=== PATIENT | male | born 1950 | race Caucasian/White ===

== ENCOUNTER → 2016-12-24 | Outpatient (CLI) | payer MEDICARE ==
[2016-04-21 12:00] VITALS: BP 132/68
[~2016-12-24] MED LIST: ASPI-630 PO; ATOR20TA PO; BACL10TA PO; BUPR300T4 PO; CALC250T PO; CELE200C PO; DOCU250C54 PO; DOXY100T PO; ERGO500027 PO; GABA-587 PO; HYDR-2758 PO; HYDR-2766 PO; HYDR-963 PO; INSU100C4 SQ; INSU100V8 SQ; LISI30TA4 PO; METH10TA2 PO; METO50TA2 PO; NORT50CA PO; OMEP20TA63 PO; OXYB10TA7 PO; PARO40TA3 PO; PIOG15TA2 PO; SENN-37 PO; TAMS0.4C97 PO; TETR12.5 PO
--- NOTE | 2016-12-24 10:54 | KCIC ---
Complete abdominal ultrasound History:Gallbladder disease. Findings: Aorta: Obscured proximally. Visualized aorta is nonaneurysmal. Inferior vena cava: Patent Pancreas: Poor visualization. Liver: Slightly coarse echogenicity could indicate fatty infiltration. Upper limits normal in size at 18.1 cm longitudinal. Gallbladder: No evidence of cholelithiasis, gallbladder wall thickening or pericholecystic fluid. Bile ducts: Common bile duct measures 7 mm diameter. Right kidney: 13.7 cm longitudinal without hydronephrosis. Left kidney: 11.7 cm longitudinal. Renal cysts identified measuring 3.1 cm diameter. Spleen: Borderline enlarged at 12.9 cm. Impression: 1. No significant gallbladder pathology. Borderline common bile duct dilatation at 7 mm. 2. Left renal cyst. Electronically signed by: Vincent Hernandez MD (12/24/2016 10:51 AM) [facility]
== END | disposition home or self-care (01) ==
LOC: KCIC US 09:31
PROVIDERS: ATTEND Family Medicine
DX: N28.1 Cyst of kidney, acquired (principal)
CPT/HCPCS: 76700

== ENCOUNTER → 2017-04-14 | Outpatient (CLI) | payer MEDICARE ==
[2016-04-21 12:00] VITALS: BP 132/68
[~2017-04-14] MED LIST changes: +FINA5TAB PO; +INSU100I13 SQ
[2017-04-14 14:21] LABS: BASO # 0.1 x10^3/uL (0.0-0.2); BASO % 1 % (0-3); EOS % 2 % (0-3); HEMATOCRIT 51.2 % (39.0-53.0); HEMOGLOBIN 17.2 g/dL (13.0-17.5); LYMPH # 1.8 x10^3/uL (1.0-4.8); LYMPH % 25 % (24-48); MEAN CORPUSCULAR HEMOGLOBIN 31 pg (25-35); MEAN CORPUSCULAR HGB CONC 34 g/dL (31-37); MEAN CORPUSCULAR VOLUME 93 fL (79-100); MONO % 7 % (0-9); NEUT % 66 % (31-73); PLATELET COUNT 161 x10^3/uL (140-400); RED BLOOD COUNT 5.49 x10^6/uL (4.30-5.70); RED CELL DISTRIBUTION WIDTH 13.6 % (11.5-14.5); WHITE BLOOD COUNT 7.4 x10^3/uL (4.0-11.0)
[2017-04-14 14:33] LABS: INR 1.2 (0.8-1.1); PROTHROMBIN TIME PATIENT 14.5 SEC (11.7-14.0)
[2017-04-14 14:48] LABS: ALBUMIN 3.7 g/dL (3.4-5.0); CALCIUM 9.1 mg/dL (8.5-10.1); GFR 74.8; POTASSIUM 4.2 mmol/L (3.5-5.1); TOTAL BILIRUBIN 0.8 mg/dL (0.2-1.0); TOTAL PROTEIN 7.5 g/dL (6.4-8.2)
== END | disposition home or self-care (01) ==
LOC: SURGPAT 13:24
PROVIDERS: ATTEND Neurological Surgery
DX: Z01.818 Encounter for other preprocedural examination (principal); M43.6 Torticollis
CPT/HCPCS: 36415; 80053; 83036; 85025; 85610; 85730; 87641

== ENCOUNTER 2017-04-27 06:48 | Day surgery (SDC) | payer MEDICARE, BC ==
[~2017-04-27] VITALS: Ht 185.4 cm; Wt 118.8 kg
[~2017-04-27 06:48] MED LIST changes: +BACITRACIN 50,000 UNIT in IV NORMAL SALINE 1000ML BAG 1,000 ML IRR ONE; +IV RINGERS,LACTATED 1000ML 1,000 ML IV SCH; +LIDOCAINE 1% PF 2 ML VIAL. ID PRN; -METO50TA2 PO; +METO50TA6 PO; +ONDANSETRON PF 4 MG/2 ML VIAL. IV PRN; +PROCHLORPERAZINE 10 MG/2 ML VIAL. IV PRN; +fentaNYL PF VIAL 100 MCG/2 ML VIAL IV PRN
[2017-04-27] MEDS ORDERED: BACITRACIN TOPICAL OINT 14GM TUBE. TP ONE (06:59)
[2017-04-27] MEDS ORDERED: LIDOCAINE 1%/EPI 1:100,000 20 ML VIAL. ONE (06:59)
[2017-04-27] MEDS ORDERED: ONDANSETRON PF 4 MG/2 ML VIAL. IV PRN (07:00)
[2017-04-27] MEDS ORDERED: LIDOCAINE 1% PF 2 ML VIAL. ID PRN (07:00)
[2017-04-27] MEDS ORDERED: IV RINGERS,LACTATED 1000ML 1,000 ML IV SCH (07:00)
[2017-04-27] MEDS ORDERED: fentaNYL PF VIAL 100 MCG/2 ML VIAL IV PRN ×2 (07:00)
[2017-04-27] MEDS ORDERED: PROCHLORPERAZINE 10 MG/2 ML VIAL. IV PRN (07:00)
[2017-04-27] MEDS ORDERED: ceFAZolin 2GM PREMIX 2 GM/50 ML BAG IV ONE (08:00)
[2017-04-27] MEDS ORDERED: PROPOFOL 20 ML IV ONE (08:21)
[2017-04-27] MEDS ORDERED: fentaNYL PF VIAL 100 MCG/2 ML VIAL ONE (08:21)
[2017-04-27] MEDS ORDERED: LIDOCAINE 2% PF Vial for OR 5 ML VIAL. ONE (08:21)
[2017-04-27] MEDS ORDERED: ONDANSETRON PF 4 MG/2 ML VIAL. ONE (08:42)
[2017-04-27] MEDS ORDERED: DEXAMETHASONE SOD PHOS 20 MG/5 ML VIAL. ONE (08:42)
[2017-04-27] MEDS ORDERED: GLYCOPYRROLATE 1 MG/5 ML VIAL. ONE (08:57)
[2017-04-27] MEDS ORDERED: LIDOCAINE 1%/EPI 1:100,000 20 ML VIAL. INJ ONE (09:10)
[2017-04-27] MEDS ORDERED: PHENYLEPHRINE in 0.9% NACL PF 1 MG/10 ML DISP.SYRIN. IV ONE (09:19)
[2017-04-27] MEDS ORDERED: SEVOFLURANE 61 TO 120 MINUTES. IH ONE (09:49)
--- NOTE | 2017-04-27 10:07 | PDOC ---
BRIEF OPERATIVE NOTE Date: Apr 27, 2017 Pre-Op Diagnosis torticollis with bilateral DBS system with depleted dual channel intermittent pulse generator due to normal usage Post-Op Diagnosis same Procedure Performed removal and replacement of dual channel intermittent pulse generator right chest with impedance check and reprogramming Surgeon Kishan Mail Reader none Anesthesia Type: General Blood Loss 10mL Findings upon completion of replacement and connections of new intermittent pulse generator, impedances were baseline and within normal limits Complications none apparent SHASHI RAZO MD Apr 27, 2017 10:07
--- NOTE | 2017-04-27 10:12 | DISCH ---
DISCHARGE INSTRUCTIONS Condition on Discharge Condition on Discharge: Stable Activity After Discharge Activity Instructions for Disc: Avoid exertion Lifting Instructions after Dis: No pulling or pushing Wound Incision Care Wound/Incision Care: Ice to area for comfort, Other, see below (may remove dressing day 3 after surgery; keep incision clean and dry; do not soak, scrub, or submerge incision) Contacting the after DC Call your doctor for: Concerns you may have Follow-Up Follow up with: Dr. Razo in two weeks [phone] SHASHI RAZO MD Apr 27, 2017 10:12
[2017-04-27] MEDS ORDERED: OXYC-323 PO (10:27)
[2017-04-27] MEDS ORDERED: oxyCODONE/APAP 5/325 1 TAB TABLET PO PRN (10:30)
[2017-04-27 11:02] VITALS: BP 139/81
--- NOTE | 2017-05-02 12:21 | OP ---
DATE OF SURGERY: 04/27/2017 SURGEON: Hang Razo MD. AUTOMATION CONTROL TECHNICIAN: None. PREOPERATIVE DIAGNOSES: Torticollis with presence of a bilateral deep brain stimulation system with a depleted dual-channel deep brain stimulator intermittent pulse generator secondary to normal usage. POSTOPERATIVE DIAGNOSES: Torticollis with presence of a bilateral deep brain stimulation system with a depleted dual-channel deep brain stimulator intermittent pulse generator secondary to normal usage. PROCEDURE: Removal and replacement of dual-channel deep brain stimulation intermittent pulse generator from the right chest. Interrogation of device with impedance check and reprogramming of the new intermittent pulse generator. ANESTHESIA: General. COMPLICATIONS: None intraprocedurally. INDICATIONS FOR THE PROCEDURE: The patient is a 66-year-old male with torticollis who has a bilateral globus pallidus internus deep brain stimulation system with a dual-channel intermittent pulse generator in the right chest who has developed depletion of the intermittent pulse generator secondary to normal usage. He derives significant benefit from this deep brain stimulation system. Please refer to the patient chart for additional detail. DESCRIPTION OF PROCEDURE: After informed consent was obtained, the patient was brought into the operating room. He was placed under general anesthesia. He was placed in the supine position. All pressure points were checked and padded appropriately. Prior to sterile preparation, the old intermittent pulse generator was interrogated with evaluation of baseline impedances and the system was turned off after generalize anesthesia was instituted. Next, the region of the prior right chest incision was prepped and draped in the usual sterile fashion. The previous incision was gently reopened with a 15 blade scalpel. Blunt dissection techniques were utilized to gently dissect the underlying soft tissues to the capsule containing the intermittent pulse generator. Of note, no monopolar electrocautery was utilized according to present guidelines. The prior intermittent pulse generator was dissected free and carefully removed from the right chest capsule. A standard [employer] DBS torque screw charter and tour bus driver was utilized to disconnect the old intermittent pulse generator according to the project buyer specification. The new intermittent pulse generator was brought on the field and this was attached to the dual-channel lead extensions and secured with the standard DBS torque charter and tour bus driver according to the project buyer specification. It was reinserted into the prior capsule in the same orientation as prior and interrogated in sterile fashion. Impedances were checked and noted to be baseline and within normal limits. Once this was complete, the wound was gently irrigated with antibiotic irrigation. The capsule was reapproximated with Vicryl suture in simple interrupted fashion. Subcutaneous tissue was reapproximated with Vicryl suture in interrupted inverted fashion. Skin was reapproximated with 4-0 Vicryl suture in running subcuticular fashion. Mastisol and Steri-Strips were applied, and the wound was dressed with Telfa and Tegaderm. Upon completion of the procedure, interrogation was again performed and the new intermittent pulse generator was reprogrammed to the prior specifications. Again, the impedances were verified to be at baseline and within normal limits. The system was turned on prior to the patient waking up from anesthesia. At the end of procedure, all counts were correct x 2. The patient was extubated in the operating room and taken to recovery in stable condition. There were no intraprocedural complications apparent. HANG RAZO MD DR: LEE/jake JOB#: [id number] / [id number] NATALIE
== END 2017-04-27 11:35 | disposition home or self-care (01) ==
LOC: SURG 06:48
PROVIDERS: ATTEND Neurological Surgery
DX: M43.6 Torticollis (principal); T85.698A Other mechanical complication of other specified internal prosthetic devices, implants and grafts, initial encounter; Y84.9 Medical procedure, unspecified as the cause of abnormal reaction of the patient, or of later complication, without mention of misadventure at the time of the procedure; Y92.89 Other specified places as the place of occurrence of the external cause; E78.00 Pure hypercholesterolemia, unspecified; E66.9 Obesity, unspecified; F41.9 Anxiety disorder, unspecified; F32.9 Major depressive disorder, single episode, unspecified; Z98.41 Cataract extraction status, right eye; Z98.42 Cataract extraction status, left eye; Z98.890 Other specified postprocedural states; Z86.39 Personal history of other endocrine, nutritional and metabolic disease; Z87.39 Personal history of other diseases of the musculoskeletal system and connective tissue; Z86.14 Personal history of Methicillin resistant Staphylococcus aureus infection; Z72.0 Tobacco use
CPT/HCPCS: 61886; 82962; C1767; J0690; J1100; J2370; J2405; J2704; J3010; J3490; J7030; A4461; J2001

== ENCOUNTER 2018-08-12 12:30 | Emergency (ER) | payer MEDICARE, BC ==
[~2018-08-12] VITALS: Ht 175.3 cm; Wt 118.8 kg
[~2018-08-12 12:30] MED LIST changes: -BACITRACIN 50,000 UNIT in IV NORMAL SALINE 1000ML BAG 1,000 ML IRR ONE; -GABA-587 PO; +GABA-689 PO; -HYDR-2758 PO; +HYDR-2761 PO; -HYDR-2766 PO; +HYDR-2769 PO; +HYDR-3135 PO; -HYDR-963 PO; -IV RINGERS,LACTATED 1000ML 1,000 ML IV SCH; -LIDOCAINE 1% PF 2 ML VIAL. ID PRN; -ONDANSETRON PF 4 MG/2 ML VIAL. IV PRN; +OXYC1TAB15 PO; -PIOG15TA2 PO; +PIOG15TA63 PO; -PROCHLORPERAZINE 10 MG/2 ML VIAL. IV PRN; -fentaNYL PF VIAL 100 MCG/2 ML VIAL IV PRN
--- NOTE | 2018-08-12 12:52 | PHYS DOC ---
Past Medical History Past Medical History: Diabetes-Type II, Hypertension, MRSA Additional Past Medical Histor: MRSA, cervical dystonia Past Surgical History: Appendectomy, Knee Replacement, Tonsillectomy, Other Additional Past Surgical Histo: DEEP BRAIN STIMULATOR Alcohol Use: Sober Drug Use: None Adult General Chief Complaint Chief Complaint: MECHANICAL FALL HPI HPI Patient is a 67 year old male who presents with coming from senior living. 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 When he leaned his body fell off bed and he ended up falling on top of head. Patient is on blood thinners. Patient does have a egg-sized bump that is reddened to the frontal region of his scalp. Patient denies LOC, nausea, vomiting, dizziness, visual changes, cervical spine pain, pain anywhere else in his body. Review of Systems Review of Systems Constitutional: Denies fever or chills [] Eyes: Denies change in visual acuity, redness, or eye pain [] HENT: Denies nasal congestion or sore throat [] Respiratory: Denies cough or shortness of breath [] Cardiovascular: No additional information not addressed in HPI [] GI: Denies abdominal pain, nausea, vomiting, bloody stools or diarrhea [] : Denies dysuria or hematuria [] Musculoskeletal: Bump to frontal scalp, Denies back pain or joint pain [] Integument: Denies rash or skin lesions [] Neurologic headache,denies focal weakness or sensory changes [] All other systems were reviewed and found to be within normal limits, except as documented in this note. Allergies Allergies Allergies Coded Allergies Type Severity Reaction Last Updated Verified buprenorphine HCl Allergy Intermediate 04/27/17 Yes naloxone HCl Allergy Intermediate 04/27/17 Yes Physical Exam Physical Exam Constitutional: Well developed, well nourished, no acute distress, non-toxic appearance. [] HENT: Normocephalic, atraumatic, bilateral external ears normal, oropharynx moist, no oral exudates, nose normal. [] Eyes: PERRLA, EOMI, conjunctiva normal, no discharge. [] Neck: Normal range of motion, no tenderness, supple, no stridor. [] Cardiovascular:Heart rate regular rhythm, no murmur [] Lungs & Thorax: Bilateral breath sounds clear to auscultation [] Abdomen: Bowel sounds normal, soft, no tenderness, no masses, no pulsatile masses. [] Skin:Tender Egg sized bump to frontal scalp. Warm, dry, no erythema, no rash. [ ] Back: No tenderness, no CVA tenderness. [] Extremities: No tenderness, no cyanosis, no clubbing, ROM intact, no edema. [] Neurologic: Alert and oriented X 3, normal motor function, normal sensory function, no focal deficits noted. [] Psychologic: Affect normal, judgement normal, mood normal. [] Current Patient Data Vital Signs Vital Signs Date Time Temp Pulse Resp B/P (MAP) Pulse Ox O2 Delivery O2 Flow Rate FiO2 08/12/18 12:30 98.0 58 19 124/68 (86) 96 Room Air 98.0 EKG EKG [] Radiology/Procedures Radiology/Procedures [] Impressions: [facility] [address] [place] [address] IMAGING REPORT Signed PATIENT: MARGARETH HENRY ACCOUNT: [id number] : 1950 LOCATION: ER AGE: 67 SEX: M EXAM STATUS: REG ER ORD. PHYSICIAN: JENNIFER HARRELL APRN REASON: fall, bruise to top of head PROCEDURE: CT HEAD AND CERVICAL SPINE WO CT HEAD AND CERVICAL SPINE WO Indication: head and neck pain after fall Exposure: One or more of the following individualized dose reduction techniques were utilized for this examination: 1. Automated exposure control 2. Adjustment of the mA and/or kV according to patient size 3. Use of iterative reconstruction technique. Technique: Standard imaging without intravenous contrast. CT head Comparison with images from 07/22/2014, the report is not available. There is metal artifact degradation of the brain, similar to Margareth Blair years Dr. Hernadnez what was seen on prior study. There are metallic intracranial devices. No evidence of acute intracranial hemorrhage, mass effect, midline shift or abnormal extra-axial fluid collection. Generalized atrophy. Low-density in the white matter bilaterally, a nonspecific finding, but which is commonly due to chronic small vessel ischemic disease in a patient of this age. Opacity within the right maxillary sinus was also seen previously likely mucous retention cyst or polyp. No evidence of a depressed skull fracture although a point of impact is not known. IMPRESSION: 1. Image degradation due to implanted intracranial devices. 2. Chronic findings appear similar as previous exam. 3. No definite acute intracranial hemorrhage. CT cervical spine No prior study available for comparison. Partially visualized sphenoid sinus demonstrates moderate to severe mucosal thickening on the left. Mild left maxillary sinus mucosal thickening. Small defect at the posterior ring of C1 likely developmental. Cervico-occipital junction appears intact. C1-C2 appears symmetric. No definite acute fracture is identified. Detection could be limited by osteopenia and degenerative changes, however, as well as image degradation of the lower cervical spine due to overlying body tissue. Multilevel degenerative spondylosis with cervical spinal and neural foraminal stenosis. Degenerative changes at the facet joints without gross subluxation. Straightening of the cervical lordosis could be due to pain or muscle spasm. Prevertebral soft tissues demonstrate no significant swelling or hematoma. There is a spiculated mass in the right upper lobe, measures about 11 mm. Concerning for malignant etiology. There is deformity of the left outer clavicle with severe degenerative changes at the partially visualized AC joint. IMPRESSION: 1. Severe degenerative spondylosis. 2. No definite acute fracture. 3. Spiculated mass in the upper lobe of the right lung, measures 11 mm. Concerning for malignant etiology. Consider PET/CT scan for further evaluation, if this is an unknown new finding. 4. Paranasal sinus disease. 5. Severe deformity oral trauma of the outer left clavicle and AC joint. FOR INTERNAL CODING PURPOSES Critical result: Findings discussed with Jennifer Harrell in the emergency room at 08/12/2018 1:53 PM. RESULT CODE: (C) Electronically signed by: Vincent Hernandez MD (08/12/2018 1:55 PM) [facility] DICTATED and SIGNED BY: VINCENT HERNANDEZ MD DATE: 08/12/18 5577 Course & Med Decision Making Course & Med Decision Making Patient is a 67 year old male who presents with coming from senior living. 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 When he leaned his body fell off bed and he ended up falling on top of head. Patient is on blood thinners. Patient does have a egg-sized bump that is reddened to the frontal region of his scalp. Patient denies LOC, nausea, vomiting, dizziness, visual changes, cervical spine pain, pain anywhere else in his body. Alert and oriented. Speaks in full clear sentences. Answers my questions appropriately. Patient has no ocular pain with movement. states he is acting normal for himself. Patient has full range of motion of his neck. Patient has no cervical spine, thoracic spine or lumbar spine pain with palpation. Patient has tenderness to the frontal region of his scalp where the egg-sized bump is located. There is no lacerations or abrasions seen on patient's body else where. Ct head shows 1. Image degradation due to implanted intracranial devices. 2. Chronic findings appear similar as previous exam. 3. No definite acute intracranial hemorrhage. CT cervical spine shows 1. Severe degenerative spondylosis. 2. No definite acute fracture. 3. Spiculated mass in the upper lobe of the right lung, measures 11 mm. Concerning for malignant etiology. Consider PET/CT scan for further evaluation, if this is an unknown new finding. 4. Paranasal sinus disease. 5. Severe deformity oral trauma of the outer left clavicle and AC joint. Patient needs to follow up with primary care provider for further evaluation of lung mass. Patient is discharged home with a scalp contusion and strict instructions to return if patient begin vomiting, becomes altered mental status , visual changes, dizziness or syncope. Dragon Disclaimer Dragon Disclaimer This electronic medical record was generated, in whole or in part, using a voice recognition dictation system. Departure Departure Impression: Primary Impression: Head injury Additional Impression: Scalp contusion Disposition: 01 HOME, SELF-CARE Condition: STABLE Referrals: VINCENT ATKINSON MD (PCP) Patient Instructions: Facial or Scalp Contusion, Head Injury, Adult Additional Instructions: Patient needs to follow up with primary care provider for further evaluation of lung mass. Patient is discharged home with a scalp contusion and strict instructions to return if patient begin vomiting, becomes altered mental status , visual changes, dizziness or syncope. Use tylenol or ice for pain. Problem Qualifiers Primary Impression: Head injury Encounter type: initial encounter Qualified Codes: S09.90XA - Unspecified injury of head, initial encounter Additional Impression: Scalp contusion Encounter type: initial encounter Qualified Codes: S00.03XA - Contusion of scalp, initial encounter JENNIFER HARRELL APRN Aug 12, 2018 12:51
--- NOTE | 2018-08-12 13:58 | RAD ---
CT HEAD AND CERVICAL SPINE WO Indication: head and neck pain after fall Exposure: One or more of the following individualized dose reduction techniques were utilized for this examination: 1. Automated exposure control 2. Adjustment of the mA and/or kV according to patient size 3. Use of iterative reconstruction technique. Technique: Standard imaging without intravenous contrast. CT head Comparison with images from 07/22/2014, the report is not available. There is metal artifact degradation of the brain, similar to Dimitris Blair years Dr. Hernandez what was seen on prior study. There are metallic intracranial devices. No evidence of acute intracranial hemorrhage, mass effect, midline shift or abnormal extra-axial fluid collection. Generalized atrophy. Low-density in the white matter bilaterally, a nonspecific finding, but which is commonly due to chronic small vessel ischemic disease in a patient of this age. Opacity within the right maxillary sinus was also seen previously likely mucous retention cyst or polyp. No evidence of a depressed skull fracture although a point of impact is not known. IMPRESSION: 1. Image degradation due to implanted intracranial devices. 2. Chronic findings appear similar as previous exam. 3. No definite acute intracranial hemorrhage. CT cervical spine No prior study available for comparison. Partially visualized sphenoid sinus demonstrates moderate to severe mucosal thickening on the left. Mild left maxillary sinus mucosal thickening. Small defect at the posterior ring of C1 likely developmental. Cervico-occipital junction appears intact. C1-C2 appears symmetric. No definite acute fracture is identified. Detection could be limited by osteopenia and degenerative changes, however, as well as image degradation of the lower cervical spine due to overlying body tissue. Multilevel degenerative spondylosis with cervical spinal and neural foraminal stenosis. Degenerative changes at the facet joints without gross subluxation. Straightening of the cervical lordosis could be due to pain or muscle spasm. Prevertebral soft tissues demonstrate no significant swelling or hematoma. There is a spiculated mass in the right upper lobe, measures about 11 mm. Concerning for malignant etiology. There is deformity of the left outer clavicle with severe degenerative changes at the partially visualized AC joint. IMPRESSION: 1. Severe degenerative spondylosis. 2. No definite acute fracture. 3. Spiculated mass in the upper lobe of the right lung, measures 11 mm. Concerning for malignant etiology. Consider PET/CT scan for further evaluation, if this is an unknown new finding. 4. Paranasal sinus disease. 5. Severe deformity oral trauma of the outer left clavicle and AC joint. FOR INTERNAL CODING PURPOSES Critical result: Findings discussed with Jennifer Harrell in the emergency room at 08/12/2018 1:53 PM. RESULT CODE: (C) Electronically signed by: Vincent Hernandez MD (08/12/2018 1:55 PM) [facility]
[2018-08-12 15:00] VITALS: BP 131/80
== END 2018-08-12 15:20 | disposition home or self-care (01) ==
LOC: ER 12:30
DX: S00.03XA Contusion of scalp, initial encounter (principal); I10 Essential (primary) hypertension; E11.9 Type 2 diabetes mellitus without complications; Z86.14 Personal history of Methicillin resistant Staphylococcus aureus infection; Z88.8 Allergy status to other drugs, medicaments and biological substances; W06.XXXA Fall from bed, initial encounter; Y93.89 Activity, other specified; Y92.89 Other specified places as the place of occurrence of the external cause; Y99.8 Other external cause status
CPT/HCPCS: 70450; 72125; 99284-25

== ENCOUNTER 2019-01-15 13:49 | Inpatient (IN) | payer MEDICARE, BC, MEDICAID ==
[~2019-01-15] VITALS: Ht 185.4 cm; Wt 110.5 kg
--- NOTE | 2019-01-15 14:07 | PHYS DOC ---
Past Medical History Past Medical History: Depression, Diabetes-Type II, GERD, Heart Disease, Hypertension, MRSA, Stroke Additional Past Medical Histor: MRSA, cervical dystonia, L side defecit following stroke Past Surgical History: Appendectomy, Knee Replacement, Tonsillectomy, Other Additional Past Surgical Histo: DEEP BRAIN STIMULATOR Alcohol Use: Sober Drug Use: None Adult General Chief Complaint Chief Complaint: RAPID HEART RATE HPI HPI Patient is a 68 year old male with a history of hypertension, diabetes, CVA in 2018, CAD presents to ED complaining of chest pain and shortness of breath. [facility] States he had chest pain while he was sitting in his wheelchair. States they called EMS. Patient had a heart rate of 176 thought to be in SVT. at bedside reports that patient had that high of a heart rate for over 1 hour. Patient converted on his own and is currently at 76 bpm. No adenosine was given (drawn up but he converted). Complains of shortness of breath. Patient is currently being treated for pneumonia outpatient with IV Rocephin at the facility. Patient is on day 4 out of 5 on antibiotics. Denies nausea/vomiting, headache, syncope, abdominal pain, diarrhea, blood in stool, fever. Review of Systems Review of Systems Constitutional: Denies fever or chills [] Eyes: Denies change in visual acuity, redness, or eye pain [] HENT: Denies nasal congestion or sore throat [] Respiratory: Complains of shortness of breath and cough.[] Cardiovascular: No additional information not addressed in HPI [] GI: Denies abdominal pain, nausea, vomiting, bloody stools or diarrhea [] : Denies dysuria or hematuria [] Musculoskeletal: Denies back pain or joint pain [] Integument: Denies rash or skin lesions [] Neurologic: Denies headache, focal weakness or sensory changes [] All other systems were reviewed and found to be within normal limits, except as documented in this note. Current Medications Current Medications Current Medications Medications (Trade) Dose Ordered Sig/Zechariah Start Time Stop Time Status Last Admin Dose Admin Acetaminophen (Tylenol) 650 mg PRN Q4HRS PRN 01/15/19 16:15 01/16/19 16:14 Fentanyl Citrate (Fentanyl 2ml Vial) 50 mcg PRN Q1HR PRN 01/15/19 16:15 01/16/19 16:14 Ondansetron HCl (Zofran) 4 mg PRN Q8HRS PRN 01/15/19 16:15 01/16/19 16:14 Piperacillin Sod/ Tazobactam Sod 3.375 gm/Sodium Chloride 50 ml @ 100 mls/hr 1X ONCE 01/15/19 16:00 01/15/19 16:29 DC 01/15/19 16:23 100 MLS/HR Vancomycin HCl (Vanco Per Pharmacy) 1 each 1X STAT 01/15/19 15:55 01/15/19 16:03 DC Vancomycin HCl 2 gm/Sodium Chloride 500 ml @ 250 mls/hr 1X ONCE 01/15/19 16:15 01/15/19 18:14 Allergies Allergies Allergies Coded Allergies Type Severity Reaction Last Updated Verified buprenorphine HCl Allergy Intermediate 04/27/17 Yes naloxone HCl Allergy Intermediate 04/27/17 Yes Physical Exam Physical Exam Constitutional: no acute distress, non-toxic appearance. [] HENT: Normocephalic, atraumatic Eyes: PERRLA, EOMI, conjunctiva normal, no discharge. [] Neck: Normal range of motion, no tenderness, supple, no stridor. [] Cardiovascular:Heart rate regular rhythm, no murmur [] Lungs & Thorax: Bilateral breath sounds clear to auscultation [] Abdomen: Bowel sounds normal, soft, no tenderness, no masses, no pulsatile masses. [] Skin: Warm, dry, no erythema, no rash. [] Back: No tenderness, no CVA tenderness. [] Extremities: No tenderness, no cyanosis, no clubbing, ROM intact, no edema. [] Neurologic: Alert and oriented X 3 per his normal. Right sided hemiparesis at baseline. Psychologic: Affect normal, judgement normal, mood normal. [] Current Patient Data Vital Signs Vital Signs Date Time Temp Pulse Resp B/P (MAP) Pulse Ox O2 Delivery O2 Flow Rate FiO2 01/15/19 13:50 98.4 76 20 120/80 (93) 96 Room Air 98.4 Lab Values Laboratory Tests Test 01/15/19 13:55 White Blood Count 7.4 x10^3/uL (4.0-11.0) Red Blood Count 5.12 x10^6/uL (4.30-5.70) Hemoglobin 15.9 g/dL (13.0-17.5) Hematocrit 46.9 % (39.0-53.0) Mean Corpuscular Volume 92 fL (79-100) Mean Corpuscular Hemoglobin 31 pg (25-35) Mean Corpuscular Hemoglobin Concent 34 g/dL (31-37) Red Cell Distribution Width 14.4 % (11.5-14.5) Platelet Count 231 x10^3/uL (140-400) Neutrophils (%) (Auto) 65 % (31-73) Lymphocytes (%) (Auto) 22 % (24-48) L Monocytes (%) (Auto) 11 % (0-9) H Eosinophils (%) (Auto) 1 % (0-3) Basophils (%) (Auto) 1 % (0-3) Neutrophils # (Auto) 4.8 x10^3/uL (1.8-7.7) Lymphocytes # (Auto) 1.6 x10^3/uL (1.0-4.8) Monocytes # (Auto) 0.9 x10^3/uL (0.0-1.1) Eosinophils # (Auto) 0.1 x10^3/uL (0.0-0.7) Basophils # (Auto) 0.1 x10^3/uL (0.0-0.2) Prothrombin Time 15.8 SEC (11.7-14.0) H Prothrombin Time INR 1.3 (0.8-1.1) H Sodium Level 141 mmol/L (136-145) Potassium Level 4.1 mmol/L (3.5-5.1) Chloride Level 105 mmol/L (98-107) Carbon Dioxide Level 22 mmol/L (21-32) Anion Gap 14 (6-14) Blood Urea Nitrogen 18 mg/dL (8-26) Creatinine 1.3 mg/dL (0.7-1.3) Estimated GFR (Cockcroft-Gault) 54.9 BUN/Creatinine Ratio 14 (6-20) Glucose Level 362 mg/dL (70-99) H Calcium Level 9.1 mg/dL (8.5-10.1) Total Bilirubin 0.4 mg/dL (0.2-1.0) Aspartate Amino Transferase (AST) 10 U/L (15-37) L Alanine Aminotransferase (ALT) 16 U/L (16-63) Alkaline Phosphatase 97 U/L (46-116) Creatine Kinase 47 U/L (39-308) Troponin I Quantitative < 0.017 ng/mL (0.000-0.055) QX-Edk-C-Type Natriuretic Peptide 635 pg/mL (0-124) H Total Protein 7.4 g/dL (6.4-8.2) Albumin 3.2 g/dL (3.4-5.0) L Albumin/Globulin Ratio 0.8 (1.0-1.7) L Thyroid Stimulating Hormone (TSH) 2.871 uIU/mL (0.358-3.74) Laboratory Tests 01/15/19 13:55 Laboratory Tests 01/15/19 13:55 EKG EKG Sinus rhythm at 75 BPM. No STEMI. [] Radiology/Procedures Radiology/Procedures []PROCEDURE: PORTABLE CHEST 1V EXAM: CHEST 1 VIEW History: Chest pain COMPARISON: 04/21/2016 TECHNIQUE: Single portable radiograph of the chest FINDINGS: Low lung volumes and technique accentuates heart size and pulmonary vascularity. Mild cardiomegaly. There is moderate elevation of the right hemidiaphragm with volume loss in the right lung base. Mild bibasilar lung airspace opacities. Stimulator leads project over the right hemithorax. Old left clavicle fracture again identified. IMPRESSION: 1. Moderate elevation of the right hemidiaphragm with volume loss right lung base. PROCEDURE: CT CHEST WO CONTRAST Examination: CT chest without contrast HISTORY: History of pneumonia, cough COMPARISON: None available. TECHNIQUE: Axial CT images of chest were performed without contrast. Coronal and sagittal reformats are performed Exposure: One or more of the following individualized dose reduction techniques were utilized for this examination: 1. Automated exposure control 2. Adjustment of the mA and/or kV according to patient size 3. Use of iterative reconstruction technique FINDINGS: Moderate cardiomegaly. Coronary artery calcifications. The caliber of the aorta grossly appears unremarkable. Moderate elevation of the right hemidiaphragm. Volume loss identified in the right lung base. There is moderate consolidation identified in the right lung base with air bronchograms. There is peripheral pleural calcification identified in the right lung base The visualized noncontrasted liver, spleen, adrenals grossly appears unremarkable. Moderate degenerative changes thoracic spine. Old left clavicle fracture. IMPRESSION: 1. Volume loss identified in the right lung base with moderate consolidation and air bronchograms in the right lower lobe of the lung. Differential includes pneumonia or postobstructive atelectasis. Recommend bronchoscopic evaluation to exclude bronchial pathology/neoplasm. 2. Coronary artery calcifications. Course & Med Decision Making Course & Med Decision Making Pertinent Labs and Imaging studies reviewed. (See chart for details) []Reviewed lab and imaging findings with family at bedside. Patient is on day 4 out of 5 on antibiotics and is still having pneumonia symptoms. Patient's heart rate has maintained around 70-80 beats per minute. No SVT. We'll treat with Zosyn and vancomycin in the ED. O2 saturation is 96% on RA. Patient resting comfortably at bedside. Discussed case with hospitalist, Dr. Rubalcava. Agrees to admission and further management patient. Patient stable for admission. Dragon Disclaimer Dragon Disclaimer This electronic medical record was generated, in whole or in part, using a voice recognition dictation system. Departure Departure Impression: Primary Impression: Pneumonia Additional Impression: Arrhythmia Disposition: 09 ADMITTED INPATIENT Admitting Physician: HIMDain Condition: STABLE Referrals: JAISON COLLINS MD (PCP) Problem Qualifiers NEHAL BUTLER Jan 15, 2019 14:07
[2019-01-15 14:14] LABS: BASO # 0.1 x10^3/uL (0.0-0.2); BASO % 1 % (0-3); EOS # 0.1 x10^3/uL (0.0-0.7); EOS % 1 % (0-3); HEMATOCRIT 46.9 % (39.0-53.0); HEMOGLOBIN 15.9 g/dL (13.0-17.5); LYMPH # 1.6 x10^3/uL (1.0-4.8); LYMPH % 22 % (24-48); MEAN CORPUSCULAR HEMOGLOBIN 31 pg (25-35); MEAN CORPUSCULAR HGB CONC 34 g/dL (31-37); MEAN CORPUSCULAR VOLUME 92 fL (79-100); MONO # 0.9 x10^3/uL (0.0-1.1); MONO % 11 % (0-9); NEUT # 4.8 x10^3/uL (1.8-7.7); NEUT % 65 % (31-73); PLATELET COUNT 231 x10^3/uL (140-400); RED BLOOD COUNT 5.12 x10^6/uL (4.30-5.70); RED CELL DISTRIBUTION WIDTH 14.4 % (11.5-14.5); WHITE BLOOD COUNT 7.4 x10^3/uL (4.0-11.0)
[2019-01-15 14:23] LABS: CALCIUM 9.1 mg/dL (8.5-10.1); CREATININE 1.3 mg/dL (0.7-1.3); GFR 54.9; POTASSIUM 4.1 mmol/L (3.5-5.1)
[2019-01-15 14:25] LABS: PROTHROMBIN TIME PATIENT 15.8 SEC (11.7-14.0)
[2019-01-15 14:29] LABS: ALBUMIN 3.2 g/dL (3.4-5.0); ALBUMIN/GLOBULIN RATIO 0.8 (1.0-1.7); TOTAL BILIRUBIN 0.4 mg/dL (0.2-1.0); TOTAL PROTEIN 7.4 g/dL (6.4-8.2)
--- NOTE | 2019-01-15 14:35 | RAD ---
EXAM: CHEST 1 VIEW History: Chest pain COMPARISON: 04/21/2016 TECHNIQUE: Single portable radiograph of the chest FINDINGS: Low lung volumes and technique accentuates heart size and pulmonary vascularity. Mild cardiomegaly. There is moderate elevation of the right hemidiaphragm with volume loss in the right lung base. Mild bibasilar lung airspace opacities. Stimulator leads project over the right hemithorax. Old left clavicle fracture again identified. IMPRESSION: 1. Moderate elevation of the right hemidiaphragm with volume loss right lung base. Electronically signed by: Chung Fraga MD (01/15/2019 2:32 PM) [id number]
--- NOTE | 2019-01-15 15:21 | RAD ---
Examination: CT chest without contrast HISTORY: History of pneumonia, cough COMPARISON: None available. TECHNIQUE: Axial CT images of chest were performed without contrast. Coronal and sagittal reformats are performed Exposure: One or more of the following individualized dose reduction techniques were utilized for this examination: 1. Automated exposure control 2. Adjustment of the mA and/or kV according to patient size 3. Use of iterative reconstruction technique FINDINGS: Moderate cardiomegaly. Coronary artery calcifications. The caliber of the aorta grossly appears unremarkable. Moderate elevation of the right hemidiaphragm. Volume loss identified in the right lung base. There is moderate consolidation identified in the right lung base with air bronchograms. There is peripheral pleural calcification identified in the right lung base The visualized noncontrasted liver, spleen, adrenals grossly appears unremarkable. Moderate degenerative changes thoracic spine. Old left clavicle fracture. IMPRESSION: 1. Volume loss identified in the right lung base with moderate consolidation and air bronchograms in the right lower lobe of the lung. Differential includes pneumonia or postobstructive atelectasis. Recommend bronchoscopic evaluation to exclude bronchial pathology/neoplasm. 2. Coronary artery calcifications. Electronically signed by: Chung Fraga MD (01/15/2019 3:18 PM) [id number]
--- NOTE | 2019-01-15 15:34 | EKG ---
[facility] [address] [place] [address] Test Date: 2019-01-15 Test Time: 13:55:26 Pat Name: MARGARETH HENRY Department: Room: Gender: M Induction Brazer: : 1950 Requested By: NEHAL BUTLER Order Number: [id number] Reading MD: Sebastian Snider MD Measurements Intervals [place] Rate: 75 P: -22 MO: 150 QRS: -53 QRSD: 130 T: 83 QT: 416 QTc: 467 Interpretive Statements SINUS RHYTHM ABNORMAL LEFT AXIS DEVIATION LEFT ANTERIOR FASCICULAR BLOCK Electronically Signed On 01-24-2019 22:29:01 CDT by Sebastian Snider MD
[2019-01-15] MEDS ORDERED: VANCOMYCIN PER PHARMACY MC STA (15:55)
[2019-01-15] MEDS ORDERED: PIPERACILLIN/TAZOBACTAM 3.375 GM in IV NORMAL SALINE 50ML 50 ML IV ONE (16:00)
[2019-01-15] MEDS ORDERED: fentaNYL PF VIAL 100 MCG/2 ML VIAL IV PRN (16:15)
[2019-01-15] MEDS ORDERED: VANCOMYCIN 2 GM in IV NORMAL SALINE 500ML BAG 500 ML IV ONE (16:15)
[2019-01-15] MEDS ORDERED: ONDANSETRON PF 4 MG/2 ML VIAL. IV PRN (16:15)
[2019-01-15] MEDS ORDERED: ACETAMINOPHEN 325 MG TABLET. PO PRN (16:15)
--- NOTE | 2019-01-15 19:11 | PDOC1 ---
History and Physical Date of Admission Date of Admission DATE: 01/15/19 TIME: 19:06 Source Source: Caregiver, Chart review, Patient History of Present Illness History of Present Illness Mr. Montero, is a 68 year old male that had chest pain and marked weakness today. HR was in 140's , then EMS called, HR was 180, adenosine was to be given, and he converted to sinsu. 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 he started his runny nose last week, then had cough, and diagnosed with pneumonia days later. Patient is on day 4 out of 5 on antibiotics. Past Medical History Cardiovascular: HTN Pulmonary: Pneumonia CENTRAL NERVOUS SYSTEM: CVA Renal/: Chronic renal insuff Family History Family History: No Significant Social History Smoke: No ALCOHOL: none Drugs: None Current Problem List Problem List Problems Medical Problems: (1) Arrhythmia Status: Acute (2) Pneumonia Status: Acute Current Medications Current Medications Current Medications Piperacillin Sod/ Tazobactam Sod 3.375 gm/Sodium Chloride 50 ml @ 100 mls/hr 1X ONCE IV Last administered on 01/15/19at 16:23; Start 01/15/19 at 16:00; Stop 01/15/19 at 16:29; Status DC Vancomycin HCl (Vanco Per Pharmacy) 1 each 1X STAT [facility] ; Start 01/15/19 at 15:55; Stop 01/15/19 at 16:03; Status DC Vancomycin HCl 2 gm/Sodium Chloride 500 ml @ 250 mls/hr 1X ONCE IV Last admin istered on 01/15/19at 18:32; Start 01/15/19 at 16:15; Stop 01/15/19 at 18:14; Status DC Ondansetron HCl (Zofran) 4 mg PRN Q8HRS PRN IV NAUSEA/VOMITING; Start 01/15/19 at 16:15; Stop 01/16/19 at 16:14 Fentanyl Citrate (Fentanyl 2ml Vial) 50 mcg PRN Q1HR PRN IV PAIN; Start 01/15/19 at 16:15; Stop 01/16/19 at 16:14 Acetaminophen (Tylenol) 650 mg PRN Q4HRS PRN PO FEVER; Start 01/15/19 at 16:15; Stop 01/16/19 at 16:14 Active Scripts Active Reported Percocet 5-325 Mg Tablet (Oxycodone/Acetaminophen) 1 Each Tablet 1 Tab PO Q4HRS Proscar (Finasteride) 5 Mg Tablet 5 Mg PO DAILY Lantus Solostar (Insulin Glargine,Hum.rec.anlog) 100 Unit/1 Ml Insuln.pen 25 Unit SQ HS Calcium Citrate 250 Mg Tablet 600 Mg PO DAILY Celebrex (Celecoxib) 200 Mg Capsule 200 Mg PO HS 30 Days Aspirin 81 Mg Tab.chew 81 Mg PO DAILY Prilosec Otc (Omeprazole Magnesium) 20 Mg Tablet.dr 20 Mg PO DAILY Nortriptyline Hcl 50 Mg Capsule 50 Mg PO DAILY Flomax (Tamsulosin Hcl) 0.4 Mg Cap.er.24h 0.4 Mg PO DAILY Bupropion Xl (Bupropion Hcl) 300 Mg Tab.er.24h 300 Mg PO DAILY Xenazine (Tetrabenazine) 12.5 Mg Tablet 12.5 Mg PO TID Novolog (Insulin Aspart) 100 Unit/1 Ml Cartridge 12-26 Unit SQ TIDAC Vitamin D2 (Ergocalciferol (Vitamin D2)) 50,000 Unit Capsule 50,000 Unit PO SKY DAVIS Paroxetine Hcl 40 Mg Tablet 40 Mg PO DAILY Metoprolol Tartrate 50 Mg Tablet 12.5 Mg PO BID Lipitor (Atorvastatin Calcium) 20 Mg Tablet 20 Mg PO DAILY Allergies Allergies: Coded Allergies: buprenorphine HCl (Verified Allergy, Intermediate, 04/27/17) naloxone HCl (Verified Allergy, Intermediate, 04/27/17) ROS General: YES: Chills, Fatigue, Malaise PSYCHOLOGICAL ROS: No: Anxiety, Behavioral Disorder, Concentration difficultie, Decreased libido, Depression, Disorientation, Hallucinations, Hostility, Irritablity, Memory difficulties, Mood Swings, Obsessive thoughts, Physical abuse, Sexual abuse, Sleep disturbances, Suicidal ideation, Other Eyes: No Blurry vision, No Decreased vision, No Double vision, No Dry eyes, No Excessive tearing, No Eye Pain, No Itchy Eyes, No Loss of vision, No Photophobia, No Scotomata, No Uses contacts, No Uses glasses, No Other HEENT: No: Heacaches, Visual Changes, Hearing change, Nasal congestion, Nasal discharge, Oral lesions, Sinus pain, Sore Throat, Epistaxis, Sneezing, Snoring, Tinnitus, Vertigo, Vocal changes, Other Respiratory: YES: Cough, SOB with excertion, Tachypnea; No: Hemoptysis, Orthopnea, Pleuritic Pain, Shortness of breath, Sputum Changes, Stridor, Wheezing, Other Cardiovascular: No Chest Pain, No Palpitations, No Orthopnea, No Paroxysmal Noc. Dyspnea, No Edema, No Lt Headedness, No Other Gastrointestinal: No Nausea, No Vomiting, No Abdominal Pain, No Diarrhea, No Constipation, No Melena, No Hematochezia, No Other Genitourinary: No Dysuria, No Frequency, No Incontinence, No Hematuria, No Retention, No Discharge, No Urgency, No Pain, No Flank Pain, No Other, No , No , No , No , No , No , No Musculoskeletal: No Gait Disturbance, No Joint Pain, No Joint Stiffness, No Joint Swelling, No Muscle Pain, No Muscular Weakness, No Pain In:, No Swelling In:, No Other Neurological: No Behavorial Changes, No Bowel/Bladder ControlChng, No Confusion, No Dizziness, No Gait Disturbance, No Headaches, No Impaired Coord/balance, No Memory Loss, No Numbness/Tingling, No Seizures, No Speech Problems, No Tremors, No Visual Changes, No Weakness, No Other Skin: No Dry Skin, No Eczema, No Hair Changes, No Lumps, No Mole Changes, No Mottling, No Nail Changes, No Pruritus, No Rash, No Skin Lesion Changes, No Other, No Acne Physical Exam General: Alert, Cooperative, No acute distress, Other (can answer 1-2 words usually) HEENT: Atraumatic, PERRLA, Mucous membr. moist/pink Lungs: Clear to auscultation, Normal air movement Heart: no murmurs Abdomen: Normal bowel sounds, Soft (obese) Extremities: No cyanosis, Other (left weakness) Skin: No rashes, No breakdown, No significant lesion, Other Neuro: Other (brisk left reflexes, no ankle clonus) Psych/Mental Status: Mental status NL, Other (positive affect, ) Vitals Vitals Vital Signs Date Time Temp Pulse Resp B/P (MAP) Pulse Ox O2 Delivery O2 Flow Rate FiO2 01/15/19 15:23 68 18 107/73 (84) 95 Room Air 01/15/19 13:50 98.4 98.4 Labs Labs Laboratory Tests Test 01/15/19 13:55 White Blood Count 7.4 x10^3/uL (4.0-11.0) Red Blood Count 5.12 x10^6/uL (4.30-5.70) Hemoglobin 15.9 g/dL (13.0-17.5) Hematocrit 46.9 % (39.0-53.0) Mean Corpuscular Volume 92 fL (79-100) Mean Corpuscular Hemoglobin 31 pg (25-35) Mean Corpuscular Hemoglobin Concent 34 g/dL (31-37) Red Cell Distribution Width 14.4 % (11.5-14.5) Platelet Count 231 x10^3/uL (140-400) Neutrophils (%) (Auto) 65 % (31-73) Lymphocytes (%) (Auto) 22 % (24-48) Monocytes (%) (Auto) 11 % (0-9) Eosinophils (%) (Auto) 1 % (0-3) Basophils (%) (Auto) 1 % (0-3) Neutrophils # (Auto) 4.8 x10^3/uL (1.8-7.7) Lymphocytes # (Auto) 1.6 x10^3/uL (1.0-4.8) Monocytes # (Auto) 0.9 x10^3/uL (0.0-1.1) Eosinophils # (Auto) 0.1 x10^3/uL (0.0-0.7) Basophils # (Auto) 0.1 x10^3/uL (0.0-0.2) Prothrombin Time 15.8 SEC (11.7-14.0) Prothromb Time International Ratio 1.3 (0.8-1.1) Sodium Level 141 mmol/L (136-145) Potassium Level 4.1 mmol/L (3.5-5.1) Chloride Level 105 mmol/L (98-107) Carbon Dioxide Level 22 mmol/L (21-32) Anion Gap 14 (6-14) Blood Urea Nitrogen 18 mg/dL (8-26) Creatinine 1.3 mg/dL (0.7-1.3) Estimated GFR (Cockcroft-Gault) 54.9 BUN/Creatinine Ratio 14 (6-20) Glucose Level 362 mg/dL (70-99) Calcium Level 9.1 mg/dL (8.5-10.1) Total Bilirubin 0.4 mg/dL (0.2-1.0) Aspartate Amino Transf (AST/SGOT) 10 U/L (15-37) Alanine Aminotransferase (ALT/SGPT) 16 U/L (16-63) Alkaline Phosphatase 97 U/L (46-116) Creatine Kinase 47 U/L (39-308) Troponin I Quantitative < 0.017 ng/mL (0.000-0.055) XX-Lko-O-Type Natriuretic Peptide 635 pg/mL (0-124) Total Protein 7.4 g/dL (6.4-8.2) Albumin 3.2 g/dL (3.4-5.0) Albumin/Globulin Ratio 0.8 (1.0-1.7) Thyroid Stimulating Hormone (TSH) 2.871 uIU/mL (0.358-3.74) Laboratory Tests Test 01/15/19 13:55 White Blood Count 7.4 x10^3/uL (4.0-11.0) Red Blood Count 5.12 x10^6/uL (4.30-5.70) Hemoglobin 15.9 g/dL (13.0-17.5) Hematocrit 46.9 % (39.0-53.0) Mean Corpuscular Volume 92 fL (79-100) Mean Corpuscular Hemoglobin 31 pg (25-35) Mean Corpuscular Hemoglobin Concent 34 g/dL (31-37) Red Cell Distribution Width 14.4 % (11.5-14.5) Platelet Count 231 x10^3/uL (140-400) Neutrophils (%) (Auto) 65 % (31-73) Lymphocytes (%) (Auto) 22 % (24-48) Monocytes (%) (Auto) 11 % (0-9) Eosinophils (%) (Auto) 1 % (0-3) Basophils (%) (Auto) 1 % (0-3) Neutrophils # (Auto) 4.8 x10^3/uL (1.8-7.7) Lymphocytes # (Auto) 1.6 x10^3/uL (1.0-4.8) Monocytes # (Auto) 0.9 x10^3/uL (0.0-1.1) Eosinophils # (Auto) 0.1 x10^3/uL (0.0-0.7) Basophils # (Auto) 0.1 x10^3/uL (0.0-0.2) Prothrombin Time 15.8 SEC (11.7-14.0) Prothromb Time International Ratio 1.3 (0.8-1.1) Sodium Level 141 mmol/L (136-145) Potassium Level 4.1 mmol/L (3.5-5.1) Chloride Level 105 mmol/L (98-107) Carbon Dioxide Level 22 mmol/L (21-32) Anion Gap 14 (6-14) Blood Urea Nitrogen 18 mg/dL (8-26) Creatinine 1.3 mg/dL (0.7-1.3) Estimated GFR (Cockcroft-Gault) 54.9 BUN/Creatinine Ratio 14 (6-20) Glucose Level 362 mg/dL (70-99) Calcium Level 9.1 mg/dL (8.5-10.1) Total Bilirubin 0.4 mg/dL (0.2-1.0) Aspartate Amino Transf (AST/SGOT) 10 U/L (15-37) Alanine Aminotransferase (ALT/SGPT) 16 U/L (16-63) Alkaline Phosphatase 97 U/L (46-116) Creatine Kinase 47 U/L (39-308) Troponin I Quantitative < 0.017 ng/mL (0.000-0.055) QC-Vsx-A-Type Natriuretic Peptide 635 pg/mL (0-124) Total Protein 7.4 g/dL (6.4-8.2) Albumin 3.2 g/dL (3.4-5.0) Albumin/Globulin Ratio 0.8 (1.0-1.7) Thyroid Stimulating Hormone (TSH) 2.871 uIU/mL (0.358-3.74) VTE Prophylaxis Ordered VTE Prophylaxis Devices: Yes VTE Pharmacological Prophylaxi: No Assessment/Plan Assessment/Plan SIRS tachycardia, SVT recent pneumonia, will broaden coverage swallow eval, aspiration risk s/p CVA, left hemiplegia obese, BMI 35 FULL Code, reviewed with patient and ELIJAH SALEH MD Jan 15, 2019 19:11
[2019-01-15 22:54] VITALS: BP 136/78
[2019-01-16 03:54] VITALS: BP 157/82
[2019-01-16 07:30] VITALS: BP 133/71
[2019-01-16 08:15] LABS: BASO # 0.1 x10^3/uL (0.0-0.2); BASO % 1 % (0-3); EOS # 0.1 x10^3/uL (0.0-0.7); EOS % 2 % (0-3); HEMATOCRIT 43.4 % (39.0-53.0); HEMOGLOBIN 14.6 g/dL (13.0-17.5); LYMPH # 1.5 x10^3/uL (1.0-4.8); LYMPH % 23 % (24-48); MEAN CORPUSCULAR HEMOGLOBIN 31 pg (25-35); MEAN CORPUSCULAR HGB CONC 34 g/dL (31-37); MEAN CORPUSCULAR VOLUME 91 fL (79-100); MONO # 0.6 x10^3/uL (0.0-1.1); MONO % 10 % (0-9); NEUT % 64 % (31-73); PLATELET COUNT 191 x10^3/uL (140-400); RED BLOOD COUNT 4.76 x10^6/uL (4.30-5.70); RED CELL DISTRIBUTION WIDTH 14.1 % (11.5-14.5); WHITE BLOOD COUNT 6.3 x10^3/uL (4.0-11.0)
[2019-01-16 08:36] LABS: ALBUMIN 2.9 g/dL (3.4-5.0); ALBUMIN/GLOBULIN RATIO 0.8 (1.0-1.7); CALCIUM 8.7 mg/dL (8.5-10.1); CREATININE 0.8 mg/dL (0.7-1.3); GFR 96.1; POTASSIUM 3.6 mmol/L (3.5-5.1); TOTAL BILIRUBIN 0.5 mg/dL (0.2-1.0); TOTAL PROTEIN 6.6 g/dL (6.4-8.2)
--- NOTE | 2019-01-16 09:37 | PDOC ---
PROGRESS NOTES History of Present Illness History of Present Illness VTE Prophylaxis Ordered VTE Prophylaxis Devices: Yes VTE Pharmacological Prophylaxi: No Assessment/Plan Assessment/Plan SIRS tachycardia, SVT recent pneumonia, will broaden coverage moderate consolidation and air bronchograms in the right lower lobe of the lung. Differential includes pneumonia or postobstructive atelectasis. Recommend bronchoscopic evaluation to exclude bronchial pathology/neoplasm. Coronary artery calcifications. swallow eval, aspiration risk s/p CVA, left hemiplegia obese, BMI 35 FULL Code, reviewed with patient and pulm consult ID CONSULT IV ZOSYN, VANC ST DVT PROPHYLAXIS GI PROPHYLAXIS 38 min pt exam, chart review, > 50% of time spent with exam, chart review, pt care coordination Vitals Vitals Vital Signs Date Time Temp Pulse Resp B/P (MAP) Pulse Ox O2 Delivery O2 Flow Rate FiO2 01/16/19 07:30 97.8 63 20 133/71 (91) 95 Room Air 97.8 Physical Exam General: Alert, Cooperative, No acute distress, Other (can answer 1-2 words us ually) Heart: Regular rate Lungs: Clear, Crackles Abdomen: Normal bowel sounds, Soft (obese) Extremities: No cyanosis, Other (left weakness) Skin: No rashes, No breakdown, No significant lesion, Other Labs LABS COMPARISON: None available. TECHNIQUE: Axial CT images of chest were performed without contrast. Coronal and sagittal reformats are performed Exposure: One or more of the following individualized dose reduction techniques were utilized for this examination: 1. Automated exposure control 2. Adjustment of the mA and/or kV according to patient size 3. Use of iterative reconstruction technique FINDINGS: Moderate cardiomegaly. Coronary artery calcifications. The caliber of the aorta grossly appears unremarkable. Moderate elevation of the right hemidiaphragm. Volume loss identified in the right lung base. There is moderate consolidation identified in the right lung base with air bronchograms. There is peripheral pleural calcification identified in the right lung base The visualized noncontrasted liver, spleen, adrenals grossly appears unremarkable. Moderate degenerative changes thoracic spine. Old left clavicle fracture. IMPRESSION: 1. Volume loss identified in the right lung base with moderate consolidation and air bronchograms in the right lower lobe of the lung. Differential includes pneumonia or postobstructive atelectasis. Recommend bronchoscopic evaluation to exclude bronchial pathology/neoplasm. 2. Coronary artery calcifications. Electronically signed by: Chung Fraga MD (01/15/2019 3:18 PM) [facility] DICTATED and SIGNED BY: CHUNG FRAGA MD DATE: 01/15/19 1518 Laboratory Tests Test 01/15/19 13:55 01/15/19 22:10 01/16/19 06:40 01/16/19 07:49 White Blood Count 7.4 x10^3/uL (4.0-11.0) 6.3 x10^3/uL (4.0-11.0) Red Blood Count 5.12 x10^6/uL (4.30-5.70) 4.76 x10^6/uL (4.30-5.70) Hemoglobin 15.9 g/dL (13.0-17.5) 14.6 g/dL (13.0-17.5) Hematocrit 46.9 % (39.0-53.0) 43.4 % (39.0-53.0) Mean Corpuscular Volume 92 fL (79-100) 91 fL (79-100) Mean Corpuscular Hemoglobin 31 pg (25-35) 31 pg (25-35) Mean Corpuscular Hemoglobin Concent 34 g/dL (31-37) 34 g/dL (31-37) Red Cell Distribution Width 14.4 % (11.5-14.5) 14.1 % (11.5-14.5) Platelet Count 231 x10^3/uL (140-400) 191 x10^3/uL (140-400) Neutrophils (%) (Auto) 65 % (31-73) 64 % (31-73) Lymphocytes (%) (Auto) 22 % (24-48) 23 % (24-48) Monocytes (%) (Auto) 11 % (0-9) 10 % (0-9) Eosinophils (%) (Auto) 1 % (0-3) 2 % (0-3) Basophils (%) (Auto) 1 % (0-3) 1 % (0-3) Neutrophils # (Auto) 4.8 x10^3/uL (1.8-7.7) 4.0 x10^3/uL (1.8-7.7) Lymphocytes # (Auto) 1.6 x10^3/uL (1.0-4.8) 1.5 x10^3/uL (1.0-4.8) Monocytes # (Auto) 0.9 x10^3/uL (0.0-1.1) 0.6 x10^3/uL (0.0-1.1) Eosinophils # (Auto) 0.1 x10^3/uL (0.0-0.7) 0.1 x10^3/uL (0.0-0.7) Basophils # (Auto) 0.1 x10^3/uL (0.0-0.2) 0.1 x10^3/uL (0.0-0.2) Prothrombin Time 15.8 SEC (11.7-14.0) Prothromb Time International Ratio 1.3 (0.8-1.1) Sodium Level 141 mmol/L (136-145) 143 mmol/L (136-145) Potassium Level 4.1 mmol/L (3.5-5.1) 3.6 mmol/L (3.5-5.1) Chloride Level 105 mmol/L (98-107) 107 mmol/L (98-107) Carbon Dioxide Level 22 mmol/L (21-32) 26 mmol/L (21-32) Anion Gap 14 (6-14) 10 (6-14) Blood Urea Nitrogen 18 mg/dL (8-26) 19 mg/dL (8-26) Creatinine 1.3 mg/dL (0.7-1.3) 0.8 mg/dL (0.7-1.3) Estimated GFR (Cockcroft-Gault) 54.9 96.1 BUN/Creatinine Ratio 14 (6-20) 24 (6-20) Glucose Level 362 mg/dL (70-99) 228 mg/dL (70-99) Calcium Level 9.1 mg/dL (8.5-10.1) 8.7 mg/dL (8.5-10.1) Total Bilirubin 0.4 mg/dL (0.2-1.0) 0.5 mg/dL (0.2-1.0) Aspartate Amino Transf (AST/SGOT) 10 U/L (15-37) 9 U/L (15-37) Alanine Aminotransferase (ALT/SGPT) 16 U/L (16-63) 13 U/L (16-63) Alkaline Phosphatase 97 U/L (46-116) 81 U/L (46-116) Creatine Kinase 47 U/L (39-308) Troponin I Quantitative < 0.017 ng/mL (0.000-0.055) < 0.017 ng/mL (0.000-0.055) OL-Ajc-S-Type Natriuretic Peptide 635 pg/mL (0-124) Total Protein 7.4 g/dL (6.4-8.2) 6.6 g/dL (6.4-8.2) Albumin 3.2 g/dL (3.4-5.0) 2.9 g/dL (3.4-5.0) Albumin/Globulin Ratio 0.8 (1.0-1.7) 0.8 (1.0-1.7) Thyroid Stimulating Hormone (TSH) 2.871 uIU/mL (0.358-3.74) Glucose (Fingerstick) 213 mg/dL (70-99) Assessment and Plan Assessmemt and Plan Problems Medical Problems: (1) Arrhythmia Status: Acute (2) Pneumonia Status: Acute Comment Review of Relevant I have reviewed the following items ricardo (where applicable) has been applied. Labs Laboratory Tests Test 01/15/19 13:55 01/15/19 22:10 01/16/19 06:40 01/16/19 07:49 White Blood Count 7.4 x10^3/uL (4.0-11.0) 6.3 x10^3/uL (4.0-11.0) Red Blood Count 5.12 x10^6/uL (4.30-5.70) 4.76 x10^6/uL (4.30-5.70) Hemoglobin 15.9 g/dL (13.0-17.5) 14.6 g/dL (13.0-17.5) Hematocrit 46.9 % (39.0-53.0) 43.4 % (39.0-53.0) Mean Corpuscular Volume 92 fL (79-100) 91 fL (79-100) Mean Corpuscular Hemoglobin 31 pg (25-35) 31 pg (25-35) Mean Corpuscular Hemoglobin Concent 34 g/dL (31-37) 34 g/dL (31-37) Red Cell Distribution Width 14.4 % (11.5-14.5) 14.1 % (11.5-14.5) Platelet Count 231 x10^3/uL (140-400) 191 x10^3/uL (140-400) Neutrophils (%) (Auto) 65 % (31-73) 64 % (31-73) Lymphocytes (%) (Auto) 22 % (24-48) 23 % (24-48) Monocytes (%) (Auto) 11 % (0-9) 10 % (0-9) Eosinophils (%) (Auto) 1 % (0-3) 2 % (0-3) Basophils (%) (Auto) 1 % (0-3) 1 % (0-3) Neutrophils # (Auto) 4.8 x10^3/uL (1.8-7.7) 4.0 x10^3/uL (1.8-7.7) Lymphocytes # (Auto) 1.6 x10^3/uL (1.0-4.8) 1.5 x10^3/uL (1.0-4.8) Monocytes # (Auto) 0.9 x10^3/uL (0.0-1.1) 0.6 x10^3/uL (0.0-1.1) Eosinophils # (Auto) 0.1 x10^3/uL (0.0-0.7) 0.1 x10^3/uL (0.0-0.7) Basophils # (Auto) 0.1 x10^3/uL (0.0-0.2) 0.1 x10^3/uL (0.0-0.2) Prothrombin Time 15.8 SEC (11.7-14.0) Prothromb Time International Ratio 1.3 (0.8-1.1) Sodium Level 141 mmol/L (136-145) 143 mmol/L (136-145) Potassium Level 4.1 mmol/L (3.5-5.1) 3.6 mmol/L (3.5-5.1) Chloride Level 105 mmol/L (98-107) 107 mmol/L (98-107) Carbon Dioxide Level 22 mmol/L (21-32) 26 mmol/L (21-32) Anion Gap 14 (6-14) 10 (6-14) Blood Urea Nitrogen 18 mg/dL (8-26) 19 mg/dL (8-26) Creatinine 1.3 mg/dL (0.7-1.3) 0.8 mg/dL (0.7-1.3) Estimated GFR (Cockcroft-Gault) 54.9 96.1 BUN/Creatinine Ratio 14 (6-20) 24 (6-20) Glucose Level 362 mg/dL (70-99) 228 mg/dL (70-99) Calcium Level 9.1 mg/dL (8.5-10.1) 8.7 mg/dL (8.5-10.1) Total Bilirubin 0.4 mg/dL (0.2-1.0) 0.5 mg/dL (0.2-1.0) Aspartate Amino Transf (AST/SGOT) 10 U/L (15-37) 9 U/L (15-37) Alanine Aminotransferase (ALT/SGPT) 16 U/L (16-63) 13 U/L (16-63) Alkaline Phosphatase 97 U/L (46-116) 81 U/L (46-116) Creatine Kinase 47 U/L (39-308) Troponin I Quantitative < 0.017 ng/mL (0.000-0.055) < 0.017 ng/mL (0.000-0.055) EA-Qdj-X-Type Natriuretic Peptide 635 pg/mL (0-124) Total Protein 7.4 g/dL (6.4-8.2) 6.6 g/dL (6.4-8.2) Albumin 3.2 g/dL (3.4-5.0) 2.9 g/dL (3.4-5.0) Albumin/Globulin Ratio 0.8 (1.0-1.7) 0.8 (1.0-1.7) Thyroid Stimulating Hormone (TSH) 2.871 uIU/mL (0.358-3.74) Glucose (Fingerstick) 213 mg/dL (70-99) Laboratory Tests Test 01/15/19 13:55 01/15/19 22:10 01/16/19 06:40 01/16/19 07:49 White Blood Count 7.4 x10^3/uL (4.0-11.0) 6.3 x10^3/uL (4.0-11.0) Red Blood Count 5.12 x10^6/uL (4.30-5.70) 4.76 x10^6/uL (4.30-5.70) Hemoglobin 15.9 g/dL (13.0-17.5) 14.6 g/dL (13.0-17.5) Hematocrit 46.9 % (39.0-53.0) 43.4 % (39.0-53.0) Mean Corpuscular Volume 92 fL (79-100) 91 fL (79-100) Mean Corpuscular Hemoglobin 31 pg (25-35) 31 pg (25-35) Mean Corpuscular Hemoglobin Concent 34 g/dL (31-37) 34 g/dL (31-37) Red Cell Distribution Width 14.4 % (11.5-14.5) 14.1 % (11.5-14.5) Platelet Count 231 x10^3/uL (140-400) 191 x10^3/uL (140-400) Neutrophils (%) (Auto) 65 % (31-73) 64 % (31-73) Lymphocytes (%) (Auto) 22 % (24-48) 23 % (24-48) Monocytes (%) (Auto) 11 % (0-9) 10 % (0-9) Eosinophils (%) (Auto) 1 % (0-3) 2 % (0-3) Basophils (%) (Auto) 1 % (0-3) 1 % (0-3) Neutrophils # (Auto) 4.8 x10^3/uL (1.8-7.7) 4.0 x10^3/uL (1.8-7.7) Lymphocytes # (Auto) 1.6 x10^3/uL (1.0-4.8) 1.5 x10^3/uL (1.0-4.8) Monocytes # (Auto) 0.9 x10^3/uL (0.0-1.1) 0.6 x10^3/uL (0.0-1.1) Eosinophils # (Auto) 0.1 x10^3/uL (0.0-0.7) 0.1 x10^3/uL (0.0-0.7) Basophils # (Auto) 0.1 x10^3/uL (0.0-0.2) 0.1 x10^3/uL (0.0-0.2) Prothrombin Time 15.8 SEC (11.7-14.0) Prothromb Time International Ratio 1.3 (0.8-1.1) Sodium Level 141 mmol/L (136-145) 143 mmol/L (136-145) Potassium Level 4.1 mmol/L (3.5-5.1) 3.6 mmol/L (3.5-5.1) Chloride Level 105 mmol/L (98-107) 107 mmol/L (98-107) Carbon Dioxide Level 22 mmol/L (21-32) 26 mmol/L (21-32) Anion Gap 14 (6-14) 10 (6-14) Blood Urea Nitrogen 18 mg/dL (8-26) 19 mg/dL (8-26) Creatinine 1.3 mg/dL (0.7-1.3) 0.8 mg/dL (0.7-1.3) Estimated GFR (Cockcroft-Gault) 54.9 96.1 BUN/Creatinine Ratio 14 (6-20) 24 (6-20) Glucose Level 362 mg/dL (70-99) 228 mg/dL (70-99) Calcium Level 9.1 mg/dL (8.5-10.1) 8.7 mg/dL (8.5-10.1) Total Bilirubin 0.4 mg/dL (0.2-1.0) 0.5 mg/dL (0.2-1.0) Aspartate Amino Transf (AST/SGOT) 10 U/L (15-37) 9 U/L (15-37) Alanine Aminotransferase (ALT/SGPT) 16 U/L (16-63) 13 U/L (16-63) Alkaline Phosphatase 97 U/L (46-116) 81 U/L (46-116) Creatine Kinase 47 U/L (39-308) Troponin I Quantitative < 0.017 ng/mL (0.000-0.055) < 0.017 ng/mL (0.000-0.055) MH-Yot-H-Type Natriuretic Peptide 635 pg/mL (0-124) Total Protein 7.4 g/dL (6.4-8.2) 6.6 g/dL (6.4-8.2) Albumin 3.2 g/dL (3.4-5.0) 2.9 g/dL (3.4-5.0) Albumin/Globulin Ratio 0.8 (1.0-1.7) 0.8 (1.0-1.7) Thyroid Stimulating Hormone (TSH) 2.871 uIU/mL (0.358-3.74) Glucose (Fingerstick) 213 mg/dL (70-99) Medications Current Medications Piperacillin Sod/ Tazobactam Sod 3.375 gm/Sodium Chloride 50 ml @ 100 mls/hr 1X ONCE IV Last administered on 01/15/19at 16:23; Start 01/15/19 at 16:00; Stop 01/15/19 at 16:29; Status DC Vancomycin HCl (Vanco Per Pharmacy) 1 each 1X STAT [facility] ; Start 01/15/19 at 15:55; Stop 01/15/19 at 16:03; Status DC Vancomycin HCl 2 gm/Sodium Chloride 500 ml @ 250 mls/hr 1X ONCE IV Last administered on 01/15/19at 18:32; Start 01/15/19 at 16:15; Stop 01/15/19 at 18:14; Status DC Ondansetron HCl (Zofran) 4 mg PRN Q8HRS PRN IV NAUSEA/VOMITING; Start 01/15/19 at 16:15; Stop 01/16/19 at 16:14 Fentanyl Citrate (Fentanyl 2ml Vial) 50 mcg PRN Q1HR PRN IV PAIN; Start 01/15/19 at 16:15; Stop 01/16/19 at 16:14 Acetaminophen (Tylenol) 650 mg PRN Q4HRS PRN PO FEVER; Start 01/15/19 at 16:15; Stop 01/16/19 at 16:14 Active Scripts Active Reported Percocet 5-325 Mg Tablet (Oxycodone/Acetaminophen) 1 Each Tablet 1 Tab PO Q4HRS Proscar (Finasteride) 5 Mg Tablet 5 Mg PO DAILY Lantus Solostar (Insulin Glargine,Hum.rec.anlog) 100 Unit/1 Ml Insuln.pen 25 Unit SQ HS Calcium Citrate 250 Mg Tablet 600 Mg PO DAILY Celebrex (Celecoxib) 200 Mg Capsule 200 Mg PO HS 30 Days Aspirin 81 Mg Tab.chew 81 Mg PO DAILY Prilosec Otc (Omeprazole Magnesium) 20 Mg Tablet.dr 20 Mg PO DAILY Nortriptyline Hcl 50 Mg Capsule 50 Mg PO DAILY Flomax (Tamsulosin Hcl) 0.4 Mg Cap.er.24h 0.4 Mg PO DAILY Bupropion Xl (Bupropion Hcl) 300 Mg Tab.er.24h 300 Mg PO DAILY Xenazine (Tetrabenazine) 12.5 Mg Tablet 12.5 Mg PO TID Novolog (Insulin Aspart) 100 Unit/1 Ml Cartridge 12-26 Unit SQ TIDAC Vitamin D2 (Ergocalciferol (Vitamin D2)) 50,000 Unit Capsule 50,000 Unit PO WEEKLY Paroxetine Hcl 40 Mg Tablet 40 Mg PO DAILY Metoprolol Tartrate 50 Mg Tablet 12.5 Mg PO BID Lipitor (Atorvastatin Calcium) 20 Mg Tablet 20 Mg PO DAILY Vitals/I & O Vital Sign - Last 24 Hours 01/15/19 01/15/19 01/15/19 01/15/19 13:50 14:23 14:53 15:23 Temp 98.4 98.4 Pulse 76 72 70 68 Resp 20 18 18 18 B/P (MAP) 120/80 (93) 111/73 (86) 115/68 (84) 107/73 (84) Pulse Ox 96 95 95 95 O2 Delivery Room Air Room Air Room Air Room Air 01/15/19 01/15/19 01/15/19 01/15/19 16:23 17:23 18:23 20:20 Pulse 71 76 76 Resp 18 18 18 B/P (MAP) 133/76 (95) 139/80 (99) 135/82 (99) Pulse Ox 94 95 95 O2 Delivery Room Air Room Air Room Air Room Air 01/15/19 01/16/19 01/16/19 22:54 03:54 07:30 Temp 98.4 97.9 97.8 98.4 97.9 97.8 Pulse 66 59 63 Resp 16 16 20 B/P (MAP) 136/78 (97) 157/82 (107) 133/71 (91) Pulse Ox 94 95 95 O2 Delivery Room Air Room Air Room Air Intake and Output 01/15/19 01/15/19 01/16/19 14:59 22:59 06:59 Intake Total 50 ml Balance 50 ml BRYON TEJEDA MD Jan 16, 2019 09:37
[2019-01-16 11:00] VITALS: BP 127/79
[2019-01-16] MEDS: TETRABENAZINE 12.5 MG PO SCH ×2 (14:00→21:00)
[2019-01-16] MEDS: PANTOPRAZOLE 40 MG TABLET.DR. PO SCH (14:34)
[2019-01-16] MEDS: ERGOCALCIFEROL (VITAMIN D2) 50,000 UNIT CAPSULE. PO SCH (14:34)
[2019-01-16] MEDS: ASPIRIN CHEWABLE 81 MG TABLET. PO SCH (14:34)
[2019-01-16] MEDS: FINASTERIDE 5 MG TABLET. PO SCH (14:34)
[2019-01-16] MEDS: buPROPion XL 150 MG TAB.ER.24H. PO SCH (14:34)
[2019-01-16] MEDS: CALCIUM CARBONATE 500 MG TABLET PO SCH (14:34)
[2019-01-16] MEDS: TAMSULOSIN 0.4 MG CAP.ER.24H. PO SCH (14:34)
[2019-01-16] MEDS: METOPROLOL TART IMMED RELEASE 50 MG TABLET. PO SCH ×2 (14:36→21:00)
[2019-01-16] MEDS: PIPERACILLIN/TAZOBACTAM 3.375 GM in IV NORMAL SALINE 50ML 50 ML IV SCH ×2 (14:38→21:11)
[2019-01-16 15:40] VITALS: BP 154/97
--- NOTE | 2019-01-16 16:10 | NUR ---
SW following pt for dc planning. Chart reviewed and discussed with RN. SW confirmed pt is LTC resident at [facility], , fax: [phone]. Will continue to follow.
--- NOTE | 2019-01-16 16:11 | NUR ---
Pharmacy Vancomycin Dosing Note S:Consulted to monitor and dose vancomycin started 01/15/19. O:MARGARETH HENRY is a 68 year old M with Pneumonia. Height: 6 feet, 1 inches Weight: 104.5 kg [place] Body Weight: 79.90 Adjusted Body Weight: 89.54 Dosing Weight: Actual Other Antibiotics: ZOSYN LABS: Last BUN: 19 Last Creatinine: 0.8 Creatinine Clearance: 89 mL/min Last WBC: 6.3 Last Procalcitonin: Tmax (past 24 hours): 99 Microbiology: - Last dose given 01/15/19 at 1800 Vancomycin Dosing: Loading Dose: 2000 mg x1 Dosing Weight: Actual Target Trough: 15-20 A: Based on: weight and renal function P: 1. Begin Vancomycin 1500 mg IV q12h 2. Follow up Trough level on 01/18/19 at 0430 3. Pharmacy will continue to monitor, follow and adjust therapy as needed. Rianna Ponce RPH, 01/16/19 2417
[2019-01-16] MEDS: VANCOMYCIN 1.5 GM in IV NORMAL SALINE 500ML BAG 500 ML IV SCH (18:09)
[2019-01-16 19:58] VITALS: BP 151/78
[2019-01-16] MEDS: ATORVASTATIN CALCIUM 20 MG TABLET PO SCH (21:11)
[2019-01-16] MEDS: CELECOXIB 100 MG CAPSULE. PO SCH (21:15)
[2019-01-16] MEDS: NORTRIPTYLINE 25 MG CAPSULE PO SCH (21:15)
[2019-01-16 23:40] VITALS: BP 139/67
[2019-01-17] MEDS: PIPERACILLIN/TAZOBACTAM 3.375 GM in IV NORMAL SALINE 50ML 50 ML IV SCH ×4 (00:16→20:08)
[2019-01-17 03:55] VITALS: BP 128/66
[2019-01-17] MEDS: VANCOMYCIN 1.5 GM in IV NORMAL SALINE 500ML BAG 500 ML IV SCH ×2 (06:20→17:38)
[2019-01-17 07:00] VITALS: BP 134/73
[2019-01-17 09:21] LABS: CREATININE 0.8 mg/dL (0.7-1.3); GFR 96.1
--- NOTE | 2019-01-17 09:48 | PDOC ---
PROGRESS NOTES History of Present Illness History of Present Illness VTE Prophylaxis Ordered VTE Prophylaxis Devices: Yes VTE Pharmacological Prophylaxi: No Assessment/Plan Assessment/Plan SIRS tachycardia, SVT recent pneumonia, will broaden coverage moderate consolidation and air bronchograms in the right lower lobe of the lung. Differential includes pneumonia or postobstructive atelectasis. Recommend bronchoscopic evaluation to exclude bronchial pathology/neoplasm. Coronary artery calcifications. swallow eval, aspiration risk s/p CVA, left hemiplegia vanc and zosyn swallow eval long-term prognosis poor obese, BMI 35 FULL Code, reviewed with patient and pulm consult ID CONSULT IV ZOSYN, VANC ST DVT PROPHYLAXIS GI PROPHYLAXIS 37 min pt exam, chart review, > 50% of time spent with exam, chart review, pt care coordination Vitals Vitals Vital Signs Date Time Temp Pulse Resp B/P (MAP) Pulse Ox O2 Delivery O2 Flow Rate FiO2 01/17/19 07:00 97.5 55 20 134/73 (93) 92 Room Air 97.5 Physical Exam General: Alert, Cooperative, No acute distress, Other (can answer 1-2 words usually) Heart: Regular rate Lungs: Clear, Crackles Abdomen: Normal bowel sounds, Soft (obese), No tenderness Extremities: No cyanosis, Other (left weakness) Skin: No rashes, No breakdown, No significant lesion, Other Labs LABS Examination: CT chest without contrast HISTORY: History of pneumonia, cough COMPARISON: None available. TECHNIQUE: Axial CT images of chest were performed without contrast. Coronal and sagittal reformats are performed Exposure: One or more of the following individualized dose reduction techniques were utilized for this examination: 1. Automated exposure control 2. Adjustment of the mA and/or kV according to patient size 3. Use of iterative reconstruction technique FINDINGS: Moderate cardiomegaly. Coronary artery calcifications. The caliber of the aorta grossly appears unremarkable. Moderate elevation of the right hemidiaphragm. Volume loss identified in the right lung base. There is moderate consolidation identified in the right lung base with air bronchograms. There is peripheral pleural calcification identified in the right lung base The visualized noncontrasted liver, spleen, adrenals grossly appears unremarkable. Moderate degenerative changes thoracic spine. Old left clavicle fracture. IMPRESSION: 1. Volume loss identified in the right lung base with moderate consolidation and air bronchograms in the right lower lobe of the lung. Differential includes pneumonia or postobstructive atelectasis. Recommend bronchoscopic evaluation to exclude bronchial pathology/neoplasm. 2. Coronary artery calcifications. Electronically signed by: Chung Fraga MD (01/15/2019 3:18 PM) [id number] DICTATED and SIGNED BY: CHUNG FRAGA MD DATE: 01/15/19 1518 REASON: cough, pneumonia PROCEDURE: CT CHEST WO CONTRAST Examination: CT chest without contrast HISTORY: History of pneumonia, cough COMPARISON: None available. TECHNIQUE: Axial CT images of chest were performed without contrast. Coronal and sagittal reformats are performed Exposure: One or more of the following individualized dose reduction techniques were utilized for this examination: 1. Automated exposure control 2. Adjustment of the mA and/or kV according to patient size 3. Use of iterative reconstruction technique FINDINGS: Moderate cardiomegaly. Coronary artery calcifications. The caliber of the aorta grossly appears unremarkable. Moderate elevation of the right hemidiaphragm. Volume loss identified in the right lung base. There is moderate consolidation identified in the right lung base with air bronchograms. There is peripheral pleural calcification identified in the right lung base The visualized noncontrasted liver, spleen, adrenals grossly appears unremarkable. Moderate degenerative changes thoracic spine. Old left clavicle fracture. IMPRESSION: 1. Volume loss identified in the right lung base with moderate consolidation and air bronchograms in the right lower lobe of the lung. Differential includes pneumonia or postobstructive atelectasis. Recommend bronchoscopic evaluation to exclude bronchial pathology/neoplasm. 2. Coronary artery calcifications. Electronically signed by: Chung Fraga MD (01/15/2019 3:18 PM) [id number] Laboratory Tests Test 01/16/19 12:08 01/16/19 16:46 01/16/19 21:02 01/17/19 08:13 Glucose (Fingerstick) 254 mg/dL (70-99) 184 mg/dL (70-99) 166 mg/dL (70-99) 176 mg/dL (70-99) Test 01/17/19 08:15 Creatinine 0.8 mg/dL (0.7-1.3) Estimated GFR (Cockcroft-Gault) 96.1 Assessment and Plan Assessmemt and Plan Problems Medical Problems: (1) Arrhythmia Status: Acute (2) Pneumonia Status: Acute Comment Review of Relevant I have reviewed the following items ricardo (where applicable) has been applied. Labs Laboratory Tests Test 01/15/19 13:55 01/15/19 22:10 01/16/19 01:25 01/16/19 06:40 White Blood Count 7.4 x10^3/uL (4.0-11.0) 6.3 x10^3/uL (4.0-11.0) Red Blood Count 5.12 x10^6/uL (4.30-5.70) 4.76 x10^6/uL (4.30-5.70) Hemoglobin 15.9 g/dL (13.0-17.5) 14.6 g/dL (13.0-17.5) Hematocrit 46.9 % (39.0-53.0) 43.4 % (39.0-53.0) Mean Corpuscular Volume 92 fL (79-100) 91 fL (79-100) Mean Corpuscular Hemoglobin 31 pg (25-35) 31 pg (25-35) Mean Corpuscular Hemoglobin Concent 34 g/dL (31-37) 34 g/dL (31-37) Red Cell Distribution Width 14.4 % (11.5-14.5) 14.1 % (11.5-14.5) Platelet Count 231 x10^3/uL (140-400) 191 x10^3/uL (140-400) Neutrophils (%) (Auto) 65 % (31-73) 64 % (31-73) Lymphocytes (%) (Auto) 22 % (24-48) 23 % (24-48) Monocytes (%) (Auto) 11 % (0-9) 10 % (0-9) Eosinophils (%) (Auto) 1 % (0-3) 2 % (0-3) Basophils (%) (Auto) 1 % (0-3) 1 % (0-3) Neutrophils # (Auto) 4.8 x10^3/uL (1.8-7.7) 4.0 x10^3/uL (1.8-7.7) Lymphocytes # (Auto) 1.6 x10^3/uL (1.0-4.8) 1.5 x10^3/uL (1.0-4.8) Monocytes # (Auto) 0.9 x10^3/uL (0.0-1.1) 0.6 x10^3/uL (0.0-1.1) Eosinophils # (Auto) 0.1 x10^3/uL (0.0-0.7) 0.1 x10^3/uL (0.0-0.7) Basophils # (Auto) 0.1 x10^3/uL (0.0-0.2) 0.1 x10^3/uL (0.0-0.2) Prothrombin Time 15.8 SEC (11.7-14.0) Prothromb Time International Ratio 1.3 (0.8-1.1) Sodium Level 141 mmol/L (136-145) 143 mmol/L (136-145) Potassium Level 4.1 mmol/L (3.5-5.1) 3.6 mmol/L (3.5-5.1) Chloride Level 105 mmol/L (98-107) 107 mmol/L (98-107) Carbon Dioxide Level 22 mmol/L (21-32) 26 mmol/L (21-32) Anion Gap 14 (6-14) 10 (6-14) Blood Urea Nitrogen 18 mg/dL (8-26) 19 mg/dL (8-26) Creatinine 1.3 mg/dL (0.7-1.3) 0.8 mg/dL (0.7-1.3) Estimated GFR (Cockcroft-Gault) 54.9 96.1 BUN/Creatinine Ratio 14 (6-20) 24 (6-20) Glucose Level 362 mg/dL (70-99) 228 mg/dL (70-99) Calcium Level 9.1 mg/dL (8.5-10.1) 8.7 mg/dL (8.5-10.1) Total Bilirubin 0.4 mg/dL (0.2-1.0) 0.5 mg/dL (0.2-1.0) Aspartate Amino Transf (AST/SGOT) 10 U/L (15-37) 9 U/L (15-37) Alanine Aminotransferase (ALT/SGPT) 16 U/L (16-63) 13 U/L (16-63) Alkaline Phosphatase 97 U/L (46-116) 81 U/L (46-116) Creatine Kinase 47 U/L (39-308) Troponin I Quantitative < 0.017 ng/mL (0.000-0.055) < 0.017 ng/mL (0.000-0.055) IH-Wuv-S-Type Natriuretic Peptide 635 pg/mL (0-124) Total Protein 7.4 g/dL (6.4-8.2) 6.6 g/dL (6.4-8.2) Albumin 3.2 g/dL (3.4-5.0) 2.9 g/dL (3.4-5.0) Albumin/Globulin Ratio 0.8 (1.0-1.7) 0.8 (1.0-1.7) Thyroid Stimulating Hormone (TSH) 2.871 uIU/mL (0.358-3.74) Nasal Screen MRSA (PCR) Negative (Negative) Test 01/16/19 07:49 01/16/19 12:08 01/16/19 16:46 01/16/19 21:02 Glucose (Fingerstick) 213 mg/dL (70-99) 254 mg/dL (70-99) 184 mg/dL (70-99) 166 mg/dL (70-99) Test 01/17/19 08:13 01/17/19 08:15 Glucose (Fingerstick) 176 mg/dL (70-99) Creatinine 0.8 mg/dL (0.7-1.3) Estimated GFR (Cockcroft-Gault) 96.1 Laboratory Tests Test 01/16/19 12:08 01/16/19 16:46 01/16/19 21:02 01/17/19 08:13 Glucose (Fingerstick) 254 mg/dL (70-99) 184 mg/dL (70-99) 166 mg/dL (70-99) 176 mg/dL (70-99) Test 01/17/19 08:15 Creatinine 0.8 mg/dL (0.7-1.3) Estimated GFR (Cockcroft-Gault) 96.1 Medications Current Medications Piperacillin Sod/ Tazobactam Sod 3.375 gm/Sodium Chloride 50 ml @ 100 mls/hr 1X ONCE IV Last administered on 01/15/19at 16:23; Start 01/15/19 at 16:00; Stop 01/15/19 at 16:29; Status DC Vancomycin HCl (Vanco Per Pharmacy) 1 each 1X STAT MC Last administered on 01/16/19at 16:11; Start 01/15/19 at 15:55; Stop 01/15/19 at 16:03; Status DC Vancomycin HCl 2 gm/Sodium Chloride 500 ml @ 250 mls/hr 1X ONCE IV Last administered on 01/15/19at 18:32; Start 01/15/19 at 16:15; Stop 01/15/19 at 18:14; Status DC Ondansetron HCl (Zofran) 4 mg PRN Q8HRS PRN IV NAUSEA/VOMITING; Start 01/15/19 at 16:15; Stop 01/16/19 at 16:14; Status DC Fentanyl Citrate (Fentanyl 2ml Vial) 50 mcg PRN Q1HR PRN IV PAIN; Start 01/15/19 at 16:15; Stop 01/16/19 at 16:14; Status DC Acetaminophen (Tylenol) 650 mg PRN Q4HRS PRN PO FEVER; Start 01/15/19 at 16:15; Stop 01/16/19 at 16:14; Status DC Piperacillin Sod/ Tazobactam Sod 3.375 gm/Sodium Chloride 50 ml @ 100 mls/hr Q6HRS IV Last administered on 01/17/19at 05:36; Start 01/16/19 at 14:00 Aspirin (Children'S Aspirin) 81 mg DAILY PO Last administered on 01/16/19at 14:38; Start 01/16/19 at 14:00 Atorvastatin Calcium (Lipitor) 20 mg QHS PO Last administered on 01/16/19at 21:16; Start 01/16/19 at 21:00 Ergocalciferol (Vitamin D2) 50,000 unit WEEKLY PO Last administered on 9at 14:38; Start 01/16/19 at 14:00 Finasteride (Proscar) 5 mg DAILY PO Last administered on 01/16/19at 14:38; Start 01/16/19 at 14:00 Metoprolol Tartrate (Lopressor) 12.5 mg BID PO Last administered on 01/16/19at 14:38; Start 01/16/19 at 14:00 Oxycodone/ Acetaminophen (Percocet 5/325) 1 tab PRN Q4HRS PRN PO PAIN; Start 01/16/19 at 13:49 Tamsulosin HCl (Flomax) 0.4 mg DAILY PO Last administered on 01/16/19at 14:38; Start 01/16/19 at 14:00 Bupropion HCl (Wellbutrin Xl) 300 mg DAILY PO Last administered on 01/16/19at 14:38; Start 01/16/19 at 14:00 Calcium Carbonate/ Glycine (Oscal) 500 mg DAILY PO Last administered on 01/16/19at 14:38; Start 01/16/19 at 14:00 Celecoxib (CeleBREX) 200 mg QHS PO Last administered on 01/16/19 21:16; Start 01/16/19 at 21:00 Nortriptyline HCl (Pamelor) 50 mg QHS PO Last administered on 01/16/19 21:16; Start 01/16/19 at 21:00 Pantoprazole Sodium (Protonix) 40 mg DAILYAC PO Last administered on 01/16/19 14:38; Start 01/16/19 at 14:00 Non-Formulary Medication (Tetrabenazine (Xenazine)) 12.5 mg TID PO ; Start 01/16/19 at 14:00; Status UNV Vancomycin HCl (Vanco Per Pharmacy) 1 each PRN DAILY PRN MC SEE COMMENTS; Start 01/16/19 at 13:45 Vancomycin HCl 1.5 gm/Sodium Chloride 500 ml @ 250 mls/hr Q12H IV Last administered on 01/17/19at 06:20; Start 01/16/19 at 17:00 Vancomycin HCl (Vancomycin Trough Level) 1 each 1X ONCE MC ; Start 01/18/19 at 04:30; Stop 01/18/19 at 04:31 Active Scripts Active Reported Percocet 5-325 Mg Tablet (Oxycodone/Acetaminophen) 1 Each Tablet 1 Tab PO Q4HRS Proscar (Finasteride) 5 Mg Tablet 5 Mg PO DAILY Lantus Solostar (Insulin Glargine,Hum.rec.anlog) 100 Unit/1 Ml Insuln.pen 25 Unit SQ HS Calcium Citrate 250 Mg Tablet 600 Mg PO DAILY Celebrex (Celecoxib) 200 Mg Capsule 200 Mg PO HS 30 Days Aspirin 81 Mg Tab.chew 81 Mg PO DAILY Prilosec Otc (Omeprazole Magnesium) 20 Mg Tablet.dr 20 Mg PO DAILY Nortriptyline Hcl 50 Mg Capsule 50 Mg PO DAILY Flomax (Tamsulosin Hcl) 0.4 Mg Cap.er.24h 0.4 Mg PO DAILY Bupropion Xl (Bupropion Hcl) 300 Mg Tab.er.24h 300 Mg PO DAILY Xenazine (Tetrabenazine) 12.5 Mg Tablet 12.5 Mg PO TID Novolog (Insulin Aspart) 100 Unit/1 Ml Cartridge 12-26 Unit SQ TIDAC Vitamin D2 (Ergocalciferol (Vitamin D2)) 50,000 Unit Capsule 50,000 Unit PO WEEKLY Paroxetine Hcl 40 Mg Tablet 40 Mg PO DAILY Metoprolol Tartrate 50 Mg Tablet 12.5 Mg PO BID Lipitor (Atorvastatin Calcium) 20 Mg Tablet 20 Mg PO DAILY Vitals/I & O Vital Sign - Last 24 Hours 01/16/19 01/16/19 01/16/19 01/16/19 11:00 14:38 15:40 19:58 Temp 99.0 97.5 97.6 99.0 97.5 97.6 Pulse 71 71 72 55 Resp 20 18 16 B/P (MAP) 127/79 (95) 127/79 154/97 (116) 151/78 (102) Pulse Ox 96 96 95 O2 Delivery Room Air Room Air Room Air 01/16/19 01/16/19 01/16/19 01/17/19 20:00 23:33 23:40 03:55 Temp 98.0 98.0 Pulse 55 55 54 Resp 16 20 B/P (MAP) 151/78 139/67 (91) 128/66 (86) Pulse Ox 95 95 O2 Delivery Room Air Room Air Room Air 01/17/19 07:00 Temp 97.5 97.5 Pulse 55 Resp 20 B/P (MAP) 134/73 (93) Pulse Ox 92 O2 Delivery Room Air Intake and Output 01/16/19 01/16/19 01/17/19 14:59 22:59 06:59 Intake Total 100 ml 50 ml 100 ml Balance 100 ml 50 ml 100 ml BRYON TEJEDA MD Jan 17, 2019 09:48
[2019-01-17] MEDS: CALCIUM CARBONATE 500 MG TABLET PO SCH (10:58)
[2019-01-17] MEDS: TAMSULOSIN 0.4 MG CAP.ER.24H. PO SCH (10:58)
[2019-01-17] MEDS: ASPIRIN CHEWABLE 81 MG TABLET. PO SCH (10:59)
[2019-01-17] MEDS: METOPROLOL TART IMMED RELEASE 50 MG TABLET. PO SCH ×2 (10:59→20:13)
[2019-01-17] MEDS: buPROPion XL 150 MG TAB.ER.24H. PO SCH (11:00)
[2019-01-17] MEDS: PANTOPRAZOLE 40 MG TABLET.DR. PO SCH (11:00)
[2019-01-17] MEDS: FINASTERIDE 5 MG TABLET. PO SCH (11:01)
--- NOTE | 2019-01-17 11:28 | PDOC ---
Infectious Disease Note Vital Sign Vital Signs Vital Signs Date Time Temp Pulse Resp B/P (MAP) Pulse Ox O2 Delivery O2 Flow Rate FiO2 01/17/19 11:01 55 134/73 01/17/19 07:00 97.5 20 92 Room Air 97.5 Labs Lab Laboratory Tests Test 01/16/19 12:08 01/16/19 16:46 01/16/19 21:02 01/17/19 08:13 Glucose (Fingerstick) 254 mg/dL (70-99) 184 mg/dL (70-99) 166 mg/dL (70-99) 176 mg/dL (70-99) Test 01/17/19 08:15 Creatinine 0.8 mg/dL (0.7-1.3) Estimated GFR (Cockcroft-Gault) 96.1 Procalcitonin < 0.10 ng/mL (0.00-0.10) Objective Assessment Pneumonia, likely aspiration CVA HTN Dysphagia Plan Plan of Care vanc and zosyn swallow eval d/w superintendent terminal prognosis poor IVELISSE FERREIRA MD Jan 17, 2019 11:28
[2019-01-17 11:30] VITALS: BP 141/73
[2019-01-17 15:00] VITALS: BP 140/71
[2019-01-17] MEDS: VANCOMYCIN PER PHARMACY MC PRN (16:57)
--- NOTE | 2019-01-17 17:46 | PDOC ---
PULMONARY PROGRESS NOTES Vitals Vital Signs Date Time Temp Pulse Resp B/P (MAP) Pulse Ox O2 Delivery O2 Flow Rate FiO2 01/17/19 15:00 98.1 53 20 140/71 (94) 96 Room Air 98.1 Lungs: Clear, Crackles Labs Laboratory Tests Test 01/15/19 22:10 01/16/19 01:25 01/16/19 06:40 01/16/19 07:49 Troponin I Quantitative < 0.017 ng/mL (0.000-0.055) Nasal Screen MRSA (PCR) Negative (Negative) White Blood Count 6.3 x10^3/uL (4.0-11.0) Red Blood Count 4.76 x10^6/uL (4.30-5.70) Hemoglobin 14.6 g/dL (13.0-17.5) Hematocrit 43.4 % (39.0-53.0) Mean Corpuscular Volume 91 fL (79-100) Mean Corpuscular Hemoglobin 31 pg (25-35) Mean Corpuscular Hemoglobin Concent 34 g/dL (31-37) Red Cell Distribution Width 14.1 % (11.5-14.5) Platelet Count 191 x10^3/uL (140-400) Neutrophils (%) (Auto) 64 % (31-73) Lymphocytes (%) (Auto) 23 % (24-48) Monocytes (%) (Auto) 10 % (0-9) Eosinophils (%) (Auto) 2 % (0-3) Basophils (%) (Auto) 1 % (0-3) Neutrophils # (Auto) 4.0 x10^3/uL (1.8-7.7) Lymphocytes # (Auto) 1.5 x10^3/uL (1.0-4.8) Monocytes # (Auto) 0.6 x10^3/uL (0.0-1.1) Eosinophils # (Auto) 0.1 x10^3/uL (0.0-0.7) Basophils # (Auto) 0.1 x10^3/uL (0.0-0.2) Sodium Level 143 mmol/L (136-145) Potassium Level 3.6 mmol/L (3.5-5.1) Chloride Level 107 mmol/L (98-107) Carbon Dioxide Level 26 mmol/L (21-32) Anion Gap 10 (6-14) Blood Urea Nitrogen 19 mg/dL (8-26) Creatinine 0.8 mg/dL (0.7-1.3) Estimated GFR (Cockcroft-Gault) 96.1 BUN/Creatinine Ratio 24 (6-20) Glucose Level 228 mg/dL (70-99) Calcium Level 8.7 mg/dL (8.5-10.1) Total Bilirubin 0.5 mg/dL (0.2-1.0) Aspartate Amino Transf (AST/SGOT) 9 U/L (15-37) Alanine Aminotransferase (ALT/SGPT) 13 U/L (16-63) Alkaline Phosphatase 81 U/L (46-116) Total Protein 6.6 g/dL (6.4-8.2) Albumin 2.9 g/dL (3.4-5.0) Albumin/Globulin Ratio 0.8 (1.0-1.7) Glucose (Fingerstick) 213 mg/dL (70-99) Test 01/16/19 12:08 01/16/19 16:46 01/16/19 21:02 01/17/19 08:13 Glucose (Fingerstick) 254 mg/dL (70-99) 184 mg/dL (70-99) 166 mg/dL (70-99) 176 mg/dL (70-99) Test 01/17/19 08:15 01/17/19 11:54 01/17/19 17:12 Creatinine 0.8 mg/dL (0.7-1.3) Estimated GFR (Cockcroft-Gault) 96.1 Procalcitonin < 0.10 ng/mL (0.00-0.10) Glucose (Fingerstick) 206 mg/dL (70-99) 153 mg/dL (70-99) Laboratory Tests Test 01/16/19 21:02 01/17/19 08:13 01/17/19 08:15 01/17/19 11:54 Glucose (Fingerstick) 166 mg/dL (70-99) 176 mg/dL (70-99) 206 mg/dL (70-99) Creatinine 0.8 mg/dL (0.7-1.3) Estimated GFR (Cockcroft-Gault) 96.1 Procalcitonin < 0.10 ng/mL (0.00-0.10) Test 01/17/19 17:12 Glucose (Fingerstick) 153 mg/dL (70-99) Medications Active Scripts Medications Dose Route/Sig Max Daily Dose Days Date Category Percocet 5-325 Mg Tablet (Oxycodone/Acetaminophen) 1 Each Tablet 1 Tab PO Q4HRS 04/27/17 Reported Proscar (Finasteride) 5 Mg Tablet 5 Mg PO DAILY 04/14/17 Reported Lantus Solostar (Insulin Glargine,Hum.rec.anlog) 100 Unit/1 Ml Insuln.pen 25 Unit SQ HS 04/14/17 Reported Calcium Citrate 250 Mg Tablet 600 Mg PO DAILY 03/03/16 Reported Celebrex (Celecoxib) 200 Mg Capsule 200 Mg PO HS 30 03/03/16 Reported Aspirin 81 Mg Tab.chew 81 Mg PO DAILY 07/17/14 Reported Prilosec Otc (Omeprazole Magnesium) 20 Mg Tablet.dr 20 Mg PO DAILY 07/17/14 Reported Nortriptyline Hcl 50 Mg Capsule 50 Mg PO DAILY 07/17/14 Reported Flomax (Tamsulosin Hcl) 0.4 Mg Cap.er.24h 0.4 Mg PO DAILY 07/17/14 Reported Bupropion Xl (Bupropion Hcl) 300 Mg Tab.er.24h 300 Mg PO DAILY 07/17/14 Reported Xenazine (Tetrabenazine) 12.5 Mg Tablet 12.5 Mg PO TID 07/17/14 Reported Novolog (Insulin Aspart) 100 Unit/1 Ml Cartridge 12-26 Unit SQ TIDAC 08/29/13 Reported Vitamin D2 (Ergocalciferol (Vitamin D2)) 50,000 Unit Capsule 50,000 Unit PO WEEKLY 08/29/13 Reported Paroxetine Hcl 40 Mg Tablet 40 Mg PO DAILY 08/29/13 Reported Metoprolol Tartrate 50 Mg Tablet 12.5 Mg PO BID 08/29/13 Reported Lipitor (Atorvastatin Calcium) 20 Mg Tablet 20 Mg PO DAILY 08/29/13 Reported Impression . FULL NOTE DICTATED AGREE WITH CURRENT RX WILL FOLLOW FOR ASPIRATION JOEY OMALLEY MD Jan 17, 2019 17:46
[2019-01-17 19:57] VITALS: BP 137/73
[2019-01-17] MEDS: LACTOBACILLUS RHAMNOSUS GG 1 CAPSULE. PO SCH (20:12)
[2019-01-17] MEDS: CELECOXIB 100 MG CAPSULE. PO SCH (20:12)
[2019-01-17] MEDS: ATORVASTATIN CALCIUM 20 MG TABLET PO SCH (20:13)
[2019-01-17] MEDS: NORTRIPTYLINE 25 MG CAPSULE PO SCH (20:13)
[2019-01-17 23:06] VITALS: BP 136/66
--- NOTE | 2019-01-18 00:29 | CONS ---
DATE OF CONSULTATION: 01/17/2019 REQUESTING PHYSICIAN: Dr. Delacruz. REASON FOR CONSULTATION: Pneumonia. HISTORY OF PRESENT ILLNESS: This is a 68-year-old gentleman with history of stroke in the past. The patient is a custodial resident now. The patient did have dysphagia and he was recommended to have special diet, which he just did not like it and started losing weight. Hence, he decided that he is not going to stick to the diet and just been eating regular. The patient was brought in because of tachycardia and shortness of breath. The patient was found to be in SVT. The patient also was found to have pneumonia with suspected aspiration pneumonia. The patient has been started on vancomycin and Zosyn. The patient does nod and speak very little, most of the communication done by the who is at the bedside. No nausea, vomiting, diarrhea noted. There was no fever noted here. PAST MEDICAL HISTORY: Positive for left-sided severe stroke last March and before then in September, he had a right-sided stroke. The patient is now total care, diabetes, hypertension, coronary artery disease, history of MRSA, and cervical dystonia. PAST SURGICAL HISTORY: Has had appendicectomy, knee replacement, and deep brain stimulator. SOCIAL HISTORY: Negative for smoking, alcohol, or illicit drug use. The patient is a custodial resident with total care. ALLERGIES: No known antibiotic allergies. CURRENT MEDICATIONS: Reviewed. REVIEW OF SYSTEMS: As per HPI, all other systems reviewed through the patient's and the nurse. PHYSICAL EXAMINATION: GENERAL: Awake gentleman, who nods and mumbles few words, not in any distress. VITAL SIGNS: Stable, afebrile. HEENT: Both pupils are round and reacting. No conjunctival lesion, no lesion in the mouth. NECK: Supple. No JVP. No lymphadenopathy. LUNGS: Clear. HEART: S1 and S2 regular. ABDOMEN: Benign. EXTREMITIES: No edema or cyanosis. SKIN: Unremarkable. NEUROLOGIC: Alert. He is able to hear and understand what is going on, but he has difficulty with communication. He has complete paralysis of the left side and significant weakness on the right side. LABORATORY DATA: MRSA screen is negative. White count is normal. BUN and creatinine is normal. IMAGING STUDIES: Chest x-ray and chest CT done, which showed volume loss on the right lung base with moderate consolidation and air bronchogram. IMPRESSION: 1. Pneumonia. 2. Most likely aspiration, although at some point may have to rule out obstruction. At least on the CT, there is no mass.. 3. Diabetes. 4. Hypertension. 5. Cerebrovascular accident. RECOMMENDATIONS: Continue vancomycin and Zosyn for the time being, supportive care, and we will ask Pulmonary to decide on the need for bronchoscopy. Discussion with done. Thank you very much, Dr. Delacruz, for giving me the opportunity to participate in this patient's care. IVELISSE FERREIRA MD DR: CARYN/jake JOB#: [id number] / [id number] NATALIE
[2019-01-18] MEDS: PIPERACILLIN/TAZOBACTAM 3.375 GM in IV NORMAL SALINE 50ML 50 ML IV SCH ×4 (01:37→21:42)
--- NOTE | 2019-01-18 03:04 | CONS ---
DATE OF CONSULTATION: 01/17/2019 ATTENDING PHYSICIAN: Maribell Rubalcava MD REASON FOR CONSULTATION: The patient was seen in pulmonary consultation at the request of Dr. Rubalcava for abnormal CT chest revealing volume loss on the right. HISTORY OF PRESENT ILLNESS: The patient is a 68-year-old with a prior history of CVA, resides at [facility]. He does not walk. He does have a prior history of dysphagia and supposed to be on a dysphagia diet, but apparently he signed a waiver. He presented because of shortness of air, chest pain and weakness. He was also found to have elevated heart rate. Part of his workup included a chest x-ray, which was abnormal. Subsequently, CT chest was reviewed. There is volume loss in the right lung base with moderate consolidation and air bronchograms of the right lower lobe. The patient has never smoked. There is no history of COPD or asthma. PAST MEDICAL HISTORY: Hypertension, previous pneumonia, CVA, chronic renal insufficiency. PAST SURGICAL HISTORY: No recent major surgeries. ALLERGIES: NALOXONE AND BUPRENORPHINE. CURRENT MEDICATION: List was reviewed. REVIEW OF SYSTEMS: Unobtainable secondary to the patient's condition, otherwise as stated in the history of present illness. SOCIAL HISTORY: He has never smoked. He resides at [facility]. PHYSICAL EXAMINATION: VITAL SIGNS: Stable. O2 saturation was greater than 92%, currently on room air. HEENT: Eyes, the sclerae were nonicteric. NECK: Jugular venous distention could not be assessed secondary to body habitus. CHEST: Full expansion. LUNGS: Diminished breath sounds on the right. No wheezes. CARDIOVASCULAR: Regular rate and rhythm with S1, S2, no S3. ABDOMEN: Soft, nontender. EXTREMITIES: Some edema. NEUROLOGIC: The patient was awake, left-sided hemiparesis. IMPRESSION: 1. Abnormal CT chest revealing volume loss and air bronchograms, left lower lobe. 2. Aspiration pneumonia. 3. Cerebrovascular accident. 4. Hypertension. 5. Dysphagia. PLAN: 1. Recommend to continue vancomycin and Zosyn. 2. Follow up with Speech. 3. DVT and GI prophylaxis. 4. Bronchodilators. 5. Repeat CT chest in 2 months. I do appreciate the privilege in sharing in the patient's care. JOEY CREWS MD DR: GERTRUDE/jake JOB#: [id number] / [id number]
[2019-01-18 03:48] VITALS: BP 134/72
[2019-01-18 04:47] LABS: BASO % 1 % (0-3); EOS # 0.2 x10^3/uL (0.0-0.7); EOS % 3 % (0-3); HEMATOCRIT 39.3 % (39.0-53.0); HEMOGLOBIN 13.4 g/dL (13.0-17.5); LYMPH # 1.8 x10^3/uL (1.0-4.8); LYMPH % 30 % (24-48); MEAN CORPUSCULAR HEMOGLOBIN 31 pg (25-35); MEAN CORPUSCULAR HGB CONC 34 g/dL (31-37); MEAN CORPUSCULAR VOLUME 91 fL (79-100); MONO # 0.5 x10^3/uL (0.0-1.1); MONO % 8 % (0-9); NEUT # 3.5 x10^3/uL (1.8-7.7); NEUT % 58 % (31-73); PLATELET COUNT 178 x10^3/uL (140-400); RED BLOOD COUNT 4.32 x10^6/uL (4.30-5.70)
[2019-01-18 05:20] LABS: ALBUMIN 2.7 g/dL (3.4-5.0); ALBUMIN/GLOBULIN RATIO 0.8 (1.0-1.7); ALK PHOS 72 U/L (46-116); ALT (SGPT) 13 U/L (16-63); ANION GAP 9 (6-14); AST (SGOT) 9 U/L (15-37); BLOOD UREA NITROGEN 15 mg/dL (8-26); BUN/CREATININE RATIO 19 (6-20); CALCIUM 8.4 mg/dL (8.5-10.1); CARBON DIOXIDE 26 mmol/L (21-32); CHLORIDE 108 mmol/L (98-107); CREATININE 0.8 mg/dL (0.7-1.3); GFR 96.1; GLUCOSE 157 mg/dL (70-99); POTASSIUM 3.6 mmol/L (3.5-5.1); SODIUM 143 mmol/L (136-145); TOTAL BILIRUBIN 0.7 mg/dL (0.2-1.0); TOTAL PROTEIN 6.1 g/dL (6.4-8.2); VANC TR 14.4 mcg/mL (10.0-20.0)
[2019-01-18] MEDS: VANCOMYCIN 1.5 GM in IV NORMAL SALINE 500ML BAG 500 ML IV SCH ×2 (05:45→17:00)
[2019-01-18] MEDS: VANCOMYCIN PER PHARMACY MC PRN ×2 (06:26→15:25)
--- NOTE | 2019-01-18 06:27 | NUR ---
Pharmacy Vancomycin Dosing Note S:Consulted to monitor and dose vancomycin started 01/15/19. O:MARGARETH HENRY is a 68 year old M with Pneumonia . Height: 6 feet, 1 inches Weight: 110.880360 kg [place] Body Weight: 79.90 Adjusted Body Weight: 89.54 Dosing Weight: Actual Other Antibiotics: ZOSYN 3.375G IV Q6HRS LABS: Last BUN: 19 Last Creatinine: 0.8 Creatinine Clearance: 92 mL/min Last WBC: 6.3 Last Procalcitonin: - Tmax (past 24 hours): 99 Microbiology: - I/O: 250/5 voids Drug Levels: Last Trough level: 14.4 on 01/18/19 at 0430 Last dose given 01/16/19 at 0620 Vancomycin Dosing: Loading Dose: 2000 mg x1 Dosing Weight: Actual Target Trough: 15-20 A: Based on: TROUGH P: 1. Continue Vancomycin 1500 mg IV q12h 2. Follow up Trough level IF NEEDED 3. Pharmacy will continue to monitor, follow and adjust therapy as needed. ZHANG CLAIRE RPH, 01/18/[id number] Signed: 01/18/19 at 626 by ZHANG CLAIRE RPH PHA
[2019-01-18 07:00] VITALS: BP 132/69
[2019-01-18 07:14] LABS: BILIRUBIN,URINE NEGATIVE (NEG); CLARITY,URINE CLEAR; COLOR,URINE YELLOW; NITRITE,URINE NEGATIVE (NEG); PROTEIN,URINE NEGATIVE (NEG-TRACE); UROBILINOGEN,URINE 0.2 mg/dL (0.2 mg/dL)
[2019-01-18 07:25] LABS: SQUAMOUS EPITHELIAL CELL,UR OCC /LPF
[2019-01-18 07:26] LABS: BACTERIA,URINE FEW /HPF (0-FEW); RBC,URINE 0 /HPF (0-2); WBC,URINE >40 /HPF (0-4); YEAST,URINE PRESENT /HPF
--- NOTE | 2019-01-18 11:01 | PDOC ---
Infectious Disease Note Subjective Subjective pt does not want cough, and cont to eat and aspirate, also does not want PEG feeding and NPO ROS ROS no n/v/d/ Vital Sign Vital Signs Vital Signs Date Time Temp Pulse Resp B/P (MAP) Pulse Ox O2 Delivery O2 Flow Rate FiO2 01/18/19 07:00 98.1 44 15 132/69 (90) 97 Room Air 98.1 Physical Exam PHYSICAL EXAM GENERAL: Awake gentleman, who nods and mumbles few words, not in any distress. VITAL SIGNS: Stable, afebrile. HEENT: Both pupils are round and reacting. No conjunctival lesion, no lesion in the mouth. NECK: Supple. No JVP. No lymphadenopathy. LUNGS: Clear. HEART: S1 and S2 regular. ABDOMEN: Benign. EXTREMITIES: No edema or cyanosis. SKIN: Unremarkable. NEUROLOGIC: Alert. He is able to hear and understand what is going on, but he has difficulty with communication. He has complete paralysis of the left side and significant weakness on the right side. Labs Lab Laboratory Tests Test 01/17/19 11:54 01/17/19 17:12 01/17/19 20:50 01/18/19 04:25 Glucose (Fingerstick) 206 mg/dL (70-99) 153 mg/dL (70-99) 221 mg/dL (70-99) White Blood Count 6.0 x10^3/uL (4.0-11.0) Red Blood Count 4.32 x10^6/uL (4.30-5.70) Hemoglobin 13.4 g/dL (13.0-17.5) Hematocrit 39.3 % (39.0-53.0) Mean Corpuscular Volume 91 fL (79-100) Mean Corpuscular Hemoglobin 31 pg (25-35) Mean Corpuscular Hemoglobin Concent 34 g/dL (31-37) Red Cell Distribution Width 14.0 % (11.5-14.5) Platelet Count 178 x10^3/uL (140-400) Neutrophils (%) (Auto) 58 % (31-73) Lymphocytes (%) (Auto) 30 % (24-48) Monocytes (%) (Auto) 8 % (0-9) Eosinophils (%) (Auto) 3 % (0-3) Basophils (%) (Auto) 1 % (0-3) Neutrophils # (Auto) 3.5 x10^3/uL (1.8-7.7) Lymphocytes # (Auto) 1.8 x10^3/uL (1.0-4.8) Monocytes # (Auto) 0.5 x10^3/uL (0.0-1.1) Eosinophils # (Auto) 0.2 x10^3/uL (0.0-0.7) Basophils # (Auto) 0.0 x10^3/uL (0.0-0.2) Sodium Level 143 mmol/L (136-145) Potassium Level 3.6 mmol/L (3.5-5.1) Chloride Level 108 mmol/L (98-107) Carbon Dioxide Level 26 mmol/L (21-32) Anion Gap 9 (6-14) Blood Urea Nitrogen 15 mg/dL (8-26) Creatinine 0.8 mg/dL (0.7-1.3) Estimated GFR (Cockcroft-Gault) 96.1 BUN/Creatinine Ratio 19 (6-20) Glucose Level 157 mg/dL (70-99) Calcium Level 8.4 mg/dL (8.5-10.1) Total Bilirubin 0.7 mg/dL (0.2-1.0) Aspartate Amino Transf (AST/SGOT) 9 U/L (15-37) Alanine Aminotransferase (ALT/SGPT) 13 U/L (16-63) Alkaline Phosphatase 72 U/L (46-116) Total Protein 6.1 g/dL (6.4-8.2) Albumin 2.7 g/dL (3.4-5.0) Albumin/Globulin Ratio 0.8 (1.0-1.7) Vancomycin Level Trough 14.4 mcg/mL (10.0-20.0) Vancomycin Last Dose Date 01/17/19 Vancomycin Last Dose Time 1700 Test 01/18/19 06:30 01/18/19 08:05 Urine Collection Type Unknown Urine Color Yellow Urine Clarity Clear Urine pH 6.0 Urine Specific [place] 1.025 Urine Protein Negative mg/dL (NEG-TRACE) Urine Glucose (UA) 100 mg/dL (NEG) Urine Ketones (Stick) Negative mg/dL (NEG) Urine Blood Negative (NEG) Urine Nitrite Negative (NEG) Urine Bilirubin Negative (NEG) Urine Urobilinogen Dipstick 0.2 mg/dL (0.2 mg/dL) Urine Leukocyte Esterase Moderate (NEG) Urine RBC 0 /HPF (0-2) Urine WBC >40 /HPF (0-4) Urine Squamous Epithelial Cells Occ /LPF Urine Bacteria Few /HPF (0-FEW) Urine Yeast Present /HPF Glucose (Fingerstick) 139 mg/dL (70-99) Objective Assessment Pneumonia, likely aspiration CVA HTN Dysphagia Plan Plan of Care vanc and zosyn swallow eval d/w [facility] prognosis poor d/w pt and in detail, he is going to think about it need palliative care d/w Dr Lucía FERREIRA,IVELISSE Copeland MD Jan 18, 2019 11:01
[2019-01-18] MEDS: LACTOBACILLUS RHAMNOSUS GG 1 CAPSULE. PO SCH ×2 (11:14→21:00)
[2019-01-18] MEDS: PANTOPRAZOLE 40 MG TABLET.DR. PO SCH (11:14)
[2019-01-18] MEDS: TAMSULOSIN 0.4 MG CAP.ER.24H. PO SCH (11:14)
[2019-01-18] MEDS: buPROPion XL 150 MG TAB.ER.24H. PO SCH (11:14)
[2019-01-18] MEDS: FINASTERIDE 5 MG TABLET. PO SCH (11:14)
[2019-01-18] MEDS: ASPIRIN CHEWABLE 81 MG TABLET. PO SCH (11:14)
[2019-01-18] MEDS: METOPROLOL TART IMMED RELEASE 50 MG TABLET. PO SCH ×2 (11:15→21:00)
[2019-01-18] MEDS: CALCIUM CARBONATE 500 MG TABLET PO SCH (11:16)
--- NOTE | 2019-01-18 11:26 | PDOC ---
PULMONARY PROGRESS NOTES Subjective PT WITH NO INCREASE SANJIV STATES HE WANTS PEG Vitals Vital Signs Date Time Temp Pulse Resp B/P (MAP) Pulse Ox O2 Delivery O2 Flow Rate FiO2 01/18/19 11:17 44 132/69 01/18/19 07:00 98.1 15 97 Room Air 98.1 ROS: No Nausea, No Chest Pain, No Abdominal Pain, No Increase Cough General: Alert Lungs: Clear, Crackles Cardiovascular: S1, S2 Abdomen: Soft Neuro Exam: Alert Skin: Warm Labs Laboratory Tests Test 01/16/19 12:08 01/16/19 16:46 01/16/19 21:02 01/17/19 08:13 Glucose (Fingerstick) 254 mg/dL (70-99) 184 mg/dL (70-99) 166 mg/dL (70-99) 176 mg/dL (70-99) Test 01/17/19 08:15 01/17/19 11:54 01/17/19 17:12 01/17/19 20:50 Creatinine 0.8 mg/dL (0.7-1.3) Estimated GFR (Cockcroft-Gault) 96.1 Procalcitonin < 0.10 ng/mL (0.00-0.10) Glucose (Fingerstick) 206 mg/dL (70-99) 153 mg/dL (70-99) 221 mg/dL (70-99) Test 01/18/19 04:25 01/18/19 06:30 01/18/19 08:05 White Blood Count 6.0 x10^3/uL (4.0-11.0) Red Blood Count 4.32 x10^6/uL (4.30-5.70) Hemoglobin 13.4 g/dL (13.0-17.5) Hematocrit 39.3 % (39.0-53.0) Mean Corpuscular Volume 91 fL (79-100) Mean Corpuscular Hemoglobin 31 pg (25-35) Mean Corpuscular Hemoglobin Concent 34 g/dL (31-37) Red Cell Distribution Width 14.0 % (11.5-14.5) Platelet Count 178 x10^3/uL (140-400) Neutrophils (%) (Auto) 58 % (31-73) Lymphocytes (%) (Auto) 30 % (24-48) Monocytes (%) (Auto) 8 % (0-9) Eosinophils (%) (Auto) 3 % (0-3) Basophils (%) (Auto) 1 % (0-3) Neutrophils # (Auto) 3.5 x10^3/uL (1.8-7.7) Lymphocytes # (Auto) 1.8 x10^3/uL (1.0-4.8) Monocytes # (Auto) 0.5 x10^3/uL (0.0-1.1) Eosinophils # (Auto) 0.2 x10^3/uL (0.0-0.7) Basophils # (Auto) 0.0 x10^3/uL (0.0-0.2) Sodium Level 143 mmol/L (136-145) Potassium Level 3.6 mmol/L (3.5-5.1) Chloride Level 108 mmol/L (98-107) Carbon Dioxide Level 26 mmol/L (21-32) Anion Gap 9 (6-14) Blood Urea Nitrogen 15 mg/dL (8-26) Creatinine 0.8 mg/dL (0.7-1.3) Estimated GFR (Cockcroft-Gault) 96.1 BUN/Creatinine Ratio 19 (6-20) Glucose Level 157 mg/dL (70-99) Calcium Level 8.4 mg/dL (8.5-10.1) Total Bilirubin 0.7 mg/dL (0.2-1.0) Aspartate Amino Transf (AST/SGOT) 9 U/L (15-37) Alanine Aminotransferase (ALT/SGPT) 13 U/L (16-63) Alkaline Phosphatase 72 U/L (46-116) Total Protein 6.1 g/dL (6.4-8.2) Albumin 2.7 g/dL (3.4-5.0) Albumin/Globulin Ratio 0.8 (1.0-1.7) Vancomycin Level Trough 14.4 mcg/mL (10.0-20.0) Vancomycin Last Dose Date 01/17/19 Vancomycin Last Dose Time 1700 Urine Collection Type Unknown Urine Color Yellow Urine Clarity Clear Urine pH 6.0 Urine Specific [place] 1.025 Urine Protein Negative mg/dL (NEG-TRACE) Urine Glucose (UA) 100 mg/dL (NEG) Urine Ketones (Stick) Negative mg/dL (NEG) Urine Blood Negative (NEG) Urine Nitrite Negative (NEG) Urine Bilirubin Negative (NEG) Urine Urobilinogen Dipstick 0.2 mg/dL (0.2 mg/dL) Urine Leukocyte Esterase Moderate (NEG) Urine RBC 0 /HPF (0-2) Urine WBC >40 /HPF (0-4) Urine Squamous Epithelial Cells Occ /LPF Urine Bacteria Few /HPF (0-FEW) Urine Yeast Present /HPF Glucose (Fingerstick) 139 mg/dL (70-99) Laboratory Tests Test 01/17/19 11:54 01/17/19 17:12 01/17/19 20:50 01/18/19 04:25 Glucose (Fingerstick) 206 mg/dL (70-99) 153 mg/dL (70-99) 221 mg/dL (70-99) White Blood Count 6.0 x10^3/uL (4.0-11.0) Red Blood Count 4.32 x10^6/uL (4.30-5.70) Hemoglobin 13.4 g/dL (13.0-17.5) Hematocrit 39.3 % (39.0-53.0) Mean Corpuscular Volume 91 fL (79-100) Mean Corpuscular Hemoglobin 31 pg (25-35) Mean Corpuscular Hemoglobin Concent 34 g/dL (31-37) Red Cell Distribution Width 14.0 % (11.5-14.5) Platelet Count 178 x10^3/uL (140-400) Neutrophils (%) (Auto) 58 % (31-73) Lymphocytes (%) (Auto) 30 % (24-48) Monocytes (%) (Auto) 8 % (0-9) Eosinophils (%) (Auto) 3 % (0-3) Basophils (%) (Auto) 1 % (0-3) Neutrophils # (Auto) 3.5 x10^3/uL (1.8-7.7) Lymphocytes # (Auto) 1.8 x10^3/uL (1.0-4.8) Monocytes # (Auto) 0.5 x10^3/uL (0.0-1.1) Eosinophils # (Auto) 0.2 x10^3/uL (0.0-0.7) Basophils # (Auto) 0.0 x10^3/uL (0.0-0.2) Sodium Level 143 mmol/L (136-145) Potassium Level 3.6 mmol/L (3.5-5.1) Chloride Level 108 mmol/L (98-107) Carbon Dioxide Level 26 mmol/L (21-32) Anion Gap 9 (6-14) Blood Urea Nitrogen 15 mg/dL (8-26) Creatinine 0.8 mg/dL (0.7-1.3) Estimated GFR (Cockcroft-Gault) 96.1 BUN/Creatinine Ratio 19 (6-20) Glucose Level 157 mg/dL (70-99) Calcium Level 8.4 mg/dL (8.5-10.1) Total Bilirubin 0.7 mg/dL (0.2-1.0) Aspartate Amino Transf (AST/SGOT) 9 U/L (15-37) Alanine Aminotransferase (ALT/SGPT) 13 U/L (16-63) Alkaline Phosphatase 72 U/L (46-116) Total Protein 6.1 g/dL (6.4-8.2) Albumin 2.7 g/dL (3.4-5.0) Albumin/Globulin Ratio 0.8 (1.0-1.7) Vancomycin Level Trough 14.4 mcg/mL (10.0-20.0) Vancomycin Last Dose Date 01/17/19 Vancomycin Last Dose Time 1700 Test 01/18/19 06:30 01/18/19 08:05 Urine Collection Type Unknown Urine Color Yellow Urine Clarity Clear Urine pH 6.0 Urine Specific [place] 1.025 Urine Protein Negative mg/dL (NEG-TRACE) Urine Glucose (UA) 100 mg/dL (NEG) Urine Ketones (Stick) Negative mg/dL (NEG) Urine Blood Negative (NEG) Urine Nitrite Negative (NEG) Urine Bilirubin Negative (NEG) Urine Urobilinogen Dipstick 0.2 mg/dL (0.2 mg/dL) Urine Leukocyte Esterase Moderate (NEG) Urine RBC 0 /HPF (0-2) Urine WBC >40 /HPF (0-4) Urine Squamous Epithelial Cells Occ /LPF Urine Bacteria Few /HPF (0-FEW) Urine Yeast Present /HPF Glucose (Fingerstick) 139 mg/dL (70-99) Medications Active Scripts Medications Dose Route/Sig Max Daily Dose Days Date Category Percocet 5-325 Mg Tablet (Oxycodone/Acetaminophen) 1 Each Tablet 1 Tab PO Q4HRS 04/27/17 Reported Proscar (Finasteride) 5 Mg Tablet 5 Mg PO DAILY 04/14/17 Reported Lantus Solostar (Insulin Glargine,Hum.rec.anlog) 100 Unit/1 Ml Insuln.pen 25 Unit SQ HS 04/14/17 Reported Calcium Citrate 250 Mg Tablet 600 Mg PO DAILY 03/03/16 Reported Celebrex (Celecoxib) 200 Mg Capsule 200 Mg PO HS 30 03/03/16 Reported Aspirin 81 Mg Tab.chew 81 Mg PO DAILY 07/17/14 Reported Prilosec Otc (Omeprazole Magnesium) 20 Mg Tablet.dr 20 Mg PO DAILY 07/17/14 Reported Nortriptyline Hcl 50 Mg Capsule 50 Mg PO DAILY 07/17/14 Reported Flomax (Tamsulosin Hcl) 0.4 Mg Cap.er.24h 0.4 Mg PO DAILY 07/17/14 Reported Bupropion Xl (Bupropion Hcl) 300 Mg Tab.er.24h 300 Mg PO DAILY 07/17/14 Reported Xenazine (Tetrabenazine) 12.5 Mg Tablet 12.5 Mg PO TID 07/17/14 Reported Novolog (Insulin Aspart) 100 Unit/1 Ml Cartridge 12-26 Unit SQ TIDAC 08/29/13 Reported Vitamin D2 (Ergocalciferol (Vitamin D2)) 50,000 Unit Capsule 50,000 Unit PO WEEKLY 08/29/13 Reported Paroxetine Hcl 40 Mg Tablet 40 Mg PO DAILY 08/29/13 Reported Metoprolol Tartrate 50 Mg Tablet 12.5 Mg PO BID 08/29/13 Reported Lipitor (Atorvastatin Calcium) 20 Mg Tablet 20 Mg PO DAILY 08/29/13 Reported Impression . IMPRESSION: 1. Abnormal CT chest revealing volume loss and air bronchograms, left lower lobe. 2. Aspiration pneumonia. 3. Cerebrovascular accident. 4. Hypertension. 5. Dysphagia. Plan . WILL CONSULT GI FOR PEG CONTINUE ANTIBX DVT AND GI PROPH REPEAT CT IN 2 MONTHS JOEY CREWS MD Jan 18, 2019 11:26
[2019-01-18 11:34] VITALS: BP 145/74
--- NOTE | 2019-01-18 12:31 | PDOC ---
[employer] PROGRESS NOTE Chief Complaint Chief Complaint HTN Pneumonia CVA Chronic renal insufficiency Arrhythmia Stroke History of Present Illness History of Present Illness 01/18/19 Pt seen/examined at bedside DW and RN Pt has dense L hemiparesis and [facility] Dr. Amor because patient does not want feeding tube, but continues to aspirate Vitals/I&O Vitals/I&O: Vital Signs Date Time Temp Pulse Resp B/P (MAP) Pulse Ox O2 Delivery O2 Flow Rate FiO2 01/18/19 11:34 98.5 58 16 145/74 (97) 95 Room Air 98.5 I & O 01/17/19 01/17/19 01/18/19 15:00 23:00 07:00 Intake Total 100 ml 5300 ml 50 ml Balance 100 ml 5300 ml 50 ml Physical Exam General: Alert, Cooperative, No acute distress, Other (can answer 1-2 words usually) Heart: Regular rate, Normal S1, Normal S2 Lungs: Clear, Crackles Abdomen: Normal bowel sounds, Soft (obese), No tenderness Extremities: No cyanosis, Other (left hemiparesis) Skin: No rashes, No breakdown, No significant lesion, Other Labs Labs: Laboratory Tests Test 01/17/19 17:12 01/17/19 20:50 01/18/19 04:25 01/18/19 06:30 Glucose (Fingerstick) 153 mg/dL (70-99) 221 mg/dL (70-99) White Blood Count 6.0 x10^3/uL (4.0-11.0) Red Blood Count 4.32 x10^6/uL (4.30-5.70) Hemoglobin 13.4 g/dL (13.0-17.5) Hematocrit 39.3 % (39.0-53.0) Mean Corpuscular Volume 91 fL (79-100) Mean Corpuscular Hemoglobin 31 pg (25-35) Mean Corpuscular Hemoglobin Concent 34 g/dL (31-37) Red Cell Distribution Width 14.0 % (11.5-14.5) Platelet Count 178 x10^3/uL (140-400) Neutrophils (%) (Auto) 58 % (31-73) Lymphocytes (%) (Auto) 30 % (24-48) Monocytes (%) (Auto) 8 % (0-9) Eosinophils (%) (Auto) 3 % (0-3) Basophils (%) (Auto) 1 % (0-3) Neutrophils # (Auto) 3.5 x10^3/uL (1.8-7.7) Lymphocytes # (Auto) 1.8 x10^3/uL (1.0-4.8) Monocytes # (Auto) 0.5 x10^3/uL (0.0-1.1) Eosinophils # (Auto) 0.2 x10^3/uL (0.0-0.7) Basophils # (Auto) 0.0 x10^3/uL (0.0-0.2) Sodium Level 143 mmol/L (136-145) Potassium Level 3.6 mmol/L (3.5-5.1) Chloride Level 108 mmol/L (98-107) Carbon Dioxide Level 26 mmol/L (21-32) Anion Gap 9 (6-14) Blood Urea Nitrogen 15 mg/dL (8-26) Creatinine 0.8 mg/dL (0.7-1.3) Estimated GFR (Cockcroft-Gault) 96.1 BUN/Creatinine Ratio 19 (6-20) Glucose Level 157 mg/dL (70-99) Calcium Level 8.4 mg/dL (8.5-10.1) Total Bilirubin 0.7 mg/dL (0.2-1.0) Aspartate Amino Transf (AST/SGOT) 9 U/L (15-37) Alanine Aminotransferase (ALT/SGPT) 13 U/L (16-63) Alkaline Phosphatase 72 U/L (46-116) Total Protein 6.1 g/dL (6.4-8.2) Albumin 2.7 g/dL (3.4-5.0) Albumin/Globulin Ratio 0.8 (1.0-1.7) Vancomycin Level Trough 14.4 mcg/mL (10.0-20.0) Vancomycin Last Dose Date 01/17/19 Vancomycin Last Dose Time 1700 Urine Collection Type Unknown Urine Color Yellow Urine Clarity Clear Urine pH 6.0 Urine Specific [place] 1.025 Urine Protein Negative mg/dL (NEG-TRACE) Urine Glucose (UA) 100 mg/dL (NEG) Urine Ketones (Stick) Negative mg/dL (NEG) Urine Blood Negative (NEG) Urine Nitrite Negative (NEG) Urine Bilirubin Negative (NEG) Urine Urobilinogen Dipstick 0.2 mg/dL (0.2 mg/dL) Urine Leukocyte Esterase Moderate (NEG) Urine RBC 0 /HPF (0-2) Urine WBC >40 /HPF (0-4) Urine Squamous Epithelial Cells Occ /LPF Urine Bacteria Few /HPF (0-FEW) Urine Yeast Present /HPF Test 01/18/19 08:05 01/18/19 12:07 Glucose (Fingerstick) 139 mg/dL (70-99) 153 mg/dL (70-99) Review of Systems Review of Systems: CO cough No confusion Assessment and Plan Assessmemt and Plan Problems Medical Problems: (1) Arrhythmia Status: Acute (2) Pneumonia Status: Acute Assessment HTN Pneumonia CVA Chronic renal insufficiency Arrhythmia Stroke Plan Home meds DVT prophylaxis Full code Consult palliative care Await decision on feeding tube Possible D/C tomorrow to [facility] Comment Review of Relevant I have reviewed the following items ricardo (where applicable) has been applied. Medications: Current Medications Medications (Trade) Dose Ordered Sig/Zechariah Route PRN Reason Start Time Stop Time Status Last Admin Dose Admin Vancomycin HCl (Vancomycin Trough Level) 1 each 1X ONCE 01/18/19 04:30 01/18/19 04:31 DC 01/18/19 05:35 Lactobacillus Rhamnosus (Culturelle) 1 cap BID PO 01/17/19 21:00 01/18/19 11:17 IAN PEREZ III DO Jan 18, 2019 12:31
--- NOTE | 2019-01-18 13:40 | NUR ---
SW following pt. Faxed updates to [facility].
[2019-01-18 15:00] VITALS: BP 140/66
--- NOTE | 2019-01-18 15:57 | PDOC2 ---
GI CONSULT Reason For Consult: Possible PEG HPI: HPI: 68 y/o male w/ h/o stroke and dysphagia and silent aspiration - previously some type of dysphagia diet recommended ( Naomi says pureed) which he chose not to follow for long. She reports he has done okay w/ regular diet for months. Now admitted w/ possible aspiration pneumonia and abnormal swallow evaluation. As recently as this morning did not desire a PEG, but then his left and while she was gone he spoke with someone and now would like to consider. She has concerns that he might think a feeding tube would "get rid of the pneumonia" because he has really been bothered with coughing - says "he's sick of being sick." Palliative care has been asked to see. If decision re: PEG isn't made soon, Naomi wonders how he will be fed - sys discharge tomorrow was discussed. Per nurse, had some applesauce this morning w/ pills and then was made NPO. Denies reflux/heartburn, n/v, abd pain, diarrhea, hematochezia, melena, or weight loss. H/o constipation - Naomi thinks on stool softeners at [place]. Might have had an EGD years ago and has also had a colonoscopy w/ polyps. Normal GB, possible fatty liver, and borderline dilated CBD (7mm) on US in 2017. No pancreas or PUD history. Med list include Celebrex and ASA. PMH: PMH: CVA, HTN, HLD, DM, peripheral neuropathy, torticollis, constipation, depression/anxiety, MRSA right knee surgery, appendectomy, tonsillectomy, right foot skin graft, deep brain stimulator placement/replacement (currently not functioning), carpal tunnel release, right shoulder surgery, left femur ORIF FH: Family History: No pertinent hx Social History: Smoke: No ALCOHOL: none Drugs: None ROS: GEN: Denies fevers, chills, sweats HEENT: Denies blurred vision, sore throat CV: Denies chest pain RESP: +cough GI: Per HPI : Denies hematuria, dysuria ENDO: Denies weight changes NEURO: Denies confusion, dizziness MSK: +left-sided paralysis SKIN: Denies jaundice, pruritus Vitals: Vitals: Vital Signs Date Time Temp Pulse Resp B/P (MAP) Pulse Ox O2 Delivery O2 Flow Rate FiO2 8/15/19 11:34 98.5 58 16 145/74 (97) 95 Room Air 98.5 Labs: Labs: Laboratory Tests Test 01/17/19 17:12 01/17/19 20:50 01/18/19 04:25 01/18/19 06:30 Glucose (Fingerstick) 153 mg/dL (70-99) 221 mg/dL (70-99) White Blood Count 6.0 x10^3/uL (4.0-11.0) Red Blood Count 4.32 x10^6/uL (4.30-5.70) Hemoglobin 13.4 g/dL (13.0-17.5) Hematocrit 39.3 % (39.0-53.0) Mean Corpuscular Volume 91 fL (79-100) Mean Corpuscular Hemoglobin 31 pg (25-35) Mean Corpuscular Hemoglobin Concent 34 g/dL (31-37) Red Cell Distribution Width 14.0 % (11.5-14.5) Platelet Count 178 x10^3/uL (140-400) Neutrophils (%) (Auto) 58 % (31-73) Lymphocytes (%) (Auto) 30 % (24-48) Monocytes (%) (Auto) 8 % (0-9) Eosinophils (%) (Auto) 3 % (0-3) Basophils (%) (Auto) 1 % (0-3) Neutrophils # (Auto) 3.5 x10^3/uL (1.8-7.7) Lymphocytes # (Auto) 1.8 x10^3/uL (1.0-4.8) Monocytes # (Auto) 0.5 x10^3/uL (0.0-1.1) Eosinophils # (Auto) 0.2 x10^3/uL (0.0-0.7) Basophils # (Auto) 0.0 x10^3/uL (0.0-0.2) Sodium Level 143 mmol/L (136-145) Potassium Level 3.6 mmol/L (3.5-5.1) Chloride Level 108 mmol/L (98-107) Carbon Dioxide Level 26 mmol/L (21-32) Anion Gap 9 (6-14) Blood Urea Nitrogen 15 mg/dL (8-26) Creatinine 0.8 mg/dL (0.7-1.3) Estimated GFR (Cockcroft-Gault) 96.1 BUN/Creatinine Ratio 19 (6-20) Glucose Level 157 mg/dL (70-99) Calcium Level 8.4 mg/dL (8.5-10.1) Total Bilirubin 0.7 mg/dL (0.2-1.0) Aspartate Amino Transf (AST/SGOT) 9 U/L (15-37) Alanine Aminotransferase (ALT/SGPT) 13 U/L (16-63) Alkaline Phosphatase 72 U/L (46-116) Total Protein 6.1 g/dL (6.4-8.2) Albumin 2.7 g/dL (3.4-5.0) Albumin/Globulin Ratio 0.8 (1.0-1.7) Vancomycin Level Trough 14.4 mcg/mL (10.0-20.0) Vancomycin Last Dose Date 01/17/19 Vancomycin Last Dose Time 1700 Urine Collection Type Unknown Urine Color Yellow Urine Clarity Clear Urine pH 6.0 Urine Specific [place] 1.025 Urine Protein Negative mg/dL (NEG-TRACE) Urine Glucose (UA) 100 mg/dL (NEG) Urine Ketones (Stick) Negative mg/dL (NEG) Urine Blood Negative (NEG) Urine Nitrite Negative (NEG) Urine Bilirubin Negative (NEG) Urine Urobilinogen Dipstick 0.2 mg/dL (0.2 mg/dL) Urine Leukocyte Esterase Moderate (NEG) Urine RBC 0 /HPF (0-2) Urine WBC >40 /HPF (0-4) Urine Squamous Epithelial Cells Occ /LPF Urine Bacteria Few /HPF (0-FEW) Urine Yeast Present /HPF Test 01/18/19 08:05 01/18/19 12:07 Glucose (Fingerstick) 139 mg/dL (70-99) 153 mg/dL (70-99) Allergies: Coded Allergies: buprenorphine HCl (Verified Allergy, Intermediate, 04/27/17) naloxone HCl (Verified Allergy, Intermediate, 04/27/17) Medications: Current Medications Medications (Trade) Dose Ordered Sig/Zechariah Route PRN Reason Start Time Stop Time Status Last Admin Dose Admin Vancomycin HCl (Vancomycin Trough Level) 1 each 1X ONCE MC 01/18/19 04:30 01/18/19 04:31 DC 01/18/19 05:35 Lactobacillus Rhamnosus (Culturelle) 1 cap BID PO 01/17/19 21:00 01/18/19 11:17 Imaging: Imaging: CXR 01/15 IMPRESSION: 1. Moderate elevation of the right hemidiaphragm with volume loss right lung base. Chest CT IMPRESSION: 1. Volume loss identified in the right lung base with moderate consolidation and air bronchograms in the right lower lobe of the lung. Differential includes pneumonia or postobstructive atelectasis. Recommend bronchoscopic evaluation to exclude bronchial pathology/neoplasm. 2. Coronary artery calcifications. 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 High risk for aspiration w/ all PO and on own secretions. Pt has hx of dysphagia r/t multiple CVAs. At [place], pt made decision to continue PO intake of regular diet w/ nectar thick liquids, but reports she normally gave him some liquids that were not thickened or not thickened to the proper consistency. Spouse also reports recent videoswallow that indicated silent aspiration and need for NPO, but decision was made to continue NPO while at [place]. See full BSE report for additional details. Impressions: Severe dysphagia w/ high risk for aspiration w/ all PO. Delayed swallow, impaired hyolaryngeal excursion, and decreased airway protection are primary contributors to dysphagia and c/w CVA deficits. Recommendations: NPO w/ long-term alternative nutrition intake. If non-oral nutrition/hydration is not c/w pt/fmly goals of care, liberalize diet AFTER D/C from [facility]. Consider palliative care consult to clarify goals of care. PE: GEN: NAD HEENT: Atraumatic, PERRL LUNGS: occasional cough, clear anteriorly on room air HEART: RRR ABD: NABS, S/ND/NT EXTREMITY: left pedal edema SKIN: points out that left great toe has some erythema w/ some warmth NEURO/PSYCH: left-sided paralysis, awake and alert, does not verbalize A/P: A/P: Pneumonia H/o CVA and dysphagia CRC screen - had a colonoscopy at some point H/o constipation H/o torticollis w/ deep brain stimulator placement NSAID use -- Explained PEG procedure and possible risks - discussed how this could decrease risk of aspiration but not eliminate entirely. Has a dysphagia diet ordered - d/w nurse - she says verbal order was given for NPO. Dr. Jaimes to see later. NASIR MONTGOMERY Jan 18, 2019 15:56
[2019-01-18 19:54] VITALS: BP 161/85
[2019-01-18] MEDS: NORTRIPTYLINE 25 MG CAPSULE PO SCH (21:00)
[2019-01-18] MEDS: ATORVASTATIN CALCIUM 20 MG TABLET PO SCH (21:00)
[2019-01-18] MEDS: CELECOXIB 100 MG CAPSULE. PO SCH (21:00)
[2019-01-18 23:52] VITALS: BP 147/84
[2019-01-19] VITALS (13 sets, daily range): BP systolic 98–175; BP diastolic 60–101
[2019-01-19] MEDS: PIPERACILLIN/TAZOBACTAM 3.375 GM in IV NORMAL SALINE 50ML 50 ML IV SCH ×4 (01:24→18:43)
[2019-01-19 04:48] LABS: BASO # 0.1 x10^3/uL (0.0-0.2); BASO % 1 % (0-3); EOS # 0.2 x10^3/uL (0.0-0.7); EOS % 3 % (0-3); HEMATOCRIT 40.8 % (39.0-53.0); HEMOGLOBIN 13.8 g/dL (13.0-17.5); LYMPH # 1.7 x10^3/uL (1.0-4.8); LYMPH % 28 % (24-48); MEAN CORPUSCULAR HEMOGLOBIN 31 pg (25-35); MEAN CORPUSCULAR HGB CONC 34 g/dL (31-37); MEAN CORPUSCULAR VOLUME 91 fL (79-100); MONO # 0.5 x10^3/uL (0.0-1.1); MONO % 9 % (0-9); NEUT # 3.5 x10^3/uL (1.8-7.7); NEUT % 59 % (31-73); PLATELET COUNT 182 x10^3/uL (140-400); RED BLOOD COUNT 4.49 x10^6/uL (4.30-5.70); RED CELL DISTRIBUTION WIDTH 13.9 % (11.5-14.5); WHITE BLOOD COUNT 5.9 x10^3/uL (4.0-11.0)
[2019-01-19 05:02] LABS: CALCIUM 8.5 mg/dL (8.5-10.1); CREATININE 0.9 mg/dL (0.7-1.3); GFR 83.9; POTASSIUM 3.2 mmol/L (3.5-5.1)
[2019-01-19] MEDS: VANCOMYCIN 1.5 GM in IV NORMAL SALINE 500ML BAG 500 ML IV SCH (05:25)
[2019-01-19] MEDS: PANTOPRAZOLE 40 MG TABLET.DR. PO SCH (07:30)
[2019-01-19] MEDS: FINASTERIDE 5 MG TABLET. PO SCH (08:29)
[2019-01-19] MEDS: METOPROLOL TART IMMED RELEASE 50 MG TABLET. PO SCH ×2 (08:29→21:00)
[2019-01-19] MEDS: ASPIRIN CHEWABLE 81 MG TABLET. PO SCH (08:29)
[2019-01-19] MEDS: LACTOBACILLUS RHAMNOSUS GG 1 CAPSULE. PO SCH ×2 (08:29→21:00)
[2019-01-19] MEDS: buPROPion XL 150 MG TAB.ER.24H. PO SCH (08:29)
[2019-01-19] MEDS: CALCIUM CARBONATE 500 MG TABLET PO SCH (08:29)
[2019-01-19] MEDS: TAMSULOSIN 0.4 MG CAP.ER.24H. PO SCH (08:29)
--- NOTE | 2019-01-19 08:56 | PDOC ---
PULMONARY PROGRESS NOTES Subjective PT WITH NO INCREASE SANJIV STATES HE WANTS PEG Vitals Vital Signs Date Time Temp Pulse Resp B/P (MAP) Pulse Ox O2 Delivery O2 Flow Rate FiO2 01/19/19 07:00 98.4 56 18 163/80 (107) 95 Room Air 98.4 ROS: No Nausea, No Chest Pain, No Abdominal Pain, No Increase Cough General: Alert Lungs: Clear, Crackles Cardiovascular: S1, S2 Abdomen: Soft Neuro Exam: Alert Skin: Warm Labs Laboratory Tests Test 01/17/19 11:54 01/17/19 17:12 01/17/19 20:50 01/18/19 04:25 Glucose (Fingerstick) 206 mg/dL (70-99) 153 mg/dL (70-99) 221 mg/dL (70-99) White Blood Count 6.0 x10^3/uL (4.0-11.0) Red Blood Count 4.32 x10^6/uL (4.30-5.70) Hemoglobin 13.4 g/dL (13.0-17.5) Hematocrit 39.3 % (39.0-53.0) Mean Corpuscular Volume 91 fL (79-100) Mean Corpuscular Hemoglobin 31 pg (25-35) Mean Corpuscular Hemoglobin Concent 34 g/dL (31-37) Red Cell Distribution Width 14.0 % (11.5-14.5) Platelet Count 178 x10^3/uL (140-400) Neutrophils (%) (Auto) 58 % (31-73) Lymphocytes (%) (Auto) 30 % (24-48) Monocytes (%) (Auto) 8 % (0-9) Eosinophils (%) (Auto) 3 % (0-3) Basophils (%) (Auto) 1 % (0-3) Neutrophils # (Auto) 3.5 x10^3/uL (1.8-7.7) Lymphocytes # (Auto) 1.8 x10^3/uL (1.0-4.8) Monocytes # (Auto) 0.5 x10^3/uL (0.0-1.1) Eosinophils # (Auto) 0.2 x10^3/uL (0.0-0.7) Basophils # (Auto) 0.0 x10^3/uL (0.0-0.2) Sodium Level 143 mmol/L (136-145) Potassium Level 3.6 mmol/L (3.5-5.1) Chloride Level 108 mmol/L (98-107) Carbon Dioxide Level 26 mmol/L (21-32) Anion Gap 9 (6-14) Blood Urea Nitrogen 15 mg/dL (8-26) Creatinine 0.8 mg/dL (0.7-1.3) Estimated GFR (Cockcroft-Gault) 96.1 BUN/Creatinine Ratio 19 (6-20) Glucose Level 157 mg/dL (70-99) Calcium Level 8.4 mg/dL (8.5-10.1) Total Bilirubin 0.7 mg/dL (0.2-1.0) Aspartate Amino Transf (AST/SGOT) 9 U/L (15-37) Alanine Aminotransferase (ALT/SGPT) 13 U/L (16-63) Alkaline Phosphatase 72 U/L (46-116) Total Protein 6.1 g/dL (6.4-8.2) Albumin 2.7 g/dL (3.4-5.0) Albumin/Globulin Ratio 0.8 (1.0-1.7) Vancomycin Level Trough 14.4 mcg/mL (10.0-20.0) Vancomycin Last Dose Date 01/17/19 Vancomycin Last Dose Time 1700 Test 01/18/19 06:30 01/18/19 08:05 01/18/19 12:07 01/18/19 17:41 Urine Collection Type Unknown Urine Color Yellow Urine Clarity Clear Urine pH 6.0 Urine Specific Imogene 1.025 Urine Protein Negative mg/dL (NEG-TRACE) Urine Glucose (UA) 100 mg/dL (NEG) Urine Ketones (Stick) Negative mg/dL (NEG) Urine Blood Negative (NEG) Urine Nitrite Negative (NEG) Urine Bilirubin Negative (NEG) Urine Urobilinogen Dipstick 0.2 mg/dL (0.2 mg/dL) Urine Leukocyte Esterase Moderate (NEG) Urine RBC 0 /HPF (0-2) Urine WBC >40 /HPF (0-4) Urine Squamous Epithelial Cells Occ /LPF Urine Bacteria Few /HPF (0-FEW) Urine Yeast Present /HPF Glucose (Fingerstick) 139 mg/dL (70-99) 153 mg/dL (70-99) 111 mg/dL (70-99) Test 01/18/19 20:20 01/19/19 04:05 01/19/19 08:24 Glucose (Fingerstick) 84 mg/dL (70-99) 94 mg/dL (70-99) White Blood Count 5.9 x10^3/uL (4.0-11.0) Red Blood Count 4.49 x10^6/uL (4.30-5.70) Hemoglobin 13.8 g/dL (13.0-17.5) Hematocrit 40.8 % (39.0-53.0) Mean Corpuscular Volume 91 fL (79-100) Mean Corpuscular Hemoglobin 31 pg (25-35) Mean Corpuscular Hemoglobin Concent 34 g/dL (31-37) Red Cell Distribution Width 13.9 % (11.5-14.5) Platelet Count 182 x10^3/uL (140-400) Neutrophils (%) (Auto) 59 % (31-73) Lymphocytes (%) (Auto) 28 % (24-48) Monocytes (%) (Auto) 9 % (0-9) Eosinophils (%) (Auto) 3 % (0-3) Basophils (%) (Auto) 1 % (0-3) Neutrophils # (Auto) 3.5 x10^3/uL (1.8-7.7) Lymphocytes # (Auto) 1.7 x10^3/uL (1.0-4.8) Monocytes # (Auto) 0.5 x10^3/uL (0.0-1.1) Eosinophils # (Auto) 0.2 x10^3/uL (0.0-0.7) Basophils # (Auto) 0.1 x10^3/uL (0.0-0.2) Sodium Level 144 mmol/L (136-145) Potassium Level 3.2 mmol/L (3.5-5.1) Chloride Level 108 mmol/L (98-107) Carbon Dioxide Level 26 mmol/L (21-32) Anion Gap 10 (6-14) Blood Urea Nitrogen 10 mg/dL (8-26) Creatinine 0.9 mg/dL (0.7-1.3) Estimated GFR (Cockcroft-Gault) 83.9 Glucose Level 92 mg/dL (70-99) Calcium Level 8.5 mg/dL (8.5-10.1) Laboratory Tests Test 01/18/19 12:07 01/18/19 17:41 01/18/19 20:20 01/19/19 04:05 Glucose (Fingerstick) 153 mg/dL (70-99) 111 mg/dL (70-99) 84 mg/dL (70-99) White Blood Count 5.9 x10^3/uL (4.0-11.0) Red Blood Count 4.49 x10^6/uL (4.30-5.70) Hemoglobin 13.8 g/dL (13.0-17.5) Hematocrit 40.8 % (39.0-53.0) Mean Corpuscular Volume 91 fL (79-100) Mean Corpuscular Hemoglobin 31 pg (25-35) Mean Corpuscular Hemoglobin Concent 34 g/dL (31-37) Red Cell Distribution Width 13.9 % (11.5-14.5) Platelet Count 182 x10^3/uL (140-400) Neutrophils (%) (Auto) 59 % (31-73) Lymphocytes (%) (Auto) 28 % (24-48) Monocytes (%) (Auto) 9 % (0-9) Eosinophils (%) (Auto) 3 % (0-3) Basophils (%) (Auto) 1 % (0-3) Neutrophils # (Auto) 3.5 x10^3/uL (1.8-7.7) Lymphocytes # (Auto) 1.7 x10^3/uL (1.0-4.8) Monocytes # (Auto) 0.5 x10^3/uL (0.0-1.1) Eosinophils # (Auto) 0.2 x10^3/uL (0.0-0.7) Basophils # (Auto) 0.1 x10^3/uL (0.0-0.2) Sodium Level 144 mmol/L (136-145) Potassium Level 3.2 mmol/L (3.5-5.1) Chloride Level 108 mmol/L (98-107) Carbon Dioxide Level 26 mmol/L (21-32) Anion Gap 10 (6-14) Blood Urea Nitrogen 10 mg/dL (8-26) Creatinine 0.9 mg/dL (0.7-1.3) Estimated GFR (Cockcroft-Gault) 83.9 Glucose Level 92 mg/dL (70-99) Calcium Level 8.5 mg/dL (8.5-10.1) Test 01/19/19 08:24 Glucose (Fingerstick) 94 mg/dL (70-99) Medications Active Scripts Medications Dose Route/Sig Max Daily Dose Days Date Category Percocet 5-325 Mg Tablet (Oxycodone/Acetaminophen) 1 Each Tablet 1 Tab PO Q4HRS 04/27/17 Reported Proscar (Finasteride) 5 Mg Tablet 5 Mg PO DAILY 04/14/17 Reported Lantus Solostar (Insulin Glargine,Hum.rec.anlog) 100 Unit/1 Ml Insuln.pen 25 Unit SQ HS 04/14/17 Reported Calcium Citrate 250 Mg Tablet 600 Mg PO DAILY 03/03/16 Reported Celebrex (Celecoxib) 200 Mg Capsule 200 Mg PO HS 30 03/03/16 Reported Aspirin 81 Mg Tab.chew 81 Mg PO DAILY 07/17/14 Reported Prilosec Otc (Omeprazole Magnesium) 20 Mg Tablet.dr 20 Mg PO DAILY 07/17/14 Reported Nortriptyline Hcl 50 Mg Capsule 50 Mg PO DAILY 07/17/14 Reported Flomax (Tamsulosin Hcl) 0.4 Mg Cap.er.24h 0.4 Mg PO DAILY 07/17/14 Reported Bupropion Xl (Bupropion Hcl) 300 Mg Tab.er.24h 300 Mg PO DAILY 07/17/14 Reported Xenazine (Tetrabenazine) 12.5 Mg Tablet 12.5 Mg PO TID 07/17/14 Reported Novolog (Insulin Aspart) 100 Unit/1 Ml Cartridge 12-26 Unit SQ TIDAC 08/29/13 Reported Vitamin D2 (Ergocalciferol (Vitamin D2)) 50,000 Unit Capsule 50,000 Unit PO WEEKLY 08/29/13 Reported Paroxetine Hcl 40 Mg Tablet 40 Mg PO DAILY 08/29/13 Reported Metoprolol Tartrate 50 Mg Tablet 12.5 Mg PO BID 08/29/13 Reported Lipitor (Atorvastatin Calcium) 20 Mg Tablet 20 Mg PO DAILY 08/29/13 Reported Impression . IMPRESSION: 1. Abnormal CT chest revealing volume loss and air bronchograms, left lower lobe. 2. Aspiration pneumonia. 3. Cerebrovascular accident. 4. Hypertension. 5. Dysphagia. Plan . RESP STATUS IMPROVING WILL CONSULT GI FOR PEG CONTINUE ANTIBX DVT AND GI PROPH REPEAT CT IN 2 MONTHS JOEY CREWS MD Jan 19, 2019 08:56
--- NOTE | 2019-01-19 12:48 | PDOC ---
[employer] PROGRESS NOTE Chief Complaint Chief Complaint HTN Pneumonia CVA Chronic renal insufficiency Arrhythmia Stroke History of Present Illness History of Present Illness 01/19/19 Pt seen/examined at bedside DW and RN extensively Pt has dense L hemiparesis and [facility] Pt states he does want a feeding tube at this time 01/18/19 Pt seen/examined at bedside DW and RN Pt has dense L hemiparesis and [facility] DW Dr. Amor because patient does not want feeding tube, but continues to aspirate Vitals/I&O Vitals/I&O: Vital Signs Date Time Temp Pulse Resp B/P (MAP) Pulse Ox O2 Delivery O2 Flow Rate FiO2 01/19/19 11:32 98.2 59 20 162/90 (114) 94 Room Air 98.2 I & O 01/18/19 01/18/19 01/19/19 14:59 22:59 06:59 Intake Total 0 ml 0 ml 0 ml Balance 0 ml 0 ml 0 ml Physical Exam General: Alert, Cooperative, No acute distress, Other (can answer 1-2 words usually) Heart: Regular rate, Normal S1, Normal S2 Lungs: Clear, Crackles Abdomen: Normal bowel sounds, Soft (obese), No tenderness Extremities: No cyanosis, Other (left hemiparesis) Skin: No rashes, No breakdown, No significant lesion, Other Labs Labs: Laboratory Tests Test 01/18/19 17:41 01/18/19 20:20 01/19/19 04:05 01/19/19 08:24 Glucose (Fingerstick) 111 mg/dL (70-99) 84 mg/dL (70-99) 94 mg/dL (70-99) White Blood Count 5.9 x10^3/uL (4.0-11.0) Red Blood Count 4.49 x10^6/uL (4.30-5.70) Hemoglobin 13.8 g/dL (13.0-17.5) Hematocrit 40.8 % (39.0-53.0) Mean Corpuscular Volume 91 fL (79-100) Mean Corpuscular Hemoglobin 31 pg (25-35) Mean Corpuscular Hemoglobin Concent 34 g/dL (31-37) Red Cell Distribution Width 13.9 % (11.5-14.5) Platelet Count 182 x10^3/uL (140-400) Neutrophils (%) (Auto) 59 % (31-73) Lymphocytes (%) (Auto) 28 % (24-48) Monocytes (%) (Auto) 9 % (0-9) Eosinophils (%) (Auto) 3 % (0-3) Basophils (%) (Auto) 1 % (0-3) Neutrophils # (Auto) 3.5 x10^3/uL (1.8-7.7) Lymphocytes # (Auto) 1.7 x10^3/uL (1.0-4.8) Monocytes # (Auto) 0.5 x10^3/uL (0.0-1.1) Eosinophils # (Auto) 0.2 x10^3/uL (0.0-0.7) Basophils # (Auto) 0.1 x10^3/uL (0.0-0.2) Sodium Level 144 mmol/L (136-145) Potassium Level 3.2 mmol/L (3.5-5.1) Chloride Level 108 mmol/L (98-107) Carbon Dioxide Level 26 mmol/L (21-32) Anion Gap 10 (6-14) Blood Urea Nitrogen 10 mg/dL (8-26) Creatinine 0.9 mg/dL (0.7-1.3) Estimated GFR (Cockcroft-Gault) 83.9 Glucose Level 92 mg/dL (70-99) Calcium Level 8.5 mg/dL (8.5-10.1) Test 01/19/19 11:51 Glucose (Fingerstick) 92 mg/dL (70-99) Review of Systems Review of Systems: CO eye watering No CO pain No confusion Assessment and Plan Assessmemt and Plan Problems Medical Problems: (1) Arrhythmia Status: Acute (2) Pneumonia Status: Acute Assessment HTN Pneumonia CVA Chronic renal insufficiency Arrhythmia Stroke Plan Consult GI for feeding tube Home meds DVT prophylaxis PT/OT Full code Comment Review of Relevant I have reviewed the following items ricardo (where applicable) has been applied. IAN PEREZ III DO Jan 19, 2019 12:48
--- NOTE | 2019-01-19 13:22 | PDOC ---
Infectious Disease Note Subjective Subjective pt is feeling ok, wants to go for PEG says LAUREL BARRAGAN no n/v/d/sob/fever Vital Sign Vital Signs Vital Signs Date Time Temp Pulse Resp B/P (MAP) Pulse Ox O2 Delivery O2 Flow Rate FiO2 01/19/19 11:32 98.2 59 20 162/90 (114) 94 Room Air 98.2 Physical Exam PHYSICAL EXAM GENERAL: Awake gentleman, who nods and mumbles few words, not in any distress. VITAL SIGNS: Stable, afebrile. HEENT: Both pupils are round and reacting. No conjunctival lesion, no lesion in the mouth. NECK: Supple. No JVP. No lymphadenopathy. LUNGS: Clear. HEART: S1 and S2 regular. ABDOMEN: Benign. EXTREMITIES: No edema or cyanosis. SKIN: Unremarkable. NEUROLOGIC: Alert. He is able to hear and understand what is going on, but he has difficulty with communication. He has complete paralysis of the left side and significant weakness on the right side. Labs Lab Laboratory Tests Test 01/18/19 17:41 01/18/19 20:20 01/19/19 04:05 01/19/19 08:24 Glucose (Fingerstick) 111 mg/dL (70-99) 84 mg/dL (70-99) 94 mg/dL (70-99) White Blood Count 5.9 x10^3/uL (4.0-11.0) Red Blood Count 4.49 x10^6/uL (4.30-5.70) Hemoglobin 13.8 g/dL (13.0-17.5) Hematocrit 40.8 % (39.0-53.0) Mean Corpuscular Volume 91 fL (79-100) Mean Corpuscular Hemoglobin 31 pg (25-35) Mean Corpuscular Hemoglobin Concent 34 g/dL (31-37) Red Cell Distribution Width 13.9 % (11.5-14.5) Platelet Count 182 x10^3/uL (140-400) Neutrophils (%) (Auto) 59 % (31-73) Lymphocytes (%) (Auto) 28 % (24-48) Monocytes (%) (Auto) 9 % (0-9) Eosinophils (%) (Auto) 3 % (0-3) Basophils (%) (Auto) 1 % (0-3) Neutrophils # (Auto) 3.5 x10^3/uL (1.8-7.7) Lymphocytes # (Auto) 1.7 x10^3/uL (1.0-4.8) Monocytes # (Auto) 0.5 x10^3/uL (0.0-1.1) Eosinophils # (Auto) 0.2 x10^3/uL (0.0-0.7) Basophils # (Auto) 0.1 x10^3/uL (0.0-0.2) Sodium Level 144 mmol/L (136-145) Potassium Level 3.2 mmol/L (3.5-5.1) Chloride Level 108 mmol/L (98-107) Carbon Dioxide Level 26 mmol/L (21-32) Anion Gap 10 (6-14) Blood Urea Nitrogen 10 mg/dL (8-26) Creatinine 0.9 mg/dL (0.7-1.3) Estimated GFR (Cockcroft-Gault) 83.9 Glucose Level 92 mg/dL (70-99) Calcium Level 8.5 mg/dL (8.5-10.1) Test 01/19/19 11:51 Glucose (Fingerstick) 92 mg/dL (70-99) Objective Assessment Pneumonia, aspiration CVA HTN Dysphagia Plan Plan of Care cont zosyn d/c vanc PEG planned d/w prison prognosis poor IVELISSE FERREIRA MD Jan 19, 2019 13:22
--- NOTE | 2019-01-19 13:26 | PDOC ---
Subjective: Subjective: Says he wants a feeding tube - nurse says he also reported this to hospitalist earlier. Objective: Vital Signs: Vital Signs Date Time Temp Pulse Resp B/P (MAP) Pulse Ox O2 Delivery O2 Flow Rate FiO2 01/19/19 11:32 98.2 59 20 162/90 (114) 94 Room Air 98.2 Labs: Laboratory Tests Test 01/18/19 17:41 01/18/19 20:20 01/19/19 04:05 01/19/19 08:24 Glucose (Fingerstick) 111 mg/dL 84 mg/dL 94 mg/dL White Blood Count 5.9 x10^3/uL Red Blood Count 4.49 x10^6/uL Hemoglobin 13.8 g/dL Hematocrit 40.8 % Mean Corpuscular Volume 91 fL Mean Corpuscular Hemoglobin 31 pg Mean Corpuscular Hemoglobin Concent 34 g/dL Red Cell Distribution Width 13.9 % Platelet Count 182 x10^3/uL Neutrophils (%) (Auto) 59 % Lymphocytes (%) (Auto) 28 % Monocytes (%) (Auto) 9 % Eosinophils (%) (Auto) 3 % Basophils (%) (Auto) 1 % Neutrophils # (Auto) 3.5 x10^3/uL Lymphocytes # (Auto) 1.7 x10^3/uL Monocytes # (Auto) 0.5 x10^3/uL Eosinophils # (Auto) 0.2 x10^3/uL Basophils # (Auto) 0.1 x10^3/uL Sodium Level 144 mmol/L Potassium Level 3.2 mmol/L Chloride Level 108 mmol/L Carbon Dioxide Level 26 mmol/L Anion Gap 10 Blood Urea Nitrogen 10 mg/dL Creatinine 0.9 mg/dL Estimated GFR (Cockcroft-Gault) 83.9 Glucose Level 92 mg/dL Calcium Level 8.5 mg/dL Test 01/19/19 11:51 Glucose (Fingerstick) 92 mg/dL PE: GEN: NAD LUNGS: clear anteriorly HEART: RRR ABD: S/ND/NT NEURO/PSYCH: A & O �3 A/P: Aspiration pneumonia H/o CVA, torticollis, and dysphagia HTN - not getting regular meds because NPO, defer to primary -- Says he would like to proceed w/ PEG placement. ?Tuesday - will confirm w/ Dr. Jaimes. NASIR MONTGOMERY Jan 19, 2019 13:26
[2019-01-19] MEDS ORDERED: ADENOSINE 6 MG/2 ML VIAL. IV ONE ×6 (19:15→22:15)
--- NOTE | 2019-01-19 20:00 | NUR ---
Pt with decreased blood pressure. Unable to obtain a great waveform on the 02 sat probe. Son (Huey) called and discussed POC. Spoke with all sons of patient and verified that they wanted patient to be a DNR and to be kept comfortable. Dr. Martinez called with order for levophed and DNR status.
--- NOTE | 2019-01-19 20:01 | NUR ---
Please disregard previous note, charted under wrong patient
[2019-01-19] MEDS ORDERED: POTASSIUM ACETATE IV ONE (20:45)
[2019-01-19] MEDS ORDERED: DEXTROSE 5% IV ONE (20:45)
[2019-01-19] MEDS: NORTRIPTYLINE 25 MG CAPSULE PO SCH (21:00)
[2019-01-19] MEDS: CELECOXIB 100 MG CAPSULE. PO SCH (21:00)
[2019-01-19] MEDS ORDERED: POTASSIUM CL 20MEQ IN D5W 1,000 ML IV ONE (21:00)
[2019-01-19] MEDS: ATORVASTATIN CALCIUM 20 MG TABLET PO SCH (21:00)
[2019-01-19] MEDS: POTASSIUM CHLORIDE 10MEQ 100 ML IV SCH ×3 (21:01→23:10)
--- NOTE | 2019-01-19 21:30 | NUR ---
Rapid Response Note Rapid response called by patient's RN for SVT rate 170's. RN stated patient had transferred from 6S for SVT to 2S earlier in the day for SVT. RN said Dr Kaye had been called and ordered Adenosine 6MG IVP, which did convert patient to SR. Per RN, patient would only stay in SR for brief periods of time and would return to SVT 160 to 170's requiring additional doses of Adenosine. RN reports receiving orders to give Cardizem bolus and start Cardizem gtt but patient BP to low. Just prior to this RN's arrival, Dr Kaye ordered patient to be transferred to ICU. Upon arrival, patient tele SR with BBB, rate 80's, within three minutes patient back in SVT, rate 173-178bpm. Patient alert/oriented x4, denies chest pain, dizziness/lightheadedness, or shortness of breath; patient stated he is unable to feel any change when his HR increases. Lung sounds anteriorly clear to auscultation, oxygen saturation 99% on 2L/NC, Heart tones S1S2, RRR, +2 radial and +1pedal pulses bilat. An additional dose of Adenosine 6MG IVP given without and break or slowing of SVT. After discussion and explanation to patient, scot was transferred to ICU room 108 at 2130 via special bed, O2 2L/NC, and monitored via Life [facility]. Addendum: 01/20/19 at 0351 by KIMBERLY SLATER RN Amended: Links added.
--- NOTE | 2019-01-19 22:00 | NUR ---
Nursing note: Pt transferrred to room 108 from 2s. Pt in SVT on arrival, rate in 170s. 6mg Adenosine given, pt converted to SR. About 30 minutes later patient went back into SVT (180s), this time with a wider QRS. 12mg Adenosine given. Pt converted to SR. Dr. Miller called, currently replacing Potassium, will give fluids and start Cardizem.
[2019-01-19] MEDS: dilTIAZem INJ 125 MG in IV DEXTROSE 5% 100ML 100 ML IV PRN (22:44)
[2019-01-19] MEDS: IV NORMAL SALINE 1000ML BAG 1,000 ML IV SCH (22:45)
[2019-01-19] MEDS ORDERED: MAGNESIUM SULFATE 1GM 100 ML IV ONE (23:30)
[2019-01-20] VITALS (31 sets, daily range): BP systolic 81–179; BP diastolic 51–108
[2019-01-20] MEDS: POTASSIUM CHLORIDE 10MEQ 100 ML IV SCH (00:08)
[2019-01-20] MEDS: PIPERACILLIN/TAZOBACTAM 3.375 GM in IV NORMAL SALINE 50ML 50 ML IV SCH ×5 (00:09→23:59)
--- NOTE | 2019-01-20 06:50 | PDOC ---
PULMONARY PROGRESS NOTES Subjective transferred to icu, svt, s/p multiple doses of adenosine, now on cardizem gtt, on , no sob, has cough, no pain, peg on tuesday Vitals Vital Signs Date Time Temp Pulse Resp B/P (MAP) Pulse Ox O2 Delivery O2 Flow Rate FiO2 01/20/19 06:00 56 18 113/61 (78) 97 Nasal Cannula 2.0 01/20/19 04:00 98.1 98.1 Comments ros as mentioned as above other sys otherwise neg ROS: No Nausea, No Chest Pain, No Abdominal Pain General: Alert HEENT: Other (nc at perrl nose throat clear neck no lad no thyromegaly) Lungs: Clear, Crackles Cardiovascular: S1, S2 Abdomen: Soft, Non-tender, Other (no mass) Neuro Exam: Alert Extremities: No Edema Skin: Warm Labs Laboratory Tests Test 01/18/19 08:05 01/18/19 12:07 01/18/19 17:41 01/18/19 20:20 Glucose (Fingerstick) 139 mg/dL (70-99) 153 mg/dL (70-99) 111 mg/dL (70-99) 84 mg/dL (70-99) Test 01/19/19 04:05 01/19/19 08:24 01/19/19 11:51 01/19/19 17:45 White Blood Count 5.9 x10^3/uL (4.0-11.0) Red Blood Count 4.49 x10^6/uL (4.30-5.70) Hemoglobin 13.8 g/dL (13.0-17.5) Hematocrit 40.8 % (39.0-53.0) Mean Corpuscular Volume 91 fL (79-100) Mean Corpuscular Hemoglobin 31 pg (25-35) Mean Corpuscular Hemoglobin Concent 34 g/dL (31-37) Red Cell Distribution Width 13.9 % (11.5-14.5) Platelet Count 182 x10^3/uL (140-400) Neutrophils (%) (Auto) 59 % (31-73) Lymphocytes (%) (Auto) 28 % (24-48) Monocytes (%) (Auto) 9 % (0-9) Eosinophils (%) (Auto) 3 % (0-3) Basophils (%) (Auto) 1 % (0-3) Neutrophils # (Auto) 3.5 x10^3/uL (1.8-7.7) Lymphocytes # (Auto) 1.7 x10^3/uL (1.0-4.8) Monocytes # (Auto) 0.5 x10^3/uL (0.0-1.1) Eosinophils # (Auto) 0.2 x10^3/uL (0.0-0.7) Basophils # (Auto) 0.1 x10^3/uL (0.0-0.2) Sodium Level 144 mmol/L (136-145) Potassium Level 3.2 mmol/L (3.5-5.1) Chloride Level 108 mmol/L (98-107) Carbon Dioxide Level 26 mmol/L (21-32) Anion Gap 10 (6-14) Blood Urea Nitrogen 10 mg/dL (8-26) Creatinine 0.9 mg/dL (0.7-1.3) Estimated GFR (Cockcroft-Gault) 83.9 Glucose Level 92 mg/dL (70-99) Calcium Level 8.5 mg/dL (8.5-10.1) Glucose (Fingerstick) 94 mg/dL (70-99) 92 mg/dL (70-99) 73 mg/dL (70-99) Test 01/19/19 21:48 01/19/19 22:00 01/19/19 22:10 Glucose (Fingerstick) 72 mg/dL (70-99) Troponin I Quantitative < 0.017 ng/mL (0.000-0.055) Magnesium Level 1.8 mg/dL (1.8-2.4) Laboratory Tests Test 01/19/19 08:24 01/19/19 11:51 01/19/19 17:45 01/19/19 21:48 Glucose (Fingerstick) 94 mg/dL (70-99) 92 mg/dL (70-99) 73 mg/dL (70-99) 72 mg/dL (70-99) Test 01/19/19 22:00 01/19/19 22:10 Troponin I Quantitative < 0.017 ng/mL (0.000-0.055) Magnesium Level 1.8 mg/dL (1.8-2.4) Medications Active Scripts Medications Dose Route/Sig Max Daily Dose Days Date Category Percocet 5-325 Mg Tablet (Oxycodone/Acetaminophen) 1 Each Tablet 1 Tab PO Q4HRS 04/27/17 Reported Proscar (Finasteride) 5 Mg Tablet 5 Mg PO DAILY 04/14/17 Reported Lantus Solostar (Insulin Glargine,Hum.rec.anlog) 100 Unit/1 Ml Insuln.pen 25 Unit SQ HS 04/14/17 Reported Calcium Citrate 250 Mg Tablet 600 Mg PO DAILY 03/03/16 Reported Celebrex (Celecoxib) 200 Mg Capsule 200 Mg PO HS 30 03/03/16 Reported Aspirin 81 Mg Tab.chew 81 Mg PO DAILY 07/17/14 Reported Prilosec Otc (Omeprazole Magnesium) 20 Mg Tablet.dr 20 Mg PO DAILY 07/17/14 Reported Nortriptyline Hcl 50 Mg Capsule 50 Mg PO DAILY 07/17/14 Reported Flomax (Tamsulosin Hcl) 0.4 Mg Cap.er.24h 0.4 Mg PO DAILY 07/17/14 Reported Bupropion Xl (Bupropion Hcl) 300 Mg Tab.er.24h 300 Mg PO DAILY 07/17/14 Reported Xenazine (Tetrabenazine) 12.5 Mg Tablet 12.5 Mg PO TID 07/17/14 Reported Novolog (Insulin Aspart) 100 Unit/1 Ml Cartridge 12-26 Unit SQ TIDAC 08/29/13 Reported Vitamin D2 (Ergocalciferol (Vitamin D2)) 50,000 Unit Capsule 50,000 Unit PO WEEKLY 08/29/13 Reported Paroxetine Hcl 40 Mg Tablet 40 Mg PO DAILY 08/29/13 Reported Metoprolol Tartrate 50 Mg Tablet 12.5 Mg PO BID 08/29/13 Reported Lipitor (Atorvastatin Calcium) 20 Mg Tablet 20 Mg PO DAILY 08/29/[address] reviewed 1. Volume loss identified in the right lung base with moderate consolidation and air bronchograms in the right lower lobe of the lung. Differential includes pneumonia or postobstructive atelectasis. Recommend bronchoscopic evaluation to exclude bronchial pathology/neoplasm. 2. Coronary artery calcifications. Impression . IMPRESSION: 1. Abnormal CT chest revealing volume loss and air bronchograms, left lower lobe. 2. Aspiration pneumonia. 3. Cerebrovascular accident. 4. Hypertension. 5. Dysphagia. 6. s/p svt 7. hypo k Plan . 02 titration, cardizem per cardiology, NSR now elevate hob npo replace k cxr today CONSULTED GI FOR PEG CONTINUE ANTIBX DVT AND GI PROPH REPEAT CT IN 2 MONTHS discussed w rn, pt ROSINA ANGEL MD Jan 20, 2019 06:50
[2019-01-20] MEDS: PANTOPRAZOLE IV PUSH 40 MG VIAL. IVP SCH (07:46)
--- NOTE | 2019-01-20 08:12 | PDOC ---
Infectious Disease Note Subjective Subjective Feeling ok No fevers Satting 98% on 2L O2 Denies congestion/SOA/pain/upset stomach ROS ROS per HPI Vital Sign Vital Signs Vital Signs Date Time Temp Pulse Resp B/P (MAP) Pulse Ox O2 Delivery O2 Flow Rate FiO2 01/20/19 08:00 58 22 115/57 (76) 99 Nasal Cannula 2.0 01/20/19 07:45 97.6 97.6 Physical Exam PHYSICAL EXAM GENERAL: Propped up in bed, awake, NAD HEENT: LENY, Oral cavity clear NECK: Supple. LUNGS: Clear. HEART: S1 and S2 regular. ABDOMEN: Soft and nontender EXTREMITIES: Trace edema. No cyanosis SKIN: Warm to touch. NEUROLOGIC: Alert, responds to few questions Left-sided paralysis and weakness on the right side. PIV Labs Lab Laboratory Tests Test 01/19/19 08:24 01/19/19 11:51 01/19/19 17:45 01/19/19 21:48 Glucose (Fingerstick) 94 mg/dL (70-99) 92 mg/dL (70-99) 73 mg/dL (70-99) 72 mg/dL (70-99) Test 01/19/19 22:00 01/19/19 22:10 Troponin I Quantitative < 0.017 ng/mL (0.000-0.055) Magnesium Level 1.8 mg/dL (1.8-2.4) Objective Assessment Pneumonia, aspiration CVA HTN Dysphagia SVT Plan Plan of Care Zosyn PEG planned roasterman prognosis poor Attending Co-Sign The patient was seen and interviewed as well as examined at the bedside. The chart was reviewed. The case was discussed. Agree with the plan of care. KATHERINE MCCLURE APRN Jan 20, 2019 08:12 IVELISSE FERREIRA MD Jan 20, 2019 11:10
[2019-01-20] MEDS: METOPROLOL TART IMMED RELEASE 50 MG TABLET. PO SCH ×2 (09:00→20:30)
[2019-01-20] MEDS: CALCIUM CARBONATE 500 MG TABLET PO SCH (09:00)
[2019-01-20] MEDS: buPROPion XL 150 MG TAB.ER.24H. PO SCH (09:00)
[2019-01-20] MEDS: LACTOBACILLUS RHAMNOSUS GG 1 CAPSULE. PO SCH ×2 (09:00→20:47)
[2019-01-20] MEDS: FINASTERIDE 5 MG TABLET. PO SCH (09:00)
[2019-01-20] MEDS: ASPIRIN CHEWABLE 81 MG TABLET. PO SCH (09:00)
[2019-01-20] MEDS: TAMSULOSIN 0.4 MG CAP.ER.24H. PO SCH (09:00)
[2019-01-20 09:11] LABS: BASO # 0.1 x10^3/uL (0.0-0.2); BASO % 1 % (0-3); EOS # 0.2 x10^3/uL (0.0-0.7); EOS % 2 % (0-3); HEMATOCRIT 42.6 % (39.0-53.0); HEMOGLOBIN 14.3 g/dL (13.0-17.5); LYMPH # 1.3 x10^3/uL (1.0-4.8); LYMPH % 20 % (24-48); MEAN CORPUSCULAR HEMOGLOBIN 31 pg (25-35); MEAN CORPUSCULAR HGB CONC 34 g/dL (31-37); MEAN CORPUSCULAR VOLUME 91 fL (79-100); MONO # 0.5 x10^3/uL (0.0-1.1); MONO % 8 % (0-9); NEUT # 4.7 x10^3/uL (1.8-7.7); NEUT % 70 % (31-73); PLATELET COUNT 191 x10^3/uL (140-400); RED BLOOD COUNT 4.68 x10^6/uL (4.30-5.70); RED CELL DISTRIBUTION WIDTH 13.9 % (11.5-14.5); WHITE BLOOD COUNT 6.8 x10^3/uL (4.0-11.0)
[2019-01-20] MEDS ORDERED: ONDANSETRON PF 4 MG/2 ML VIAL. IV PRN (09:15)
[2019-01-20 09:31] LABS: CALCIUM 8.6 mg/dL (8.5-10.1); CREATININE 0.9 mg/dL (0.7-1.3); GFR 83.9; POTASSIUM 3.6 mmol/L (3.5-5.1)
--- NOTE | 2019-01-20 10:56 | PDOC ---
PROGRESS NOTES Chief Complaint Chief Complaint Asp PNA, dysphagia hx CVA - PEG tuesday HTN, controlled SVT - new (01/19) Chronic renal insufficiency History of Present Illness History of Present Illness Admitted to 6th floor for asp pneumonia, lives in [facility] - hx CVA, left residual was planned for pEG tuesday Then I got a call : went to svt, 170s, asymptomatic yesterday on 6th- s.p vagal and adenosine no resolve hence now icu cardizem gtt with cards on board dw pt today, [facility] for tFs over the weekend - willing to try IVF only as nutrition currently running PLAn: [facility] for TFs over weekend PEg TUESDAY hasbeen NPO CARdizem gtt for SVT issues - new Keep icu Vitals Vitals Vital Signs Date Time Temp Pulse Resp B/P (MAP) Pulse Ox O2 Delivery O2 Flow Rate FiO2 01/20/19 10:30 57 20 135/79 (97) 99 Nasal Cannula 2.0 01/20/19 07:45 97.6 97.6 Physical Exam Physical Exam GENERAL: Propped up in bed, awake, NAD HEENT: LENY, Oral cavity clear NECK: Supple. LUNGS: Clear. HEART: S1 and S2 regular. ABDOMEN: Soft and nontender EXTREMITIES: Trace edema. No cyanosis SKIN: Warm to touch. NEUROLOGIC: Alert, responds to few questions Left-sided paralysis and weakness on the right side. PIV General: Alert, Cooperative, No acute distress, Other (can answer 1-2 words usually) Heart: Regular rate, Normal S1, Normal S2 Lungs: Clear, Crackles Abdomen: Normal bowel sounds, Soft (obese), No tenderness Extremities: No cyanosis, Other (left hemiparesis) Skin: No rashes, No breakdown, No significant lesion, Other Labs LABS Laboratory Tests Test 01/19/19 11:51 01/19/19 17:45 01/19/19 21:48 01/19/19 22:00 Glucose (Fingerstick) 92 mg/dL (70-99) 73 mg/dL (70-99) 72 mg/dL (70-99) Troponin I Quantitative < 0.017 ng/mL (0.000-0.055) Test 01/19/19 22:10 01/20/19 08:45 Magnesium Level 1.8 mg/dL (1.8-2.4) 1.8 mg/dL (1.8-2.4) White Blood Count 6.8 x10^3/uL (4.0-11.0) Red Blood Count 4.68 x10^6/uL (4.30-5.70) Hemoglobin 14.3 g/dL (13.0-17.5) Hematocrit 42.6 % (39.0-53.0) Mean Corpuscular Volume 91 fL (79-100) Mean Corpuscular Hemoglobin 31 pg (25-35) Mean Corpuscular Hemoglobin Concent 34 g/dL (31-37) Red Cell Distribution Width 13.9 % (11.5-14.5) Platelet Count 191 x10^3/uL (140-400) Neutrophils (%) (Auto) 70 % (31-73) Lymphocytes (%) (Auto) 20 % (24-48) Monocytes (%) (Auto) 8 % (0-9) Eosinophils (%) (Auto) 2 % (0-3) Basophils (%) (Auto) 1 % (0-3) Neutrophils # (Auto) 4.7 x10^3/uL (1.8-7.7) Lymphocytes # (Auto) 1.3 x10^3/uL (1.0-4.8) Monocytes # (Auto) 0.5 x10^3/uL (0.0-1.1) Eosinophils # (Auto) 0.2 x10^3/uL (0.0-0.7) Basophils # (Auto) 0.1 x10^3/uL (0.0-0.2) Sodium Level 145 mmol/L (136-145) Potassium Level 3.6 mmol/L (3.5-5.1) Chloride Level 109 mmol/L (98-107) Carbon Dioxide Level 23 mmol/L (21-32) Anion Gap 13 (6-14) Blood Urea Nitrogen 11 mg/dL (8-26) Creatinine 0.9 mg/dL (0.7-1.3) Estimated GFR (Cockcroft-Gault) 83.9 Glucose Level 108 mg/dL (70-99) Calcium Level 8.6 mg/dL (8.5-10.1) Review of Systems Review of Systems no cp, no soa, no fever, no palpitations, no abd pain, no n/v/d Assessment and Plan Assessmemt and Plan Problems Medical Problems: (1) Arrhythmia Status: Acute (2) Pneumonia Status: Acute Comment Review of Relevant I have reviewed the following items ricardo (where applicable) has been applied. Labs Laboratory Tests Test 01/18/19 12:07 01/18/19 17:41 01/18/19 20:20 01/19/19 04:05 Glucose (Fingerstick) 153 mg/dL (70-99) 111 mg/dL (70-99) 84 mg/dL (70-99) White Blood Count 5.9 x10^3/uL (4.0-11.0) Red Blood Count 4.49 x10^6/uL (4.30-5.70) Hemoglobin 13.8 g/dL (13.0-17.5) Hematocrit 40.8 % (39.0-53.0) Mean Corpuscular Volume 91 fL (79-100) Mean Corpuscular Hemoglobin 31 pg (25-35) Mean Corpuscular Hemoglobin Concent 34 g/dL (31-37) Red Cell Distribution Width 13.9 % (11.5-14.5) Platelet Count 182 x10^3/uL (140-400) Neutrophils (%) (Auto) 59 % (31-73) Lymphocytes (%) (Auto) 28 % (24-48) Monocytes (%) (Auto) 9 % (0-9) Eosinophils (%) (Auto) 3 % (0-3) Basophils (%) (Auto) 1 % (0-3) Neutrophils # (Auto) 3.5 x10^3/uL (1.8-7.7) Lymphocytes # (Auto) 1.7 x10^3/uL (1.0-4.8) Monocytes # (Auto) 0.5 x10^3/uL (0.0-1.1) Eosinophils # (Auto) 0.2 x10^3/uL (0.0-0.7) Basophils # (Auto) 0.1 x10^3/uL (0.0-0.2) Sodium Level 144 mmol/L (136-145) Potassium Level 3.2 mmol/L (3.5-5.1) Chloride Level 108 mmol/L (98-107) Carbon Dioxide Level 26 mmol/L (21-32) Anion Gap 10 (6-14) Blood Urea Nitrogen 10 mg/dL (8-26) Creatinine 0.9 mg/dL (0.7-1.3) Estimated GFR (Cockcroft-Gault) 83.9 Glucose Level 92 mg/dL (70-99) Calcium Level 8.5 mg/dL (8.5-10.1) Test 01/19/19 08:24 01/19/19 11:51 01/19/19 17:45 01/19/19 21:48 Glucose (Fingerstick) 94 mg/dL (70-99) 92 mg/dL (70-99) 73 mg/dL (70-99) 72 mg/dL (70-99) Test 01/19/19 22:00 01/19/19 22:10 01/20/19 08:45 Troponin I Quantitative < 0.017 ng/mL (0.000-0.055) Magnesium Level 1.8 mg/dL (1.8-2.4) 1.8 mg/dL (1.8-2.4) White Blood Count 6.8 x10^3/uL (4.0-11.0) Red Blood Count 4.68 x10^6/uL (4.30-5.70) Hemoglobin 14.3 g/dL (13.0-17.5) Hematocrit 42.6 % (39.0-53.0) Mean Corpuscular Volume 91 fL (79-100) Mean Corpuscular Hemoglobin 31 pg (25-35) Mean Corpuscular Hemoglobin Concent 34 g/dL (31-37) Red Cell Distribution Width 13.9 % (11.5-14.5) Platelet Count 191 x10^3/uL (140-400) Neutrophils (%) (Auto) 70 % (31-73) Lymphocytes (%) (Auto) 20 % (24-48) Monocytes (%) (Auto) 8 % (0-9) Eosinophils (%) (Auto) 2 % (0-3) Basophils (%) (Auto) 1 % (0-3) Neutrophils # (Auto) 4.7 x10^3/uL (1.8-7.7) Lymphocytes # (Auto) 1.3 x10^3/uL (1.0-4.8) Monocytes # (Auto) 0.5 x10^3/uL (0.0-1.1) Eosinophils # (Auto) 0.2 x10^3/uL (0.0-0.7) Basophils # (Auto) 0.1 x10^3/uL (0.0-0.2) Sodium Level 145 mmol/L (136-145) Potassium Level 3.6 mmol/L (3.5-5.1) Chloride Level 109 mmol/L (98-107) Carbon Dioxide Level 23 mmol/L (21-32) Anion Gap 13 (6-14) Blood Urea Nitrogen 11 mg/dL (8-26) Creatinine 0.9 mg/dL (0.7-1.3) Estimated GFR (Cockcroft-Gault) 83.9 Glucose Level 108 mg/dL (70-99) Calcium Level 8.6 mg/dL (8.5-10.1) Laboratory Tests Test 01/19/19 11:51 01/19/19 17:45 01/19/19 21:48 01/19/19 22:00 Glucose (Fingerstick) 92 mg/dL (70-99) 73 mg/dL (70-99) 72 mg/dL (70-99) Troponin I Quantitative < 0.017 ng/mL (0.000-0.055) Test 01/19/19 22:10 01/20/19 08:45 Magnesium Level 1.8 mg/dL (1.8-2.4) 1.8 mg/dL (1.8-2.4) White Blood Count 6.8 x10^3/uL (4.0-11.0) Red Blood Count 4.68 x10^6/uL (4.30-5.70) Hemoglobin 14.3 g/dL (13.0-17.5) Hematocrit 42.6 % (39.0-53.0) Mean Corpuscular Volume 91 fL (79-100) Mean Corpuscular Hemoglobin 31 pg (25-35) Mean Corpuscular Hemoglobin Concent 34 g/dL (31-37) Red Cell Distribution Width 13.9 % (11.5-14.5) Platelet Count 191 x10^3/uL (140-400) Neutrophils (%) (Auto) 70 % (31-73) Lymphocytes (%) (Auto) 20 % (24-48) Monocytes (%) (Auto) 8 % (0-9) Eosinophils (%) (Auto) 2 % (0-3) Basophils (%) (Auto) 1 % (0-3) Neutrophils # (Auto) 4.7 x10^3/uL (1.8-7.7) Lymphocytes # (Auto) 1.3 x10^3/uL (1.0-4.8) Monocytes # (Auto) 0.5 x10^3/uL (0.0-1.1) Eosinophils # (Auto) 0.2 x10^3/uL (0.0-0.7) Basophils # (Auto) 0.1 x10^3/uL (0.0-0.2) Sodium Level 145 mmol/L (136-145) Potassium Level 3.6 mmol/L (3.5-5.1) Chloride Level 109 mmol/L (98-107) Carbon Dioxide Level 23 mmol/L (21-32) Anion Gap 13 (6-14) Blood Urea Nitrogen 11 mg/dL (8-26) Creatinine 0.9 mg/dL (0.7-1.3) Estimated GFR (Cockcroft-Gault) 83.9 Glucose Level 108 mg/dL (70-99) Calcium Level 8.6 mg/dL (8.5-10.1) Microbiology 01/18/19 Urine Culture - Final, Complete 01/18/19 Urine Culture Result 1 (SOFIA) - Final, Complete Medications Current Medications Piperacillin Sod/ Tazobactam Sod 3.375 gm/Sodium Chloride 50 ml @ 100 mls/hr 1X ONCE IV Last administered on 01/15/19at 16:23; Start 01/15/19 at 16:00; Stop 01/15/19 at 16:29; Status DC Vancomycin HCl (Vanco Per Pharmacy) 1 each 1X STAT MC Last administered on 01/16/19at 16:11; Start 01/15/19 at 15:55; Stop 01/15/19 at 16:03; Status DC Vancomycin HCl 2 gm/Sodium Chloride 500 ml @ 250 mls/hr 1X ONCE IV Last administered on 01/15/19at 18:32; Start 01/15/19 at 16:15; Stop 01/15/19 at 18:14; Status DC Ondansetron HCl (Zofran) 4 mg PRN Q8HRS PRN IV NAUSEA/VOMITING; Start 01/15/19 at 16:15; Stop 01/16/19 at 16:14; Status DC Fentanyl Citrate (Fentanyl 2ml Vial) 50 mcg PRN Q1HR PRN IV PAIN; Start 01/15/19 at 16:15; Stop 01/16/19 at 16:14; Status DC Acetaminophen (Tylenol) 650 mg PRN Q4HRS PRN PO FEVER; Start 01/15/19 at 16:15; Stop 01/16/19 at 16:14; Status DC Piperacillin Sod/ Tazobactam Sod 3.375 gm/Sodium Chloride 50 ml @ 100 mls/hr Q6HRS IV Last administered on 01/20/19 06:16; Start 01/16/19 at 14:00 Aspirin (Children'S Aspirin) 81 mg DAILY PO Last administered on 01/18/19at 11:17; Start 01/16/19 at 14:00 Atorvastatin Calcium (Lipitor) 20 mg QHS PO Last administered on 01/16/19at 21:16; Start 01/16/19 at 21:00 Ergocalciferol (Vitamin D2) 50,000 unit WEEKLY PO Last administered on 01/16/19at 14:38; Start 01/16/19 at 14:00 Finasteride (Proscar) 5 mg DAILY PO Last administered on 01/18/19 11:17; Start 01/16/19 at 14:00 Metoprolol Tartrate (Lopressor) 12.5 mg BID PO Last administered on 01/18/19at 11:17; Start 01/16/19 at 14:00 Oxycodone/ Acetaminophen (Percocet 5/325) 1 tab PRN Q4HRS PRN PO PAIN; Start 01/16/19 at 13:49 Tamsulosin HCl (Flomax) 0.4 mg DAILY PO Last administered on 01/18/19 11:17; Start 01/16/19 at 14:00 Bupropion HCl (Wellbutrin Xl) 300 mg DAILY PO Last administered on 01/18/19 11:17; Start 01/16/19 at 14:00 Calcium Carbonate/ Glycine (Oscal) 500 mg DAILY PO Last administered on 01/18/19at 11:17; Start 01/16/19 at 14:00 Celecoxib (CeleBREX) 200 mg QHS PO Last administered on 01/16/19 21:16; Start 01/16/19 at 21:00; Stop 01/20/19 at 09:12; Status DC Nortriptyline HCl (Pamelor) 50 mg QHS PO Last administered on 01/16/19at 21:16; Start 01/16/19 at 21:00 Pantoprazole Sodium (Protonix) 40 mg DAILYAC PO Last administered on 01/18/19 11:17; Start 01/16/19 at 14:00; Stop 01/19/19 at 13:29; Status DC Non-Formulary Medication (Tetrabenazine (Xenazine)) 12.5 mg TID PO ; Start 01/16 at 14:00; Stop 01/17/19 at 11:05; Status DC Vancomycin HCl (Vanco Per Pharmacy) 1 each PRN DAILY PRN MC SEE COMMENTS Last administered on 01/18/19at 15:25; Start 01/16/19 at 13:45; Stop 01/19/19 at 13:23; Status DC Vancomycin HCl 1.5 gm/Sodium Chloride 500 ml @ 250 mls/hr Q12H IV Last administered on 01/19/19 05:25; Start 01/16/19 at 17:00; Stop 01/19/19 at 13:23; Status DC Vancomycin HCl (Vancomycin Trough Level) 1 each 1X ONCE MC Last administered on 01/18/19at 05:35; Start 01/18/19 at 04:30; Stop 01/18/19 at 04:31; Status DC Non-Formulary Medication (Tetrabenazine (Xenazine)) 25 mg BID PO Last administered on 01/18/19at 11:17; Start 01/17/19 at 11:30 Lactobacillus Rhamnosus (Culturelle) 1 cap BID PO Last administered on 01/18/19 11:17; Start 01/17/19 at 21:00 Pantoprazole Sodium (PROTONIX VIAL for IV PUSH) 40 mg DAILYAC IVP Last administered on 01/20/19at 07:50; Start 01/20/19 at 07:30 Ondansetron HCl (Zofran) 4 mg PRN Q6HRS PRN IV NAUSEA/VOMITING; Start 01/22/19 at 07:00; Stop 01/22/19 at 20:00 Fentanyl Citrate (Fentanyl 2ml Vial) 25 mcg PRN Q5MIN PRN IV MILD PAIN 1-3; Start 01/22/19 at 07:00; Stop 01/22/19 at 20:00 Fentanyl Citrate (Fentanyl 2ml Vial) 50 mcg PRN Q5MIN PRN IV MODERATE TO SEVERE PAIN; Start 01/22/19 at 07:00; Stop 01/22/19 at 20:00 Ringer's Solution 1,000 ml @ 30 mls/hr Q24H IV ; Start 01/22/19 at 07:00; Stop 01/22/19 at 18:59 Lidocaine HCl (Xylocaine-Mpf 1% 2ml Vial) 2 ml PRN 1X PRN ID PRIOR TO IV START; Start 01/22/19 at 07:00; Stop 01/22/19 at 20:00 Prochlorperazine Edisylate (Compazine) 5 mg PACU PRN PRN IV NAUSEA, MRX1; Start 01/22/19 at 07:00; Stop 01/22/19 at 20:00 Adenosine (Adenocard) 6 mg 1X ONCE IV Last administered on 01/19/19at 19:28; Start 01/19/19 at 19:15; Stop 01/19/19 at 19:16; Status DC Adenosine (Adenocard) 6 mg 1X ONCE IV Last administered on 01/19/19at 20:11; Start 01/19/19 at 20:15; Stop 01/19/19 at 20:16; Status DC Adenosine (Adenocard) 6 mg 1X ONCE IV Last administered on 01/19/19at 20:36; Start 01/19/19 at 20:45; Stop 01/19/19 at 20:46; Status DC Potassium Chloride/Water 100 ml @ 100 mls/hr Q1H IV Last administered on 01/20/19at 00:09; Start 01/19/19 at 21:00; Stop 01/20/19 at 00:59; Status DC Potassium Acetate 20 meq/Dextrose 110 ml @ 55 mls/hr 1X ONCE IV ; Start 01/19/19 at 20:45; Stop 01/19/19 at 20:52; Status DC Diltiazem HCl 125 mg/Dextrose 125 ml @ 0 mls/hr CONT PRN IV SEE I/O RECORD Last administered on 01/19/19at 22:44; Start 01/19/19 at 20:45 Potassium Chloride/Dextrose 1,000 ml @ 55 mls/hr [id number] ONCE IV ; Start 01/19/19 at 21:00; Stop 01/19/19 at 20:55; Status DC Adenosine (Adenocard) 6 mg 1X ONCE IV Last administered on 01/19/19at 21:25; Start 01/19/19 at 21:30; Stop 01/19/19 at 21:31; Status DC Adenosine (Adenocard) 6 mg 1X ONCE IV Last administered on 01/19/19at 21:57; Start 01/19/19 at 22:15; Stop 01/19/19 at 22:16; Status DC Sodium Chloride 1,000 ml @ 75 mls/hr [id number] IV Last administered on 01/19/19at 22:45; Start 01/19/19 at 23:00 Magnesium Sulfate/ Dextrose 100 ml @ 100 mls/hr 1X ONCE IV Last administered on 01/20/19at 00:09; Start 01/19/19 at 23:30; Stop 01/20/19 at 00:29; Status DC Adenosine (Adenocard) 12 mg 1X ONCE IV Last administered on 01/20/19at 02:53; Start 01/19/19 at 22:15; Stop 01/20/19 at 02:52; Status DC Ondansetron HCl (Zofran) 4 mg PRN Q6HRS PRN IV NAUSEA/VOMITING; Start 01/20/19 at 09:15 Active Scripts Active Reported Percocet 5-325 Mg Tablet (Oxycodone/Acetaminophen) 1 Each Tablet 1 Tab PO Q4HRS Proscar (Finasteride) 5 Mg Tablet 5 Mg PO DAILY Lantus Solostar (Insulin Glargine,Hum.rec.anlog) 100 Unit/1 Ml Insuln.pen 25 Unit SQ HS Calcium Citrate 250 Mg Tablet 600 Mg PO DAILY Celebrex (Celecoxib) 200 Mg Capsule 200 Mg PO HS 30 Days Aspirin 81 Mg Tab.chew 81 Mg PO DAILY Prilosec Otc (Omeprazole Magnesium) 20 Mg Tablet.dr 20 Mg PO DAILY Nortriptyline Hcl 50 Mg Capsule 50 Mg PO DAILY Flomax (Tamsulosin Hcl) 0.4 Mg Cap.er.24h 0.4 Mg PO DAILY Bupropion Xl (Bupropion Hcl) 300 Mg Tab.er.24h 300 Mg PO DAILY Xenazine (Tetrabenazine) 12.5 Mg Tablet 12.5 Mg PO TID Novolog (Insulin Aspart) 100 Unit/1 Ml Cartridge 12-26 Unit SQ TIDAC Vitamin D2 (Ergocalciferol (Vitamin D2)) 50,000 Unit Capsule 50,000 Unit PO WEEKLY Paroxetine Hcl 40 Mg Tablet 40 Mg PO DAILY Metoprolol Tartrate 50 Mg Tablet 12.5 Mg PO BID Lipitor (Atorvastatin Calcium) 20 Mg Tablet 20 Mg PO DAILY Vitals/I & O Vital Sign - Last 24 Hours 01/19/19 01/19/19 01/19/19 01/19/19 11:32 15:16 19:00 19:38 Temp 98.2 98.4 98.1 98.2 98.4 98.1 Pulse 59 57 78 Resp 20 18 18 B/P (MAP) 162/90 (114) 144/62 (89) 140/92 (108) Pulse Ox 94 94 92 O2 Delivery Room Air Room Air Room Air Room Air 01/19/19 01/19/19 01/19/19 01/19/19 21:10 21:13 21:17 21:25 Pulse 86 173 176 174 Resp 18 18 B/P (MAP) 122/78 (93) 175/101 (125) 112/66 (81) 107/69 (82) Pulse Ox 99 99 99 O2 Delivery Nasal Cannula Nasal Cannula Nasal Cannula Nasal Cannula O2 Flow Rate 2.0 2.0 2.0 2.0 01/19/19 01/19/19 01/19/19 01/19/19 21:32 21:45 22:00 22:30 Pulse 177 176 86 86 Resp 18 18 18 B/P (MAP) 107/69 98/64 (75) 112/86 (95) 121/76 (91) Pulse Ox 99 99 99 O2 Delivery Nasal Cannula Nasal Cannula Nasal Cannula O2 Flow Rate 2.0 2.0 2.0 01/19/19 01/20/19 01/20/19 01/20/19 23:00 00:00 00:01 02:00 Temp 98.3 98.3 Pulse 86 86 64 Resp 18 18 14 B/P (MAP) 124/76 (92) 98/71 (80) 113/69 (84) Pulse Ox 100 98 96 O2 Delivery Nasal Cannula Nasal Cannula Nasal Cannula Nasal Cannula O2 Flow Rate 2.0 2.0 2.0 2.0 01/20/19 01/20/19 01/20/19 01/20/19 03:00 04:00 04:03 05:00 Temp 98.1 98.1 Pulse 64 60 60 Resp 14 15 14 B/P (MAP) 112/68 (83) 114/66 (82) 132/76 (94) Pulse Ox 96 98 96 O2 Delivery Nasal Cannula Nasal Cannula Nasal Cannula Nasal Cannula O2 Flow Rate 2.0 2.0 2.0 2.0 01/20/19 01/20/19 01/20/19 01/20/19 06:00 07:00 07:15 07:30 Pulse 56 54 52 53 Resp 18 18 18 20 B/P (MAP) 113/61 (78) 81/58 (66) 117/51 (73) 106/55 (72) Pulse Ox 97 97 97 98 O2 Delivery Nasal Cannula Nasal Cannula Nasal Cannula Nasal Cannula O2 Flow Rate 2.0 2.0 2.0 2.0 01/20/19 01/20/19 01/20/19 01/20/19 07:45 08:00 08:03 08:15 Temp 97.6 97.6 Pulse 52 58 51 Resp 16 22 20 B/P (MAP) 104/59 (74) 115/57 (76) 111/59 (76) Pulse Ox 98 99 97 O2 Delivery Nasal Cannula Nasal Cannula Nasal Cannula Nasal Cannula O2 Flow Rate 2.0 2.0 2.0 2.0 01/20/19 01/20/19 01/20/19 01/20/19 08:45 09:00 09:45 10:00 Pulse 52 55 58 55 Resp 17 18 22 16 B/P (MAP) 120/58 (78) 114/65 (81) 129/73 (91) 123/85 (98) Pulse Ox 99 97 99 99 O2 Delivery Nasal Cannula Nasal Cannula Nasal Cannula Nasal Cannula O2 Flow Rate 2.0 2.0 2.0 2.0 01/20/19 10:30 Pulse 57 Resp 20 B/P (MAP) 135/79 (97) Pulse Ox 99 O2 Delivery Nasal Cannula O2 Flow Rate 2.0 Intake and Output 01/19/19 01/19/19 01/20/19 15:00 23:00 07:00 Intake Total 677.7 ml Balance 677.7 ml ALISSON VELÁZQUEZ MD Jan 20, 2019 10:55
[2019-01-20] MEDS: dilTIAZem INJ 125 MG in IV DEXTROSE 5% 100ML 100 ML IV PRN (11:52)
--- NOTE | 2019-01-20 12:08 | PDOC2 ---
CONSULT Date of Consult Date of Consult DATE: 01/20/19 TIME: 12:01 Reason for Consult Reason for Consult: PSVT Referring Physician Referring Physician: Dr. Castrejon Identification/Chief Complaint Chief Complaint SOB Source Source: Chart review, Patient History of Present Illness Reason for Visit: The patient is a 68 year old male originally admitted for pneumonia who has been followed by ID and pulmonary. He has a history of a CVA and apparently of PSVT. The patient deveolped multiple episodes of PSVT last evening treated with IV adenosine. His K level was 3.2. He was treated with K replacement, IV cardizem and IV fluids. He has remained in sinus for the past 8 hours. Past Medical History Cardiovascular: HTN, Other (PSVT) Pulmonary: Pneumonia CENTRAL NERVOUS SYSTEM: CVA Renal/: Chronic renal insuff Endocrine: Diabetes Past Surgical History Past Surgical History: Appendectomy, Total knee replacement Family History Family History: No Significant Social History No ALCOHOL: none Drugs: None Current Problem List Problem List Problems Medical Problems: (1) Arrhythmia Status: Acute (2) Pneumonia Status: Acute Current Medications Current Medications Current Medications Piperacillin Sod/ Tazobactam Sod 3.375 gm/Sodium Chloride 50 ml @ 100 mls/hr 1X ONCE IV Last administered on 01/15/19at 16:23; Start 01/15/19 at 16:00; Stop 01/15/19 at 16:29; Status DC Vancomycin HCl (Vanco Per Pharmacy) 1 each 1X STAT MC Last administered on 01/16/19at 16:11; Start 01/15/19 at 15:55; Stop 01/15/19 at 16:03; Status DC Vancomycin HCl 2 gm/Sodium Chloride 500 ml @ 250 mls/hr 1X ONCE IV Last administered on 01/15/19at 18:32; Start 01/15/19 at 16:15; Stop 01/15/19 at 18:14; Status DC Ondansetron HCl (Zofran) 4 mg PRN Q8HRS PRN IV NAUSEA/VOMITING; Start 01/15/19 at 16:15; Stop 01/16/19 at 16:14; Status DC Fentanyl Citrate (Fentanyl 2ml Vial) 50 mcg PRN Q1HR PRN IV PAIN; Start 01/15/19 at 16:15; Stop 01/16/19 at 16:14; Status DC Acetaminophen (Tylenol) 650 mg PRN Q4HRS PRN PO FEVER; Start 01/15/19 at 16:15; Stop 01/16/19 at 16:14; Status DC Piperacillin Sod/ Tazobactam Sod 3.375 gm/Sodium Chloride 50 ml @ 100 mls/hr Q6HRS IV Last administered on 01/20/19 06:16; Start 01/16/19 at 14:00 Aspirin (Children'S Aspirin) 81 mg DAILY PO Last administered on 01/18/19 11:17; Start 01/16/19 at 14:00 Atorvastatin Calcium (Lipitor) 20 mg QHS PO Last administered on 01/16/19 21:16; Start 01/16/19 at 21:00 Ergocalciferol (Vitamin D2) 50,000 unit WEEKLY PO Last administered on 01/16/19 14:38; Start 01/16/19 at 14:00 Finasteride (Proscar) 5 mg DAILY PO Last administered on 01/18/19 11:17; Start 01/16/19 at 14:00 Metoprolol Tartrate (Lopressor) 12.5 mg BID PO Last administered on 01/18/19 11:17; Start 01/16/19 at 14:00 Oxycodone/ Acetaminophen (Percocet 5/325) 1 tab PRN Q4HRS PRN PO PAIN; Start 01/16/19 at 13:49 Tamsulosin HCl (Flomax) 0.4 mg DAILY PO Last administered on 01/18/19 11:17; Start 01/16/19 at 14:00 Bupropion HCl (Wellbutrin Xl) 300 mg DAILY PO Last administered on 01/18/19 11:17; Start 01/16/19 at 14:00 Calcium Carbonate/ Glycine (Oscal) 500 mg DAILY PO Last administered on 01/18/19 11:17; Start 01/16/19 at 14:00 Celecoxib (CeleBREX) 200 mg QHS PO Last administered on 01/16/19 21:16; Start 01/16/19 at 21:00; Stop 01/20/19 at 09:12; Status DC Nortriptyline HCl (Pamelor) 50 mg QHS PO Last administered on 01/16/19 21:16; Start 01/16/19 at 21:00 Pantoprazole Sodium (Protonix) 40 mg DAILYAC PO Last administered on 01/18/19 11:17; Start 01/16/19 at 14:00; Stop 01/19/19 at 13:29; Status DC Non-Formulary Medication (Tetrabenazine (Xenazine)) 12.5 mg TID PO ; Start 01/16/19 at 14:00; Stop 01/17/19 at 11:05; Status DC Vancomycin HCl (Vanco Per Pharmacy) 1 each PRN DAILY PRN MC SEE COMMENTS Last administered on 01/18/19at 15:25; Start 01/16/19 at 13:45; Stop 01/19/19 at 13:23; Status DC Vancomycin HCl 1.5 gm/Sodium Chloride 500 ml @ 250 mls/hr Q12H IV Last adminis tered on 01/19/19at 05:25; Start 01/16/19 at 17:00; Stop 01/19/19 at 13:23; Status DC Vancomycin HCl (Vancomycin Trough Level) 1 each 1X ONCE MC Last administered on 01/18/19at 05:35; Start 01/18/19 at 04:30; Stop 01/18/19 at 04:31; Status DC Non-Formulary Medication (Tetrabenazine (Xenazine)) 25 mg BID PO Last administered on 01/18/19 11:17; Start 01/17/19 at 11:30 Lactobacillus Rhamnosus (Culturelle) 1 cap BID PO Last administered on 01/18/19 11:17; Start 01/17/19 at 21:00 Pantoprazole Sodium (PROTONIX VIAL for IV PUSH) 40 mg DAILYAC IVP Last administered on 01/20/19at 07:50; Start 01/20/19 at 07:30 Ondansetron HCl (Zofran) 4 mg PRN Q6HRS PRN IV NAUSEA/VOMITING; Start 01/22/19 at 07:00; Stop 01/22/19 at 20:00 Fentanyl Citrate (Fentanyl 2ml Vial) 25 mcg PRN Q5MIN PRN IV MILD PAIN 1-3; Start 01/22/19 at 07:00; Stop 01/22/19 at 20:00 Fentanyl Citrate (Fentanyl 2ml Vial) 50 mcg PRN Q5MIN PRN IV MODERATE TO SEVERE PAIN; Start 01/22/19 at 07:00; Stop 01/22/19 at 20:00 Ringer's Solution 1,000 ml @ 30 mls/hr Q24H IV ; Start 01/22/19 at 07:00; Stop 01/22/19 at 18:59 Lidocaine HCl (Xylocaine-Mpf 1% 2ml Vial) 2 ml PRN 1X PRN ID PRIOR TO IV START; Start 01/22/19 at 07:00; Stop 01/22/19 at 20:00 Prochlorperazine Edisylate (Compazine) 5 mg PACU PRN PRN IV NAUSEA, MRX1; Start 01/22/19 at 07:00; Stop 01/22/19 at 20:00 Adenosine (Adenocard) 6 mg 1X ONCE IV Last administered on 01/19/19at 19:28; Start 01/19/19 at 19:15; Stop 01/19/19 at 19:16; Status DC Adenosine (Adenocard) 6 mg 1X ONCE IV Last administered on 01/19/19at 20:11; Start 01/19/19 at 20:15; Stop 01/19/19 at 20:16; Status DC Adenosine (Adenocard) 6 mg 1X ONCE IV Last administered on 01/19/19at 20:36; Start 01/19/19 at 20:45; Stop 01/19/19 at 20:46; Status DC Potassium Chloride/Water 100 ml @ 100 mls/hr Q1H IV Last administered on 01/20/19at 00:09; Start 01/19/19 at 21:00; Stop 01/20/19 at 00:59; Status DC Potassium Acetate 20 meq/Dextrose 110 ml @ 55 mls/hr 1X ONCE IV ; Start 01/19/19 at 20:45; Stop 01/19/19 at 20:52; Status DC Diltiazem HCl 125 mg/Dextrose 125 ml @ 0 mls/hr CONT PRN IV SEE I/O RECORD Last administered on 01/20/19at 11:52; Start 01/19/19 at 20:45 Potassium Chloride/Dextrose 1,000 ml @ 55 mls/hr [id number] ONCE IV ; Start 01/19/19 at 21:00; Stop 01/19/19 at 20:55; Status DC Adenosine (Adenocard) 6 mg 1X ONCE IV Last administered on 01/19/19at 21:25; Start 01/19/19 at 21:30; Stop 01/19/19 at 21:31; Status DC Adenosine (Adenocard) 6 mg 1X ONCE IV Last administered on 01/19/19at 21:57; Start 01/19/19 at 22:15; Stop 01/19/19 at 22:16; Status DC Sodium Chloride 1,000 ml @ 75 mls/hr [id number] IV Last administered on 01/19/19at 22:45; Start 01/19/19 at 23:00 Magnesium Sulfate/ Dextrose 100 ml @ 100 mls/hr 1X ONCE IV Last administered on 01/20/19at 00:09; Start 01/19/19 at 23:30; Stop 01/20/19 at 00:29; Status DC Adenosine (Adenocard) 12 mg 1X ONCE IV Last administered on 01/20/19at 02:53; Start 01/19/19 at 22:15; Stop 01/20/19 at 02:52; Status DC Ondansetron HCl (Zofran) 4 mg PRN Q6HRS PRN IV NAUSEA/VOMITING; Start 01/20/19 at 09:15 Active Scripts Active Reported Percocet 5-325 Mg Tablet (Oxycodone/Acetaminophen) 1 Each Tablet 1 Tab PO Q4HRS Proscar (Finasteride) 5 Mg Tablet 5 Mg PO DAILY Lantus Solostar (Insulin Glargine,Hum.rec.anlog) 100 Unit/1 Ml Insuln.pen 25 Unit SQ HS Calcium Citrate 250 Mg Tablet 600 Mg PO DAILY Celebrex (Celecoxib) 200 Mg Capsule 200 Mg PO HS 30 Days Aspirin 81 Mg Tab.chew 81 Mg PO DAILY Prilosec Otc (Omeprazole Magnesium) 20 Mg Tablet.dr 20 Mg PO DAILY Nortriptyline Hcl 50 Mg Capsule 50 Mg PO DAILY Flomax (Tamsulosin Hcl) 0.4 Mg Cap.er.24h 0.4 Mg PO DAILY Bupropion Xl (Bupropion Hcl) 300 Mg Tab.er.24h 300 Mg PO DAILY Xenazine (Tetrabenazine) 12.5 Mg Tablet 12.5 Mg PO TID Novolog (Insulin Aspart) 100 Unit/1 Ml Cartridge 12-26 Unit SQ TIDAC Vitamin D2 (Ergocalciferol (Vitamin D2)) 50,000 Unit Capsule 50,000 Unit PO WEEKLY Paroxetine Hcl 40 Mg Tablet 40 Mg PO DAILY Metoprolol Tartrate 50 Mg Tablet 12.5 Mg PO BID Lipitor (Atorvastatin Calcium) 20 Mg Tablet 20 Mg PO DAILY Allergies Allergies: Coded Allergies: buprenorphine HCl (Verified Allergy, Intermediate, 04/27/17) naloxone HCl (Verified Allergy, Intermediate, 04/27/17) ROS General: YES: Fatigue Respiratory: YES: Shortness of breath Physical Exam General: mild distress Lungs: Other (DEcreased breath sounds.) Heart: Regular rate Vitals VITALS Vital Signs Date Time Temp Pulse Resp B/P (MAP) Pulse Ox O2 Delivery O2 Flow Rate FiO2 01/20/19 11:17 97.6 57 17 176/76 (109) 97 Room Air 97.6 01/20/19 10:45 2.0 Labs Labs Laboratory Tests Test 01/18/19 12:07 01/18/19 17:41 01/18/19 20:20 01/19/19 04:05 Glucose (Fingerstick) 153 mg/dL (70-99) 111 mg/dL (70-99) 84 mg/dL (70-99) White Blood Count 5.9 x10^3/uL (4.0-11.0) Red Blood Count 4.49 x10^6/uL (4.30-5.70) Hemoglobin 13.8 g/dL (13.0-17.5) Hematocrit 40.8 % (39.0-53.0) Mean Corpuscular Volume 91 fL (79-100) Mean Corpuscular Hemoglobin 31 pg (25-35) Mean Corpuscular Hemoglobin Concent 34 g/dL (31-37) Red Cell Distribution Width 13.9 % (11.5-14.5) Platelet Count 182 x10^3/uL (140-400) Neutrophils (%) (Auto) 59 % (31-73) Lymphocytes (%) (Auto) 28 % (24-48) Monocytes (%) (Auto) 9 % (0-9) Eosinophils (%) (Auto) 3 % (0-3) Basophils (%) (Auto) 1 % (0-3) Neutrophils # (Auto) 3.5 x10^3/uL (1.8-7.7) Lymphocytes # (Auto) 1.7 x10^3/uL (1.0-4.8) Monocytes # (Auto) 0.5 x10^3/uL (0.0-1.1) Eosinophils # (Auto) 0.2 x10^3/uL (0.0-0.7) Basophils # (Auto) 0.1 x10^3/uL (0.0-0.2) Sodium Level 144 mmol/L (136-145) Potassium Level 3.2 mmol/L (3.5-5.1) Chloride Level 108 mmol/L (98-107) Carbon Dioxide Level 26 mmol/L (21-32) Anion Gap 10 (6-14) Blood Urea Nitrogen 10 mg/dL (8-26) Creatinine 0.9 mg/dL (0.7-1.3) Estimated GFR (Cockcroft-Gault) 83.9 Glucose Level 92 mg/dL (70-99) Calcium Level 8.5 mg/dL (8.5-10.1) Test 01/19/19 08:24 01/19/19 11:51 01/19/19 17:45 01/19/19 21:48 Glucose (Fingerstick) 94 mg/dL (70-99) 92 mg/dL (70-99) 73 mg/dL (70-99) 72 mg/dL (70-99) Test 01/19/19 22:00 01/19/19 22:10 01/20/19 08:45 Troponin I Quantitative < 0.017 ng/mL (0.000-0.055) Magnesium Level 1.8 mg/dL (1.8-2.4) 1.8 mg/dL (1.8-2.4) White Blood Count 6.8 x10^3/uL (4.0-11.0) Red Blood Count 4.68 x10^6/uL (4.30-5.70) Hemoglobin 14.3 g/dL (13.0-17.5) Hematocrit 42.6 % (39.0-53.0) Mean Corpuscular Volume 91 fL (79-100) Mean Corpuscular Hemoglobin 31 pg (25-35) Mean Corpuscular Hemoglobin Concent 34 g/dL (31-37) Red Cell Distribution Width 13.9 % (11.5-14.5) Platelet Count 191 x10^3/uL (140-400) Neutrophils (%) (Auto) 70 % (31-73) Lymphocytes (%) (Auto) 20 % (24-48) Monocytes (%) (Auto) 8 % (0-9) Eosinophils (%) (Auto) 2 % (0-3) Basophils (%) (Auto) 1 % (0-3) Neutrophils # (Auto) 4.7 x10^3/uL (1.8-7.7) Lymphocytes # (Auto) 1.3 x10^3/uL (1.0-4.8) Monocytes # (Auto) 0.5 x10^3/uL (0.0-1.1) Eosinophils # (Auto) 0.2 x10^3/uL (0.0-0.7) Basophils # (Auto) 0.1 x10^3/uL (0.0-0.2) Sodium Level 145 mmol/L (136-145) Potassium Level 3.6 mmol/L (3.5-5.1) Chloride Level 109 mmol/L (98-107) Carbon Dioxide Level 23 mmol/L (21-32) Anion Gap 13 (6-14) Blood Urea Nitrogen 11 mg/dL (8-26) Creatinine 0.9 mg/dL (0.7-1.3) Estimated GFR (Cockcroft-Gault) 83.9 Glucose Level 108 mg/dL (70-99) Calcium Level 8.6 mg/dL (8.5-10.1) Laboratory Tests Test 01/19/19 17:45 01/19/19 21:48 01/19/19 22:00 01/19/19 22:10 Glucose (Fingerstick) 73 mg/dL (70-99) 72 mg/dL (70-99) Troponin I Quantitative < 0.017 ng/mL (0.000-0.055) Magnesium Level 1.8 mg/dL (1.8-2.4) Test 01/20/19 08:45 White Blood Count 6.8 x10^3/uL (4.0-11.0) Red Blood Count 4.68 x10^6/uL (4.30-5.70) Hemoglobin 14.3 g/dL (13.0-17.5) Hematocrit 42.6 % (39.0-53.0) Mean Corpuscular Volume 91 fL (79-100) Mean Corpuscular Hemoglobin 31 pg (25-35) Mean Corpuscular Hemoglobin Concent 34 g/dL (31-37) Red Cell Distribution Width 13.9 % (11.5-14.5) Platelet Count 191 x10^3/uL (140-400) Neutrophils (%) (Auto) 70 % (31-73) Lymphocytes (%) (Auto) 20 % (24-48) Monocytes (%) (Auto) 8 % (0-9) Eosinophils (%) (Auto) 2 % (0-3) Basophils (%) (Auto) 1 % (0-3) Neutrophils # (Auto) 4.7 x10^3/uL (1.8-7.7) Lymphocytes # (Auto) 1.3 x10^3/uL (1.0-4.8) Monocytes # (Auto) 0.5 x10^3/uL (0.0-1.1) Eosinophils # (Auto) 0.2 x10^3/uL (0.0-0.7) Basophils # (Auto) 0.1 x10^3/uL (0.0-0.2) Sodium Level 145 mmol/L (136-145) Potassium Level 3.6 mmol/L (3.5-5.1) Chloride Level 109 mmol/L (98-107) Carbon Dioxide Level 23 mmol/L (21-32) Anion Gap 13 (6-14) Blood Urea Nitrogen 11 mg/dL (8-26) Creatinine 0.9 mg/dL (0.7-1.3) Estimated GFR (Cockcroft-Gault) 83.9 Glucose Level 108 mg/dL (70-99) Calcium Level 8.6 mg/dL (8.5-10.1) Magnesium Level 1.8 mg/dL (1.8-2.4) Assessment/Plan Assessment/Plan 1. PSVT Controlled with IV cardizem. Will continue IV treatment today and plan to change to po tomorrow. Monitoring lab. Check ECHO for LV function and chamber sizes. 2. Pneumonia. Pulmonary is following. ID is following. 3. Hypokalemia. Replaced and will monitor. Thank you for allowing us to participate in the care of your patient. JEAN-PAUL HOLDEN MD Jan 20, 2019 12:08
--- NOTE | 2019-01-20 13:13 | RAD ---
EXAM: AP View of the chest DATE: 01/20/2019 10:44 AM INDICATION: Cough COMPARISON: 01/15/2019 FINDINGS/ IMPRESSION: Dobbhoff tube tip projects over the body of the stomach. Cardiomediastinal silhouette is stable. Elevation of the right hemidiaphragm. Patchy opacities right lung base likely atelectasis. Trace right pleural effusion. No left pleural effusion. No Pneumothorax. EXAM: Supine AP view of the abdomen DATE: 01/20/2019 10:44 AM INDICATION: Abdominal pain, Dobbhoff tube placement COMPARISON: 01/15/2019, 04/21/2016 FINDINGS: Dobbhoff tube tip projects over the body the stomach. Scattered surgical clips project over the abdomen. No abnormal small or large bowel dilatation. Moderate colonic stool content. No abnormal soft tissue mass effect. No suspicious calcifications are seen. Evaluation for free intraperitoneal gas is limited on this supine exam. IMPRESSION: 1. No evidence for bowel obstruction. 2. Electronically signed by: Mauri Arthur MD (01/20/2019 1:10 PM) [facility]
[2019-01-20] MEDS: IV NORMAL SALINE 1000ML BAG 1,000 ML IV SCH (14:21)
[2019-01-20] MEDS: NORTRIPTYLINE 25 MG CAPSULE PO SCH (20:33)
[2019-01-20] MEDS: ATORVASTATIN CALCIUM 20 MG TABLET PO SCH (20:47)
[2019-01-21] VITALS (20 sets, daily range): BP systolic 127–197; BP diastolic 65–90
[2019-01-21] MEDS: IV NORMAL SALINE 1000ML BAG 1,000 ML IV SCH
[2019-01-21 04:16] LABS: BASO # 0.1 x10^3/uL (0.0-0.2); BASO % 1 % (0-3); EOS # 0.2 x10^3/uL (0.0-0.7); EOS % 3 % (0-3); HEMATOCRIT 40.5 % (39.0-53.0); HEMOGLOBIN 13.8 g/dL (13.0-17.5); LYMPH # 1.7 x10^3/uL (1.0-4.8); LYMPH % 23 % (24-48); MEAN CORPUSCULAR HEMOGLOBIN 31 pg (25-35); MEAN CORPUSCULAR HGB CONC 34 g/dL (31-37); MEAN CORPUSCULAR VOLUME 92 fL (79-100); MONO # 0.5 x10^3/uL (0.0-1.1); MONO % 7 % (0-9); NEUT # 4.8 x10^3/uL (1.8-7.7); NEUT % 66 % (31-73); PLATELET COUNT 197 x10^3/uL (140-400); RED BLOOD COUNT 4.42 x10^6/uL (4.30-5.70); RED CELL DISTRIBUTION WIDTH 13.9 % (11.5-14.5); WHITE BLOOD COUNT 7.3 x10^3/uL (4.0-11.0)
[2019-01-21] MEDS: PIPERACILLIN/TAZOBACTAM 3.375 GM in IV NORMAL SALINE 50ML 50 ML IV SCH ×4 (04:44→23:56)
[2019-01-21 04:49] LABS: CALCIUM 8.3 mg/dL (8.5-10.1); CREATININE 0.8 mg/dL (0.7-1.3); GFR 96.1; POTASSIUM 3.3 mmol/L (3.5-5.1)
[2019-01-21] MEDS: PANTOPRAZOLE IV PUSH 40 MG VIAL. IVP SCH ×2 (06:23→10:20)
--- NOTE | 2019-01-21 06:32 | PDOC ---
PULMONARY PROGRESS NOTES Subjective on cardizem gtt, no sob, has cough, Dobbhoff appears too far out, peg on tuesday Vitals Vital Signs Date Time Temp Pulse Resp B/P (MAP) Pulse Ox O2 Delivery O2 Flow Rate FiO2 01/21/19 05:29 58 166/73 (104) 96 Room Air 01/21/19 05:20 98.0 14 98.0 01/20/19 10:45 2.0 Comments ros as mentioned as above other sys otherwise neg ROS: No Nausea, No Chest Pain, No Abdominal Pain General: Alert HEENT: Other (nc at perrl nose throat clear neck no lad no thyromegaly) Lungs: Clear, Crackles Cardiovascular: S1, S2 Abdomen: Soft, Non-tender, Other (no mass) Neuro Exam: Alert Extremities: No Edema Skin: Warm Labs Laboratory Tests Test 01/19/19 08:24 01/19/19 11:51 01/19/19 17:45 01/19/19 21:48 Glucose (Fingerstick) 94 mg/dL (70-99) 92 mg/dL (70-99) 73 mg/dL (70-99) 72 mg/dL (70-99) Test 01/19/19 22:00 01/19/19 22:10 01/20/19 08:45 01/20/19 12:43 Troponin I Quantitative < 0.017 ng/mL (0.000-0.055) Magnesium Level 1.8 mg/dL (1.8-2.4) 1.8 mg/dL (1.8-2.4) White Blood Count 6.8 x10^3/uL (4.0-11.0) Red Blood Count 4.68 x10^6/uL (4.30-5.70) Hemoglobin 14.3 g/dL (13.0-17.5) Hematocrit 42.6 % (39.0-53.0) Mean Corpuscular Volume 91 fL (79-100) Mean Corpuscular Hemoglobin 31 pg (25-35) Mean Corpuscular Hemoglobin Concent 34 g/dL (31-37) Red Cell Distribution Width 13.9 % (11.5-14.5) Platelet Count 191 x10^3/uL (140-400) Neutrophils (%) (Auto) 70 % (31-73) Lymphocytes (%) (Auto) 20 % (24-48) Monocytes (%) (Auto) 8 % (0-9) Eosinophils (%) (Auto) 2 % (0-3) Basophils (%) (Auto) 1 % (0-3) Neutrophils # (Auto) 4.7 x10^3/uL (1.8-7.7) Lymphocytes # (Auto) 1.3 x10^3/uL (1.0-4.8) Monocytes # (Auto) 0.5 x10^3/uL (0.0-1.1) Eosinophils # (Auto) 0.2 x10^3/uL (0.0-0.7) Basophils # (Auto) 0.1 x10^3/uL (0.0-0.2) Sodium Level 145 mmol/L (136-145) Potassium Level 3.6 mmol/L (3.5-5.1) Chloride Level 109 mmol/L (98-107) Carbon Dioxide Level 23 mmol/L (21-32) Anion Gap 13 (6-14) Blood Urea Nitrogen 11 mg/dL (8-26) Creatinine 0.9 mg/dL (0.7-1.3) Estimated GFR (Cockcroft-Gault) 83.9 Glucose Level 108 mg/dL (70-99) Calcium Level 8.6 mg/dL (8.5-10.1) Glucose (Fingerstick) 98 mg/dL (70-99) Test 01/20/19 18:07 01/21/19 04:00 Glucose (Fingerstick) 80 mg/dL (70-99) White Blood Count 7.3 x10^3/uL (4.0-11.0) Red Blood Count 4.42 x10^6/uL (4.30-5.70) Hemoglobin 13.8 g/dL (13.0-17.5) Hematocrit 40.5 % (39.0-53.0) Mean Corpuscular Volume 92 fL (79-100) Mean Corpuscular Hemoglobin 31 pg (25-35) Mean Corpuscular Hemoglobin Concent 34 g/dL (31-37) Red Cell Distribution Width 13.9 % (11.5-14.5) Platelet Count 197 x10^3/uL (140-400) Neutrophils (%) (Auto) 66 % (31-73) Lymphocytes (%) (Auto) 23 % (24-48) Monocytes (%) (Auto) 7 % (0-9) Eosinophils (%) (Auto) 3 % (0-3) Basophils (%) (Auto) 1 % (0-3) Neutrophils # (Auto) 4.8 x10^3/uL (1.8-7.7) Lymphocytes # (Auto) 1.7 x10^3/uL (1.0-4.8) Monocytes # (Auto) 0.5 x10^3/uL (0.0-1.1) Eosinophils # (Auto) 0.2 x10^3/uL (0.0-0.7) Basophils # (Auto) 0.1 x10^3/uL (0.0-0.2) Sodium Level 144 mmol/L (136-145) Potassium Level 3.3 mmol/L (3.5-5.1) Chloride Level 109 mmol/L (98-107) Carbon Dioxide Level 20 mmol/L (21-32) Anion Gap 15 (6-14) Blood Urea Nitrogen 10 mg/dL (8-26) Creatinine 0.8 mg/dL (0.7-1.3) Estimated GFR (Cockcroft-Gault) 96.1 Glucose Level 108 mg/dL (70-99) Calcium Level 8.3 mg/dL (8.5-10.1) Laboratory Tests Test 01/20/19 08:45 01/20/19 12:43 01/20/19 18:07 01/21/19 04:00 White Blood Count 6.8 x10^3/uL (4.0-11.0) 7.3 x10^3/uL (4.0-11.0) Red Blood Count 4.68 x10^6/uL (4.30-5.70) 4.42 x10^6/uL (4.30-5.70) Hemoglobin 14.3 g/dL (13.0-17.5) 13.8 g/dL (13.0-17.5) Hematocrit 42.6 % (39.0-53.0) 40.5 % (39.0-53.0) Mean Corpuscular Volume 91 fL (79-100) 92 fL (79-100) Mean Corpuscular Hemoglobin 31 pg (25-35) 31 pg (25-35) Mean Corpuscular Hemoglobin Concent 34 g/dL (31-37) 34 g/dL (31-37) Red Cell Distribution Width 13.9 % (11.5-14.5) 13.9 % (11.5-14.5) Platelet Count 191 x10^3/uL (140-400) 197 x10^3/uL (140-400) Neutrophils (%) (Auto) 70 % (31-73) 66 % (31-73) Lymphocytes (%) (Auto) 20 % (24-48) 23 % (24-48) Monocytes (%) (Auto) 8 % (0-9) 7 % (0-9) Eosinophils (%) (Auto) 2 % (0-3) 3 % (0-3) Basophils (%) (Auto) 1 % (0-3) 1 % (0-3) Neutrophils # (Auto) 4.7 x10^3/uL (1.8-7.7) 4.8 x10^3/uL (1.8-7.7) Lymphocytes # (Auto) 1.3 x10^3/uL (1.0-4.8) 1.7 x10^3/uL (1.0-4.8) Monocytes # (Auto) 0.5 x10^3/uL (0.0-1.1) 0.5 x10^3/uL (0.0-1.1) Eosinophils # (Auto) 0.2 x10^3/uL (0.0-0.7) 0.2 x10^3/uL (0.0-0.7) Basophils # (Auto) 0.1 x10^3/uL (0.0-0.2) 0.1 x10^3/uL (0.0-0.2) Sodium Level 145 mmol/L (136-145) 144 mmol/L (136-145) Potassium Level 3.6 mmol/L (3.5-5.1) 3.3 mmol/L (3.5-5.1) Chloride Level 109 mmol/L (98-107) 109 mmol/L (98-107) Carbon Dioxide Level 23 mmol/L (21-32) 20 mmol/L (21-32) Anion Gap 13 (6-14) 15 (6-14) Blood Urea Nitrogen 11 mg/dL (8-26) 10 mg/dL (8-26) Creatinine 0.9 mg/dL (0.7-1.3) 0.8 mg/dL (0.7-1.3) Estimated GFR (Cockcroft-Gault) 83.9 96.1 Glucose Level 108 mg/dL (70-99) 108 mg/dL (70-99) Calcium Level 8.6 mg/dL (8.5-10.1) 8.3 mg/dL (8.5-10.1) Magnesium Level 1.8 mg/dL (1.8-2.4) Glucose (Fingerstick) 98 mg/dL (70-99) 80 mg/dL (70-99) Medications Active Scripts Medications Dose Route/Sig Max Daily Dose Days Date Category Percocet 5-325 Mg Tablet (Oxycodone/Acetaminophen) 1 Each Tablet 1 Tab PO Q4HRS 04/27/17 Reported Proscar (Finasteride) 5 Mg Tablet 5 Mg PO DAILY 04/14/17 Reported Lantus Solostar (Insulin Glargine,Hum.rec.anlog) 100 Unit/1 Ml Insuln.pen 25 Unit SQ HS 04/14/17 Reported Calcium Citrate 250 Mg Tablet 600 Mg PO DAILY 03/03/16 Reported Celebrex (Celecoxib) 200 Mg Capsule 200 Mg PO HS 30 03/03/16 Reported Aspirin 81 Mg Tab.chew 81 Mg PO DAILY 07/17/14 Reported Prilosec Otc (Omeprazole Magnesium) 20 Mg Tablet.dr 20 Mg PO DAILY 07/17/14 Reported Nortriptyline Hcl 50 Mg Capsule 50 Mg PO DAILY 07/17/14 Reported Flomax (Tamsulosin Hcl) 0.4 Mg Cap.er.24h 0.4 Mg PO DAILY 07/17/14 Reported Bupropion Xl (Bupropion Hcl) 300 Mg Tab.er.24h 300 Mg PO DAILY 07/17/14 Reported Xenazine (Tetrabenazine) 12.5 Mg Tablet 12.5 Mg PO TID 07/17/14 Reported Novolog (Insulin Aspart) 100 Unit/1 Ml Cartridge 12-26 Unit SQ TIDAC 08/29/13 Reported Vitamin D2 (Ergocalciferol (Vitamin D2)) 50,000 Unit Capsule 50,000 Unit PO WEEKLY 08/29/13 Reported Paroxetine Hcl 40 Mg Tablet 40 Mg PO DAILY 08/29/13 Reported Metoprolol Tartrate 50 Mg Tablet 12.5 Mg PO BID 08/29/13 Reported Lipitor (Atorvastatin Calcium) 20 Mg Tablet 20 Mg PO DAILY 08/29/13 Reported Comments cxr reviewed r elevated HD, atelectasis ct reviewed 1. Volume loss identified in the right lung base with moderate consolidation and air bronchograms in the right lower lobe of the lung. Differential includes pneumonia or postobstructive atelectasis. Recommend bronchoscopic evaluation to exclude bronchial pathology/neoplasm. 2. Coronary artery calcifications. Impression . IMPRESSION: 1. Abnormal CT chest revealing volume loss and air bronchograms, left lower lobe. 2. Aspiration pneumonia. 3. Cerebrovascular accident. 4. Hypertension. 5. Dysphagia. 6. s/p svt 7. hypo k Plan . 02 titration, remove Dobbhoff replace another one, confirm the position cardizem per cardiology, NSR now elevate hob npo replace k cxr reviewed PEG on tuesday CONTINUE ANTIBX DVT AND GI PROPH REPEAT CT IN 2 MONTHS discussed w rn, pt ROSINA ANGEL MD Jan 21, 2019 06:32
--- NOTE | 2019-01-21 07:07 | NUR ---
A new dobhoff nasogastric tube was placed by Milan GARCIA, at 0630, after finding the old tubing was pulled out of place. A STAT KUB was ordered to assess/verify placement. Pt tolerated well. Waiting on KUB report before continuing feeding. Report was given to nurse Jacob Terrell
--- NOTE | 2019-01-21 07:23 | RAD ---
KUB History: Dobbhoff placement Comparison: January 20, 2019 Findings: AP portable supine upright view centered upon the inferior chest and superior abdomen is submitted. There is a weighted enteric catheter with the tip in the region of body of stomach more centrally. There is again suspected right pleural effusion. Impression: 1. Tip of enteric catheter is in the region of body of the stomach more centrally in the superior abdomen. Electronically signed by: Jamie Duran MD (01/21/2019 7:21 AM) [facility]
--- NOTE | 2019-01-21 08:43 | PDOC ---
Infectious Disease Note Subjective Subjective Watching '[employer]' on TV Feeling alright, no complaints No fevers Off O2 Denies cough/SOA/pain/N/V/D ROS ROS per HPI Vital Sign Vital Signs Vital Signs Date Time Temp Pulse Resp B/P (MAP) Pulse Ox O2 Delivery O2 Flow Rate FiO2 01/21/19 07:15 97.5 65 174/84 (114) 96 Room Air 97.5 01/21/19 05:20 14 01/20/19 10:45 2.0 Physical Exam PHYSICAL EXAM GENERAL: Propped up in bed, alert, NAD HEENT: LENY, Oral cavity clear. [place] NECK: Supple. LUNGS: Clear. (right-sided chest implantable stimulator) HEART: S1 and S2 regular. ABDOMEN: Soft and nontender : No Bruno EXTREMITIES: Trace edema. No cyanosis SKIN: Warm to touch. NEUROLOGIC: Alert, responds to few questions Left-sided paralysis and weakness on the right side. PIV Labs Lab Laboratory Tests Test 01/20/19 08:45 01/20/19 12:43 01/20/19 18:07 01/21/19 04:00 White Blood Count 6.8 x10^3/uL (4.0-11.0) 7.3 x10^3/uL (4.0-11.0) Red Blood Count 4.68 x10^6/uL (4.30-5.70) 4.42 x10^6/uL (4.30-5.70) Hemoglobin 14.3 g/dL (13.0-17.5) 13.8 g/dL (13.0-17.5) Hematocrit 42.6 % (39.0-53.0) 40.5 % (39.0-53.0) Mean Corpuscular Volume 91 fL (79-100) 92 fL (79-100) Mean Corpuscular Hemoglobin 31 pg (25-35) 31 pg (25-35) Mean Corpuscular Hemoglobin Concent 34 g/dL (31-37) 34 g/dL (31-37) Red Cell Distribution Width 13.9 % (11.5-14.5) 13.9 % (11.5-14.5) Platelet Count 191 x10^3/uL (140-400) 197 x10^3/uL (140-400) Neutrophils (%) (Auto) 70 % (31-73) 66 % (31-73) Lymphocytes (%) (Auto) 20 % (24-48) 23 % (24-48) Monocytes (%) (Auto) 8 % (0-9) 7 % (0-9) Eosinophils (%) (Auto) 2 % (0-3) 3 % (0-3) Basophils (%) (Auto) 1 % (0-3) 1 % (0-3) Neutrophils # (Auto) 4.7 x10^3/uL (1.8-7.7) 4.8 x10^3/uL (1.8-7.7) Lymphocytes # (Auto) 1.3 x10^3/uL (1.0-4.8) 1.7 x10^3/uL (1.0-4.8) Monocytes # (Auto) 0.5 x10^3/uL (0.0-1.1) 0.5 x10^3/uL (0.0-1.1) Eosinophils # (Auto) 0.2 x10^3/uL (0.0-0.7) 0.2 x10^3/uL (0.0-0.7) Basophils # (Auto) 0.1 x10^3/uL (0.0-0.2) 0.1 x10^3/uL (0.0-0.2) Sodium Level 145 mmol/L (136-145) 144 mmol/L (136-145) Potassium Level 3.6 mmol/L (3.5-5.1) 3.3 mmol/L (3.5-5.1) Chloride Level 109 mmol/L (98-107) 109 mmol/L (98-107) Carbon Dioxide Level 23 mmol/L (21-32) 20 mmol/L (21-32) Anion Gap 13 (6-14) 15 (6-14) Blood Urea Nitrogen 11 mg/dL (8-26) 10 mg/dL (8-26) Creatinine 0.9 mg/dL (0.7-1.3) 0.8 mg/dL (0.7-1.3) Estimated GFR (Cockcroft-Gault) 83.9 96.1 Glucose Level 108 mg/dL (70-99) 108 mg/dL (70-99) Calcium Level 8.6 mg/dL (8.5-10.1) 8.3 mg/dL (8.5-10.1) Magnesium Level 1.8 mg/dL (1.8-2.4) Glucose (Fingerstick) 98 mg/dL (70-99) 80 mg/dL (70-99) Micro 01/18/19 URINE CULTURE RES 1 Final Yeast isolated. Objective Assessment Pneumonia, aspiration CVA HTN Dysphagia SVT Yeast in urine, 01/18. 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 The chart was reviewed. The case was discussed. Agree with the plan of care. KATHERINE MCCLURE APRN Jan 21, 2019 08:43 IVELISSE FERREIRA MD Jan 21, 2019 10:45
[2019-01-21] MEDS: NITROGLYCERIN OINT 1 GM PACKET. TP SCH ×3 (10:21→21:12)
--- NOTE | 2019-01-21 10:59 | PDOC ---
PROGRESS NOTES Chief Complaint Chief Complaint Asp PNA, dysphagia hx CVA - PEG tuesday HTN, controlled SVT - new (01/19) Chronic renal insufficiency History of Present Illness History of Present Illness Admitted to 6th floor for asp pneumonia, lives in [facility] - hx CVA, left residual HE is left sided hemiplegia and dysphagia from stroke Mar 2018 BUt went to SVT at 6th floor so now ICU S.p adenosine, vagal and cardizem gtt with cards on Rate controlled now, no sxs at bedside We inserted huma tuesday for nutrition, and tF running, tolerating it PLAn: October dc current IVF Cont huma Colace solution - he is constipated today PEG tuesday HCR on dc d w ENDOSCOPY TECH Vitals Vitals Vital Signs Date Time Temp Pulse Resp B/P (MAP) Pulse Ox O2 Delivery O2 Flow Rate FiO2 01/21/19 10:23 60 171/78 01/21/19 10:00 97.5 97 Room Air 97.5 01/21/19 05:20 14 01/20/19 10:45 2.0 Physical Exam Physical Exam GENERAL: Propped up in bed, alert, NAD HEENT: LENY, Oral cavity clear. [place]hoff NECK: Supple. LUNGS: Clear. (right-sided chest implantable stimulator) HEART: S1 and S2 regular. ABDOMEN: Soft and nontender : No Bruno EXTREMITIES: Trace edema. No cyanosis SKIN: Warm to touch. NEUROLOGIC: Alert, responds to few questions Left-sided paralysis and weakness on the right side. PIV General: mild distress Heart: Regular rate Lungs: Clear, Crackles Abdomen: Normal bowel sounds, Soft (obese), No tenderness Extremities: No cyanosis, Other (left hemiparesis) Skin: No rashes, No breakdown, No significant lesion, Other Labs LABS Laboratory Tests Test 01/20/19 12:43 01/20/19 18:07 01/21/19 04:00 Glucose (Fingerstick) 98 mg/dL (70-99) 80 mg/dL (70-99) White Blood Count 7.3 x10^3/uL (4.0-11.0) Red Blood Count 4.42 x10^6/uL (4.30-5.70) Hemoglobin 13.8 g/dL (13.0-17.5) Hematocrit 40.5 % (39.0-53.0) Mean Corpuscular Volume 92 fL (79-100) Mean Corpuscular Hemoglobin 31 pg (25-35) Mean Corpuscular Hemoglobin Concent 34 g/dL (31-37) Red Cell Distribution Width 13.9 % (11.5-14.5) Platelet Count 197 x10^3/uL (140-400) Neutrophils (%) (Auto) 66 % (31-73) Lymphocytes (%) (Auto) 23 % (24-48) Monocytes (%) (Auto) 7 % (0-9) Eosinophils (%) (Auto) 3 % (0-3) Basophils (%) (Auto) 1 % (0-3) Neutrophils # (Auto) 4.8 x10^3/uL (1.8-7.7) Lymphocytes # (Auto) 1.7 x10^3/uL (1.0-4.8) Monocytes # (Auto) 0.5 x10^3/uL (0.0-1.1) Eosinophils # (Auto) 0.2 x10^3/uL (0.0-0.7) Basophils # (Auto) 0.1 x10^3/uL (0.0-0.2) Sodium Level 144 mmol/L (136-145) Potassium Level 3.3 mmol/L (3.5-5.1) Chloride Level 109 mmol/L (98-107) Carbon Dioxide Level 20 mmol/L (21-32) Anion Gap 15 (6-14) Blood Urea Nitrogen 10 mg/dL (8-26) Creatinine 0.8 mg/dL (0.7-1.3) Estimated GFR (Cockcroft-Gault) 96.1 Glucose Level 108 mg/dL (70-99) Calcium Level 8.3 mg/dL (8.5-10.1) Review of Systems Review of Systems no soa, no cp, no fever, no depression, no abd pain Assessment and Plan Assessmemt and Plan Problems Medical Problems: (1) Arrhythmia Status: Acute (2) Pneumonia Status: Acute Comment Review of Relevant I have reviewed the following items ricardo (where applicable) has been applied. Labs Laboratory Tests Test 01/19/19 11:51 01/19/19 17:45 01/19/19 21:48 01/19/19 22:00 Glucose (Fingerstick) 92 mg/dL (70-99) 73 mg/dL (70-99) 72 mg/dL (70-99) Troponin I Quantitative < 0.017 ng/mL (0.000-0.055) Test 01/19/19 22:10 01/20/19 08:45 01/20/19 12:43 01/20/19 18:07 Magnesium Level 1.8 mg/dL (1.8-2.4) 1.8 mg/dL (1.8-2.4) White Blood Count 6.8 x10^3/uL (4.0-11.0) Red Blood Count 4.68 x10^6/uL (4.30-5.70) Hemoglobin 14.3 g/dL (13.0-17.5) Hematocrit 42.6 % (39.0-53.0) Mean Corpuscular Volume 91 fL (79-100) Mean Corpuscular Hemoglobin 31 pg (25-35) Mean Corpuscular Hemoglobin Concent 34 g/dL (31-37) Red Cell Distribution Width 13.9 % (11.5-14.5) Platelet Count 191 x10^3/uL (140-400) Neutrophils (%) (Auto) 70 % (31-73) Lymphocytes (%) (Auto) 20 % (24-48) Monocytes (%) (Auto) 8 % (0-9) Eosinophils (%) (Auto) 2 % (0-3) Basophils (%) (Auto) 1 % (0-3) Neutrophils # (Auto) 4.7 x10^3/uL (1.8-7.7) Lymphocytes # (Auto) 1.3 x10^3/uL (1.0-4.8) Monocytes # (Auto) 0.5 x10^3/uL (0.0-1.1) Eosinophils # (Auto) 0.2 x10^3/uL (0.0-0.7) Basophils # (Auto) 0.1 x10^3/uL (0.0-0.2) Sodium Level 145 mmol/L (136-145) Potassium Level 3.6 mmol/L (3.5-5.1) Chloride Level 109 mmol/L (98-107) Carbon Dioxide Level 23 mmol/L (21-32) Anion Gap 13 (6-14) Blood Urea Nitrogen 11 mg/dL (8-26) Creatinine 0.9 mg/dL (0.7-1.3) Estimated GFR (Cockcroft-Gault) 83.9 Glucose Level 108 mg/dL (70-99) Calcium Level 8.6 mg/dL (8.5-10.1) Glucose (Fingerstick) 98 mg/dL (70-99) 80 mg/dL (70-99) Test 01/21/19 04:00 White Blood Count 7.3 x10^3/uL (4.0-11.0) Red Blood Count 4.42 x10^6/uL (4.30-5.70) Hemoglobin 13.8 g/dL (13.0-17.5) Hematocrit 40.5 % (39.0-53.0) Mean Corpuscular Volume 92 fL (79-100) Mean Corpuscular Hemoglobin 31 pg (25-35) Mean Corpuscular Hemoglobin Concent 34 g/dL (31-37) Red Cell Distribution Width 13.9 % (11.5-14.5) Platelet Count 197 x10^3/uL (140-400) Neutrophils (%) (Auto) 66 % (31-73) Lymphocytes (%) (Auto) 23 % (24-48) Monocytes (%) (Auto) 7 % (0-9) Eosinophils (%) (Auto) 3 % (0-3) Basophils (%) (Auto) 1 % (0-3) Neutrophils # (Auto) 4.8 x10^3/uL (1.8-7.7) Lymphocytes # (Auto) 1.7 x10^3/uL (1.0-4.8) Monocytes # (Auto) 0.5 x10^3/uL (0.0-1.1) Eosinophils # (Auto) 0.2 x10^3/uL (0.0-0.7) Basophils # (Auto) 0.1 x10^3/uL (0.0-0.2) Sodium Level 144 mmol/L (136-145) Potassium Level 3.3 mmol/L (3.5-5.1) Chloride Level 109 mmol/L (98-107) Carbon Dioxide Level 20 mmol/L (21-32) Anion Gap 15 (6-14) Blood Urea Nitrogen 10 mg/dL (8-26) Creatinine 0.8 mg/dL (0.7-1.3) Estimated GFR (Cockcroft-Gault) 96.1 Glucose Level 108 mg/dL (70-99) Calcium Level 8.3 mg/dL (8.5-10.1) Laboratory Tests Test 01/20/19 12:43 01/20/19 18:07 01/21/19 04:00 Glucose (Fingerstick) 98 mg/dL (70-99) 80 mg/dL (70-99) White Blood Count 7.3 x10^3/uL (4.0-11.0) Red Blood Count 4.42 x10^6/uL (4.30-5.70) Hemoglobin 13.8 g/dL (13.0-17.5) Hematocrit 40.5 % (39.0-53.0) Mean Corpuscular Volume 92 fL (79-100) Mean Corpuscular Hemoglobin 31 pg (25-35) Mean Corpuscular Hemoglobin Concent 34 g/dL (31-37) Red Cell Distribution Width 13.9 % (11.5-14.5) Platelet Count 197 x10^3/uL (140-400) Neutrophils (%) (Auto) 66 % (31-73) Lymphocytes (%) (Auto) 23 % (24-48) Monocytes (%) (Auto) 7 % (0-9) Eosinophils (%) (Auto) 3 % (0-3) Basophils (%) (Auto) 1 % (0-3) Neutrophils # (Auto) 4.8 x10^3/uL (1.8-7.7) Lymphocytes # (Auto) 1.7 x10^3/uL (1.0-4.8) Monocytes # (Auto) 0.5 x10^3/uL (0.0-1.1) Eosinophils # (Auto) 0.2 x10^3/uL (0.0-0.7) Basophils # (Auto) 0.1 x10^3/uL (0.0-0.2) Sodium Level 144 mmol/L (136-145) Potassium Level 3.3 mmol/L (3.5-5.1) Chloride Level 109 mmol/L (98-107) Carbon Dioxide Level 20 mmol/L (21-32) Anion Gap 15 (6-14) Blood Urea Nitrogen 10 mg/dL (8-26) Creatinine 0.8 mg/dL (0.7-1.3) Estimated GFR (Cockcroft-Gault) 96.1 Glucose Level 108 mg/dL (70-99) Calcium Level 8.3 mg/dL (8.5-10.1) Microbiology 01/18/19 Urine Culture - Final, Complete 01/18/19 Urine Culture Result 1 (SOFIA) - Final, Complete Medications Current Medications Piperacillin Sod/ Tazobactam Sod 3.375 gm/Sodium Chloride 50 ml @ 100 mls/hr 1X ONCE IV Last administered on 01/15/19at 16:23; Start 01/15/19 at 16:00; Stop 01/15/19 at 16:29; Status DC Vancomycin HCl (Vanco Per Pharmacy) 1 each 1X STAT MC Last administered on 01/16/19at 16:11; Start 01/15/19 at 15:55; Stop 01/15/19 at 16:03; Status DC Vancomycin HCl 2 gm/Sodium Chloride 500 ml @ 250 mls/hr 1X ONCE IV Last ad ministered on 01/15/19at 18:32; Start 01/15/19 at 16:15; Stop 01/15/19 at 18:14; Status DC Ondansetron HCl (Zofran) 4 mg PRN Q8HRS PRN IV NAUSEA/VOMITING; Start 01/15/19 at 16:15; Stop 01/16/19 at 16:14; Status DC Fentanyl Citrate (Fentanyl 2ml Vial) 50 mcg PRN Q1HR PRN IV PAIN; Start 01/15/19 at 16:15; Stop 01/16/19 at 16:14; Status DC Acetaminophen (Tylenol) 650 mg PRN Q4HRS PRN PO FEVER; Start 01/15/19 at 16:15; Stop 01/16/19 at 16:14; Status DC Piperacillin Sod/ Tazobactam Sod 3.375 gm/Sodium Chloride 50 ml @ 100 mls/hr Q6HRS IV Last administered on 01/21/19at 04:44; Start 01/16/19 at 14:00 Aspirin (Children'S Aspirin) 81 mg DAILY PO Last administered on 01/18/19at 11:17; Start 01/16/19 at 14:00 Atorvastatin Calcium (Lipitor) 20 mg QHS PO Last administered on 01/20/19at 20:48; Start 01/16/19 at 21:00 Ergocalciferol (Vitamin D2) 50,000 unit WEEKLY PO Last administered on 14:38; Start 01/16/19 at 14:00 Finasteride (Proscar) 5 mg DAILY PO Last administered on 01/18/19 11:17; Start 01/16/19 at 14:00 Metoprolol Tartrate (Lopressor) 12.5 mg BID PO Last administered on 01/18/19 11:17; Start 01/16/19 at 14:00 Oxycodone/ Acetaminophen (Percocet 5/325) 1 tab PRN Q4HRS PRN PO PAIN; Start 01/16/19 at 13:49 Tamsulosin HCl (Flomax) 0.4 mg DAILY PO Last administered on 01/18/19 11:17; Start 01/16/19 at 14:00 Bupropion HCl (Wellbutrin Xl) 300 mg DAILY PO Last administered on 01/18/19 11:17; Start 01/16/19 at 14:00 Calcium Carbonate/ Glycine (Oscal) 500 mg DAILY PO Last administered on 01/18/19 11:17; Start 01/16/19 at 14:00 Celecoxib (CeleBREX) 200 mg QHS PO Last administered on 01/16/19 21:16; Start 01/16/19 at 21:00; Stop 01/20/19 at 09:12; Status DC Nortriptyline HCl (Pamelor) 50 mg QHS PO Last administered on 01/16/19 21:16; Start 01/16/19 at 21:00 Pantoprazole Sodium (Protonix) 40 mg DAILYAC PO Last administered on 01/18/19 11:17; Start 01/16/19 at 14:00; Stop 01/19/19 at 13:29; Status DC Non-Formulary Medication (Tetrabenazine (Xenazine)) 12.5 mg TID PO ; Start 01/16/19 at 14:00; Stop 01/17/19 at 11:05; Status DC Vancomycin HCl (Vanco Per Pharmacy) 1 each PRN DAILY PRN MC SEE COMMENTS Last administered on 01/18/19 15:25; Start 01/16/19 at 13:45; Stop 01/19/19 at 13:23; Status DC Vancomycin HCl 1.5 gm/Sodium Chloride 500 ml @ 250 mls/hr Q12H IV Last administered on 01/19/19at 05:25; Start 01/16/19 at 17:00; Stop 01/19/19 at 13:23; Status DC Vancomycin HCl (Vancomycin Trough Level) 1 each 1X ONCE MC Last administered on 01/18/19at 05:35; Start 01/18/19 at 04:30; Stop 01/18/19 at 04:31; Status DC Non-Formulary Medication (Tetrabenazine (Xenazine)) 25 mg BID PO Last administered on 01/18/19at 11:17; Start 01/17/19 at 11:30 Lactobacillus Rhamnosus (Culturelle) 1 cap BID PO Last administered on 01/20/19at 20:48; Start 01/17/19 at 21:00 Pantoprazole Sodium (PROTONIX VIAL for IV PUSH) 40 mg DAILYAC IVP Last administered on 01/21/19at 10:23; Start 01/20/19 at 07:30 Ondansetron HCl (Zofran) 4 mg PRN Q6HRS PRN IV NAUSEA/VOMITING; Start 01/22/19 at 07:00; Stop 01/22/19 at 20:00 Fentanyl Citrate (Fentanyl 2ml Vial) 25 mcg PRN Q5MIN PRN IV MILD PAIN 1-3; Start 01/22/19 at 07:00; Stop 01/22/19 at 20:00 Fentanyl Citrate (Fentanyl 2ml Vial) 50 mcg PRN Q5MIN PRN IV MODERATE TO SEVERE PAIN; Start 01/22/19 at 07:00; Stop 01/22/19 at 20:00 Ringer's Solution 1,000 ml @ 30 mls/hr Q24H IV ; Start 01/22/19 at 07:00; Stop 01/22/19 at 18:59 Lidocaine HCl (Xylocaine-Mpf 1% 2ml Vial) 2 ml PRN 1X PRN ID PRIOR TO IV START; Start 01/22/19 at 07:00; Stop 01/22/19 at 20:00 Prochlorperazine Edisylate (Compazine) 5 mg PACU PRN PRN IV NAUSEA, MRX1; Start 01/22/19 at 07:00; Stop 01/22/19 at 20:00 Adenosine (Adenocard) 6 mg 1X ONCE IV Last administered on 01/19/19at 19:28; Start 01/19/19 at 19:15; Stop 01/19/19 at 19:16; Status DC Adenosine (Adenocard) 6 mg 1X ONCE IV Last administered on 01/19/19at 20:11; Start 01/19/19 at 20:15; Stop 01/19/19 at 20:16; Status DC Adenosine (Adenocard) 6 mg 1X ONCE IV Last administered on 01/19/19at 20:36; Start 01/19/19 at 20:45; Stop 01/19/19 at 20:46; Status DC Potassium Chloride/Water 100 ml @ 100 mls/hr Q1H IV Last administered on 01/20/19at 00:09; Start 01/19/19 at 21:00; Stop 01/20/19 at 00:59; Status DC Potassium Acetate 20 meq/Dextrose 110 ml @ 55 mls/hr 1X ONCE IV ; Start 01/19/19 at 20:45; Stop 01/19/19 at 20:52; Status DC Diltiazem HCl 125 mg/Dextrose 125 ml @ 0 mls/hr CONT PRN IV SEE I/O RECORD Last administered on 01/20/19at 11:52; Start 01/19/19 at 20:45 Potassium Chloride/Dextrose 1,000 ml @ 55 mls/hr [id number] ONCE IV ; Start 01/19/19 at 21:00; Stop 01/19/19 at 20:55; Status DC Adenosine (Adenocard) 6 mg 1X ONCE IV Last administered on 01/19/19at 21:25; Start 01/19/19 at 21:30; Stop 01/19/19 at 21:31; Status DC Adenosine (Adenocard) 6 mg 1X ONCE IV Last administered on 01/19/19at 21:57; Start 01/19/19 at 22:15; Stop 01/19/19 at 22:16; Status DC Sodium Chloride 1,000 ml @ 75 mls/hr [id number] IV Last administered on 01/21/19at 00:00; Start 01/19/19 at 23:00 Magnesium Sulfate/ Dextrose 100 ml @ 100 mls/hr 1X ONCE IV Last administered on 01/20/19at 00:09; Start 01/19/19 at 23:30; Stop 01/20/19 at 00:29; Status DC Adenosine (Adenocard) 12 mg 1X ONCE IV Last administered on 01/20/19at 02:53; Start 01/19/19 at 22:15; Stop 01/20/19 at 02:52; Status DC Ondansetron HCl (Zofran) 4 mg PRN Q6HRS PRN IV NAUSEA/VOMITING; Start 01/20/19 at 09:15 Nitroglycerin (Nitro-Bid Oint) 1 inch Q6H TP Last administered on 01/21/19at 10:23; Start 01/21/19 at 10:00 Active Scripts Active Reported Percocet 5-325 Mg Tablet (Oxycodone/Acetaminophen) 1 Each Tablet 1 Tab PO Q4HRS Proscar (Finasteride) 5 Mg Tablet 5 Mg PO DAILY Lantus Solostar (Insulin Glargine,Hum.rec.anlog) 100 Unit/1 Ml Insuln.pen 25 Unit SQ HS Calcium Citrate 250 Mg Tablet 600 Mg PO DAILY Celebrex (Celecoxib) 200 Mg Capsule 200 Mg PO HS 30 Days Aspirin 81 Mg Tab.chew 81 Mg PO DAILY Prilosec Otc (Omeprazole Magnesium) 20 Mg Tablet.dr 20 Mg PO DAILY Nortriptyline Hcl 50 Mg Capsule 50 Mg PO DAILY Flomax (Tamsulosin Hcl) 0.4 Mg Cap.er.24h 0.4 Mg PO DAILY Bupropion Xl (Bupropion Hcl) 300 Mg Tab.er.24h 300 Mg PO DAILY Xenazine (Tetrabenazine) 12.5 Mg Tablet 12.5 Mg PO TID Novolog (Insulin Aspart) 100 Unit/1 Ml Cartridge 12-26 Unit SQ TIDAC Vitamin D2 (Ergocalciferol (Vitamin D2)) 50,000 Unit Capsule 50,000 Unit PO WEEKLY Paroxetine Hcl 40 Mg Tablet 40 Mg PO DAILY Metoprolol Tartrate 50 Mg Tablet 12.5 Mg PO BID Lipitor (Atorvastatin Calcium) 20 Mg Tablet 20 Mg PO DAILY Vitals/I & O Vital Sign - Last 24 Hours 01/20/19 01/20/19 01/20/19 01/20/19 11:17 12:20 12:30 13:00 Temp 97.6 97.6 Pulse 57 64 58 Resp 17 25 20 B/P (MAP) 176/76 (109) 139/63 (88) 128/71 (90) Pulse Ox 97 97 96 O2 Delivery Room Air Room Air Room Air Room Air 01/20/19 01/20/19 01/20/19 01/20/19 14:00 15:30 16:00 16:20 Temp 97.4 97.4 Pulse 60 66 61 Resp 18 18 18 B/P (MAP) 135/71 (92) 125/66 (85) 120/71 (87) Pulse Ox 96 97 100 O2 Delivery Room Air Room Air Room Air Room Air 01/20/19 01/20/19 01/20/19 01/20/19 17:00 18:00 19:00 20:00 Temp 97.4 97.6 97.4 97.6 Pulse 71 68 60 62 Resp 16 18 14 14 B/P (MAP) 144/76 (98) 131/79 (96) 121/65 (83) 145/67 (93) Pulse Ox 96 96 96 97 O2 Delivery Room Air Room Air Room Air Room Air 01/20/19 01/20/19 01/20/19 01/20/19 20:00 20:31 21:00 22:00 Temp 97.6 97.6 97.6 97.6 Pulse 60 60 60 Resp 14 14 B/P (MAP) 145/67 150/70 (96) 156/83 (107) Pulse Ox 97 96 O2 Delivery Room Air Room Air Room Air 01/20/19 01/21/19 01/21/19 01/21/19 23:00 00:26 01:21 02:00 Temp 97.6 97.6 97.6 97.6 97.6 97.6 97.6 97.6 Pulse 60 59 61 59 Resp 14 B/P (MAP) 179/108 (131) 140/75 (96) 152/66 (94) 160/65 (96) Pulse Ox 96 96 96 96 O2 Delivery Room Air Room Air Room Air Room Air 01/21/19 01/21/19 01/21/19 01/21/19 03:00 04:03 04:19 05:20 Temp 98.0 98.0 98.0 98.0 98.0 98.0 Pulse 58 58 58 Resp 14 14 B/P (MAP) 160/72 (101) 157/68 (97) 182/76 (111) Pulse Ox 96 96 96 O2 Delivery Room Air Room Air Room Air Room Air 01/21/19 01/21/19 01/21/19 01/21/19 05:29 07:15 08:00 08:00 Temp 97.5 97.6 97.5 97.6 Pulse 58 65 65 B/P (MAP) 166/73 (104) 174/84 (114) 171/78 (109) Pulse Ox 96 96 96 O2 Delivery Room Air Room Air Room Air Room Air 01/21/19 01/21/19 01/21/19 09:00 10:00 10:23 Temp 97.5 97.5 97.5 97.5 Pulse 65 65 60 B/P (MAP) 190/84 (119) 171/78 (109) 171/78 Pulse Ox 96 97 O2 Delivery Room Air Room Air Intake and Output 01/20/19 01/20/19 01/21/19 14:59 22:59 06:59 Intake Total 0 ml 114 ml Balance 0 ml 114 ml ALISSON VELÁZQUEZ MD Jan 21, 2019 10:59
[2019-01-21] MEDS ORDERED: DOCUSATE 100 MG/10 ML SOLUTION. PO ONE (11:00)
--- NOTE | 2019-01-21 11:10 | RAD ---
AP portable abdomen 01/21/2019. Reason for exam: Tube placement. Comparison is made with a study done earlier in the day. A feeding tube is again seen. Its tip is probably in the antrum of the stomach, likely slightly more distal than on the previous exam. The gas pattern shows no obstruction. IMPRESSION: Feeding tube tip near distal stomach. Electronically signed by: Kaiden Thao Jr., MD (01/21/2019 11:07 AM) [facility]
[2019-01-21] MEDS ORDERED: POTASSIUM CHLORIDE 20 MEQ TABLET.ER. PO ONE (11:15)
[2019-01-21] MEDS: MAGNESIUM HYDROXIDE 2,400 MG/30 ML ORAL.SUSP. PO PRN (11:22)
[2019-01-21] MEDS: FINASTERIDE 5 MG TABLET. PO SCH (11:22)
[2019-01-21] MEDS: buPROPion XL 150 MG TAB.ER.24H. PO SCH (11:23)
[2019-01-21] MEDS: LACTOBACILLUS RHAMNOSUS GG 1 CAPSULE. PO SCH ×2 (11:23→21:11)
[2019-01-21] MEDS: TAMSULOSIN 0.4 MG CAP.ER.24H. PO SCH (11:23)
[2019-01-21] MEDS: CALCIUM CARBONATE 500 MG TABLET PO SCH (11:24)
[2019-01-21] MEDS: METOPROLOL TART IMMED RELEASE 50 MG TABLET. PO SCH ×2 (11:24→21:11)
[2019-01-21] MEDS: ASPIRIN CHEWABLE 81 MG TABLET. PO SCH (11:24)
--- NOTE | 2019-01-21 12:25 | CARD ---
MR#: [id number] Date of Study: 01/21/2019 Ordering Physician: JEAN-PAUL ALEJANDRA, Referring Physician: JEAN-PAUL ALEJANDRA, Tech: Zamzam Cruz STACEY APPROVED REPORT EXAM: Two-dimensional and M-mode echocardiogram with Doppler and color Doppler. Other Information Quality : Good INDICATION PSVT 2D DIMENSIONS RVDd3.7 (2.9-3.5cm)Left Atrium(2D)4.9 (1.6-4.0cm) IVSd1.3 (0.7-1.1cm)Aortic Root(2D)4.3 (2.0-3.7cm) LVDd5.7 (3.9-5.9cm)LVOT Diameter2.3 (1.8-2.4cm) PWd1.3 (0.7-1.1cm)LVDs3.5 (2.5-4.0cm) FS (%) 38.4 %SV110.6 ml LVEF(%)60.0 (>50%) Aortic Valve AoV Peak Saran.131.6cm/sAoV VTI26.1cm AO Peak GR.6.9mmHgLVOT VTI 20.59cm AO Mean GR.4mmHgAVA (VTI)3.30cm2 AI P 1/2 [id number] Mitral Valve MV E Fymnppkp80.5cm/sMV DECEL [id number] MV A Wrowiahh99.8cm/sE/A Ratio0.5 TDI Lateral E' P. V3.93cm/sMedial E' P. V3.28cm/s E/Lateral E'11.8E/Medial E'14.2 Pulmonary Vein S1 Dnnthzgz21.5cm/sS2 Qxjwpzbr63.98cm/s D2 Rilznyri57.0cm/s LEFT VENTRICLE The left ventricle is normal size. There is mild concentric left ventricular hypertrophy. The left ve ntricular systolic function is normal and the ejection fraction is within normal range. The Ejection Fraction is 55-60%. There is normal LV segmental wall motion. Transmitral Doppler flow pattern is Gra de I-abnormal relaxation pattern. RIGHT VENTRICLE The right ventricle is normal size. The right ventricular systolic function is normal. ATRIA The left atrium is mildly dilated. The right atrium size is normal. The interatrial septum is intact with no evidence for an atrial septal defect or patent foramen ovale as noted on 2-D or Doppler imagi ng. AORTIC VALVE The aortic valve is calcified but opens well. Doppler and Color Flow revealed trace to mild aortic re gurgitation. There is no significant aortic valvular stenosis. MITRAL VALVE The mitral valve is calcified but opens well. There is no evidence of mitral valve prolapse. There is no mitral valve stenosis. Doppler and Color-flow revealed trace mitral regurgitation. TRICUSPID VALVE The tricuspid valve is normal in structure and function. Doppler and Color Flow revealed no tricuspid valve regurgitation noted. There is no tricuspid valve stenosis. PULMONIC VALVE The pulmonic valve is not well visualized. Doppler and Color Flow revealed no pulmonic valvular regur gitation. There is no pulmonic valvular stenosis. GREAT VESSELS The aortic root is normal in size. The ascending aorta is moderately dilated at 4.0 cm. The IVC was n ot visualized. PERICARDIAL EFFUSION There is no evidence of significant pericardial effusion. Critical Notification Critical Value: No <Conclusion> The left ventricle is normal size. The left ventricular systolic function is normal and the ejection fraction is within normal range. The Ejection Fraction is 55-60%. There is mild concentric left ventricular hypertrophy. There is no significant aortic valvular stenosis. Doppler and Color Flow revealed trace to mild aortic regurgitation. Doppler and Color-flow revealed trace mitral regurgitation. Doppler and Color Flow revealed no tricuspid valve regurgitation noted. The ascending aorta is moderately dilated at 4.0 cm. Signed by : Jean-Paul Alejandra MD Electronically Approved : 01/21/2019 12:25:17
--- NOTE | 2019-01-21 12:33 | PDOC ---
PROGRESS NOTES Subjective Subjective Patient seen and examined Objective Objective Vital Signs Date Time Temp Pulse Resp B/P (MAP) Pulse Ox O2 Delivery O2 Flow Rate FiO2 01/21/19 11:25 60 171/78 01/21/19 10:00 97.5 97 Room Air 97.5 01/21/19 05:20 14 01/20/19 10:45 2.0 Intake and Output 01/21/19 07:00 Intake Total 114 ml Balance 114 ml Intake Oral 0 ml Tube Feeding 94 ml Blood Product IV Normal Saline Flush 20 ml # Voids 6 Physical Exam Abdomen: Normal bowel sounds Heart: Regular rate General: No acute distress Lungs: Other (Mildly decreased breath sounds) Assessment Assessment Problems Medical Problems: (1) Arrhythmia Status: Acute (2) Pneumonia Status: Acute 1. PSVT Controlled with IV cardizem. Will continue IV treatment until stable method to give non IV cardizem. PEG tomorrow. ECHO pending. 2. Pneumonia. Pulmonary is following. ID is following. 3. Hypokalemia. Replaced and monitor. Comment Review of Relevant I have reviewed the following items ricardo (where applicable) has been applied. Labs Laboratory Tests Test 01/19/19 17:45 01/19/19 21:48 01/19/19 22:00 01/19/19 22:10 Glucose (Fingerstick) 73 mg/dL (70-99) 72 mg/dL (70-99) Troponin I Quantitative < 0.017 ng/mL (0.000-0.055) Magnesium Level 1.8 mg/dL (1.8-2.4) Test 01/20/19 08:45 01/20/19 12:43 01/20/19 18:07 01/21/19 04:00 White Blood Count 6.8 x10^3/uL (4.0-11.0) 7.3 x10^3/uL (4.0-11.0) Red Blood Count 4.68 x10^6/uL (4.30-5.70) 4.42 x10^6/uL (4.30-5.70) Hemoglobin 14.3 g/dL (13.0-17.5) 13.8 g/dL (13.0-17.5) Hematocrit 42.6 % (39.0-53.0) 40.5 % (39.0-53.0) Mean Corpuscular Volume 91 fL (79-100) 92 fL (79-100) Mean Corpuscular Hemoglobin 31 pg (25-35) 31 pg (25-35) Mean Corpuscular Hemoglobin Concent 34 g/dL (31-37) 34 g/dL (31-37) Red Cell Distribution Width 13.9 % (11.5-14.5) 13.9 % (11.5-14.5) Platelet Count 191 x10^3/uL (140-400) 197 x10^3/uL (140-400) Neutrophils (%) (Auto) 70 % (31-73) 66 % (31-73) Lymphocytes (%) (Auto) 20 % (24-48) 23 % (24-48) Monocytes (%) (Auto) 8 % (0-9) 7 % (0-9) Eosinophils (%) (Auto) 2 % (0-3) 3 % (0-3) Basophils (%) (Auto) 1 % (0-3) 1 % (0-3) Neutrophils # (Auto) 4.7 x10^3/uL (1.8-7.7) 4.8 x10^3/uL (1.8-7.7) Lymphocytes # (Auto) 1.3 x10^3/uL (1.0-4.8) 1.7 x10^3/uL (1.0-4.8) Monocytes # (Auto) 0.5 x10^3/uL (0.0-1.1) 0.5 x10^3/uL (0.0-1.1) Eosinophils # (Auto) 0.2 x10^3/uL (0.0-0.7) 0.2 x10^3/uL (0.0-0.7) Basophils # (Auto) 0.1 x10^3/uL (0.0-0.2) 0.1 x10^3/uL (0.0-0.2) Sodium Level 145 mmol/L (136-145) 144 mmol/L (136-145) Potassium Level 3.6 mmol/L (3.5-5.1) 3.3 mmol/L (3.5-5.1) Chloride Level 109 mmol/L (98-107) 109 mmol/L (98-107) Carbon Dioxide Level 23 mmol/L (21-32) 20 mmol/L (21-32) Anion Gap 13 (6-14) 15 (6-14) Blood Urea Nitrogen 11 mg/dL (8-26) 10 mg/dL (8-26) Creatinine 0.9 mg/dL (0.7-1.3) 0.8 mg/dL (0.7-1.3) Estimated GFR (Cockcroft-Gault) 83.9 96.1 Glucose Level 108 mg/dL (70-99) 108 mg/dL (70-99) Calcium Level 8.6 mg/dL (8.5-10.1) 8.3 mg/dL (8.5-10.1) Magnesium Level 1.8 mg/dL (1.8-2.4) Glucose (Fingerstick) 98 mg/dL (70-99) 80 mg/dL (70-99) Laboratory Tests Test 01/20/19 12:43 01/20/19 18:07 01/21/19 04:00 Glucose (Fingerstick) 98 mg/dL (70-99) 80 mg/dL (70-99) White Blood Count 7.3 x10^3/uL (4.0-11.0) Red Blood Count 4.42 x10^6/uL (4.30-5.70) Hemoglobin 13.8 g/dL (13.0-17.5) Hematocrit 40.5 % (39.0-53.0) Mean Corpuscular Volume 92 fL (79-100) Mean Corpuscular Hemoglobin 31 pg (25-35) Mean Corpuscular Hemoglobin Concent 34 g/dL (31-37) Red Cell Distribution Width 13.9 % (11.5-14.5) Platelet Count 197 x10^3/uL (140-400) Neutrophils (%) (Auto) 66 % (31-73) Lymphocytes (%) (Auto) 23 % (24-48) Monocytes (%) (Auto) 7 % (0-9) Eosinophils (%) (Auto) 3 % (0-3) Basophils (%) (Auto) 1 % (0-3) Neutrophils # (Auto) 4.8 x10^3/uL (1.8-7.7) Lymphocytes # (Auto) 1.7 x10^3/uL (1.0-4.8) Monocytes # (Auto) 0.5 x10^3/uL (0.0-1.1) Eosinophils # (Auto) 0.2 x10^3/uL (0.0-0.7) Basophils # (Auto) 0.1 x10^3/uL (0.0-0.2) Sodium Level 144 mmol/L (136-145) Potassium Level 3.3 mmol/L (3.5-5.1) Chloride Level 109 mmol/L (98-107) Carbon Dioxide Level 20 mmol/L (21-32) Anion Gap 15 (6-14) Blood Urea Nitrogen 10 mg/dL (8-26) Creatinine 0.8 mg/dL (0.7-1.3) Estimated GFR (Cockcroft-Gault) 96.1 Glucose Level 108 mg/dL (70-99) Calcium Level 8.3 mg/dL (8.5-10.1) Microbiology 01/18/19 Urine Culture - Final, Complete 01/18/19 Urine Culture Result 1 (SOFIA) - Final, Complete Medications Current Medications Piperacillin Sod/ Tazobactam Sod 3.375 gm/Sodium Chloride 50 ml @ 100 mls/hr 1X ONCE IV Last administered on 01/15/19at 16:23; Start 01/15/19 at 16:00; Stop 01/15/19 at 16:29; Status DC Vancomycin HCl (Vanco Per Pharmacy) 1 each 1X STAT MC Last administered on 01/16/19at 16:11; Start 01/15/19 at 15:55; Stop 01/15/19 at 16:03; Status DC Vancomycin HCl 2 gm/Sodium Chloride 500 ml @ 250 mls/hr 1X ONCE IV Last administered on 01/15/19at 18:32; Start 01/15/19 at 16:15; Stop 01/15/19 at 18:14; Status DC Ondansetron HCl (Zofran) 4 mg PRN Q8HRS PRN IV NAUSEA/VOMITING; Start 01/15/19 at 16:15; Stop 01/16/19 at 16:14; Status DC Fentanyl Citrate (Fentanyl 2ml Vial) 50 mcg PRN Q1HR PRN IV PAIN; Start 01/15/19 at 16:15; Stop 01/16/19 at 16:14; Status DC Acetaminophen (Tylenol) 650 mg PRN Q4HRS PRN PO FEVER; Start 01/15/19 at 16:15; Stop 01/16/19 at 16:14; Status DC Piperacillin Sod/ Tazobactam Sod 3.375 gm/Sodium Chloride 50 ml @ 100 mls/hr Q6HRS IV Last administered on 01/21/19 04:44; Start 01/16/19 at 14:00 Aspirin (Children'S Aspirin) 81 mg DAILY PO Last administered on 01/21/19 11:25; Start 01/16/19 at 14:00 Atorvastatin Calcium (Lipitor) 20 mg QHS PO Last administered on 01/20/19 20:48; Start 01/16/19 at 21:00 Ergocalciferol (Vitamin D2) 50,000 unit WEEKLY PO Last administered on 01/16/19 at 14:38; Start 01/16/19 at 14:00 Finasteride (Proscar) 5 mg DAILY PO Last administered on 01/21/19 11:25; Start 01/16/19 at 14:00 Metoprolol Tartrate (Lopressor) 12.5 mg BID PO Last administered on 01/21/19 11:25; Start 01/16/19 at 14:00 Oxycodone/ Acetaminophen (Percocet 5/325) 1 tab PRN Q4HRS PRN PO PAIN; Start 01/16/19 at 13:49 Tamsulosin HCl (Flomax) 0.4 mg DAILY PO Last administered on 01/21/19 11:25; Start 01/16/19 at 14:00 Bupropion HCl (Wellbutrin Xl) 300 mg DAILY PO Last administered on 01/21/19 11:25; Start 01/16/19 at 14:00 Calcium Carbonate/ Glycine (Oscal) 500 mg DAILY PO Last administered on 01/21/19 11:25; Start 01/16/19 at 14:00 Celecoxib (CeleBREX) 200 mg QHS PO Last administered on 01/16/19 21:16; Start 01/16/19 at 21:00; Stop 01/20/19 at 09:12; Status DC Nortriptyline HCl (Pamelor) 50 mg QHS PO Last administered on 01/16/19 21:16; Start 01/16/19 at 21:00 Pantoprazole Sodium (Protonix) 40 mg DAILYAC PO Last administered on 01/18/19 11:17; Start 01/16/19 at 14:00; Stop 01/19/19 at 13:29; Status DC Non-Formulary Medication (Tetrabenazine (Xenazine)) 12.5 mg TID PO ; Start 01/16/19 at 14:00; Stop 01/17/19 at 11:05; Status DC Vancomycin HCl (Vanco Per Pharmacy) 1 each PRN DAILY PRN MC SEE COMMENTS Last administered on 01/18/19 15:25; Start 01/16/19 at 13:45; Stop 01/19/19 at 13:23; Status DC Vancomycin HCl 1.5 gm/Sodium Chloride 500 ml @ 250 mls/hr Q12H IV Last administered on 01/19/19 05:25; Start 01/16/19 at 17:00; Stop 01/19/19 at 13:23; Status DC Vancomycin HCl (Vancomycin Trough Level) 1 each 1X ONCE MC Last administered on 01/18/19at 05:35; Start 01/18/19 at 04:30; Stop 01/18/19 at 04:31; Status DC Non-Formulary Medication (Tetrabenazine (Xenazine)) 25 mg BID PO Last administered on 01/21/19 11:25; Start 01/17/19 at 11:30 Lactobacillus Rhamnosus (Culturelle) 1 cap BID PO Last administered on 01/21/19 11:25; Start 01/17/19 at 21:00 Pantoprazole Sodium (PROTONIX VIAL for IV PUSH) 40 mg DAILYAC IVP Last administered on 01/21/19at 10:23; Start 01/20/19 at 07:30 Ondansetron HCl (Zofran) 4 mg PRN Q6HRS PRN IV NAUSEA/VOMITING; Start 01/22/19 at 07:00; Stop 01/22/19 at 20:00 Fentanyl Citrate (Fentanyl 2ml Vial) 25 mcg PRN Q5MIN PRN IV MILD PAIN 1-3; Start 01/22/19 at 07:00; Stop 01/22/19 at 20:00 Fentanyl Citrate (Fentanyl 2ml Vial) 50 mcg PRN Q5MIN PRN IV MODERATE TO SEVERE PAIN; Start 01/22/19 at 07:00; Stop 01/22/19 at 20:00 Ringer's Solution 1,000 ml @ 30 mls/hr Q24H IV ; Start 01/22/19 at 07:00; Stop 01/22/19 at 18:59 Lidocaine HCl (Xylocaine-Mpf 1% 2ml Vial) 2 ml PRN 1X PRN ID PRIOR TO IV START; Start 01/22/19 at 07:00; Stop 01/22/19 at 20:00 Prochlorperazine Edisylate (Compazine) 5 mg PACU PRN PRN IV NAUSEA, MRX1; Start 01/22/19 at 07:00; Stop 01/22/19 at 20:00 Adenosine (Adenocard) 6 mg 1X ONCE IV Last administered on 01/19/19at 19:28; Start 01/19/19 at 19:15; Stop 01/19/19 at 19:16; Status DC Adenosine (Adenocard) 6 mg 1X ONCE IV Last administered on 01/19/19at 20:11; Start 01/19/19 at 20:15; Stop 01/19/19 at 20:16; Status DC Adenosine (Adenocard) 6 mg 1X ONCE IV Last administered on 01/19/19at 20:36; Start 01/19/19 at 20:45; Stop 01/19/19 at 20:46; Status DC Potassium Chloride/Water 100 ml @ 100 mls/hr Q1H IV Last administered on 01/20/19at 00:09; Start 01/19/19 at 21:00; Stop 01/20/19 at 00:59; Status DC Potassium Acetate 20 meq/Dextrose 110 ml @ 55 mls/hr 1X ONCE IV ; Start 01/19/19 at 20:45; Stop 01/19/19 at 20:52; Status DC Diltiazem HCl 125 mg/Dextrose 125 ml @ 0 mls/hr CONT PRN IV SEE I/O RECORD Last administered on 01/20/19at 11:52; Start 01/19/19 at 20:45; Stop 01/21/19 at 11:01; Status DC Potassium Chloride/Dextrose 1,000 ml @ 55 mls/hr [id number] ONCE IV ; Start 01/19/19 at 21:00; Stop 01/19/19 at 20:55; Status DC Adenosine (Adenocard) 6 mg 1X ONCE IV Last administered on 01/19/19at 21:25; Start 01/19/19 at 21:30; Stop 01/19/19 at 21:31; Status DC Adenosine (Adenocard) 6 mg 1X ONCE IV Last administered on 01/19/19at 21:57; Start 01/19/19 at 22:15; Stop 01/19/19 at 22:16; Status DC Sodium Chloride 1,000 ml @ 75 mls/hr [id number] IV Last administered on 01/21/19at 00:00; Start 01/19/19 at 23:00; Stop 01/21/19 at 11:01; Status DC Magnesium Sulfate/ Dextrose 100 ml @ 100 mls/hr 1X ONCE IV Last administered on 01/20/19at 00:09; Start 01/19/19 at 23:30; Stop 01/20/19 at 00:29; Status DC Adenosine (Adenocard) 12 mg 1X ONCE IV Last administered on 01/20/19at 02:53; Start 01/19/19 at 22:15; Stop 01/20/19 at 02:52; Status DC Ondansetron HCl (Zofran) 4 mg PRN Q6HRS PRN IV NAUSEA/VOMITING; Start 01/20/19 at 09:15 Nitroglycerin (Nitro-Bid Oint) 1 inch Q6H TP Last administered on 01/21/19at 10:23; Start 01/21/19 at 10:00 Docusate Sodium (Colace Solution) 100 mg 1X ONCE PO Last administered on 01/21/19at 11:26; Start 01/21/19 at 11:00; Stop 01/21/19 at 11:01; Status DC Docusate Sodium (Colace Solution) 100 mg PRN DAILY PRN PO CONSTIPATION; Start 01/21/19 at 11:00 Polyethylene Glycol (miraLAX PACKET) 17 gm PRN DAILY PRN PO CONSTIPATION 1ST CHOICE; Start 01/21/19 at 11:00 Magnesium Hydroxide (Milk Of Magnesia) 2,400 mg PRN DAILY PRN PO CONSTIPATION Last administered on 01/21/19at 11:25; Start 01/21/19 at 11:00 Potassium Chloride (Klor-Con) 40 meq 1X ONCE PO Last administered on 01/21/19at 11:25; Start 01/21/19 at 11:15; Stop 01/21/19 at 11:16; Status DC Active Scripts Active Reported Percocet 5-325 Mg Tablet (Oxycodone/Acetaminophen) 1 Each Tablet 1 Tab PO Q4HRS Proscar (Finasteride) 5 Mg Tablet 5 Mg PO DAILY Lantus Solostar (Insulin Glargine,Hum.rec.anlog) 100 Unit/1 Ml Insuln.pen 25 Unit SQ HS Calcium Citrate 250 Mg Tablet 600 Mg PO DAILY Celebrex (Celecoxib) 200 Mg Capsule 200 Mg PO HS 30 Days Aspirin 81 Mg Tab.chew 81 Mg PO DAILY Prilosec Otc (Omeprazole Magnesium) 20 Mg Tablet.dr 20 Mg PO DAILY Nortriptyline Hcl 50 Mg Capsule 50 Mg PO DAILY Flomax (Tamsulosin Hcl) 0.4 Mg Cap.er.24h 0.4 Mg PO DAILY Bupropion Xl (Bupropion Hcl) 300 Mg Tab.er.24h 300 Mg PO DAILY Xenazine (Tetrabenazine) 12.5 Mg Tablet 12.5 Mg PO TID Novolog (Insulin Aspart) 100 Unit/1 Ml Cartridge 12-26 Unit SQ TIDAC Vitamin D2 (Ergocalciferol (Vitamin D2)) 50,000 Unit Capsule 50,000 Unit PO WEEKLY Paroxetine Hcl 40 Mg Tablet 40 Mg PO DAILY Metoprolol Tartrate 50 Mg Tablet 12.5 Mg PO BID Lipitor (Atorvastatin Calcium) 20 Mg Tablet 20 Mg PO DAILY Vitals/I & O Vital Sign - Last 24 Hours 01/20/19 01/20/19 01/20/19 01/20/19 12:30 13:00 14:00 15:30 Temp 97.4 97.4 Pulse 64 58 60 66 Resp 25 20 18 18 B/P (MAP) 139/63 (88) 128/71 (90) 135/71 (92) 125/66 (85) Pulse Ox 97 96 96 97 O2 Delivery Room Air Room Air Room Air Room Air 01/20/19 01/20/19 01/20/19 01/20/19 16:00 16:20 17:00 18:00 Pulse 61 71 68 Resp 18 16 18 B/P (MAP) 120/71 (87) 144/76 (98) 131/79 (96) Pulse Ox 100 96 96 O2 Delivery Room Air Room Air Room Air Room Air 01/20/19 01/20/19 01/20/19 01/20/19 19:00 20:00 20:00 20:31 Temp 97.4 97.6 97.4 97.6 Pulse 60 62 60 Resp 14 14 B/P (MAP) 121/65 (83) 145/67 (93) 145/67 Pulse Ox 96 97 O2 Delivery Room Air Room Air Room Air 01/20/19 01/20/19 01/20/19 01/21/19 21:00 22:00 23:00 00:26 Temp 97.6 97.6 97.6 97.6 97.6 97.6 97.6 97.6 Pulse 60 60 60 59 Resp 14 14 B/P (MAP) 150/70 (96) 156/83 (107) 179/108 (131) 140/75 (96) Pulse Ox 97 96 96 96 O2 Delivery Room Air Room Air Room Air Room Air 01/21/19 01/21/19 01/21/19 01/21/19 01:21 02:00 03:00 04:03 Temp 97.6 97.6 98.0 98.0 97.6 97.6 98.0 98.0 Pulse 61 59 58 58 Resp 14 14 B/P (MAP) 152/66 (94) 160/65 (96) 160/72 (101) 157/68 (97) Pulse Ox 96 96 96 96 O2 Delivery Room Air Room Air Room Air Room Air 01/21/19 01/21/19 01/21/19 01/21/19 04:19 05:20 05:29 07:15 Temp 98.0 97.5 98.0 97.5 Pulse 58 58 65 Resp 14 B/P (MAP) 182/76 (111) 166/73 (104) 174/84 (114) Pulse Ox 96 96 96 O2 Delivery Room Air Room Air Room Air Room Air 01/21/19 01/21/19 01/21/19 01/21/19 08:00 08:00 09:00 10:00 Temp 97.6 97.5 97.5 97.6 97.5 97.5 Pulse 65 65 65 B/P (MAP) 171/78 (109) 190/84 (119) 171/78 (109) Pulse Ox 96 96 97 O2 Delivery Room Air Room Air Room Air Room Air 01/21/19 01/21/19 10:23 11:25 Pulse 60 60 B/P (MAP) 171/78 171/78 Intake and Output 01/20/19 01/20/19 01/21/19 15:00 23:00 07:00 Intake Total 0 ml 114 ml Balance 0 ml 114 ml JEAN-PAUL HOLDEN MD Jan 21, 2019 12:33
[2019-01-21] MEDS: dilTIAZem HCL 30 MG TABLET PO SCH ×2 (18:09→21:11)
[2019-01-21] MEDS: ATORVASTATIN CALCIUM 20 MG TABLET PO SCH (21:11)
[2019-01-21] MEDS: NORTRIPTYLINE 25 MG CAPSULE PO SCH (21:11)
[2019-01-21] MEDS: POLYETHYLENE GLYCOL 3350 17 GM PACKET. PO PRN (23:56)
[2019-01-21] MEDS: DOCUSATE 100 MG/10 ML SOLUTION. PO PRN (23:56)
[2019-01-22] VITALS (13 sets, daily range): BP systolic 120–169; BP diastolic 67–97
[2019-01-22] MEDS: NITROGLYCERIN OINT 1 GM PACKET. TP SCH ×4 (04:19→20:11)
[2019-01-22 04:27] LABS: BASO # 0.1 x10^3/uL (0.0-0.2); BASO % 1 % (0-3); EOS # 0.2 x10^3/uL (0.0-0.7); EOS % 3 % (0-3); HEMATOCRIT 38.2 % (39.0-53.0); HEMOGLOBIN 12.9 g/dL (13.0-17.5); LYMPH # 1.9 x10^3/uL (1.0-4.8); LYMPH % 25 % (24-48); MEAN CORPUSCULAR HEMOGLOBIN 31 pg (25-35); MEAN CORPUSCULAR HGB CONC 34 g/dL (31-37); MEAN CORPUSCULAR VOLUME 91 fL (79-100); MONO # 0.6 x10^3/uL (0.0-1.1); MONO % 8 % (0-9); NEUT # 4.7 x10^3/uL (1.8-7.7); NEUT % 63 % (31-73); PLATELET COUNT 215 x10^3/uL (140-400); RED BLOOD COUNT 4.19 x10^6/uL (4.30-5.70); WHITE BLOOD COUNT 7.5 x10^3/uL (4.0-11.0)
[2019-01-22 04:59] LABS: CALCIUM 8.4 mg/dL (8.5-10.1); CREATININE 0.8 mg/dL (0.7-1.3); GFR 96.1; POTASSIUM 3.3 mmol/L (3.5-5.1)
[2019-01-22] MEDS: PIPERACILLIN/TAZOBACTAM 3.375 GM in IV NORMAL SALINE 50ML 50 ML IV SCH ×4 (05:30→23:50)
[2019-01-22] MEDS: dilTIAZem HCL 30 MG TABLET PO SCH ×3 (06:00→20:10)
[2019-01-22] MEDS ORDERED: ONDANSETRON PF 4 MG/2 ML VIAL. IV PRN (07:00)
[2019-01-22] MEDS ORDERED: PROCHLORPERAZINE 10 MG/2 ML VIAL. IV PRN (07:00)
[2019-01-22] MEDS ORDERED: fentaNYL PF VIAL 100 MCG/2 ML VIAL IV PRN ×2 (07:00)
[2019-01-22] MEDS ORDERED: IV RINGERS,LACTATED 1000ML 1,000 ML IV SCH (07:00)
[2019-01-22] MEDS ORDERED: LIDOCAINE 1% PF 2 ML VIAL. ID PRN (07:00)
--- NOTE | 2019-01-22 08:21 | PDOC ---
PROGRESS NOTES Chief Complaint Chief Complaint Asp PNA, dysphagia hx CVA - PEG tuesday HTN, controlled SVT - new (01/19) Chronic renal insufficiency Hypokalemia DM2 Protein calorie malnutrition History of Present Illness History of Present Illness Admitted to 6th floor for asp pneumonia, lives in HCR - hx CVA, left residual HE is left sided hemiplegia and dysphagia from stroke Mar 2018 Transferred to CVC/ICU for SVT, S.p adenosine, vagal and cardizem gtt with cardiology consultation Rate controlled now, no sxs Inserted dobhoff 01/20/19 for nutrition, and tF running, tolerating it. Confused, speaking strangely yesterday. Not speaking this morning with me. Plan for PEG today PLAn: October dc current IVF Cont huma Colace solution - he is constipated today PEG Today HCR on dc d w [employer] Vitals Vitals Vital Signs Date Time Temp Pulse Resp B/P (MAP) Pulse Ox O2 Delivery O2 Flow Rate FiO2 01/22/19 07:00 97.1 53 20 150/72 (98) 94 Room Air 97.1 01/21/19 19:40 2.0 Physical Exam Physical Exam GENERAL: Propped up in bed, alert, NAD HEENT: LENY, Oral cavity clear. Dobbhoff NECK: Supple. LUNGS: Clear. (right-sided chest implantable stimulator) HEART: S1 and S2 regular. ABDOMEN: Soft and nontender : No Bruno EXTREMITIES: Trace edema. No cyanosis SKIN: Warm to touch. NEUROLOGIC: Alert, responds to few questions Left-sided paralysis and weakness on the right side. PIV General: No acute distress Heart: Regular rate Lungs: Clear, Crackles Abdomen: Normal bowel sounds Extremities: No cyanosis, Other (left hemiparesis) Skin: No rashes, No breakdown, No significant lesion, Other Labs LABS Laboratory Tests Test 01/22/19 03:30 White Blood Count 7.5 x10^3/uL (4.0-11.0) Red Blood Count 4.19 x10^6/uL (4.30-5.70) Hemoglobin 12.9 g/dL (13.0-17.5) Hematocrit 38.2 % (39.0-53.0) Mean Corpuscular Volume 91 fL (79-100) Mean Corpuscular Hemoglobin 31 pg (25-35) Mean Corpuscular Hemoglobin Concent 34 g/dL (31-37) Red Cell Distribution Width 14.0 % (11.5-14.5) Platelet Count 215 x10^3/uL (140-400) Neutrophils (%) (Auto) 63 % (31-73) Lymphocytes (%) (Auto) 25 % (24-48) Monocytes (%) (Auto) 8 % (0-9) Eosinophils (%) (Auto) 3 % (0-3) Basophils (%) (Auto) 1 % (0-3) Neutrophils # (Auto) 4.7 x10^3/uL (1.8-7.7) Lymphocytes # (Auto) 1.9 x10^3/uL (1.0-4.8) Monocytes # (Auto) 0.6 x10^3/uL (0.0-1.1) Eosinophils # (Auto) 0.2 x10^3/uL (0.0-0.7) Basophils # (Auto) 0.1 x10^3/uL (0.0-0.2) Sodium Level 142 mmol/L (136-145) Potassium Level 3.3 mmol/L (3.5-5.1) Chloride Level 106 mmol/L (98-107) Carbon Dioxide Level 23 mmol/L (21-32) Anion Gap 13 (6-14) Blood Urea Nitrogen 8 mg/dL (8-26) Creatinine 0.8 mg/dL (0.7-1.3) Estimated GFR (Cockcroft-Gault) 96.1 Glucose Level 101 mg/dL (70-99) Calcium Level 8.4 mg/dL (8.5-10.1) Assessment and Plan Assessmemt and Plan Problems Medical Problems: (1) Arrhythmia Status: Acute (2) Pneumonia Status: Acute Comment Review of Relevant I have reviewed the following items ricardo (where applicable) has been applied. Labs Laboratory Tests Test 01/20/19 08:45 01/20/19 12:43 01/20/19 18:07 01/21/19 01:00 White Blood Count 6.8 x10^3/uL (4.0-11.0) Red Blood Count 4.68 x10^6/uL (4.30-5.70) Hemoglobin 14.3 g/dL (13.0-17.5) Hematocrit 42.6 % (39.0-53.0) Mean Corpuscular Volume 91 fL (79-100) Mean Corpuscular Hemoglobin 31 pg (25-35) Mean Corpuscular Hemoglobin Concent 34 g/dL (31-37) Red Cell Distribution Width 13.9 % (11.5-14.5) Platelet Count 191 x10^3/uL (140-400) Neutrophils (%) (Auto) 70 % (31-73) Lymphocytes (%) (Auto) 20 % (24-48) Monocytes (%) (Auto) 8 % (0-9) Eosinophils (%) (Auto) 2 % (0-3) Basophils (%) (Auto) 1 % (0-3) Neutrophils # (Auto) 4.7 x10^3/uL (1.8-7.7) Lymphocytes # (Auto) 1.3 x10^3/uL (1.0-4.8) Monocytes # (Auto) 0.5 x10^3/uL (0.0-1.1) Eosinophils # (Auto) 0.2 x10^3/uL (0.0-0.7) Basophils # (Auto) 0.1 x10^3/uL (0.0-0.2) Sodium Level 145 mmol/L (136-145) Potassium Level 3.6 mmol/L (3.5-5.1) Chloride Level 109 mmol/L (98-107) Carbon Dioxide Level 23 mmol/L (21-32) Anion Gap 13 (6-14) Blood Urea Nitrogen 11 mg/dL (8-26) Creatinine 0.9 mg/dL (0.7-1.3) Estimated GFR (Cockcroft-Gault) 83.9 Glucose Level 108 mg/dL (70-99) Calcium Level 8.6 mg/dL (8.5-10.1) Magnesium Level 1.8 mg/dL (1.8-2.4) Glucose (Fingerstick) 98 mg/dL (70-99) 80 mg/dL (70-99) Nasal Screen MRSA (PCR) Negative (Negative) Test 01/21/19 04:00 01/22/19 03:30 White Blood Count 7.3 x10^3/uL (4.0-11.0) 7.5 x10^3/uL (4.0-11.0) Red Blood Count 4.42 x10^6/uL (4.30-5.70) 4.19 x10^6/uL (4.30-5.70) Hemoglobin 13.8 g/dL (13.0-17.5) 12.9 g/dL (13.0-17.5) Hematocrit 40.5 % (39.0-53.0) 38.2 % (39.0-53.0) Mean Corpuscular Volume 92 fL (79-100) 91 fL (79-100) Mean Corpuscular Hemoglobin 31 pg (25-35) 31 pg (25-35) Mean Corpuscular Hemoglobin Concent 34 g/dL (31-37) 34 g/dL (31-37) Red Cell Distribution Width 13.9 % (11.5-14.5) 14.0 % (11.5-14.5) Platelet Count 197 x10^3/uL (140-400) 215 x10^3/uL (140-400) Neutrophils (%) (Auto) 66 % (31-73) 63 % (31-73) Lymphocytes (%) (Auto) 23 % (24-48) 25 % (24-48) Monocytes (%) (Auto) 7 % (0-9) 8 % (0-9) Eosinophils (%) (Auto) 3 % (0-3) 3 % (0-3) Basophils (%) (Auto) 1 % (0-3) 1 % (0-3) Neutrophils # (Auto) 4.8 x10^3/uL (1.8-7.7) 4.7 x10^3/uL (1.8-7.7) Lymphocytes # (Auto) 1.7 x10^3/uL (1.0-4.8) 1.9 x10^3/uL (1.0-4.8) Monocytes # (Auto) 0.5 x10^3/uL (0.0-1.1) 0.6 x10^3/uL (0.0-1.1) Eosinophils # (Auto) 0.2 x10^3/uL (0.0-0.7) 0.2 x10^3/uL (0.0-0.7) Basophils # (Auto) 0.1 x10^3/uL (0.0-0.2) 0.1 x10^3/uL (0.0-0.2) Sodium Level 144 mmol/L (136-145) 142 mmol/L (136-145) Potassium Level 3.3 mmol/L (3.5-5.1) 3.3 mmol/L (3.5-5.1) Chloride Level 109 mmol/L (98-107) 106 mmol/L (98-107) Carbon Dioxide Level 20 mmol/L (21-32) 23 mmol/L (21-32) Anion Gap 15 (6-14) 13 (6-14) Blood Urea Nitrogen 10 mg/dL (8-26) 8 mg/dL (8-26) Creatinine 0.8 mg/dL (0.7-1.3) 0.8 mg/dL (0.7-1.3) Estimated GFR (Cockcroft-Gault) 96.1 96.1 Glucose Level 108 mg/dL (70-99) 101 mg/dL (70-99) Calcium Level 8.3 mg/dL (8.5-10.1) 8.4 mg/dL (8.5-10.1) Laboratory Tests Test 01/22/19 03:30 White Blood Count 7.5 x10^3/uL (4.0-11.0) Red Blood Count 4.19 x10^6/uL (4.30-5.70) Hemoglobin 12.9 g/dL (13.0-17.5) Hematocrit 38.2 % (39.0-53.0) Mean Corpuscular Volume 91 fL (79-100) Mean Corpuscular Hemoglobin 31 pg (25-35) Mean Corpuscular Hemoglobin Concent 34 g/dL (31-37) Red Cell Distribution Width 14.0 % (11.5-14.5) Platelet Count 215 x10^3/uL (140-400) Neutrophils (%) (Auto) 63 % (31-73) Lymphocytes (%) (Auto) 25 % (24-48) Monocytes (%) (Auto) 8 % (0-9) Eosinophils (%) (Auto) 3 % (0-3) Basophils (%) (Auto) 1 % (0-3) Neutrophils # (Auto) 4.7 x10^3/uL (1.8-7.7) Lymphocytes # (Auto) 1.9 x10^3/uL (1.0-4.8) Monocytes # (Auto) 0.6 x10^3/uL (0.0-1.1) Eosinophils # (Auto) 0.2 x10^3/uL (0.0-0.7) Basophils # (Auto) 0.1 x10^3/uL (0.0-0.2) Sodium Level 142 mmol/L (136-145) Potassium Level 3.3 mmol/L (3.5-5.1) Chloride Level 106 mmol/L (98-107) Carbon Dioxide Level 23 mmol/L (21-32) Anion Gap 13 (6-14) Blood Urea Nitrogen 8 mg/dL (8-26) Creatinine 0.8 mg/dL (0.7-1.3) Estimated GFR (Cockcroft-Gault) 96.1 Glucose Level 101 mg/dL (70-99) Calcium Level 8.4 mg/dL (8.5-10.1) Microbiology 01/18/19 Urine Culture - Final, Complete 01/18/19 Urine Culture Result 1 (SOFIA) - Final, Complete Medications Current Medications Piperacillin Sod/ Tazobactam Sod 3.375 gm/Sodium Chloride 50 ml @ 100 mls/hr 1X ONCE IV Last administered on 01/15/19at 16:23; Start 01/15/19 at 16:00; Stop 01/15/19 at 16:29; Status DC Vancomycin HCl (Vanco Per Pharmacy) 1 each 1X STAT MC Last administered on 01/16/19at 16:11; Start 01/15/19 at 15:55; Stop 01/15/19 at 16:03; Status DC Vancomycin HCl 2 gm/Sodium Chloride 500 ml @ 250 mls/hr 1X ONCE IV Last administered on 01/15/19at 18:32; Start 01/15/19 at 16:15; Stop 01/15/19 at 18:14; Status DC Ondansetron HCl (Zofran) 4 mg PRN Q8HRS PRN IV NAUSEA/VOMITING; Start 01/15/19 at 16:15; Stop 01/16/19 at 16:14; Status DC Fentanyl Citrate (Fentanyl 2ml Vial) 50 mcg PRN Q1HR PRN IV PAIN; Start 01/15/19 at 16:15; Stop 01/16/19 at 16:14; Status DC Acetaminophen (Tylenol) 650 mg PRN Q4HRS PRN PO FEVER; Start 01/15/19 at 16:15; Stop 01/16/19 at 16:14; Status DC Piperacillin Sod/ Tazobactam Sod 3.375 gm/Sodium Chloride 50 ml @ 100 mls/hr Q6HRS IV Last administered on 01/22/19at 05:30; Start 01/16/19 at 14:00 Aspirin (Children'S Aspirin) 81 mg DAILY PO Last administered on 01/21/19 11:25; Start 01/16/19 at 14:00 Atorvastatin Calcium (Lipitor) 20 mg QHS PO Last administered on 01/21/19 21:12; Start 01/16/19 at 21:00 Ergocalciferol (Vitamin D2) 50,000 unit WEEKLY PO Last administered on 01/16/19at 14:38; Start 01/16/19 at 14:00 Finasteride (Proscar) 5 mg DAILY PO Last administered on 01/21/19 11:25; Start 01/16/19 at 14:00 Metoprolol Tartrate (Lopressor) 12.5 mg BID PO Last administered on 01/21/19 21:12; Start 01/16/19 at 14:00 Oxycodone/ Acetaminophen (Percocet 5/325) 1 tab PRN Q4HRS PRN PO PAIN; Start 01/16/19 at 13:49 Tamsulosin HCl (Flomax) 0.4 mg DAILY PO Last administered on 01/21/19 11:25; Start 01/16/19 at 14:00 Bupropion HCl (Wellbutrin Xl) 300 mg DAILY PO Last administered on 01/21/19 11:25; Start 01/16/19 at 14:00 Calcium Carbonate/ Glycine (Oscal) 500 mg DAILY PO Last administered on 01/21/19 11:25; Start 01/16/19 at 14:00 Celecoxib (CeleBREX) 200 mg QHS PO Last administered on 01/16/19 21:16; Start 01/16/19 at 21:00; Stop 01/20/19 at 09:12; Status DC Nortriptyline HCl (Pamelor) 50 mg QHS PO Last administered on 01/21/19 21:12; Start 01/16/19 at 21:00 Pantoprazole Sodium (Protonix) 40 mg DAILYAC PO Last administered on 01/18/19 11:17; Start 01/16/19 at 14:00; Stop 01/19/19 at 13:29; Status DC Non-Formulary Medication (Tetrabenazine (Xenazine)) 12.5 mg TID PO ; Start 01/16/19 at 14:00; Stop 01/17/19 at 11:05; Status DC Vancomycin HCl (Vanco Per Pharmacy) 1 each PRN DAILY PRN MC SEE COMMENTS Last administered on 01/18/19 15:25; Start 01/16/19 at 13:45; Stop 01/19/19 at 13:23; Status DC Vancomycin HCl 1.5 gm/Sodium Chloride 500 ml @ 250 mls/hr Q12H IV Last administered on 01/19/19 05:25; Start 01/16/19 at 17:00; Stop 01/19/19 at 13:23; Status DC Vancomycin HCl (Vancomycin Trough Level) 1 each 1X ONCE MC Last administered on 01/18/19at 05:35; Start 01/18/19 at 04:30; Stop 01/18/19 at 04:31; Status DC Non-Formulary Medication (Tetrabenazine (Xenazine)) 25 mg BID PO Last a dministered on 01/21/19 21:12; Start 01/17/19 at 11:30 Lactobacillus Rhamnosus (Culturelle) 1 cap BID PO Last administered on 01/21/19 21:12; Start 01/17/19 at 21:00 Pantoprazole Sodium (PROTONIX VIAL for IV PUSH) 40 mg DAILYAC IVP Last administered on 01/21/19at 10:23; Start 01/20/19 at 07:30 Ondansetron HCl (Zofran) 4 mg PRN Q6HRS PRN IV NAUSEA/VOMITING; Start 01/22/19 at 07:00; Stop 01/22/19 at 20:00 Fentanyl Citrate (Fentanyl 2ml Vial) 25 mcg PRN Q5MIN PRN IV MILD PAIN 1-3; Start 01/22/19 at 07:00; Stop 01/22/19 at 20:00 Fentanyl Citrate (Fentanyl 2ml Vial) 50 mcg PRN Q5MIN PRN IV MODERATE TO SEVERE PAIN; Start 01/22/19 at 07:00; Stop 01/22/19 at 20:00 Ringer's Solution 1,000 ml @ 30 mls/hr Q24H IV ; Start 01/22/19 at 07:00; Stop 01/22/19 at 18:59 Lidocaine HCl (Xylocaine-Mpf 1% 2ml Vial) 2 ml PRN 1X PRN ID PRIOR TO IV START; Start 01/22/19 at 07:00; Stop 01/22/19 at 20:00 Prochlorperazine Edisylate (Compazine) 5 mg PACU PRN PRN IV NAUSEA, MRX1; Start 01/22/19 at 07:00; Stop 01/22/19 at 20:00 Adenosine (Adenocard) 6 mg 1X ONCE IV Last administered on 01/19/19at 19:28; Start 01/19/19 at 19:15; Stop 01/19/19 at 19:16; Status DC Adenosine (Adenocard) 6 mg 1X ONCE IV Last administered on 01/19/19at 20:11; Start 01/19/19 at 20:15; Stop 01/19/19 at 20:16; Status DC Adenosine (Adenocard) 6 mg 1X ONCE IV Last administered on 01/19/19at 20:36; Start 01/19/19 at 20:45; Stop 01/19/19 at 20:46; Status DC Potassium Chloride/Water 100 ml @ 100 mls/hr Q1H IV Last administered on 01/20/19at 00:09; Start 01/19/19 at 21:00; Stop 01/20/19 at 00:59; Status DC Potassium Acetate 20 meq/Dextrose 110 ml @ 55 mls/hr 1X ONCE IV ; Start at 20:45; Stop 01/19/19 at 20:52; Status DC Diltiazem HCl 125 mg/Dextrose 125 ml @ 0 mls/hr CONT PRN IV SEE I/O RECORD Last administered on 01/20/19at 11:52; Start 01/19/19 at 20:45; Stop 01/21/19 at 11:01; Status DC Potassium Chloride/Dextrose 1,000 ml @ 55 mls/hr [id number] ONCE IV ; Start 01/19/19 at 21:00; Stop 01/19/19 at 20:55; Status DC Adenosine (Adenocard) 6 mg 1X ONCE IV Last administered on 01/19/19at 21:25; Start 01/19/19 at 21:30; Stop 01/19/19 at 21:31; Status DC Adenosine (Adenocard) 6 mg 1X ONCE IV Last administered on 01/19/19at 21:57; Start 01/19/19 at 22:15; Stop 01/19/19 at 22:16; Status DC Sodium Chloride 1,000 ml @ 75 mls/hr [id number] IV Last administered on 01/21/19at 00:00; Start 01/19/19 at 23:00; Stop 01/21/19 at 11:01; Status DC Magnesium Sulfate/ Dextrose 100 ml @ 100 mls/hr 1X ONCE IV Last administered on 01/20/19at 00:09; Start 01/19/19 at 23:30; Stop 01/20/19 at 00:29; Status DC Adenosine (Adenocard) 12 mg 1X ONCE IV Last administered on 01/20/19at 02:53; Start 01/19/19 at 22:15; Stop 01/20/19 at 02:52; Status DC Ondansetron HCl (Zofran) 4 mg PRN Q6HRS PRN IV NAUSEA/VOMITING; Start 01/20/19 at 09:15 Nitroglycerin (Nitro-Bid Oint) 1 inch Q6H TP Last administered on 01/22/19at 04:19; Start 01/21/19 at 10:00 Docusate Sodium (Colace Solution) 100 mg 1X ONCE PO Last administered on 01/21/19at 11:26; Start 01/21/19 at 11:00; Stop 01/21/19 at 11:01; Status DC Docusate Sodium (Colace Solution) 100 mg PRN DAILY PRN PO CONSTIPATION Last administered on 01/21/19at 23:56; Start 01/21/19 at 11:00 Polyethylene Glycol (miraLAX PACKET) 17 gm PRN DAILY PRN PO CONSTIPATION 1ST CHOICE Last administered on 01/21/19at 23:56; Start 01/21/19 at 11:00 Magnesium Hydroxide (Milk Of Magnesia) 2,400 mg PRN DAILY PRN PO CONSTIPATION Last administered on 01/21/19at 11:25; Start 01/21/19 at 11:00 Potassium Chloride (Klor-Con) 40 meq 1X ONCE PO Last administered on 01/21/19at 11:25; Start 01/21/19 at 11:15; Stop 01/21/19 at 11:16; Status DC Diltiazem HCl (Cardizem) 30 mg Q8HRS PO Last administered on 01/21/19at 21:12; Start 01/21/19 at 18:00 Active Scripts Active Reported Percocet 5-325 Mg Tablet (Oxycodone/Acetaminophen) 1 Each Tablet 1 Tab PO Q4HRS Proscar (Finasteride) 5 Mg Tablet 5 Mg PO DAILY Lantus Solostar (Insulin Glargine,Hum.rec.anlog) 100 Unit/1 Ml Insuln.pen 25 Unit SQ HS Calcium Citrate 250 Mg Tablet 600 Mg PO DAILY Celebrex (Celecoxib) 200 Mg Capsule 200 Mg PO HS 30 Days Aspirin 81 Mg Tab.chew 81 Mg PO DAILY Prilosec Otc (Omeprazole Magnesium) 20 Mg Tablet.dr 20 Mg PO DAILY Nortriptyline Hcl 50 Mg Capsule 50 Mg PO DAILY Flomax (Tamsulosin Hcl) 0.4 Mg Cap.er.24h 0.4 Mg PO DAILY Bupropion Xl (Bupropion Hcl) 300 Mg Tab.er.24h 300 Mg PO DAILY Xenazine (Tetrabenazine) 12.5 Mg Tablet 12.5 Mg PO TID Novolog (Insulin Aspart) 100 Unit/1 Ml Cartridge 12-26 Unit SQ TIDAC Vitamin D2 (Ergocalciferol (Vitamin D2)) 50,000 Unit Capsule 50,000 Unit PO WEEKLY Paroxetine Hcl 40 Mg Tablet 40 Mg PO DAILY Metoprolol Tartrate 50 Mg Tablet 12.5 Mg PO BID Lipitor (Atorvastatin Calcium) 20 Mg Tablet 20 Mg PO DAILY Vitals/I & O Vital Sign - Last 24 Hours 01/21/19 01/21/19 01/21/19 01/21/19 09:00 10:00 10:23 11:00 Temp 97.5 97.5 97.5 97.5 97.5 97.5 Pulse 65 65 60 60 B/P (MAP) 190/84 (119) 171/78 (109) 171/78 164/88 (113) Pulse Ox 96 97 97 O2 Delivery Room Air Room Air Room Air 01/21/19 01/21/19 01/21/19 01/21/19 11:25 12:00 12:00 13:00 Temp 97.5 98.0 97.5 98.0 Pulse 60 60 60 B/P (MAP) 171/78 197/82 (120) 179/90 (119) Pulse Ox 97 98 O2 Delivery Room Air Room Air Room Air O2 Flow Rate 2.0 2.0 01/21/19 01/21/19 01/21/19 01/21/19 14:00 16:00 16:00 16:53 Temp 98.0 97.8 98.0 97.8 Pulse 50 50 58 B/P (MAP) 176/77 (110) 176/77 (110) 176/88 Pulse Ox 96 O2 Delivery Room Air Room Air Room Air O2 Flow Rate 2.0 01/21/19 01/21/19 01/21/19 01/21/19 17:00 18:00 18:18 19:40 Temp 97.8 98.0 97.8 98.0 Pulse 58 55 58 B/P (MAP) 144/77 (99) 146/75 (98) 144/77 Pulse Ox 96 98 O2 Delivery Room Air Room Air Room Air O2 Flow Rate 2.0 01/21/19 01/21/19 01/21/19 01/21/19 19:48 21:12 21:12 21:12 Temp 98.1 98.1 Pulse 54 54 54 54 Resp 18 B/P (MAP) 127/79 (95) 127/79 127/79 127/79 Pulse Ox 95 O2 Delivery Room Air 01/21/19 01/22/19 01/22/19 01/22/19 23:14 02:53 04:19 06:38 Temp 98.0 97.9 98.0 97.9 Pulse 53 54 54 53 Resp 16 16 B/P (MAP) 140/76 (97) 120/81 (94) 120/81 120/81 Pulse Ox 95 94 O2 Delivery Room Air Room Air 01/22/19 07:00 Temp 97.1 97.1 Pulse 53 Resp 20 B/P (MAP) 150/72 (98) Pulse Ox 94 O2 Delivery Room Air Intake and Output 01/21/19 01/21/1901/22/19 14:59 22:59 06:59 Intake Total 300 ml 420 ml 450 ml Balance 300 ml 420 ml 450 ml MAYRA JAY MD Jan 22, 2019 08:21
[2019-01-22] MEDS ORDERED: POTASSIUM BICARB 20 MEQ EFFERVESCENT TABLET. PEG ONE (08:30)
--- NOTE | 2019-01-22 08:30 | PDOC ---
Infectious Disease Note Subjective: Subjective Feeling alright, no complaints No fevers Off O2 Denies cough/SOA/pain/N/V/D awaiting peg tube placement later today ROS: ROS Negative otherwise. Vital Signs: Vital Signs Vital Signs Date Time Temp Pulse Resp B/P (MAP) Pulse Ox O2 Delivery O2 Flow Rate FiO2 01/22/19 08:10 Room Air 01/22/19 07:00 97.1 53 20 150/72 (98) 94 97.1 01/21/19 19:40 2.0 Physical Exam: PHYSICAL EXAM GENERAL: Propped up in bed, alert, comfortable HEENT: No icterus , Oral cavity clear. Dobbhoff NECK: Supple. LUNGS: Clear. (right-sided chest implantable stimulator) HEART: S1 and S2 regular. ABDOMEN: Soft and nontender : No Bruno EXTREMITIES: Trace edema. No cyanosis SKIN: Warm to touch. NEUROLOGIC: Alert, responds to few questions Left-sided paralysis and weakness on the right side. PIV Medications: Inpatient Meds: Current Medications Medications (Trade) Dose Ordered Sig/Zechariah Start Time Stop Time Status Last Admin Dose Admin Acetaminophen (Tylenol) 650 mg PRN Q4HRS PRN 01/15/19 16:15 01/16/19 16:14 DC Adenosine (Adenocard) 12 mg 1X ONCE 01/19/19 22:15 01/20/19 02:52 DC 01/20/19 02:53 12 MG Aspirin (Children'S Aspirin) 81 mg DAILY 01/16/19 14:00 01/21/19 11:25 81 MG Atorvastatin Calcium (Lipitor) 20 mg QHS 01/16/19 21:00 01/21/19 21:12 20 MG Bupropion HCl (Wellbutrin Xl) 300 mg DAILY 01/16/19 14:00 01/21/19 11:25 300 MG Calcium Carbonate/ Glycine (Oscal) 500 mg DAILY 01/16/19 14:00 01/21/19 11:25 500 MG Celecoxib (CeleBREX) 200 mg QHS 01/16/19 21:00 01/20/19 09:12 DC 01/16/19 21:16 200 MG Diltiazem HCl (Cardizem) 30 mg Q8HRS 01/21/19 18:00 01/21/19 21:12 30 MG Diltiazem HCl 125 mg/Dextrose 125 ml @ 0 mls/hr CONT PRN 01/19/19 20:45 01/21/19 11:01 DC 01/20/19 11:52 5 MLS/HR Docusate Sodium (Colace Solution) 100 mg PRN DAILY PRN 01/21/19 11:00 01/21/19 23:56 100 MG Ergocalciferol (Vitamin D2) 50,000 unit WEEKLY 01/16/19 14:00 01/16/19 14:38 50,000 UNIT Fentanyl Citrate (Fentanyl 2ml Vial) 50 mcg PRN Q5MIN PRN 01/22/19 07:00 01/22/19 20:00 Finasteride (Proscar) 5 mg DAILY 01/16/19 14:00 01/21/19 11:25 5 MG Lactobacillus Rhamnosus (Culturelle) 1 cap BID 01/17/19 21:00 01/21/19 21:12 1 CAP Lidocaine HCl (Xylocaine-Mpf 1% 2ml Vial) 2 ml PRN 1X PRN 01/22/19 07:00 01/22/19 20:00 Magnesium Hydroxide (Milk Of Magnesia) 2,400 mg PRN DAILY PRN 01/21/19 11:00 01/21/19 11:25 2,400 MG Magnesium Sulfate/ Dextrose 100 ml @ 100 mls/hr 1X ONCE 01/19/19 23:30 01/20/19 00:29 DC 01/20/19 00:09 100 MLS/HR Metoprolol Tartrate (Lopressor) 12.5 mg BID 01/16/19 14:00 01/21/19 21:12 12.5 MG Nitroglycerin (Nitro-Bid Oint) 1 inch Q6H 01/21/19 10:00 01/22/19 04:19 1 INCH Non-Formulary Medication (Tetrabenazine (Xenazine)) 25 mg BID 01/17/19 11:30 01/21/19 21:12 25 MG Nortriptyline HCl (Pamelor) 50 mg QHS 01/16/19 21:00 01/21/19 21:12 50 MG Ondansetron HCl (Zofran) 4 mg PRN Q6HRS PRN 01/20/19 09:15 Oxycodone/ Acetaminophen (Percocet 5/325) 1 tab PRN Q4HRS PRN 01/16/19 13:49 Pantoprazole Sodium (PROTONIX VIAL for IV PUSH) 40 mg DAILYAC 01/20/19 07:30 01/21/19 10:23 40 MG Pantoprazole Sodium (Protonix) 40 mg DAILYAC 01/16/19 14:00 01/19/19 13:29 DC 01/18/19 11:17 40 MG Piperacillin Sod/ Tazobactam Sod 3.375 gm/Sodium Chloride 50 ml @ 100 mls/hr Q6HRS 01/16/19 14:00 01/22/19 05:30 100 MLS/HR Polyethylene Glycol (miraLAX PACKET) 17 gm PRN DAILY PRN 01/21/19 11:00 01/21/19 23:56 17 GM Potassium Bicarbonate (Potassium Effervescent Tablet) 40 meq 1X ONCE 01/22/19 08:30 01/22/19 08:31 Potassium Chloride/Dextrose 1,000 ml @ 55 mls/hr [id number] ONCE 01/19/19 21:00 01/19/19 20:55 DC Potassium Chloride/Water 100 ml @ 100 mls/hr Q1H 01/19/19 21:00 01/20/19 00:59 DC 01/20/19 00:09 100 MLS/HR Potassium Acetate 20 meq/Dextrose 110 ml @ 55 mls/hr 1X ONCE 01/19/19 20:45 01/19/19 20:52 DC Potassium Chloride (Klor-Con) 40 meq 1X ONCE 01/21/19 11:15 01/21/19 11:16 DC 01/21/19 11:25 40 MEQ Prochlorperazine Edisylate (Compazine) 5 mg PACU PRN PRN 01/22/19 07:00 01/22/19 20:00 Ringer's Solution 1,000 ml @ 30 mls/hr Q24H 01/22/19 07:00 01/22/19 18:59 Sodium Chloride 1,000 ml @ 75 mls/hr [id number] 01/19/19 23:00 01/21/19 11:01 DC 01/21/19 00:00 75 MLS/HR Tamsulosin HCl (Flomax) 0.4 mg DAILY 01/16/19 14:00 01/21/19 11:25 0.4 MG Vancomycin HCl (Vanco Per Pharmacy) 1 each PRN DAILY PRN 01/16/19 13:45 01/19/19 13:23 DC 01/18/19 15:25 1 EACH Vancomycin HCl (Vancomycin Trough Level) 1 each 1X ONCE 01/18/19 04:30 01/18/19 04:31 DC 01/18/19 05:35 1 EACH Vancomycin HCl 1.5 gm/Sodium Chloride 500 ml @ 250 mls/hr Q12H 01/16/19 17:00 01/19/19 13:23 DC 01/19/19 05:25 250 MLS/HR Vancomycin HCl 2 gm/Sodium Chloride 500 ml @ 250 mls/hr 1X ONCE 01/15/19 16:15 01/15/19 18:14 DC 01/15/19 18:32 250 MLS/HR Labs: Lab Laboratory Tests Test 01/22/19 03:30 White Blood Count 7.5 x10^3/uL (4.0-11.0) Red Blood Count 4.19 x10^6/uL (4.30-5.70) Hemoglobin 12.9 g/dL (13.0-17.5) Hematocrit 38.2 % (39.0-53.0) Mean Corpuscular Volume 91 fL (79-100) Mean Corpuscular Hemoglobin 31 pg (25-35) Mean Corpuscular Hemoglobin Concent 34 g/dL (31-37) Red Cell Distribution Width 14.0 % (11.5-14.5) Platelet Count 215 x10^3/uL (140-400) Neutrophils (%) (Auto) 63 % (31-73) Lymphocytes (%) (Auto) 25 % (24-48) Monocytes (%) (Auto) 8 % (0-9) Eosinophils (%) (Auto) 3 % (0-3) Basophils (%) (Auto) 1 % (0-3) Neutrophils # (Auto) 4.7 x10^3/uL (1.8-7.7) Lymphocytes # (Auto) 1.9 x10^3/uL (1.0-4.8) Monocytes # (Auto) 0.6 x10^3/uL (0.0-1.1) Eosinophils # (Auto) 0.2 x10^3/uL (0.0-0.7) Basophils # (Auto) 0.1 x10^3/uL (0.0-0.2) Sodium Level 142 mmol/L (136-145) Potassium Level 3.3 mmol/L (3.5-5.1) Chloride Level 106 mmol/L (98-107) Carbon Dioxide Level 23 mmol/L (21-32) Anion Gap 13 (6-14) Blood Urea Nitrogen 8 mg/dL (8-26) Creatinine 0.8 mg/dL (0.7-1.3) Estimated GFR (Cockcroft-Gault) 96.1 Glucose Level 101 mg/dL (70-99) Calcium Level 8.4 mg/dL (8.5-10.1) Objective: Assessment: Pneumonia, aspiration CVA HTN Dysphagia SVT Yeast in urine, 01/18. Plan: Plan of Care Zosyn PEG planned for today predatory animal exterminator prognosis poor D/W at bedside D/W SID CHOI MD Jan 22, 2019 08:30
[2019-01-22] MEDS ORDERED: ADENOSINE 6 MG/2 ML VIAL. IV ONE (09:00)
[2019-01-22] MEDS: LACTOBACILLUS RHAMNOSUS GG 1 CAPSULE. PO SCH ×2 (09:00→20:09)
[2019-01-22] MEDS: TAMSULOSIN 0.4 MG CAP.ER.24H. PO SCH (09:00)
[2019-01-22] MEDS: CALCIUM CARBONATE 500 MG TABLET PO SCH (09:00)
[2019-01-22] MEDS: buPROPion XL 150 MG TAB.ER.24H. PO SCH (09:00)
[2019-01-22] MEDS: METOPROLOL TART IMMED RELEASE 50 MG TABLET. PO SCH ×2 (09:00→20:10)
[2019-01-22] MEDS: FINASTERIDE 5 MG TABLET. PO SCH (09:00)
[2019-01-22] MEDS: ASPIRIN CHEWABLE 81 MG TABLET. PO SCH (09:00)
--- NOTE | 2019-01-22 10:19 | PDOC ---
Subjective: Subjective: present, asks what time for PEG. Objective: Objective: Over the weekend had Dobhoff placed and was transferred to cardiac floor for PSVT. Reviewed w/ nurse - tube feeds were off at the start of her shift, now HR mostly in the 50s but can get to ~45. Vital Signs: Vital Signs Date Time Temp Pulse Resp B/P (MAP) Pulse Ox O2 Delivery O2 Flow Rate FiO2 01/22/19 08:10 Room Air 01/22/19 07:00 97.1 53 20 150/72 (98) 94 97.1 01/21/19 19:40 2.0 Labs: Laboratory Tests Test 01/22/19 03:30 White Blood Count 7.5 x10^3/uL Red Blood Count 4.19 x10^6/uL Hemoglobin 12.9 g/dL Hematocrit 38.2 % Mean Corpuscular Volume 91 fL Mean Corpuscular Hemoglobin 31 pg Mean Corpuscular Hemoglobin Concent 34 g/dL Red Cell Distribution Width 14.0 % Platelet Count 215 x10^3/uL Neutrophils (%) (Auto) 63 % Lymphocytes (%) (Auto) 25 % Monocytes (%) (Auto) 8 % Eosinophils (%) (Auto) 3 % Basophils (%) (Auto) 1 % Neutrophils # (Auto) 4.7 x10^3/uL Lymphocytes # (Auto) 1.9 x10^3/uL Monocytes # (Auto) 0.6 x10^3/uL Eosinophils # (Auto) 0.2 x10^3/uL Basophils # (Auto) 0.1 x10^3/uL Sodium Level 142 mmol/L Potassium Level 3.3 mmol/L Chloride Level 106 mmol/L Carbon Dioxide Level 23 mmol/L Anion Gap 13 Blood Urea Nitrogen 8 mg/dL Creatinine 0.8 mg/dL Estimated GFR (Cockcroft-Gault) 96.1 Glucose Level 101 mg/dL Calcium Level 8.4 mg/dL Magnesium Level 1.7 mg/dL Imaging: Echo 01/21 <Conclusion> The left ventricle is normal size. The left ventricular systolic function is normal and the ejection fraction is w ithin normal range. The Ejection Fraction is 55-60%. There is mild concentric left ventricular hypertrophy. There is no significant aortic valvular stenosis. Doppler and Color Flow revealed trace to mild aortic regurgitation. Doppler and Color-flow revealed trace mitral regurgitation. Doppler and Color Flow revealed no tricuspid valve regurgitation noted. The ascending aorta is moderately dilated at 4.0 cm. KUB IMPRESSION: Feeding tube tip near distal stomach. PE: GEN: NAD HEENT: +Dobhoff (disconnected) LUNGS: room air HEART: RR (50s) ABD: S/ND/NT NEURO/PSYCH: sleeping, not awakened A/P: Aspiration pneumonia w/ h/o CVA, torticollis, and dysphagia -- Events over the weekend as above. Plans for PEG today. NASIR MONTGOMERY Jan 22, 2019 10:19
[2019-01-22] MEDS ORDERED: IV RINGERS,LACTATED 1000ML 1,000 ML IV ONE (11:15)
[2019-01-22] MEDS ORDERED: MAGNESIUM SULFATE 4GM 100 ML IV ONE (11:45)
[2019-01-22] MEDS: POTASSIUM CHLORIDE 10MEQ 100 ML IV SCH ×4 (12:13→18:12)
--- NOTE | 2019-01-22 12:55 | PDOC ---
PULMONARY PROGRESS NOTES Subjective no soa Vitals Vital Signs Date Time Temp Pulse Resp B/P (MAP) Pulse Ox O2 Delivery O2 Flow Rate FiO2 01/22/19 11:56 52 156/76 01/22/19 11:00 97.6 20 96 Room Air 97.6 01/21/19 19:40 2.0 Comments ros as mentioned as above other sys otherwise neg ROS: No Nausea, No Chest Pain, No Abdominal Pain General: Alert HEENT: Other (nc at perrl nose throat clear neck no lad no thyromegaly) Lungs: Clear Cardiovascular: S1, S2 Abdomen: Soft, Non-tender, Other (no mass) Neuro Exam: Alert Extremities: No Edema Skin: Warm Labs Laboratory Tests Test 01/20/19 18:07 01/21/19 01:00 01/21/19 04:00 01/22/19 03:30 Glucose (Fingerstick) 80 mg/dL (70-99) Nasal Screen MRSA (PCR) Negative (Negative) White Blood Count 7.3 x10^3/uL (4.0-11.0) 7.5 x10^3/uL (4.0-11.0) Red Blood Count 4.42 x10^6/uL (4.30-5.70) 4.19 x10^6/uL (4.30-5.70) Hemoglobin 13.8 g/dL (13.0-17.5) 12.9 g/dL (13.0-17.5) Hematocrit 40.5 % (39.0-53.0) 38.2 % (39.0-53.0) Mean Corpuscular Volume 92 fL (79-100) 91 fL (79-100) Mean Corpuscular Hemoglobin 31 pg (25-35) 31 pg (25-35) Mean Corpuscular Hemoglobin Concent 34 g/dL (31-37) 34 g/dL (31-37) Red Cell Distribution Width 13.9 % (11.5-14.5) 14.0 % (11.5-14.5) Platelet Count 197 x10^3/uL (140-400) 215 x10^3/uL (140-400) Neutrophils (%) (Auto) 66 % (31-73) 63 % (31-73) Lymphocytes (%) (Auto) 23 % (24-48) 25 % (24-48) Monocytes (%) (Auto) 7 % (0-9) 8 % (0-9) Eosinophils (%) (Auto) 3 % (0-3) 3 % (0-3) Basophils (%) (Auto) 1 % (0-3) 1 % (0-3) Neutrophils # (Auto) 4.8 x10^3/uL (1.8-7.7) 4.7 x10^3/uL (1.8-7.7) Lymphocytes # (Auto) 1.7 x10^3/uL (1.0-4.8) 1.9 x10^3/uL (1.0-4.8) Monocytes # (Auto) 0.5 x10^3/uL (0.0-1.1) 0.6 x10^3/uL (0.0-1.1) Eosinophils # (Auto) 0.2 x10^3/uL (0.0-0.7) 0.2 x10^3/uL (0.0-0.7) Basophils # (Auto) 0.1 x10^3/uL (0.0-0.2) 0.1 x10^3/uL (0.0-0.2) Sodium Level 144 mmol/L (136-145) 142 mmol/L (136-145) Potassium Level 3.3 mmol/L (3.5-5.1) 3.3 mmol/L (3.5-5.1) Chloride Level 109 mmol/L (98-107) 106 mmol/L (98-107) Carbon Dioxide Level 20 mmol/L (21-32) 23 mmol/L (21-32) Anion Gap 15 (6-14) 13 (6-14) Blood Urea Nitrogen 10 mg/dL (8-26) 8 mg/dL (8-26) Creatinine 0.8 mg/dL (0.7-1.3) 0.8 mg/dL (0.7-1.3) Estimated GFR (Cockcroft-Gault) 96.1 96.1 Glucose Level 108 mg/dL (70-99) 101 mg/dL (70-99) Calcium Level 8.3 mg/dL (8.5-10.1) 8.4 mg/dL (8.5-10.1) Magnesium Level 1.7 mg/dL (1.8-2.4) Laboratory Tests Test 01/22/19 03:30 White Blood Count 7.5 x10^3/uL (4.0-11.0) Red Blood Count 4.19 x10^6/uL (4.30-5.70) Hemoglobin 12.9 g/dL (13.0-17.5) Hematocrit 38.2 % (39.0-53.0) Mean Corpuscular Volume 91 fL (79-100) Mean Corpuscular Hemoglobin 31 pg (25-35) Mean Corpuscular Hemoglobin Concent 34 g/dL (31-37) Red Cell Distribution Width 14.0 % (11.5-14.5) Platelet Count 215 x10^3/uL (140-400) Neutrophils (%) (Auto) 63 % (31-73) Lymphocytes (%) (Auto) 25 % (24-48) Monocytes (%) (Auto) 8 % (0-9) Eosinophils (%) (Auto) 3 % (0-3) Basophils (%) (Auto) 1 % (0-3) Neutrophils # (Auto) 4.7 x10^3/uL (1.8-7.7) Lymphocytes # (Auto) 1.9 x10^3/uL (1.0-4.8) Monocytes # (Auto) 0.6 x10^3/uL (0.0-1.1) Eosinophils # (Auto) 0.2 x10^3/uL (0.0-0.7) Basophils # (Auto) 0.1 x10^3/uL (0.0-0.2) Sodium Level 142 mmol/L (136-145) Potassium Level 3.3 mmol/L (3.5-5.1) Chloride Level 106 mmol/L (98-107) Carbon Dioxide Level 23 mmol/L (21-32) Anion Gap 13 (6-14) Blood Urea Nitrogen 8 mg/dL (8-26) Creatinine 0.8 mg/dL (0.7-1.3) Estimated GFR (Cockcroft-Gault) 96.1 Glucose Level 101 mg/dL (70-99) Calcium Level 8.4 mg/dL (8.5-10.1) Magnesium Level 1.7 mg/dL (1.8-2.4) Medications Active Scripts Medications Dose Route/Sig Max Daily Dose Days Date Category Percocet 5-325 Mg Tablet (Oxycodone/Acetaminophen) 1 Each Tablet 1 Tab PO Q4HRS 04/27/17 Reported Proscar (Finasteride) 5 Mg Tablet 5 Mg PO DAILY 04/14/17 Reported Lantus Solostar (Insulin Glargine,Hum.rec.anlog) 100 Unit/1 Ml Insuln.pen 25 Unit SQ HS 04/14/17 Reported Calcium Citrate 250 Mg Tablet 600 Mg PO DAILY 03/03/16 Reported Celebrex (Celecoxib) 200 Mg Capsule 200 Mg PO HS 30 03/03/16 Reported Aspirin 81 Mg Tab.chew 81 Mg PO DAILY 07/17/14 Reported Prilosec Otc (Omeprazole Magnesium) 20 Mg Tablet.dr 20 Mg PO DAILY 07/17/14 Reported Nortriptyline Hcl 50 Mg Capsule 50 Mg PO DAILY 07/17/14 Reported Flomax (Tamsulosin Hcl) 0.4 Mg Cap.er.24h 0.4 Mg PO DAILY 07/17/14 Reported Bupropion Xl (Bupropion Hcl) 300 Mg Tab.er.24h 300 Mg PO DAILY 07/17/14 Reported Xenazine (Tetrabenazine) 12.5 Mg Tablet 12.5 Mg PO TID 07/17/14 Reported Novolog (Insulin Aspart) 100 Unit/1 Ml Cartridge 12-26 Unit SQ TIDAC 08/29/13 Reported Vitamin D2 (Ergocalciferol (Vitamin D2)) 50,000 Unit Capsule 50,000 Unit PO WEEKLY 08/29/13 Reported Paroxetine Hcl 40 Mg Tablet 40 Mg PO DAILY 08/29/13 Reported Metoprolol Tartrate 50 Mg Tablet 12.5 Mg PO BID 08/29/13 Reported Lipitor (Atorvastatin Calcium) 20 Mg Tablet 20 Mg PO DAILY 08/29/13 Reported Comments cxr reviewed r elevated HD, atelectasis ct reviewed 1. Volume loss identified in the right lung base with moderate consolidation and air bronchograms in the right lower lobe of the lung. Differential includes pneumonia or postobstructive atelectasis. Recommend bronchoscopic evaluation to exclude bronchial pathology/neoplasm. 2. Coronary artery calcifications. Impression . IMPRESSION: 1. Abnormal CT chest revealing volume loss and air bronchograms, left lower lobe. 2. Aspiration pneumonia. 3. Cerebrovascular accident. 4. Hypertension. 5. Dysphagia. 6. s/p svt 7. hypo k Plan . 02 titration, repeat cxr today cardizem per cardiology, NSR now elevate hob npo replace k cxr reviewed PEG today CONTINUE ANTIBX DVT AND GI PROPH discussed w rn, GIOVANNA MEDRANO MD Jan 22, 2019 12:55
[2019-01-22] MEDS ORDERED: PROPOFOL 20 ML IV ONE (13:33)
[2019-01-22] MEDS ORDERED: LIDOCAINE 2% PF 5 ML VIAL. ONE (13:33)
--- NOTE | 2019-01-22 13:59 | PDOC4 ---
PROCEDURE Procedure EGD/PEG Indication: oropharyngeal dysphagia Meds: per anesthesia Findings: E--normal/GEJ at 40 cm. G--Normal D-normal bulb. --20F g-tube placed uneventfully. Briefly re-scoped, confirming good position. Tolerated well. IMP: Successful PEG REC: water/meds per tube today. Can start TF's in AM if no apparent problems. No AC's for a week. GHADA WARNER MD Jan 22, 2019 13:59
[2019-01-22] MEDS: MAGNESIUM HYDROXIDE 2,400 MG/30 ML ORAL.SUSP. PO PRN (15:34)
[2019-01-22] MEDS: oxyCODONE/APAP 5/325 1 TAB TABLET PO PRN ×2 (15:36→20:09)
--- NOTE | 2019-01-22 15:50 | NUR ---
SS following for discharge planning. SS reviewed pt chart. Pt is from [facility], ; fax [phone]. Pt is a LTC resident and is able to return when medically stable for discharge. SS will continue to follow for discharge planning.
[2019-01-22] MEDS: ATORVASTATIN CALCIUM 20 MG TABLET PO SCH (20:09)
[2019-01-22] MEDS: NORTRIPTYLINE 25 MG CAPSULE PO SCH (20:10)
--- NOTE | 2019-01-22 20:41 | PDOC ---
PROGRESS NOTES Subjective Subjective Denied any dyspnea/CP Objective Objective Vital Signs Date Time Temp Pulse Resp B/P (MAP) Pulse Ox O2 Delivery O2 Flow Rate FiO2 01/22/19 20:11 67 156/70 01/22/19 20:11 Room Air 01/22/19 19:05 98.0 22 98 98.0 01/22/19 12:45 2.0 Intake and Output 01/22/19 06:59 Intake Total 1170 ml Balance 1170 ml Intake Oral 0 ml Tube Feeding 970 ml Other 200 ml # Voids 5 Physical Exam Abdomen: Normal bowel sounds Heart: Regular rate Extremities: No cyanosis, Other (left hemiparesis) General: Alert, No acute distress HEENT: Atraumatic, PERRLA, Mucous membr. moist/pink Lungs: Other (Mildly decreased breath sounds) MUSCULOSKELETAL: Other Neuro: Other (brisk left reflexes, no ankle clonus) Psych/Mental Status: Mental status NL, Other (positive affect, ) Skin: No significant lesion, Other Assessment Assessment 1. PSVT Maintaining SR. No further episodes on telemetry. 2D echo showed normal LVF. Continue cardizem 2. Aspiration Pneumonia, CVA. Pulmonary and ID teams following. Plan PEG tube placement today 3. Hypokalemia. Being replaced Plan Plan of Care Problems Medical Problems: (1) Arrhythmia Status: Acute (2) Pneumonia Status: Acute Comment Review of Relevant I have reviewed the following items ricardo (where applicable) has been applied. Labs Laboratory Tests Test 01/22/19 03:30 White Blood Count 7.5 x10^3/uL (4.0-11.0) Red Blood Count 4.19 x10^6/uL (4.30-5.70) Hemoglobin 12.9 g/dL (13.0-17.5) Hematocrit 38.2 % (39.0-53.0) Mean Corpuscular Volume 91 fL (79-100) Mean Corpuscular Hemoglobin 31 pg (25-35) Mean Corpuscular Hemoglobin Concent 34 g/dL (31-37) Red Cell Distribution Width 14.0 % (11.5-14.5) Platelet Count 215 x10^3/uL (140-400) Neutrophils (%) (Auto) 63 % (31-73) Lymphocytes (%) (Auto) 25 % (24-48) Monocytes (%) (Auto) 8 % (0-9) Eosinophils (%) (Auto) 3 % (0-3) Basophils (%) (Auto) 1 % (0-3) Neutrophils # (Auto) 4.7 x10^3/uL (1.8-7.7) Lymphocytes # (Auto) 1.9 x10^3/uL (1.0-4.8) Monocytes # (Auto) 0.6 x10^3/uL (0.0-1.1) Eosinophils # (Auto) 0.2 x10^3/uL (0.0-0.7) Basophils # (Auto) 0.1 x10^3/uL (0.0-0.2) Sodium Level 142 mmol/L (136-145) Potassium Level 3.3 mmol/L (3.5-5.1) Chloride Level 106 mmol/L (98-107) Carbon Dioxide Level 23 mmol/L (21-32) Anion Gap 13 (6-14) Blood Urea Nitrogen 8 mg/dL (8-26) Creatinine 0.8 mg/dL (0.7-1.3) Estimated GFR (Cockcroft-Gault) 96.1 Glucose Level 101 mg/dL (70-99) Calcium Level 8.4 mg/dL (8.5-10.1) Magnesium Level 1.7 mg/dL (1.8-2.4) Microbiology 01/18/19 Urine Culture - Final, Complete 01/18/19 Urine Culture Result 1 (SOFIA) - Final, Complete Medications Current Medications Adenosine (Adenocard) 12 mg STK-MED ONCE IV ; Start 01/22/19 at 09:00; Stop 01/22/19 at 10:03; Status DC Fentanyl Citrate (Fentanyl 2ml Vial) 25 mcg PRN Q5MIN PRN IV MILD PAIN 1-3; Start 01/22/19 at 07:00; Stop 01/22/19 at 20:00; Status DC Fentanyl Citrate (Fentanyl 2ml Vial) 50 mcg PRN Q5MIN PRN IV MODERATE TO SEVERE PAIN; Start 01/22/19 at 07:00; Stop 01/22/19 at 20:00; Status DC Lidocaine HCl (Xylocaine-Mpf 1% 2ml Vial) 2 ml PRN 1X PRN ID PRIOR TO IV START; Start 01/22/19 at 07:00; Stop 01/22/19 at 20:00; Status DC Magnesium Sulfate/ Dextrose 100 ml @ 25 mls/hr 1X ONCE IV Last administered on 01/22/19at 12:13; Start 01/22/19 at 11:45; Stop 01/22/19 at 15:44; Status DC Ondansetron HCl (Zofran) 4 mg PRN Q6HRS PRN IV NAUSEA/VOMITING; Start 01/22/19 at 07:00; Stop 01/22/19 at 20:00; Status DC Potassium Bicarbonate (Potassium Effervescent Tablet) 40 meq 1X ONCE PEG Last administered on 01/22/19at 15:36; Start 01/22/19 at 08:30; Stop 01/22/19 at 08:31; Status DC Potassium Chloride/Water 100 ml @ 100 mls/hr Q1H IV Last administered on 01/22/19at 18:12; Start 01/22/19 at 12:00; Stop 01/22/19 at 15:59; Status DC Prochlorperazine Edisylate (Compazine) 5 mg PACU PRN PRN IV NAUSEA, MRX1; Start 01/22/19 at 07:00; Stop 01/22/19 at 20:00; Status DC Ringer's Solution 1,000 ml @ 30 mls/hr Q24H IV ; Start 01/22/19 at 07:00; Stop 01/22/19 at 18:59; Status DC Ringer's Solution 1,000 ml @ 75 mls/hr 1X ONCE IV ; Start 01/22/19 at 11:15; Stop 01/23/19 at 00:34 Vitals/I & O Vital Sign - Last 24 Hours 01/21/19 01/21/19 01/21/19 01/21/19 21:12 21:12 21:12 23:14 Temp 98.0 98.0 Pulse 54 54 54 53 Resp 16 B/P (MAP) 127/79 127/79 127/79 140/76 (97) Pulse Ox 95 O2 Delivery Room Air 01/22/19 01/22/19 01/22/19 01/22/19 02:53 04:19 06:38 07:00 Temp 97.9 97.1 97.9 97.1 Pulse 54 54 53 53 Resp 16 20 B/P (MAP) 120/81 (94) 120/81 120/81 150/72 (98) Pulse Ox 94 94 O2 Delivery Room Air Room Air 01/22/19 01/22/19 01/22/19 01/22/19 08:10 11:00 11:56 12:45 Temp 97.6 97.6 Pulse 52 52 Resp 20 B/P (MAP) 156/76 (102) 156/76 Pulse Ox 96 O2 Delivery Room Air Room Air Room Air O2 Flow Rate 2.0 01/22/19 01/22/19 01/22/19 01/22/19 12:58 14:00 14:15 14:30 Temp 97.6 97.7 97.6 97.7 Pulse 53 54 54 54 Resp 18 22 20 20 B/P (MAP) 149/85 154/88 152/75 Pulse Ox 97 98 97 O2 Delivery Nasal Cannula Room Air Room Air 01/22/19 01/22/19 01/22/19 01/22/19 15:00 15:00 15:15 15:30 Temp 97.5 97.5 Pulse 57 56 54 Resp 18 B/P (MAP) 168/91 (116) 167/84 (111) 168/91 (116) 169/97 (121) Pulse Ox 100 O2 Delivery Room Air 01/22/19 01/22/19 01/22/19 01/22/19 15:36 15:45 16:15 16:45 Pulse 54 56 56 54 B/P (MAP) 169/97 160/88 (112) 158/80 (106) 148/88 (108) 01/22/19 01/22/19 01/22/19 01/22/19 17:15 17:45 19:05 20:11 Temp 98.0 98.0 Pulse 56 58 61 Resp 22 B/P (MAP) 140/74 (96) 135/69 (91) 156/70 (98) Pulse Ox 98 O2 Delivery Room Air Room Air 01/22/19 01/22/19 01/22/19 20:11 20:11 20:11 Pulse 66 67 67 B/P (MAP) 156/70 156/70 156/70 Intake and Output 01/21/19 01/21/19 01/22/19 14:59 22:59 06:59 Intake Total 300 ml 420 ml 450 ml Balance 300 ml 420 ml 450 ml HIMANSHU FULLER MD Jan 22, 2019 20:41
[2019-01-23 02:45] VITALS: BP 131/61
[2019-01-23] MEDS: NITROGLYCERIN OINT 1 GM PACKET. TP SCH ×3 (05:34→16:14)
[2019-01-23] MEDS: dilTIAZem HCL 30 MG TABLET PO SCH ×2 (05:34→14:00)
[2019-01-23] MEDS: PANTOPRAZOLE IV PUSH 40 MG VIAL. IVP SCH (05:35)
[2019-01-23] MEDS: PIPERACILLIN/TAZOBACTAM 3.375 GM in IV NORMAL SALINE 50ML 50 ML IV SCH ×2 (05:35→12:17)
[2019-01-23 07:00] VITALS: BP 128/60
[2019-01-23 07:04] LABS: BASO % 0 % (0-3); EOS # 0.1 x10^3/uL (0.0-0.7); EOS % 1 % (0-3); HEMATOCRIT 40.1 % (39.0-53.0); HEMOGLOBIN 13.5 g/dL (13.0-17.5); LYMPH # 1.2 x10^3/uL (1.0-4.8); LYMPH % 11 % (24-48); MEAN CORPUSCULAR HEMOGLOBIN 31 pg (25-35); MEAN CORPUSCULAR HGB CONC 34 g/dL (31-37); MEAN CORPUSCULAR VOLUME 91 fL (79-100); MONO # 0.6 x10^3/uL (0.0-1.1); MONO % 5 % (0-9); NEUT # 9.6 x10^3/uL (1.8-7.7); NEUT % 83 % (31-73); PLATELET COUNT 229 x10^3/uL (140-400); RED BLOOD COUNT 4.39 x10^6/uL (4.30-5.70); RED CELL DISTRIBUTION WIDTH 13.8 % (11.5-14.5); WHITE BLOOD COUNT 11.5 x10^3/uL (4.0-11.0)
[2019-01-23 07:15] LABS: CALCIUM 8.5 mg/dL (8.5-10.1); CREATININE 0.8 mg/dL (0.7-1.3); GFR 96.1; POTASSIUM 3.8 mmol/L (3.5-5.1)
--- NOTE | 2019-01-23 08:27 | RAD ---
PORTABLE CHEST 1V History: Pneumonia Comparison: January 20, 2019 Findings: 2 AP views of the chest are submitted. Pericardial cardiac silhouette is enlarged although unchanged. There is again degree of elevation of the right hemidiaphragm. There is some airspace opacity of the medial right lung base unchanged in appearance. There is again electronic device with leads coursing into the right neck, not fully included. No pneumothorax is identified. There is again mild blunting of the right costophrenic sulcus. There is again old left clavicle fracture with pseudoarticulation. There is again prominent widening of the right acromioclavicular distance. Impression: 1. Radiographic findings as stated are unchanged, right base atelectasis or infiltrate and probable small right pleural effusion. Electronically signed by: Jamie Duran MD (01/23/2019 8:24 AM) [id number]
--- NOTE | 2019-01-23 08:37 | PDOC ---
PROGRESS NOTES Chief Complaint Chief Complaint Asp PNA, dysphagia hx CVA - PEG 01/22/2019 HTN, controlled SVT - new (01/19) Chronic renal insufficiency Hypokalemia DM2 Severe Protein calorie malnutrition History of Present Illness History of Present Illness Admitted to 6th floor for asp pneumonia, lives in HCR - hx CVA, left residual HE is left sided hemiplegia and dysphagia from stroke Mar 2018 Transferred to CVC/ICU for SVT, S.p adenosine, vagal and cardizem gtt with cardiology consultation Rate controlled now, no sxs PEG on 01/22/2019 without event Inserted dobhoff 01/20/19 for nutrition, and tF running, tolerating it. Confused, speaking strangely for a few days. Not speaking this morning with me. His is concerned he has not had a BM for a few days. PLAn: Colace solution - he is constipated today PEG functioning well HCR on dc dw RN, Vitals Vitals Vital Signs Date Time Temp Pulse Resp B/P (MAP) Pulse Ox O2 Delivery O2 Flow Rate FiO2 01/23/19 07:00 98.0 61 16 128/60 (82) 98.0 01/23/19 02:45 93 Room Air 01/22/19 12:45 2.0 Physical Exam Physical Exam GENERAL: Propped up in bed, alert, comfortable HEENT: No icterus , Oral cavity clear. Dobbhoff NECK: Supple. LUNGS: Clear. (right-sided chest implantable stimulator) HEART: S1 and S2 regular. ABDOMEN: Soft and nontender : No Bruno EXTREMITIES: Trace edema. No cyanosis SKIN: Warm to touch. NEUROLOGIC: Alert, responds to few questions Left-sided paralysis and weakness on the right side. PIV General: Alert, No acute distress Heart: Regular rate Lungs: Clear Abdomen: Normal bowel sounds Extremities: No cyanosis, Other (left hemiparesis) Skin: No significant lesion, Other Labs LABS Laboratory Tests Test 01/23/19 05:45 White Blood Count 11.5 x10^3/uL (4.0-11.0) Red Blood Count 4.39 x10^6/uL (4.30-5.70) Hemoglobin 13.5 g/dL (13.0-17.5) Hematocrit 40.1 % (39.0-53.0) Mean Corpuscular Volume 91 fL (79-100) Mean Corpuscular Hemoglobin 31 pg (25-35) Mean Corpuscular Hemoglobin Concent 34 g/dL (31-37) Red Cell Distribution Width 13.8 % (11.5-14.5) Platelet Count 229 x10^3/uL (140-400) Neutrophils (%) (Auto) 83 % (31-73) Lymphocytes (%) (Auto) 11 % (24-48) Monocytes (%) (Auto) 5 % (0-9) Eosinophils (%) (Auto) 1 % (0-3) Basophils (%) (Auto) 0 % (0-3) Neutrophils # (Auto) 9.6 x10^3/uL (1.8-7.7) Lymphocytes # (Auto) 1.2 x10^3/uL (1.0-4.8) Monocytes # (Auto) 0.6 x10^3/uL (0.0-1.1) Eosinophils # (Auto) 0.1 x10^3/uL (0.0-0.7) Basophils # (Auto) 0.0 x10^3/uL (0.0-0.2) Sodium Level 140 mmol/L (136-145) Potassium Level 3.8 mmol/L (3.5-5.1) Chloride Level 104 mmol/L (98-107) Carbon Dioxide Level 23 mmol/L (21-32) Anion Gap 13 (6-14) Blood Urea Nitrogen 8 mg/dL (8-26) Creatinine 0.8 mg/dL (0.7-1.3) Estimated GFR (Cockcroft-Gault) 96.1 Glucose Level 73 mg/dL (70-99) Calcium Level 8.5 mg/dL (8.5-10.1) Assessment and Plan Assessmemt and Plan Problems Medical Problems: (1) Arrhythmia Status: Acute (2) Pneumonia Status: Acute Comment Review of Relevant I have reviewed the following items ricardo (where applicable) has been applied. Labs Laboratory Tests Test 01/22/19 03:30 01/23/19 05:45 White Blood Count 7.5 x10^3/uL (4.0-11.0) 11.5 x10^3/uL (4.0-11.0) Red Blood Count 4.19 x10^6/uL (4.30-5.70) 4.39 x10^6/uL (4.30-5.70) Hemoglobin 12.9 g/dL (13.0-17.5) 13.5 g/dL (13.0-17.5) Hematocrit 38.2 % (39.0-53.0) 40.1 % (39.0-53.0) Mean Corpuscular Volume 91 fL (79-100) 91 fL (79-100) Mean Corpuscular Hemoglobin 31 pg (25-35) 31 pg (25-35) Mean Corpuscular Hemoglobin Concent 34 g/dL (31-37) 34 g/dL (31-37) Red Cell Distribution Width 14.0 % (11.5-14.5) 13.8 % (11.5-14.5) Platelet Count 215 x10^3/uL (140-400) 229 x10^3/uL (140-400) Neutrophils (%) (Auto) 63 % (31-73) 83 % (31-73) Lymphocytes (%) (Auto) 25 % (24-48) 11 % (24-48) Monocytes (%) (Auto) 8 % (0-9) 5 % (0-9) Eosinophils (%) (Auto) 3 % (0-3) 1 % (0-3) Basophils (%) (Auto) 1 % (0-3) 0 % (0-3) Neutrophils # (Auto) 4.7 x10^3/uL (1.8-7.7) 9.6 x10^3/uL (1.8-7.7) Lymphocytes # (Auto) 1.9 x10^3/uL (1.0-4.8) 1.2 x10^3/uL (1.0-4.8) Monocytes # (Auto) 0.6 x10^3/uL (0.0-1.1) 0.6 x10^3/uL (0.0-1.1) Eosinophils # (Auto) 0.2 x10^3/uL (0.0-0.7) 0.1 x10^3/uL (0.0-0.7) Basophils # (Auto) 0.1 x10^3/uL (0.0-0.2) 0.0 x10^3/uL (0.0-0.2) Sodium Level 142 mmol/L (136-145) 140 mmol/L (136-145) Potassium Level 3.3 mmol/L (3.5-5.1) 3.8 mmol/L (3.5-5.1) Chloride Level 106 mmol/L (98-107) 104 mmol/L (98-107) Carbon Dioxide Level 23 mmol/L (21-32) 23 mmol/L (21-32) Anion Gap 13 (6-14) 13 (6-14) Blood Urea Nitrogen 8 mg/dL (8-26) 8 mg/dL (8-26) Creatinine 0.8 mg/dL (0.7-1.3) 0.8 mg/dL (0.7-1.3) Estimated GFR (Cockcroft-Gault) 96.1 96.1 Glucose Level 101 mg/dL (70-99) 73 mg/dL (70-99) Calcium Level 8.4 mg/dL (8.5-10.1) 8.5 mg/dL (8.5-10.1) Magnesium Level 1.7 mg/dL (1.8-2.4) Laboratory Tests Test 01/23/19 05:45 White Blood Count 11.5 x10^3/uL (4.0-11.0) Red Blood Count 4.39 x10^6/uL (4.30-5.70) Hemoglobin 13.5 g/dL (13.0-17.5) Hematocrit 40.1 % (39.0-53.0) Mean Corpuscular Volume 91 fL (79-100) Mean Corpuscular Hemoglobin 31 pg (25-35) Mean Corpuscular Hemoglobin Concent 34 g/dL (31-37) Red Cell Distribution Width 13.8 % (11.5-14.5) Platelet Count 229 x10^3/uL (140-400) Neutrophils (%) (Auto) 83 % (31-73) Lymphocytes (%) (Auto) 11 % (24-48) Monocytes (%) (Auto) 5 % (0-9) Eosinophils (%) (Auto) 1 % (0-3) Basophils (%) (Auto) 0 % (0-3) Neutrophils # (Auto) 9.6 x10^3/uL (1.8-7.7) Lymphocytes # (Auto) 1.2 x10^3/uL (1.0-4.8) Monocytes # (Auto) 0.6 x10^3/uL (0.0-1.1) Eosinophils # (Auto) 0.1 x10^3/uL (0.0-0.7) Basophils # (Auto) 0.0 x10^3/uL (0.0-0.2) Sodium Level 140 mmol/L (136-145) Potassium Level 3.8 mmol/L (3.5-5.1) Chloride Level 104 mmol/L (98-107) Carbon Dioxide Level 23 mmol/L (21-32) Anion Gap 13 (6-14) Blood Urea Nitrogen 8 mg/dL (8-26) Creatinine 0.8 mg/dL (0.7-1.3) Estimated GFR (Cockcroft-Gault) 96.1 Glucose Level 73 mg/dL (70-99) Calcium Level 8.5 mg/dL (8.5-10.1) Microbiology 01/18/19 Urine Culture - Final, Complete 01/18/19 Urine Culture Result 1 (SOFIA) - Final, Complete Medications Current Medications Piperacillin Sod/ Tazobactam Sod 3.375 gm/Sodium Chloride 50 ml @ 100 mls/hr 1X ONCE IV Last administered on 01/15/19at 16:23; Start 01/15/19 at 16:00; Stop 01/15/19 at 16:29; Status DC Vancomycin HCl (Vanco Per Pharmacy) 1 each 1X STAT MC Last administered on 01/16/19at 16:11; Start 01/15/19 at 15:55; Stop 01/15/19 at 16:03; Status DC Vancomycin HCl 2 gm/Sodium Chloride 500 ml @ 250 mls/hr 1X ONCE IV Last administered on 01/15/19at 18:32; Start 01/15/19 at 16:15; Stop 01/15/19 at 18:14; Status DC Ondansetron HCl (Zofran) 4 mg PRN Q8HRS PRN IV NAUSEA/VOMITING; Start 01/15/19 at 16:15; Stop 01/16/19 at 16:14; Status DC Fentanyl Citrate (Fentanyl 2ml Vial) 50 mcg PRN Q1HR PRN IV PAIN; Start 01/15/19 at 16:15; Stop 01/16/19 at 16:14; Status DC Acetaminophen (Tylenol) 650 mg PRN Q4HRS PRN PO FEVER; Start 01/15/19 at 16:15; Stop 01/16/19 at 16:14; Status DC Piperacillin Sod/ Tazobactam Sod 3.375 gm/Sodium Chloride 50 ml @ 100 mls/hr Q6HRS IV Last administered on 01/23/19 05:35; Start 01/16/19 at 14:00 Aspirin (Children'S Aspirin) 81 mg DAILY PO Last administered on 01/21/19 11:25; Start 01/16/19 at 14:00 Atorvastatin Calcium (Lipitor) 20 mg QHS PO Last administered on 01/22/19 20:11; Start 01/16/19 at 21:00 Ergocalciferol (Vitamin D2) 50,000 unit WEEKLY PO Last administered on 01/16/19at 14:38; Start 01/16/19 at 14:00 Finasteride (Proscar) 5 mg DAILY PO Last administered on 01/21/19 11:25; Start 01/16/19 at 14:00 Metoprolol Tartrate (Lopressor) 12.5 mg BID PO Last administered on 01/22/19 2 0:11; Start 01/16/19 at 14:00 Oxycodone/ Acetaminophen (Percocet 5/325) 1 tab PRN Q4HRS PRN PO PAIN Last administered on 01/22/19 20:11; Start 01/16/19 at 13:49 Tamsulosin HCl (Flomax) 0.4 mg DAILY PO Last administered on 01/21/19 11:25; Start 01/16/19 at 14:00 Bupropion HCl (Wellbutrin Xl) 300 mg DAILY PO Last administered on 01/21/19 11:25; Start 01/16/19 at 14:00 Calcium Carbonate/ Glycine (Oscal) 500 mg DAILY PO Last administered on 01/21/19 11:25; Start 01/16/19 at 14:00 Celecoxib (CeleBREX) 200 mg QHS PO Last administered on 01/16/19 21:16; Start 01/16/19 at 21:00; Stop 01/20/19 at 09:12; Status DC Nortriptyline HCl (Pamelor) 50 mg QHS PO Last administered on 01/22/19 20:11; Start 01/16/19 at 21:00 Pantoprazole Sodium (Protonix) 40 mg DAILYAC PO Last administered on 01/18/19 11:17; Start 01/16/19 at 14:00; Stop 01/19/19 at 13:29; Status DC Non-Formulary Medication (Tetrabenazine (Xenazine)) 12.5 mg TID PO ; Start 01/16/19 at 14:00; Stop 01/17/19 at 11:05; Status DC Vancomycin HCl (Vanco Per Pharmacy) 1 each PRN DAILY PRN MC SEE COMMENTS Last administered on 01/18/19 15:25; Start 01/16/19 at 13:45; Stop 01/19/19 at 13:23; Status DC Vancomycin HCl 1.5 gm/Sodium Chloride 500 ml @ 250 mls/hr Q12H IV Last administered on 01/19/19 05:25; Start 01/16/19 at 17:00; Stop 01/19/19 at 13:23; Status DC Vancomycin HCl (Vancomycin Trough Level) 1 each 1X ONCE MC Last administered on 01/18/19 05:35; Start 01/18/19 at 04:30; Stop 01/18/19 at 04:31; Status DC Non-Formulary Medication (Tetrabenazine (Xenazine)) 25 mg BID PO Last administered on 01/22/19 20:11; Start 01/17/19 at 11:30 Lactobacillus Rhamnosus (Culturelle) 1 cap BID PO Last administered on 01/22/19 20:11; Start 01/17/19 at 21:00 Pantoprazole Sodium (PROTONIX VIAL for IV PUSH) 40 mg DAILYAC IVP Last administered on 01/23/19 05:35; Start 01/20/19 at 07:30 Ondansetron HCl (Zofran) 4 mg PRN Q6HRS PRN IV NAUSEA/VOMITING; Start 01/22/19 at 07:00; Stop 01/22/19 at 20:00; Status DC Fentanyl Citrate (Fentanyl 2ml Vial) 25 mcg PRN Q5MIN PRN IV MILD PAIN 1-3; Start 01/22/19 at 07:00; Stop 01/22/19 at 20:00; Status DC Fentanyl Citrate (Fentanyl 2ml Vial) 50 mcg PRN Q5MIN PRN IV MODERATE TO SEVERE PAIN; Start 01/22/19 at 07:00; Stop 01/22/19 at 20:00; Status DC Ringer's Solution 1,000 ml @ 30 mls/hr Q24H IV ; Start 01/22/19 at 07:00; Stop 01/22/19 at 18:59; Status DC Lidocaine HCl (Xylocaine-Mpf 1% 2ml Vial) 2 ml PRN 1X PRN ID PRIOR TO IV START; Start 01/22/19 at 07:00; Stop 01/22/19 at 20:00; Status DC Prochlorperazine Edisylate (Compazine) 5 mg PACU PRN PRN IV NAUSEA, MRX1; Start 01/22/19 at 07:00; Stop 01/22/19 at 20:00; Status DC Adenosine (Adenocard) 6 mg 1X ONCE IV Last administered on 01/19/19at 19:28; Start 01/19/19 at 19:15; Stop 01/19/19 at 19:16; Status DC Adenosine (Adenocard) 6 mg 1X ONCE IV Last administered on 01/19/19at 20:11; Start 01/19/19 at 20:15; Stop 01/19/19 at 20:16; Status DC Adenosine (Adenocard) 6 mg 1X ONCE IV Last administered on 01/19/19at 20:36; Start 01/19/19 at 20:45; Stop 01/19/19 at 20:46; Status DC Potassium Chloride/Water 100 ml @ 100 mls/hr Q1H IV Last administered on 01/20/19at 00:09; Start 01/19/19 at 21:00; Stop 01/20/19 at 00:59; Status DC Potassium Acetate 20 meq/Dextrose 110 ml @ 55 mls/hr 1X ONCE IV ; Start 01/19/19 at 20:45; Stop 01/19/19 at 20:52; Status DC Diltiazem HCl 125 mg/Dextrose 125 ml @ 0 mls/hr CONT PRN IV SEE I/O RECORD Last administered on 01/20/19at 11:52; Start 01/19/19 at 20:45; Stop 01/21/19 at 11:01; Status DC Potassium Chloride/Dextrose 1,000 ml @ 55 mls/hr [id number] ONCE IV ; Start 01/19/19 at 21:00; Stop 01/19/19 at 20:55; Status DC Adenosine (Adenocard) 6 mg 1X ONCE IV Last administered on 01/19/19at 21:25; Start 01/19/19 at 21:30; Stop 01/19/19 at 21:31; Status DC Adenosine (Adenocard) 6 mg 1X ONCE IV Last administered on 01/19/19at 21:57; Start 01/19/19 at 22:15; Stop 01/19/19 at 22:16; Status DC Sodium Chloride 1,000 ml @ 75 mls/hr [id number] IV Last administered on 01/21/19at 00:00; Start 01/19/19 at 23:00; Stop 01/21/19 at 11:01; Status DC Magnesium Sulfate/ Dextrose 100 ml @ 100 mls/hr 1X ONCE IV Last administered on 01/20/19at 00:09; Start 01/19/19 at 23:30; Stop 01/20/19 at 00:29; Status DC Adenosine (Adenocard) 12 mg 1X ONCE IV Last administered on 01/20/19at 02:53; Start 01/19/19 at 22:15; Stop 01/20/19 at 02:52; Status DC Ondansetron HCl (Zofran) 4 mg PRN Q6HRS PRN IV NAUSEA/VOMITING; Start 01/20/19 at 09:15 Nitroglycerin (Nitro-Bid Oint) 1 inch Q6H TP Last administered on 01/23/19at 05:35; Start 01/21/19 at 10:00 Docusate Sodium (Colace Solution) 100 mg 1X ONCE PO Last administered on 01/21/19at 11:26; Start 01/21/19 at 11:00; Stop 01/21/19 at 11:01; Status DC Docusate Sodium (Colace Solution) 100 mg PRN DAILY PRN PO CONSTIPATION Last administered on 01/21/19at 23:56; Start 01/21/19 at 11:00 Polyethylene Glycol (miraLAX PACKET) 17 gm PRN DAILY PRN PO CONSTIPATION 1ST CHOICE Last administered on 01/21/19at 23:56; Start 01/21/19 at 11:00 Magnesium Hydroxide (Milk Of Magnesia) 2,400 mg PRN DAILY PRN PO CONSTIPATION Last administered on 01/22/19at 15:36; Start 01/21/19 at 11:00 Potassium Chloride (Klor-Con) 40 meq 1X ONCE PO Last administered on 01/21/19at 11:25; Start 01/21/19 at 11:15; Stop 01/21/19 at 11:16; Status DC Diltiazem HCl (Cardizem) 30 mg Q8HRS PO Last administered on 01/23/19at 05:35; Start 01/21/19 at 18:00 Potassium Bicarbonate (Potassium Effervescent Tablet) 40 meq 1X ONCE PEG Last administered on 01/22/19at 15:36; Start 01/22/19 at 08:30; Stop 01/22/19 at 08:31; Status DC Adenosine (Adenocard) 12 mg STK-MED ONCE IV ; Start 01/22/19 at 09:00; Stop 01/22/19 at 10:03; Status DC Ringer's Solution 1,000 ml @ 75 mls/hr 1X ONCE IV ; Start 01/22/19 at 11:15; Stop 01/23/19 at 00:34; Status DC Magnesium Sulfate/ Dextrose 100 ml @ 25 mls/hr 1X ONCE IV Last administered on 01/22/19at 12:13; Start 01/22/19 at 11:45; Stop 01/22/19 at 15:44; Status DC Potassium Chloride/Water 100 ml @ 100 mls/hr Q1H IV Last administered on 01/22/19at 18:12; Start 01/22/19 at 12:00; Stop 01/22/19 at 15:59; Status DC Active Scripts Active Reported Percocet 5-325 Mg Tablet (Oxycodone/Acetaminophen) 1 Each Tablet 1 Tab PO Q4HRS Proscar (Finasteride) 5 Mg Tablet 5 Mg PO DAILY Lantus Solostar (Insulin Glargine,Hum.rec.anlog) 100 Unit/1 Ml Insuln.pen 25 Unit SQ HS Calcium Citrate 250 Mg Tablet 600 Mg PO DAILY Celebrex (Celecoxib) 200 Mg Capsule 200 Mg PO HS 30 Days Aspirin 81 Mg Tab.chew 81 Mg PO DAILY Prilosec Otc (Omeprazole Magnesium) 20 Mg Tablet.dr 20 Mg PO DAILY Nortriptyline Hcl 50 Mg Capsule 50 Mg PO DAILY Flomax (Tamsulosin Hcl) 0.4 Mg Cap.er.24h 0.4 Mg PO DAILY Bupropion Xl (Bupropion Hcl) 300 Mg Tab.er.24h 300 Mg PO DAILY Xenazine (Tetrabenazine) 12.5 Mg Tablet 12.5 Mg PO TID Novolog (Insulin Aspart) 100 Unit/1 Ml Cartridge 12-26 Unit SQ TIDAC Vitamin D2 (Ergocalciferol (Vitamin D2)) 50,000 Unit Capsule 50,000 Unit PO WEEKLY Paroxetine Hcl 40 Mg Tablet 40 Mg PO DAILY Metoprolol Tartrate 50 Mg Tablet 12.5 Mg PO BID Lipitor (Atorvastatin Calcium) 20 Mg Tablet 20 Mg PO DAILY Vitals/I & O Vital Sign - Last 24 Hours 01/22/19 01/22/19 01/22/19 01/22/19 11:00 11:56 12:45 12:58 Temp 97.6 97.6 97.6 97.6 Pulse 52 52 53 Resp 20 18 B/P (MAP) 156/76 (102) 156/76 Pulse Ox 96 97 O2 Delivery Room Air Room Air O2 Flow Rate 2.0 01/22/19 01/22/19 01/22/19 01/22/19 14:00 14:15 14:30 15:00 Temp 97.7 97.5 97.7 97.5 Pulse 54 54 54 57 Resp 22 20 20 18 B/P (MAP) 149/85 154/88 152/75 168/91 (116) Pulse Ox 98 97 100 O2 Delivery Nasal Cannula Room Air Room Air Room Air 01/22/19 01/22/19 01/22/19 01/22/19 15:00 15:15 15:30 15:36 Pulse 56 54 54 B/P (MAP) 167/84 (111) 168/91 (116) 169/97 (121) 169/97 01/22/19 01/22/19 01/22/19 01/22/19 15:45 16:15 16:45 17:15 Pulse 56 56 54 56 B/P (MAP) 160/88 (112) 158/80 (106) 148/88 (108) 140/74 (96) 01/22/19 01/22/19 01/22/19 01/22/19 17:45 19:05 19:35 20:11 Temp 98.0 98.0 Pulse 58 61 Resp 22 B/P (MAP) 135/69 (91) 156/70 (98) Pulse Ox 98 O2 Delivery Room Air Room Air Room Air 01/22/19 01/22/19 01/22/19 01/22/19 20:11 20:11 20:11 21:57 Pulse 66 67 67 B/P (MAP) 156/70 156/70 156/70 O2 Delivery Room Air 01/22/19 01/23/19 01/23/19 01/23/19 22:35 02:45 05:35 05:35 Temp 97.9 98.1 97.9 98.1 Pulse 58 60 60 60 Resp 20 20 B/P (MAP) 134/67 (89) 131/61 (84) 131/61 131/61 Pulse Ox 93 93 O2 Delivery Room Air Room Air 01/23/19 07:00 Temp 98.0 98.0 Pulse 61 Resp 16 B/P (MAP) 128/60 (82) Intake and Output 01/22/19 01/22/19 01/23/19 15:00 23:00 07:00 Intake Total 50 ml 480 ml 0 ml Balance 50 ml 480 ml 0 ml MAYRA JAY MD Jan 23, 2019 08:37
--- NOTE | 2019-01-23 08:41 | PDOC ---
Infectious Disease Note Subjective: Subjective Feels ok No fevers Off O2 Denies cough/SOA/pain/N/V/D S/P PEG tube placement ROS: ROS Negative otherwise. Vital Signs: Vital Signs Vital Signs Date Time Temp Pulse Resp B/P (MAP) Pulse Ox O2 Delivery O2 Flow Rate FiO2 01/23/19 07:00 98.0 61 16 128/60 (82) 98.0 01/23/19 02:45 93 Room Air 01/22/19 12:45 2.0 Physical Exam: PHYSICAL EXAM GENERAL: Propped up in bed, alert, comfortable HEENT: No icterus , Oral cavity clear. Dobbhoff removed NECK: Supple. LUNGS: Clear. (right-sided chest implantable stimulator) HEART: S1 and S2 regular. ABDOMEN: Soft and nontender ,binder in place, peg tube in place : No Bruno EXTREMITIES: Trace edema. No cyanosis SKIN: Warm to touch. NEUROLOGIC: Alert, responds to few questions Left-sided paralysis and weakness on the right side. PIV Medications: Inpatient Meds: Current Medications Medications (Trade) Dose Ordered Sig/Zechariah Start Time Stop Time Status Last Admin Dose Admin Acetaminophen (Tylenol) 650 mg PRN Q4HRS PRN 01/15/19 16:15 01/16/19 16:14 DC Adenosine (Adenocard) 12 mg STK-MED ONCE 01/22/19 09:00 01/22/19 10:03 DC Aspirin (Children'S Aspirin) 81 mg DAILY 01/16/19 14:00 01/21/19 11:25 81 MG Atorvastatin Calcium (Lipitor) 20 mg QHS 01/16/19 21:00 01/22/19 20:11 20 MG Bupropion HCl (Wellbutrin Xl) 300 mg DAILY 01/16/19 14:00 01/21/19 11:25 300 MG Calcium Carbonate/ Glycine (Oscal) 500 mg DAILY 01/16/19 14:00 01/21/19 11:25 500 MG Celecoxib (CeleBREX) 200 mg QHS 01/16/19 21:00 01/20/19 09:12 DC 01/16/19 21:16 200 MG Diltiazem HCl (Cardizem) 30 mg Q8HRS 01/21/19 18:00 01/23/19 05:35 30 MG Diltiazem HCl 125 mg/Dextrose 125 ml @ 0 mls/hr CONT PRN 01/19/19 20:45 01/21/19 11:01 DC 01/20/19 11:52 5 MLS/HR Docusate Sodium (Colace Solution) 100 mg PRN DAILY PRN 01/21/19 11:00 01/21/19 23:56 100 MG Ergocalciferol (Vitamin D2) 50,000 unit WEEKLY 01/16/19 14:00 01/16/19 14:38 50,000 UNIT Fentanyl Citrate (Fentanyl 2ml Vial) 50 mcg PRN Q5MIN PRN 01/22/19 07:00 01/22/19 20:00 DC Finasteride (Proscar) 5 mg DAILY 01/16/19 14:00 01/21/19 11:25 5 MG Lactobacillus Rhamnosus (Culturelle) 1 cap BID 01/17/19 21:00 01/22/19 20:11 1 CAP Lidocaine HCl (Xylocaine-Mpf 1% 2ml Vial) 2 ml PRN 1X PRN 01/22/19 07:00 01/22/19 20:00 DC Magnesium Hydroxide (Milk Of Magnesia) 2,400 mg PRN DAILY PRN 01/21/19 11:00 01/22/19 15:36 2,400 MG Magnesium Sulfate/ Dextrose 100 ml @ 25 mls/hr 1X ONCE 01/22/19 11:45 01/22/19 15:44 DC 01/22/19 12:13 25 MLS/HR Metoprolol Tartrate (Lopressor) 12.5 mg BID 01/16/19 14:00 01/22/19 20:11 12.5 MG Nitroglycerin (Nitro-Bid Oint) 1 inch Q6H 01/21/19 10:00 01/23/19 05:35 1 INCH Non-Formulary Medication (Tetrabenazine (Xenazine)) 25 mg BID 01/17/19 11:30 01/22/19 20:11 25 MG Nortriptyline HCl (Pamelor) 50 mg QHS 01/16/19 21:00 01/22/19 20:11 50 MG Ondansetron HCl (Zofran) 4 mg PRN Q6HRS PRN 01/20/19 09:15 Oxycodone/ Acetaminophen (Percocet 5/325) 1 tab PRN Q4HRS PRN 01/16/19 13:49 01/22/19 20:11 1 TAB Pantoprazole Sodium (PROTONIX VIAL for IV PUSH) 40 mg DAILYAC 01/20/19 07:30 01/23/19 05:35 40 MG Pantoprazole Sodium (Protonix) 40 mg DAILYAC 01/16/19 14:00 01/19/19 13:29 DC 01/18/19 11:17 40 MG Piperacillin Sod/ Tazobactam Sod 3.375 gm/Sodium Chloride 50 ml @ 100 mls/hr Q6HRS 01/16/19 14:00 01/23/19 05:35 100 MLS/HR Polyethylene Glycol (miraLAX PACKET) 17 gm PRN DAILY PRN 01/21/19 11:00 01/21/19 23:56 17 GM Potassium Bicarbonate (Potassium Effervescent Tablet) 40 meq 1X ONCE 01/22/19 08:30 01/22/19 08:31 DC 01/22/19 15:36 40 MEQ Potassium Chloride/Dextrose 1,000 ml @ 55 mls/hr [id number] ONCE 01/19/19 21:00 01/19/19 20:55 DC Potassium Chloride/Water 100 ml @ 100 mls/hr Q1H 01/22/19 12:00 01/22/19 15:59 DC 01/22/19 18:12 100 MLS/HR Potassium Acetate 20 meq/Dextrose 110 ml @ 55 mls/hr 1X ONCE 01/19/19 20:45 01/19/19 20:52 DC Potassium Chloride (Klor-Con) 40 meq 1X ONCE 01/21/19 11:15 01/21/19 11:16 DC 01/21/19 11:25 40 MEQ Prochlorperazine Edisylate (Compazine) 5 mg PACU PRN PRN 01/22/19 07:00 01/22/19 20:00 DC Ringer's Solution 1,000 ml @ 75 mls/hr 1X ONCE 01/22/19 11:15 01/23/19 00:34 DC Sodium Chloride 1,000 ml @ 75 mls/hr [id number] 01/19/19 23:00 01/21/19 11:01 DC 01/21/19 00:00 75 MLS/HR Tamsulosin HCl (Flomax) 0.4 mg DAILY 01/16/19 14:00 01/21/19 11:25 0.4 MG Vancomycin HCl (Vanco Per Pharmacy) 1 each PRN DAILY PRN 01/16/19 13:45 01/19/19 13:23 DC 01/18/19 15:25 1 EACH Vancomycin HCl (Vancomycin Trough Level) 1 each 1X ONCE 01/18/19 04:30 01/18/19 04:31 DC 01/18/19 05:35 1 EACH Vancomycin HCl 1.5 gm/Sodium Chloride 500 ml @ 250 mls/hr Q12H 01/16/19 17:00 01/19/19 13:23 DC 01/19/19 05:25 250 MLS/HR Vancomycin HCl 2 gm/Sodium Chloride 500 ml @ 250 mls/hr 1X ONCE 01/15/19 16:15 01/15/19 18:14 DC 01/15/19 18:32 250 MLS/HR Labs: Lab Laboratory Tests Test 01/23/19 05:45 White Blood Count 11.5 x10^3/uL (4.0-11.0) Red Blood Count 4.39 x10^6/uL (4.30-5.70) Hemoglobin 13.5 g/dL (13.0-17.5) Hematocrit 40.1 % (39.0-53.0) Mean Corpuscular Volume 91 fL (79-100) Mean Corpuscular Hemoglobin 31 pg (25-35) Mean Corpuscular Hemoglobin Concent 34 g/dL (31-37) Red Cell Distribution Width 13.8 % (11.5-14.5) Platelet Count 229 x10^3/uL (140-400) Neutrophils (%) (Auto) 83 % (31-73) Lymphocytes (%) (Auto) 11 % (24-48) Monocytes (%) (Auto) 5 % (0-9) Eosinophils (%) (Auto) 1 % (0-3) Basophils (%) (Auto) 0 % (0-3) Neutrophils # (Auto) 9.6 x10^3/uL (1.8-7.7) Lymphocytes # (Auto) 1.2 x10^3/uL (1.0-4.8) Monocytes # (Auto) 0.6 x10^3/uL (0.0-1.1) Eosinophils # (Auto) 0.1 x10^3/uL (0.0-0.7) Basophils # (Auto) 0.0 x10^3/uL (0.0-0.2) Sodium Level 140 mmol/L (136-145) Potassium Level 3.8 mmol/L (3.5-5.1) Chloride Level 104 mmol/L (98-107) Carbon Dioxide Level 23 mmol/L (21-32) Anion Gap 13 (6-14) Blood Urea Nitrogen 8 mg/dL (8-26) Creatinine 0.8 mg/dL (0.7-1.3) Estimated GFR (Cockcroft-Gault) 96.1 Glucose Level 73 mg/dL (70-99) Calcium Level 8.5 mg/dL (8.5-10.1) Objective: Assessment: Pneumonia, aspiration CVA HTN Dysphagia s/p peg 01/22 SVT Yeast in urine, 01/18. Plan: Plan of Care Zosyn will wean off soon SID FERREIRA MD Jan 23, 2019 08:41
[2019-01-23] MEDS: METOPROLOL TART IMMED RELEASE 50 MG TABLET. PO SCH (09:00)
[2019-01-23] MEDS: DOCUSATE 100 MG/10 ML SOLUTION. PO PRN (09:41)
[2019-01-23] MEDS: ERGOCALCIFEROL (VITAMIN D2) 50,000 UNIT CAPSULE. PO SCH (09:41)
[2019-01-23] MEDS: FINASTERIDE 5 MG TABLET. PO SCH (09:41)
[2019-01-23] MEDS: buPROPion XL 150 MG TAB.ER.24H. PO SCH (09:41)
[2019-01-23] MEDS: LACTOBACILLUS RHAMNOSUS GG 1 CAPSULE. PO SCH (09:41)
[2019-01-23] MEDS: CALCIUM CARBONATE 500 MG TABLET PO SCH (09:41)
[2019-01-23] MEDS: TAMSULOSIN 0.4 MG CAP.ER.24H. PO SCH (09:42)
[2019-01-23] MEDS: oxyCODONE/APAP 5/325 1 TAB TABLET PO PRN ×2 (09:42→16:14)
[2019-01-23] MEDS: ASPIRIN CHEWABLE 81 MG TABLET. PO SCH (09:42)
[2019-01-23] MEDS: POLYETHYLENE GLYCOL 3350 17 GM PACKET. PO PRN (09:43)
[2019-01-23 11:00] VITALS: BP 134/62
--- NOTE | 2019-01-23 11:23 | PDOC ---
Subjective: Subjective: Indicates a little abd pain. Objective: Objective: D/w nurse - PEG functioning. Vital Signs: Vital Signs Date Time Temp Pulse Resp B/P (MAP) Pulse Ox O2 Delivery O2 Flow Rate FiO2 01/23/19 11:00 Room Air 01/23/19 11:00 98.0 62 18 134/62 (86) 98.0 01/23/19 02:45 93 01/22/19 12:45 2.0 Labs: Laboratory Tests Test 01/23/19 05:45 White Blood Count 11.5 x10^3/uL Red Blood Count 4.39 x10^6/uL Hemoglobin 13.5 g/dL Hematocrit 40.1 % Mean Corpuscular Volume 91 fL Mean Corpuscular Hemoglobin 31 pg Mean Corpuscular Hemoglobin Concent 34 g/dL Red Cell Distribution Width 13.8 % Platelet Count 229 x10^3/uL Neutrophils (%) (Auto) 83 % Lymphocytes (%) (Auto) 11 % Monocytes (%) (Auto) 5 % Eosinophils (%) (Auto) 1 % Basophils (%) (Auto) 0 % Neutrophils # (Auto) 9.6 x10^3/uL Lymphocytes # (Auto) 1.2 x10^3/uL Monocytes # (Auto) 0.6 x10^3/uL Eosinophils # (Auto) 0.1 x10^3/uL Basophils # (Auto) 0.0 x10^3/uL Sodium Level 140 mmol/L Potassium Level 3.8 mmol/L Chloride Level 104 mmol/L Carbon Dioxide Level 23 mmol/L Anion Gap 13 Blood Urea Nitrogen 8 mg/dL Creatinine 0.8 mg/dL Estimated GFR (Cockcroft-Gault) 96.1 Glucose Level 73 mg/dL Calcium Level 8.5 mg/dL PE: GEN: NAD LUNGS: room air HEART: RRR ABD:BS+, soft, non-tender, abd binder in place - PEG site clean/dry, removed gauze from under bolster, replaced abd binder NEURO/PSYCH: A & O �3, drowsy A/P: S/p PEG placement -- PEG functioning. DC per primary. NASIR MONTGOMERY Jan 23, 2019 11:23
--- NOTE | 2019-01-23 12:21 | PDOC ---
PULMONARY PROGRESS NOTES Subjective no soa Vitals Vital Signs Date Time Temp Pulse Resp B/P (MAP) Pulse Ox O2 Delivery O2 Flow Rate FiO2 01/23/19 11:00 Room Air 01/23/19 11:00 98.0 62 18 134/62 (86) 98.0 01/23/19 02:45 93 01/22/19 12:45 2.0 Comments ros as mentioned as above other sys otherwise neg ROS: No Nausea, No Chest Pain, No Abdominal Pain General: Alert HEENT: Other (nc at perrl nose throat clear neck no lad no thyromegaly) Lungs: Clear Cardiovascular: S1, S2 Abdomen: Soft, Non-tender, Other (no mass) Neuro Exam: Alert Extremities: No Edema Skin: Warm Labs Laboratory Tests Test 01/22/19 03:30 01/23/19 05:45 White Blood Count 7.5 x10^3/uL (4.0-11.0) 11.5 x10^3/uL (4.0-11.0) Red Blood Count 4.19 x10^6/uL (4.30-5.70) 4.39 x10^6/uL (4.30-5.70) Hemoglobin 12.9 g/dL (13.0-17.5) 13.5 g/dL (13.0-17.5) Hematocrit 38.2 % (39.0-53.0) 40.1 % (39.0-53.0) Mean Corpuscular Volume 91 fL (79-100) 91 fL (79-100) Mean Corpuscular Hemoglobin 31 pg (25-35) 31 pg (25-35) Mean Corpuscular Hemoglobin Concent 34 g/dL (31-37) 34 g/dL (31-37) Red Cell Distribution Width 14.0 % (11.5-14.5) 13.8 % (11.5-14.5) Platelet Count 215 x10^3/uL (140-400) 229 x10^3/uL (140-400) Neutrophils (%) (Auto) 63 % (31-73) 83 % (31-73) Lymphocytes (%) (Auto) 25 % (24-48) 11 % (24-48) Monocytes (%) (Auto) 8 % (0-9) 5 % (0-9) Eosinophils (%) (Auto) 3 % (0-3) 1 % (0-3) Basophils (%) (Auto) 1 % (0-3) 0 % (0-3) Neutrophils # (Auto) 4.7 x10^3/uL (1.8-7.7) 9.6 x10^3/uL (1.8-7.7) Lymphocytes # (Auto) 1.9 x10^3/uL (1.0-4.8) 1.2 x10^3/uL (1.0-4.8) Monocytes # (Auto) 0.6 x10^3/uL (0.0-1.1) 0.6 x10^3/uL (0.0-1.1) Eosinophils # (Auto) 0.2 x10^3/uL (0.0-0.7) 0.1 x10^3/uL (0.0-0.7) Basophils # (Auto) 0.1 x10^3/uL (0.0-0.2) 0.0 x10^3/uL (0.0-0.2) Sodium Level 142 mmol/L (136-145) 140 mmol/L (136-145) Potassium Level 3.3 mmol/L (3.5-5.1) 3.8 mmol/L (3.5-5.1) Chloride Level 106 mmol/L (98-107) 104 mmol/L (98-107) Carbon Dioxide Level 23 mmol/L (21-32) 23 mmol/L (21-32) Anion Gap 13 (6-14) 13 (6-14) Blood Urea Nitrogen 8 mg/dL (8-26) 8 mg/dL (8-26) Creatinine 0.8 mg/dL (0.7-1.3) 0.8 mg/dL (0.7-1.3) Estimated GFR (Cockcroft-Gault) 96.1 96.1 Glucose Level 101 mg/dL (70-99) 73 mg/dL (70-99) Calcium Level 8.4 mg/dL (8.5-10.1) 8.5 mg/dL (8.5-10.1) Magnesium Level 1.7 mg/dL (1.8-2.4) Laboratory Tests Test 01/23/19 05:45 White Blood Count 11.5 x10^3/uL (4.0-11.0) Red Blood Count 4.39 x10^6/uL (4.30-5.70) Hemoglobin 13.5 g/dL (13.0-17.5) Hematocrit 40.1 % (39.0-53.0) Mean Corpuscular Volume 91 fL (79-100) Mean Corpuscular Hemoglobin 31 pg (25-35) Mean Corpuscular Hemoglobin Concent 34 g/dL (31-37) Red Cell Distribution Width 13.8 % (11.5-14.5) Platelet Count 229 x10^3/uL (140-400) Neutrophils (%) (Auto) 83 % (31-73) Lymphocytes (%) (Auto) 11 % (24-48) Monocytes (%) (Auto) 5 % (0-9) Eosinophils (%) (Auto) 1 % (0-3) Basophils (%) (Auto) 0 % (0-3) Neutrophils # (Auto) 9.6 x10^3/uL (1.8-7.7) Lymphocytes # (Auto) 1.2 x10^3/uL (1.0-4.8) Monocytes # (Auto) 0.6 x10^3/uL (0.0-1.1) Eosinophils # (Auto) 0.1 x10^3/uL (0.0-0.7) Basophils # (Auto) 0.0 x10^3/uL (0.0-0.2) Sodium Level 140 mmol/L (136-145) Potassium Level 3.8 mmol/L (3.5-5.1) Chloride Level 104 mmol/L (98-107) Carbon Dioxide Level 23 mmol/L (21-32) Anion Gap 13 (6-14) Blood Urea Nitrogen 8 mg/dL (8-26) Creatinine 0.8 mg/dL (0.7-1.3) Estimated GFR (Cockcroft-Gault) 96.1 Glucose Level 73 mg/dL (70-99) Calcium Level 8.5 mg/dL (8.5-10.1) Medications Active Scripts Medications Dose Route/Sig Max Daily Dose Days Date Category Percocet 5-325 Mg Tablet (Oxycodone/Acetaminophen) 1 Each Tablet 1 Tab PO Q4HRS 11/22/17 Reported Proscar (Finasteride) 5 Mg Tablet 5 Mg PO DAILY 04/14/17 Reported Lantus Solostar (Insulin Glargine,Hum.rec.anlog) 100 Unit/1 Ml Insuln.pen 25 Unit SQ HS 04/14/17 Reported Calcium Citrate 250 Mg Tablet 600 Mg PO DAILY 03/03/16 Reported Celebrex (Celecoxib) 200 Mg Capsule 200 Mg PO HS 30 03/03/16 Reported Aspirin 81 Mg Tab.chew 81 Mg PO DAILY 07/17/14 Reported Prilosec Otc (Omeprazole Magnesium) 20 Mg Tablet.dr 20 Mg PO DAILY 07/17/14 Reported Nortriptyline Hcl 50 Mg Capsule 50 Mg PO DAILY 07/17/14 Reported Flomax (Tamsulosin Hcl) 0.4 Mg Cap.er.24h 0.4 Mg PO DAILY 07/17/14 Reported Bupropion Xl (Bupropion Hcl) 300 Mg Tab.er.24h 300 Mg PO DAILY 07/17/14 Reported Xenazine (Tetrabenazine) 12.5 Mg Tablet 12.5 Mg PO TID 07/17/14 Reported Novolog (Insulin Aspart) 100 Unit/1 Ml Cartridge 12-26 Unit SQ TIDAC 08/29/13 Reported Vitamin D2 (Ergocalciferol (Vitamin D2)) 50,000 Unit Capsule 50,000 Unit PO WEEKLY 08/29/13 Reported Paroxetine Hcl 40 Mg Tablet 40 Mg PO DAILY 08/29/13 Reported Metoprolol Tartrate 50 Mg Tablet 12.5 Mg PO BID 08/29/13 Reported Lipitor (Atorvastatin Calcium) 20 Mg Tablet 20 Mg PO DAILY 08/29/13 Reported Comments cxr reviewed r elevated HD, atelectasis ct reviewed 1. Volume loss identified in the right lung base with moderate consolidation and air bronchograms in the right lower lobe of the lung. Differential includes pneumonia or postobstructive atelectasis. Recommend bronchoscopic evaluation to exclude bronchial pathology/neoplasm. 2. Coronary artery calcifications. Impression . IMPRESSION: 1. Abnormal CT chest revealing volume loss and air bronchograms, left lower lobe. 2. Aspiration pneumonia. 3. Cerebrovascular accident. 4. Hypertension. 5. Dysphagia. 6. s/p svt 7. hypo k Plan . 02 titration, repeat cxr 01/22 stable cardizem per cardiology, NSR now elevate hob npo replace k as needed cxr reviewed PEG done ANTIBX per ID DVT AND GI PROPH discussed w rn, dc plans per pcp GIOVANNA MEDRANO MD Jan 23, 2019 12:21
[2019-01-23] MEDS ORDERED: DILT30TA26 PO (14:02)
[2019-01-23] MEDS ORDERED: AMOX250S20 PO (14:02)
[2019-01-23] MEDS ORDERED: OXYC1TAB15 PO (14:02)
[2019-01-23] MEDS ORDERED: LACT1CAP19 PO (14:02)
[2019-01-23] MEDS ORDERED: POLY17PO28 PO (14:02)
--- NOTE | 2019-01-23 14:05 | SNU/HH DC ---
DISCHARGE ORDERS DISCHARGE INFORMATION: DISCHARGE DATE: Jan 23, 2019 FINAL DIAGNOSIS Problems Medical Problems: (1) Arrhythmia Status: Acute (2) Pneumonia Status: Acute CONDITION ON DISCHARGE: Stable CODE STATUS: Code Status: Full NURSING HOME: SNF STAY <30 DAYS: No POST DISCHARGE ORDERS: ACTIVITY ORDERS: Avoid exertion BATHING ORDERS: Shower-keep dressing dry DIET AFTER DISCHARGE: PEG Jevity 55cc/hr, 150cc free water q6hrs WOUND/INCISION CARE: Ice to area for comfort, Other, see below CHECKS AFTER DISCHARGE: CHECKS AFTER DISCHARGE: Check blood press - daily, Check your Temp as needed TREATMENT/EQUIPMENT ORDERS: ADAPTIVE EQUIPMENT NEEDED: None Speech Language Pathology For: Evaluation/Treatment DISCHARGE MEDICATIONS: Home Meds Active Scripts Amoxicillin/Potassium Clav (AUGMENTIN 250-62.5 MG/5 ML) 250 Mg/5 Ml Susp.recon, 10 ML PO BID for aspiration pneumonia for 7 Days, #200 ML Prov:MAYRA JAY MD 01/23/19 Lactobacillus Rhamnosus Gg (CULTURELLE) 1 Each Cap.sprink, 1 CAP PO BID for diarrhea for 7 Days, #14 CAP Prov:MAYRA JAY MD 01/23/19 Polyethylene Glycol 3350 (POLYETHYLENE GLYCOL 3350) 17 Gm Powd.pack, 17 GM PO PRN DAILY PRN for CONSTIPATION 1ST CHOICE for 30 Days, #30 PKT Prov:MAYRA JAY MD 01/23/19 Diltiazem Hcl (CARDIZEM TABLET) 30 Mg Tablet, 30 MG PO Q8HRS for Afib for 30 Days, #90 TAB Prov:MAYRA JAY MD 01/23/19 Oxycodone/Apap 5-325 (PERCOCET 5-325 MG TABLET ) 1 Each Tablet, 1 TAB PO prn q4hs for PAIN for 6 Days, #24 TAB Prov:MAYRA JAY MD 01/23/19 Reported Medications Finasteride (PROSCAR) 5 Mg Tablet, 5 MG PO DAILY, TAB 04/14/17 Insulin Glargine,Hum.rec.anlog (LANTUS SOLOSTAR) 100 Unit/1 Ml Insuln.pen, 25 UNIT SQ HS, SYR 04/14/17 Calcium Citrate (CALCIUM CITRATE) 250 Mg Tablet, 600 MG PO DAILY 03/03/16 Celecoxib (CELEBREX) 200 Mg Capsule, 200 MG PO HS for 30 Days, CAP 0 Refills 03/03/16 Aspirin (ASPIRIN) 81 Mg Tab.chew, 81 MG PO DAILY, TAB.CHEW 07/17/14 Omeprazole Magnesium (PRILOSEC OTC) 20 Mg Tablet.dr, 20 MG PO DAILY, TAB 07/17/14 Nortriptyline Hcl (NORTRIPTYLINE HCL) 50 Mg Capsule, 50 MG PO DAILY, CAP 07/17/14 Tamsulosin Hcl (FLOMAX) 0.4 Mg Cap.er.24h, 0.4 MG PO DAILY, TAB 07/17/14 Bupropion Hcl (BUPROPION XL) 300 Mg Tab.er.24h, 300 MG PO DAILY 07/17/14 Tetrabenazine (XENAZINE) 12.5 Mg Tablet, 12.5 MG PO TID 07/17/14 Insulin Aspart (NOVOLOG) 100 Unit/1 Ml Cartridge, 12-26 UNIT SQ TIDAC 08/29/13 Ergocalciferol (Vitamin D2) (VITAMIN D2) 50,000 Unit Capsule, 95582 UNIT PO WEEKLY 08/29/13 Metoprolol Tartrate (METOPROLOL TARTRATE) 50 Mg Tablet, 12.5 MG PO BID 08/29/13 Atorvastatin Calcium (LIPITOR) 20 Mg Tablet, 20 MG PO DAILY 08/29/13 Discontinued Reported Medications Paroxetine Hcl (PAROXETINE HCL) 40 Mg Tablet, 40 MG PO DAILY 08/29/13 MAYRA JAY MD Jan 23, 2019 14:05
--- NOTE | 2019-01-23 14:13 | PDOC3 ---
Discharge Summary Visit Information Date of Admission: Jan 16, 2019 Date of Discharge: Jan 23, 2019 Admitting Diagnosis: Pneumonia Final Diagnosis Problems Medical Problems: (1) Arrhythmia Status: Acute (2) Pneumonia Status: Acute Brief Hospital Course Allergies Allergies Coded Allergies Type Severity Reaction Last Updated Verified buprenorphine HCl Allergy Intermediate 01/22/19 Yes naloxone HCl Allergy Intermediate 01/22/19 Yes Vital Signs Vital Signs Date Time Temp Pulse Resp B/P (MAP) Pulse Ox O2 Delivery O2 Flow Rate FiO2 01/23/19 14:00 65 148/76 01/23/19 11:00 Room Air 01/23/19 11:00 98.0 18 98.0 01/23/19 02:45 93 01/22/19 12:45 2.0 Lab Results Laboratory Tests Test 01/22/19 03:30 01/23/19 05:45 White Blood Count 7.5 x10^3/uL (4.0-11.0) 11.5 x10^3/uL (4.0-11.0) Red Blood Count 4.19 x10^6/uL (4.30-5.70) 4.39 x10^6/uL (4.30-5.70) Hemoglobin 12.9 g/dL (13.0-17.5) 13.5 g/dL (13.0-17.5) Hematocrit 38.2 % (39.0-53.0) 40.1 % (39.0-53.0) Mean Corpuscular Volume 91 fL (79-100) 91 fL (79-100) Mean Corpuscular Hemoglobin 31 pg (25-35) 31 pg (25-35) Mean Corpuscular Hemoglobin Concent 34 g/dL (31-37) 34 g/dL (31-37) Red Cell Distribution Width 14.0 % (11.5-14.5) 13.8 % (11.5-14.5) Platelet Count 215 x10^3/uL (140-400) 229 x10^3/uL (140-400) Neutrophils (%) (Auto) 63 % (31-73) 83 % (31-73) Lymphocytes (%) (Auto) 25 % (24-48) 11 % (24-48) Monocytes (%) (Auto) 8 % (0-9) 5 % (0-9) Eosinophils (%) (Auto) 3 % (0-3) 1 % (0-3) Basophils (%) (Auto) 1 % (0-3) 0 % (0-3) Neutrophils # (Auto) 4.7 x10^3/uL (1.8-7.7) 9.6 x10^3/uL (1.8-7.7) Lymphocytes # (Auto) 1.9 x10^3/uL (1.0-4.8) 1.2 x10^3/uL (1.0-4.8) Monocytes # (Auto) 0.6 x10^3/uL (0.0-1.1) 0.6 x10^3/uL (0.0-1.1) Eosinophils # (Auto) 0.2 x10^3/uL (0.0-0.7) 0.1 x10^3/uL (0.0-0.7) Basophils # (Auto) 0.1 x10^3/uL (0.0-0.2) 0.0 x10^3/uL (0.0-0.2) Sodium Level 142 mmol/L (136-145) 140 mmol/L (136-145) Potassium Level 3.3 mmol/L (3.5-5.1) 3.8 mmol/L (3.5-5.1) Chloride Level 106 mmol/L (98-107) 104 mmol/L (98-107) Carbon Dioxide Level 23 mmol/L (21-32) 23 mmol/L (21-32) Anion Gap 13 (6-14) 13 (6-14) Blood Urea Nitrogen 8 mg/dL (8-26) 8 mg/dL (8-26) Creatinine 0.8 mg/dL (0.7-1.3) 0.8 mg/dL (0.7-1.3) Estimated GFR (Cockcroft-Gault) 96.1 96.1 Glucose Level 101 mg/dL (70-99) 73 mg/dL (70-99) Calcium Level 8.4 mg/dL (8.5-10.1) 8.5 mg/dL (8.5-10.1) Magnesium Level 1.7 mg/dL (1.8-2.4) Laboratory Tests Test 8/20/19 05:45 White Blood Count 11.5 x10^3/uL (4.0-11.0) Red Blood Count 4.39 x10^6/uL (4.30-5.70) Hemoglobin 13.5 g/dL (13.0-17.5) Hematocrit 40.1 % (39.0-53.0) Mean Corpuscular Volume 91 fL (79-100) Mean Corpuscular Hemoglobin 31 pg (25-35) Mean Corpuscular Hemoglobin Concent 34 g/dL (31-37) Red Cell Distribution Width 13.8 % (11.5-14.5) Platelet Count 229 x10^3/uL (140-400) Neutrophils (%) (Auto) 83 % (31-73) Lymphocytes (%) (Auto) 11 % (24-48) Monocytes (%) (Auto) 5 % (0-9) Eosinophils (%) (Auto) 1 % (0-3) Basophils (%) (Auto) 0 % (0-3) Neutrophils # (Auto) 9.6 x10^3/uL (1.8-7.7) Lymphocytes # (Auto) 1.2 x10^3/uL (1.0-4.8) Monocytes # (Auto) 0.6 x10^3/uL (0.0-1.1) Eosinophils # (Auto) 0.1 x10^3/uL (0.0-0.7) Basophils # (Auto) 0.0 x10^3/uL (0.0-0.2) Sodium Level 140 mmol/L (136-145) Potassium Level 3.8 mmol/L (3.5-5.1) Chloride Level 104 mmol/L (98-107) Carbon Dioxide Level 23 mmol/L (21-32) Anion Gap 13 (6-14) Blood Urea Nitrogen 8 mg/dL (8-26) Creatinine 0.8 mg/dL (0.7-1.3) Estimated GFR (Cockcroft-Gault) 96.1 Glucose Level 73 mg/dL (70-99) Calcium Level 8.5 mg/dL (8.5-10.1) Brief Hospital Course Mr Montero is a 68-year-old gentleman with history of left-sided severe stroke last March and before then in September, he had a right-sided stroke, diabetes, hypertension, coronary artery disease, history of MRSA, and cervical dystonia.. The patient is a snf resident now. The patient did have dysphagia and he was recommended to have special pureed diet, which he did not like it and started losing weight. Hence, he decided that he is not going to stick to the diet and just been eating regular. The patient was brought in because of tachycardia and shortness of breath. The patient was found to be in SVT. The patient also was found to have pneumonia with suspected aspiration pneumonia. The patient was started on vancomycin and Zosyn, seen by ID for this and cardiology for his SVT. Admitted to 6th floor for asp pneumonia, lives in [facility] - hx CVA, left residual HE is left sided hemiplegia and dysphagia from stroke Mar 2018 Transferred to CVC/ICU for SVT, S.p adenosine, vagal and cardizem gtt with cardiology consultation Rate controlled now, no sxs Inserted dobhoff 01/20/19 for nutrition, and TF ran, tolerated well, Consulted GI for PEG placement per patient request to stop his pneumonia. PEG on 01/22/2019 without event. Confused, speaking strangely for a few days. Not speaking this morning with me. His is concerned he has not had a BM for a few days. Asp PNA, dysphagia hx CVA - PEG 01/22/2019 - Augmentin for 7 addl days on d/c HTN, controlled SVT - new (01/19) Chronic renal insufficiency Hypokalemia DM2 Severe Protein calorie malnutrition Colace solution - he is constipated today PEG functioning well HCR on dc dw RN, Greater than 30 minutes spent on d/c Discharge Information Condition at Discharge: Improved Follow Up: Weeks (1) Disposition/Orders: D/C to Another Facility Scheduled Amoxicillin/Potassium Clav (Augmentin 250-62.5 Mg/5 Ml) 250 Mg/5 Ml Susp.recon, 10 ML PO BID for aspiration pneumonia for 7 Days, #200 Prescribed by: MAYRA JAY MD on 01/23/19 1402 Aspirin (Aspirin) 81 Mg Tab.chew, 81 MG PO DAILY, (Reported) Entered as Reported by: STEPHEN NEWTON on 07/17/14 1728 Last Action: Continued on 01/16/19 1341 by BRYON TEJEDA MD Atorvastatin Calcium (Lipitor) 20 Mg Tablet, 20 MG PO DAILY, (Reported) Entered as Reported by: HUNG LEE on 08/29/13 1522 Last Action: Continued on 01/16/191340 by BRYON TEJEDA MD Bupropion Hcl (Bupropion Xl) 300 Mg Tab.er.24h, 300 MG PO DAILY, (Reported) Entered as Reported by: STEPHEN NEWTON on 07/17/14 1728 Last Action: Converted on 01/16/191340 by BRYON TEJEDA MD Calcium Citrate (Calcium Citrate) 250 Mg Tablet, 600 MG PO DAILY, (Reported) Entered as Reported by: FABIOLA DUONG on 03/03/16 1232 Last Action: Converted on 01/16/191340 by BRYON TEJEDA MD Celecoxib (Celebrex) 200 Mg Capsule, 200 MG PO HS for 30 Days, Ref 0 (Reported) Entered as Reported by: FABIOLA DUONG on 03/03/16 1231 Last Action: Converted on 01/16/191340 by BRYON TEJEDA MD Diltiazem Hcl (Cardizem Tablet) 30 Mg Tablet, 30 MG PO Q8HRS for Afib for 30 Days, #90 Prescribed by: MAYRA JAY MD on 01/23/19 1402 Ergocalciferol (Vitamin D2) (Vitamin D2) 50,000 Unit Capsule, 50,000 UNIT PO WEEKLY, (Reported) Entered as Reported by: HUNG LEE on 08/29/13 1522 Last Action: Continued on 01/16/19 134 by BRYON TEJEDA MD Finasteride (Proscar) 5 Mg Tablet, 5 MG PO DAILY, (Reported) Entered as Reported by: STEPHEN NEWTON on 04/14/17 1350 Last Action: Continued on 01/16/19 134 by BRYON TEJEDA MD Insulin Aspart (Novolog) 100 Unit/1 Ml Cartridge, 12-26 UNIT SQ TIDAC, (Reported) Entered as Reported by: HUNG LEE on 08/29/13 1522 Insulin Glargine,Hum.rec.anlog (Lantus Solostar) 100 Unit/1 Ml Insuln.pen, 25 UNIT SQ HS, (Reported) Entered as Reported by: STEPHEN NEWTON on 04/14/17 1350 Last Action: HELD on 01/16/191340 by BRYON TEJEDA MD Lactobacillus Rhamnosus Gg (Culturelle) 1 Each Cap.sprink, 1 CAP PO BID for diarrhea for 7 Days, #14 Prescribed by: MAYRA JAY MD on 01/23/191401 Metoprolol Tartrate (Metoprolol Tartrate) 50 Mg Tablet, 12.5 MG PO BID, (Reported) Entered as Reported by: HUNG LEE on 08/29/13 1522 Last Action: Continued on 01/16/191340 by BRYON TEJEDA MD Nortriptyline Hcl (Nortriptyline Hcl) 50 Mg Capsule, 50 MG PO DAILY, (Reported) Entered as Reported by: STEPHEN NEWTON on 07/17/141727 Last Action: Converted on 01/16/191340 by BRYON TEJEDA MD Omeprazole Magnesium (Prilosec Otc) 20 Mg Tablet.dr, 20 MG PO DAILY, (Reported) Entered as Reported by: STEPHEN NEWTON on 07/17/141727 Last Action: Converted on 01/16/191340 by BRYON TEJEDA MD Oxycodone/Apap 5-325 (Percocet 5-325 Mg Tablet ) 1 Each Tablet, 1 TAB PO prn q4hs for PAIN for 6 Days, #24 Prescribed by: MAYRA JAY MD on 01/23/192 Tamsulosin Hcl (Flomax) 0.4 Mg Cap.er.24h, 0.4 MG PO DAILY, (Reported) Entered as Reported by: STEPHEN NEWTON on 07/17/141727 Last Action: Continued on 01/16/191340 by BRYON TEJEDA MD Tetrabenazine (Xenazine) 12.5 Mg Tablet, 12.5 MG PO TID, (Reported) Entered as Reported by: STEPHEN NEWTON on 07/17/141727 Last Action: Converted on 01/16/191340 by BRYON TEJEDA MD Scheduled PRN Polyethylene Glycol 3350 (Polyethylene Glycol 3350) 17 Gm Powd.pack, 17 GM PO PRN DAILY PRN for CONSTIPATION 1ST CHOICE for 30 Days, #30 Prescribed by: MAYRA JAY MD on 01/23/19 1402 Discontinued Medications Paroxetine Hcl (Paroxetine Hcl) 40 Mg Tablet, 40 MG PO DAILY, (Reported) Entered as Reported by: HUNG LEE on 08/29/13 1522 MAYRA JAY MD Jan 23, 2019 14:12
--- NOTE | 2019-01-23 14:29 | NUR ---
SS following up with discharge planning. Discharge orders received for return to [facility], ; fax [phone]. SS phoned and faxed updated clinical and discharge orders to [facility]. Pt will discharge today and go to [facility] at 1700 via [facility] ambulance, . Pt, pt's RN, and pt's spouse notified.
[2019-01-23] MEDS ORDERED: MAGNESIUM CITRATE 296 ML SOLUTION. PO ONE (14:30)
[2019-01-23 14:56] VITALS: BP 148/76
[2019-01-23] MEDS ORDERED: BISACODYL 10 MG SUPP.RECT. PR PRN (16:00)
[2019-01-23 16:14] VITALS: BP 148/76
--- NOTE | 2019-01-23 16:25 | PDOC ---
PROGRESS NOTES Subjective Subjective s/p PEG placement, dyspnea improved Objective Objective Vital Signs Date Time Temp Pulse Resp B/P (MAP) Pulse Ox O2 Delivery O2 Flow Rate FiO2 01/23/19 16:14 66 148/76 01/23/19 16:14 Room Air 01/23/19 14:56 98.2 20 98.2 01/23/19 02:45 93 01/22/19 12:45 2.0 Intake and Output 01/23/19 06:59 Intake Total 530 ml Balance 530 ml Intake Oral 0 ml IV Total 250 ml Tube Feeding 280 ml # Voids 6 Physical Exam Abdomen: Normal bowel sounds Heart: Regular rate Extremities: No cyanosis, Other (left hemiparesis) General: Alert, No acute distress HEENT: Atraumatic, PERRLA, Mucous membr. moist/pink Lungs: Other (Mildly decreased breath sounds) MUSCULOSKELETAL: Other Neuro: Other (brisk left reflexes, no ankle clonus) Psych/Mental Status: Mental status NL, Other (positive affect, ) Skin: No significant lesion, Other Assessment Assessment 1. PSVT Maintaining SR. No further episodes on telemetry. 2D echo showed normal LVF. Continue cardizem 2. Aspiration Pneumonia, CVA. s/p PEG tube placement. Pulmonary and ID teams following. 3. Hypokalemia. Replaced [facility] Plan of Care Problems Medical Problems: (1) Arrhythmia Status: Acute (2) Pneumonia Status: Acute Comment Review of Relevant I have reviewed the following items ricardo (where applicable) has been applied. Labs Laboratory Tests Test 01/23/19 05:45 White Blood Count 11.5 x10^3/uL (4.0-11.0) Red Blood Count 4.39 x10^6/uL (4.30-5.70) Hemoglobin 13.5 g/dL (13.0-17.5) Hematocrit 40.1 % (39.0-53.0) Mean Corpuscular Volume 91 fL (79-100) Mean Corpuscular Hemoglobin 31 pg (25-35) Mean Corpuscular Hemoglobin Concent 34 g/dL (31-37) Red Cell Distribution Width 13.8 % (11.5-14.5) Platelet Count 229 x10^3/uL (140-400) Neutrophils (%) (Auto) 83 % (31-73) Lymphocytes (%) (Auto) 11 % (24-48) Monocytes (%) (Auto) 5 % (0-9) Eosinophils (%) (Auto) 1 % (0-3) Basophils (%) (Auto) 0 % (0-3) Neutrophils # (Auto) 9.6 x10^3/uL (1.8-7.7) Lymphocytes # (Auto) 1.2 x10^3/uL (1.0-4.8) Monocytes # (Auto) 0.6 x10^3/uL (0.0-1.1) Eosinophils # (Auto) 0.1 x10^3/uL (0.0-0.7) Basophils # (Auto) 0.0 x10^3/uL (0.0-0.2) Sodium Level 140 mmol/L (136-145) Potassium Level 3.8 mmol/L (3.5-5.1) Chloride Level 104 mmol/L (98-107) Carbon Dioxide Level 23 mmol/L (21-32) Anion Gap 13 (6-14) Blood Urea Nitrogen 8 mg/dL (8-26) Creatinine 0.8 mg/dL (0.7-1.3) Estimated GFR (Cockcroft-Gault) 96.1 Glucose Level 73 mg/dL (70-99) Calcium Level 8.5 mg/dL (8.5-10.1) Microbiology 01/18/19 Urine Culture - Final, Complete 01/18/19 Urine Culture Result 1 (SOFIA) - Final, Complete Medications Current Medications Bisacodyl (Dulcolax Supp) 10 mg PRN DAILY PRN [place] CONSTIPATION; Start 01/23/19 at 16:00 Magnesium Citrate (Citroma) 296 ml 1X ONCE PO Last administered on 01/23/19at 16:14; Start 01/23/19 at 14:30; Stop 01/23/19 at 14:31; Status DC Vitals/I & O Vital Sign - Last 24 Hours 01/22/19 01/22/19 01/22/19 01/22/19 16:45 17:15 17:45 19:05 Temp 98.0 98.0 Pulse 54 56 58 61 Resp 22 B/P (MAP) 148/88 (108) 140/74 (96) 135/69 (91) 156/70 (98) Pulse Ox 98 O2 Delivery Room Air 01/22/19 01/22/19 01/22/19 01/22/19 19:35 20:11 20:11 20:11 Pulse 66 67 B/P (MAP) 156/70 156/70 O2 Delivery Room Air Room Air 01/22/19 01/22/19 01/22/19 01/23/19 20:11 21:57 22:35 02:45 Temp 97.9 98.1 97.9 98.1 Pulse 67 58 60 Resp 20 20 B/P (MAP) 156/70 134/67 (89) 131/61 (84) Pulse Ox 93 93 O2 Delivery Room Air Room Air Room Air 01/23/19 01/23/19 01/23/19 01/23/19 05:35 05:35 07:00 08:30 Temp 98.0 98.0 Pulse 60 60 61 Resp 16 B/P (MAP) 131/61 131/61 128/60 (82) O2 Delivery Room Air 01/23/19 01/23/19 01/23/19 01/23/19 09:46 11:00 11:00 14:00 Temp 98.0 98.0 Pulse 61 62 65 Resp 18 B/P (MAP) 137/76 134/62 (86) 148/76 O2 Delivery Room Air Room Air 01/23/19 01/23/19 01/23/19 14:56 16:14 16:14 Temp 98.2 98.2 Pulse 66 66 Resp 20 B/P (MAP) 148/76 (100) 148/76 O2 Delivery Room Air Room Air Intake and Output 01/22/19 01/22/19 01/23/19 14:59 22:59 06:59 Intake Total 50 ml 480 ml 0 ml Balance 50 ml 480 ml 0 ml HIMANSHU FULLER MD Jan 23, 2019 16:25
--- NOTE | 2019-01-23 17:23 | NUR ---
Discharge Note: MARGARETH HENRY Discharge instructions and discharge home medications reviewed with Other facility [facility] and a copy given. All questions have been answered and understanding verbalized. The following instructions and handouts were given: aspiration pneumonia, SVT, PEG care Discontinued lines and drains: Peripheral IV intact. Patient discharged to [facility] with Ambulance Personnel via Stretcher
== END 2019-01-23 17:15 | disposition home or self-care (01) | DRG 177 ==
LOC: ER 13:49 → ED HOLD 16:04 → 6 SOUTH 20:20 → OBSVTOIN 01-16 08:50 → 2 SOUTH 01-19 19:20 → 1 WEST ICU 01-19 21:43 → 2 SOUTH 01-21 18:25
PROVIDERS: ADMIT Internal Medicine; ATTEND Internal Medicine
PROC: 0DJ08ZZ Inspection of Upper Intestinal Tract, Via Natural or Artificial Opening Endoscopic (ICD-10-PCS; 2019-01-22)
PROC: 0DH63UZ Insertion of Feeding Device into Stomach, Percutaneous Approach (ICD-10-PCS; principal; 2019-01-22 13:30)
DX: J69.0 Pneumonitis due to inhalation of food and vomit (principal); E43 Unspecified severe protein-calorie malnutrition; I47.1 Supraventricular tachycardia; R65.10 Systemic inflammatory response syndrome (SIRS) of non-infectious origin without acute organ dysfunction; E11.22 Type 2 diabetes mellitus with diabetic chronic kidney disease; E11.42 Type 2 diabetes mellitus with diabetic polyneuropathy; E66.9 Obesity, unspecified; E78.5 Hyperlipidemia, unspecified; E87.6 Hypokalemia; F32.9 Major depressive disorder, single episode, unspecified; F41.9 Anxiety disorder, unspecified; I12.9 Hypertensive chronic kidney disease with stage 1 through stage 4 chronic kidney disease, or unspecified chronic kidney disease; I25.10 Atherosclerotic heart disease of native coronary artery without angina pectoris; K21.9 Gastro-esophageal reflux disease without esophagitis; K59.00 Constipation, unspecified; M43.6 Torticollis; N18.9 Chronic kidney disease, unspecified; R13.12 Dysphagia, oropharyngeal phase; Z79.4 Long term (current) use of insulin; Z79.82 Long term (current) use of aspirin; Z68.32 Body mass index [BMI] 32.0-32.9, adult; I69.391 Dysphagia following cerebral infarction; Z86.14 Personal history of Methicillin resistant Staphylococcus aureus infection; Z90.49 Acquired absence of other specified parts of digestive tract; Z96.659 Presence of unspecified artificial knee joint; Z88.8 Allergy status to other drugs, medicaments and biological substances
CPT/HCPCS: 36415; 71045; 71250; 74018; 80048; 80053; 80202; 81001; 82550; 82565; 82962; 83735; 83880; 84145; 84443; 84484; 85025; 85610; 87086; 87641; 93005; 93306; 96365; C9113; G0378; G0379; J0153; J2001; J2405; J2543; J2704; J3370; J3475; J3480; J3490; J7030; J7040; 92610; 99285-25

== ENCOUNTER 2019-06-22 13:40 | Inpatient (IN) | payer BC, MEDICAID ==
[~2019-06-22] VITALS: Ht 182.9 cm; Wt 110.2 kg
[~2019-06-22 13:40] MED LIST changes: +AMOX250S20 PO; -BUPR300T4 PO; +BUPR300T92 PO; +DILT30TA26 PO; +LACT1CAP19 PO; +POLY17PO28 PO
--- NOTE | 2019-06-22 13:54 | PHYS DOC ---
Past Medical History Past Medical History: CVA, Depression, Diabetes-Type II, GERD, Heart Disease, Hypertension, MRSA, Stroke Additional Past Medical Histor: MRSA, cervical dystonia, L side defecit fo llowing stroke Past Surgical History: Appendectomy, Knee Replacement, Tonsillectomy, Other Additional Past Surgical Histo: DEEP BRAIN STIMULATOR Alcohol Use: Sober Drug Use: None Adult General Chief Complaint Chief Complaint: GTUBE REPLACEMENT/MALFUNCTION HPI HPI Patient is a 68 year old Male who [facility] with [facility] wit h a clogged gastric tube. Review of Systems Review of Systems GI: Clogged G tube. Denies abdominal pain, nausea, vomiting, bloody stools or diarrhea [] All other systems were reviewed and found to be within normal limits, except as documented in this note. Current Medications Current Medications Current Medications Medications (Trade) Dose Ordered Sig/Zechariah Start Time Stop Time Status Last Admin Dose Admin Lorazepam (Ativan Inj) 0.5 mg 1X ONCE 06/22/19 15:00 06/22/19 15:01 DC 06/22/19 15:12 0.5 MG Allergies Allergies Allergies Coded Allergies Type Severity Reaction Last Updated Verified buprenorphine HCl Allergy Intermediate 01/22/19 Yes naloxone HCl Allergy Intermediate 01/22/19 Yes Physical Exam Physical Exam Constitutional: Well developed, well nourished, no acute distress, non-toxic appearance. [] HENT: Normocephalic, atraumatic, bilateral external ears normal, oropharynx moist, no oral exudates, nose normal. [] Eyes: PERRLA, EOMI, conjunctiva normal, no discharge. [] Neck: Normal range of motion, no tenderness, supple, no stridor. [] Cardiovascular:Heart rate regular rhythm, no murmur [] Lungs & Thorax: Bilateral breath sounds clear to auscultation [] Abdomen: Bowel sounds normal, soft, no tenderness, G tube in place with left over feeding or crushed medication in it, no masses, no pulsatile masses. [] Skin: Warm, dry, no erythema, no rash. [] Back: No tenderness, no CVA tenderness. [] Extremities: No tenderness, no cyanosis, no clubbing, ROM intact, no edema. [] Neurologic: Alert and oriented X 3, normal motor function, normal sensory function, no focal deficits noted. [] Psychologic: Affect normal, judgement normal, mood normal. [] Current Patient Data Vital Signs Vital Signs Date Time Temp Pulse Resp B/P (MAP) Pulse Ox O2 Delivery O2 Flow Rate FiO2 06/22/19 15:40 96 119/70 (86) 97 Room Air 06/22/19 13:40 97.5 19 97.5 Lab Values Laboratory Tests Test 06/22/19 15:42 Glucose (Fingerstick) 92 mg/dL (70-99) EKG EKG [] Radiology/Procedures Radiology/Procedures [] Course & Med Decision Making Course & Med Decision Making at bedside. The tube looks to have leftover feedings are crushed up meds in the tube. Nursing staff will attempt to flush or aspirate the tube. Abdomen is soft and nontender. Tube is still intact. Vital signs within normal limits. JOSE Diez tried to aspirate and flush and list for placement and she was unable to. Rosi bennett tried to push the tube and a little farther and assistance. Chary RN called the [facility] and they stated that they gave the patient 12 units of NovoLog at 1300 and were trying to start his tube feeding and listen for placement and they could not flush or aspirate the tube and they could not advance the tube. They stated that 2 feeding could not be started. Stated that on Tuesday they aspirated some tushar red aspirate and blood work was done. They stated that it was normal. [facility] stated that the nurse practitioner today told the nursing staff to send the patient over when they could not flush or aspirate the tube. Patient is given Ativan for anxiety. I have tried to deflate the balloon on the current G tube to replace the G tube. Nothing can be pulled back to deflate the balloon. The tube itself is cut down short and nothing is still able to be drained. Both ports are tried. Dr Snow has also tried to do so. I have spoken to Dr Cavazos and he states that the patient will probably need to be admitted into the hospital and they will have to go in by endoscopy. He states he will make phone calls to see if anyone will come in tonight. Patient is admitted to Dr Martinez. Ney Disclaimer Ney Disclaimer This electronic medical record was generated, in whole or in part, using a voice recognition dictation system. Departure Departure Impression: Primary Impression: Gastrostomy tube obstruction Disposition: ADMITTED INPATIENT Admitting Physician: HIMS Condition: STABLE Referrals: JAISON COLLINS MD (PCP) LANCE LOZANO APRN Jun 22, 2019 13:54
[2019-06-22] MEDS ORDERED: LABETALOL 20 MG/4 ML DISP.SYRIN. IVP PRN (16:45)
[2019-06-22] MEDS ORDERED: ONDANSETRON PF 4 MG/2 ML VIAL. IV PRN (16:45)
[2019-06-22] MEDS ORDERED: IV NORMAL SALINE 1000ML BAG 1,000 ML IV ONE (16:45)
[2019-06-22] MEDS ORDERED: fentaNYL PF VIAL 100 MCG/2 ML VIAL IVP PRN (16:45)
[2019-06-22] MEDS ORDERED: diphenhydrAMINE 50 MG/ML VIAL IVP PRN (16:45)
--- NOTE | 2019-06-22 17:02 | PDOC1 ---
History and Physical Date of Admission Date of Admission DATE: 06/22/19 TIME: 16:56 Identification/Chief Complaint Chief Complaint mal functioning G tube Source Source: Caregiver, Chart review History of Present Illness History of Present Illness 68 yo white male, hemiplegic on left from CVA, has a G tube that has been there since Jan 2019, today HCR staff cant aspirate anything, ER mid level attempted to fix to no avail, SO admitted with consult to GI and DR Westbrook is aware of the consult. WIll try to fix tmr, In the meantime, requests a supp for constipation for her hsuband , and pt IS A FULL CODE, HE can understand and has a soft voice, HE has no sacral wounds that we know of, he is practically bed bound. Past Medical History Cardiovascular: HTN, Other Pulmonary: Pneumonia CENTRAL NERVOUS SYSTEM: CVA Renal/: Chronic renal insuff Endocrine: Diabetes Past Surgical History Past Surgical History: Appendectomy, Total knee replacement Family History Family History: No Significant Social History Smoke: No ALCOHOL: none Drugs: None Current Problem List Problem List Problems Medical Problems: (1) Gastrostomy tube obstruction Status: Acute Current Medications Current Medications Current Medications Lorazepam (Ativan Inj) 0.5 mg 1X ONCE IM Last administered on 06/22/19at 15:12; Start 06/22/19 at 15:00; Stop 06/22/19 at 15:01; Status DC Sodium Chloride 1,000 ml @ 100 mls/hr 1X ONCE IV ; Start 06/22/19 at 16:45; Stop 06/23/19 at 02:44 Ondansetron HCl (Zofran) 4 mg PRN Q8HRS PRN IV NAUSEA/VOMITING; Start 06/22/19 at 16:45; Stop 06/23/19 at 16:44 Active Scripts Active Augmentin 250-62.5 Mg/5 Ml (Amoxicillin/Potassium Clav) 250 Mg/5 Ml Susp.recon 10 Ml PO BID 7 Days Culturelle (Lactobacillus Rhamnosus Gg) 1 Each Cap.sprink 1 Cap PO BID 7 Days Polyethylene Glycol 3350 17 Gm Powd.pack 17 Gm PO PRN DAILY PRN 30 Days Cardizem Tablet (Diltiazem Hcl) 30 Mg Tablet 30 Mg PO Q8HRS 30 Days Percocet 5-325 Mg Tablet (Oxycodone/Acetaminophen) 1 Each Tablet 1 Tab PO PRN Q4HS 6 Days Reported Proscar (Finasteride) 5 Mg Tablet 5 Mg PO DAILY Lantus Solostar (Insulin Glargine,Hum.rec.anlog) 100 Unit/1 Ml Insuln.pen 25 Unit SQ HS Calcium Citrate 250 Mg Tablet 600 Mg PO DAILY Celebrex (Celecoxib) 200 Mg Capsule 200 Mg PO HS 30 Days Aspirin 81 Mg Tab.chew 81 Mg PO DAILY Prilosec Otc (Omeprazole Magnesium) 20 Mg Tablet.dr 20 Mg PO DAILY Nortriptyline Hcl 50 Mg Capsule 50 Mg PO DAILY Flomax (Tamsulosin Hcl) 0.4 Mg Cap.er.24h 0.4 Mg PO DAILY Bupropion Xl (Bupropion Hcl) 300 Mg Tab.er.24h 300 Mg PO DAILY Xenazine (Tetrabenazine) 12.5 Mg Tablet 12.5 Mg PO TID Novolog (Insulin Aspart) 100 Unit/1 Ml Cartridge 12-26 Unit SQ TIDAC Vitamin D2 (Ergocalciferol (Vitamin D2)) 50,000 Unit Capsule 50,000 Unit PO WEEKLY Metoprolol Tartrate 50 Mg Tablet 12.5 Mg PO BID Lipitor (Atorvastatin Calcium) 20 Mg Tablet 20 Mg PO DAILY Allergies Allergies: Coded Allergies: buprenorphine HCl (Verified Allergy, Intermediate, 01/22/19) naloxone HCl (Verified Allergy, Intermediate, 01/22/19) ROS Review of System neg 14 pt Physical Exam General: Alert, No acute distress, Other (awake, soft voice) HEENT: Atraumatic, PERRLA, EOMI Lungs: Clear to auscultation, Normal air movement Heart: S1S2, RRR, no thrills, no rubs, no gallops, no murmurs Cardiovascular: S1, S2 Abdomen: Normal bowel sounds, Soft, Other (G tube in place with dry aspirate) Extremities: No clubbing, No cyanosis, No edema, Normal pulses, No tenderness/swelling, Other (contracted left arm, foot drop, rt dorsal foot scar; can move RT hand/arm some) Skin: No rashes, No breakdown, No significant lesion Neuro: Sensation intact, Cranial nerves 3-12 NL, Reflexes 2+ Psych/Mental Status: Mood NL Vitals Vitals Vital Signs Date Time Temp Pulse Resp B/P (MAP) Pulse Ox O2 Delivery O2 Flow Rate FiO2 06/22/19 15:40 96 119/70 (86) 97 Room Air 06/22/19 13:40 97.5 19 97.5 Labs Labs Laboratory Tests Test 06/22/19 15:42 Glucose (Fingerstick) 92 mg/dL (70-99) Laboratory Tests Test 06/22/19 15:42 Glucose (Fingerstick) 92 mg/dL (70-99) VTE Prophylaxis Ordered VTE Prophylaxis Devices: Yes VTE Pharmacological Prophylaxi: Yes Assessment/Plan Assessment/Plan MAlfunctioning G tube COnstipation CVA with LEFT hemiplegia HTN PLAN: IVF while G tube is inaccessible BP meds IV prn - make sure he goes to tele floor to give IV pushes OBS stay GI consult SUpp or enema for stool FULL CODE dw TFs once G tube is fixed BAck to HCR on dc ALISSON VELÁZQUEZ MD Jun 22, 2019 17:02
[2019-06-22] MEDS ORDERED: PANTOPRAZOLE IV PUSH 40 MG VIAL. IVP ONE (17:30)
[2019-06-22] MEDS ORDERED: BISACODYL 10 MG SUPP.RECT. PR PRN (18:00)
[2019-06-22] MEDS ORDERED: BISACODYL 10 MG SUPP.RECT. PR ONE (18:00)
[2019-06-22] MEDS ORDERED: SODIUM PHOSPHATES 19/7GM 133 ML ENEMA. PR PRN (18:00)
[2019-06-22 19:15] VITALS: BP 114/75
[2019-06-22] MEDS: IV NORMAL SALINE 1000ML BAG 1,000 ML IV SCH (20:24)
[2019-06-22] MEDS: ENOXAPARIN 40 MG/0.4 ML SYRINGE. SQ SCH (22:58)
[2019-06-22 23:15] VITALS: BP 120/79
[2019-06-23 03:15] VITALS: BP 115/56
[2019-06-23 07:00] VITALS: BP 108/59
[2019-06-23] MEDS ORDERED: PANTOPRAZOLE IV PUSH 40 MG VIAL. IVP SCH (07:30)
[2019-06-23] MEDS ORDERED: IV DEXTROSE 5% 250 ML IV ONE (08:22)
[2019-06-23] MEDS: IV NORMAL SALINE 1000ML BAG 1,000 ML IV SCH ×2 (09:53→22:05)
[2019-06-23 11:00] VITALS: BP 113/56
[2019-06-23] MEDS ORDERED: POLYETHYLENE GLYCOL 3350 17 GM PACKET. PO PRN (11:45)
--- NOTE | 2019-06-23 11:58 | NUR ---
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 Answering service said that the ED doctor had called him, but that he had not received a consult call. I gave information for GI consult for this pt.
[2019-06-23] MEDS: TAMSULOSIN 0.4 MG CAP.ER.24H. PO SCH (12:00)
[2019-06-23] MEDS: ASPIRIN CHEWABLE 81 MG TABLET. PO SCH (12:00)
[2019-06-23] MEDS: buPROPion XL 150 MG TAB.ER.24H. PO SCH (12:00)
[2019-06-23] MEDS: LACTOBACILLUS RHAMNOSUS GG 1 CAPSULE. PO SCH ×2 (12:00→22:26)
[2019-06-23] MEDS: FINASTERIDE 5 MG TABLET. PO SCH (12:00)
[2019-06-23] MEDS: CALCIUM CARBONATE 500 MG TABLET PO SCH (12:00)
[2019-06-23] MEDS: INSULIN LISPRO 300 UNITS/3 ML VIAL. SQ SCH ×2 (12:00→17:00)
[2019-06-23] MEDS: METOPROLOL TART IMMED RELEASE 25 MG TABLET. PO SCH ×2 (12:00→22:31)
[2019-06-23] MEDS: dilTIAZem HCL 30 MG TABLET PO SCH ×3 (14:00→22:30)
[2019-06-23] MEDS: TETRABENAZINE 12.5 MG PO SCH ×2 (14:00→20:53)
[2019-06-23 15:00] VITALS: BP 130/61
--- NOTE | 2019-06-23 16:41 | PDOC2 ---
GI CONSULT Reason For Consult: G tube malfunction HPI: HPI: 68 yo white male, hemiplegic on left from CVA, has a G tube that has been there since Jan 2019, today [facility]CR staff cant aspirate anything, ER mid level attempted to fix to no avail. PMH: PMH: Past Medical History Cardiovascular: HTN, Other Pulmonary: Pneumonia CENTRAL NERVOUS SYSTEM: CVA Renal/: Chronic renal insuff Endocrine: Diabetes Past Surgical History Past Surgical History: Appendectomy, Total knee replacement Family History Family History: No Significant Social History Smoke: No ALCOHOL: none Drugs: None Current Problem List Problem List Problems Medical Problems: (1) Gastrostomy tube obstruction Status: Acute Current Medications Current Medications Current Medications Lorazepam (Ativan Inj) 0.5 mg 1X ONCE IM Last administered on 06/22/19at 15:12; Start 06/22/19 at 15:00; Stop 06/22/19 at 15:01; Status DC Sodium Chloride 1,000 ml @ 100 mls/hr 1X ONCE IV ; Start 06/22/19 at 16:45; Stop 06/23/19 at 02:44 Ondansetron HCl (Zofran) 4 mg PRN Q8HRS PRN IV NAUSEA/VOMITING; Start 06/22/19 at 16:45; Stop 06/23/19 at 16:44 Active Scripts Active Augmentin 250-62.5 Mg/5 Ml (Amoxicillin/Potassium Clav) 250 Mg/5 Ml Susp.recon 10 Ml PO BID 7 Days Culturelle (Lactobacillus Rhamnosus Gg) 1 Each Cap.sprink 1 Cap PO BID 7 Days Polyethylene Glycol 3350 17 Gm Powd.pack 17 Gm PO PRN DAILY PRN 30 Days Cardizem Tablet (Diltiazem Hcl) 30 Mg Tablet 30 Mg PO Q8HRS 30 Days Percocet 5-325 Mg Tablet (Oxycodone/Acetaminophen) 1 Each Tablet 1 Tab PO PRN Q4HS 6 Days Reported Proscar (Finasteride) 5 Mg Tablet 5 Mg PO DAILY Lantus Solostar (Insulin Glargine,Hum.rec.anlog) 100 Unit/1 Ml Insuln.pen 25 Unit SQ HS Calcium Citrate 250 Mg Tablet 600 Mg PO DAILY Celebrex (Celecoxib) 200 Mg Capsule 200 Mg PO HS 30 Days Aspirin 81 Mg Tab.chew 81 Mg PO DAILY Prilosec Otc (Omeprazole Magnesium) 20 Mg Tablet. 20 Mg PO DAILY Nortriptyline Hcl 50 Mg Capsule 50 Mg PO DAILY Flomax (Tamsulosin Hcl) 0.4 Mg Cap.er.24h 0.4 Mg PO DAILY Bupropion Xl (Bupropion Hcl) 300 Mg Tab.er.24h 300 Mg PO DAILY Xenazine (Tetrabenazine) 12.5 Mg Tablet 12.5 Mg PO TID Novolog (Insulin Aspart) 100 Unit/1 Ml Cartridge 12-26 Unit SQ TIDAC Vitamin D2 (Ergocalciferol (Vitamin D2)) 50,000 Unit Capsule 50,000 Unit PO SKY DAVIS Metoprolol Tartrate 50 Mg Tablet 12.5 Mg PO BID Lipitor (Atorvastatin Calcium) 20 Mg Tablet 20 Mg PO DAILY Allergies Allergies: Coded Allergies: buprenorphine HCl (Verified Allergy, Intermediate, 01/22/19) naloxone HCl (Verified Allergy, Intermediate, 01/22/19) FH: Family History: No pertinent hx Social History: Smoke: No ALCOHOL: none Drugs: None ROS: GEN: Denies fevers, chills, sweats HEENT: Denies blurred vision, sore throat CV: Denies chest pain RESP: Denies shortness of air, cough GI: Per HPI : Denies hematuria, dysuria ENDO: Denies weight changes NEURO: Denies confusion, dizziness MSK: Denies weakness, joint pain/swelling SKIN: Denies jaundice, pruritus VItals: Vitals: Vital Signs Date Time Temp Pulse Resp B/P (MAP) Pulse Ox O2 Delivery O2 Flow Rate FiO2 06/23/19 11:00 97.7 80 18 113/56 (75) 99 Room Air 97.7 Labs: Labs: Laboratory Tests Test 06/22/19 20:45 06/23/19 07:47 06/23/19 08:18 06/23/19 09:37 Glucose (Fingerstick) 98 mg/dL (70-99) 63 mg/dL (70-99) 66 mg/dL (70-99) 98 mg/dL (70-99) Test 06/23/19 11:11 Glucose (Fingerstick) 107 mg/dL (70-99) PE: Physical Exam General: Alert, No acute distress, Other (awake, soft voice) HEENT: Atraumatic, PERRLA, EOMI Lungs: Clear to auscultation, Normal air movement Heart: S1S2, RRR, no thrills, no rubs, no gallops, no murmurs Cardiovascular: S1, S2 Abdomen: Normal bowel sounds, Soft, Other (G tube in place ) Extremities: No clubbing, No cyanosis, No edema, Normal pulses, No tenderness/swelling, Other (contracted left arm, foot drop, rt dorsal foot scar; can move RT hand/arm some) Skin: No rashes, No breakdown, No significant lesion Neuro: Sensation intact, Cranial nerves 3-12 NL, Reflexes 2+ Psych/Mental Status: Mood NL A/P: A/P: A) 1) G tube malfunction P) 1) When I took the stop cock off the tube, yellow fluid came out. I was able to push 30 cc of coke through the tube. I also was able to aspirate the coke back out. D/w nursing- they will check for gastric juice with the lab. Okay to d/c from GI standpoint Called to notify her ANA LILIA ISRAEL MD Jun 23, 2019 16:41
[2019-06-23 19:00] VITALS: BP 139/77
[2019-06-23 22:20] VITALS: BP 124/69
[2019-06-23] MEDS: ENOXAPARIN 40 MG/0.4 ML SYRINGE. SQ SCH (22:22)
[2019-06-23] MEDS: ATORVASTATIN CALCIUM 20 MG TABLET PO SCH (22:22)
[2019-06-23] MEDS: CELECOXIB 100 MG CAPSULE. PO SCH (22:22)
[2019-06-23] MEDS: NORTRIPTYLINE 25 MG CAPSULE PO SCH (22:32)
[2019-06-23] MEDS: INSULIN GLARGINE SYRINGE. SQ SCH (23:15)
--- NOTE | 2019-06-23 23:17 | PDOC ---
PROGRESS NOTES Chief Complaint Chief Complaint MAlfunctioning G tube COnstipation CVA with LEFT hemiplegia HTN PLAN: IVF while G tube is inaccessible BP meds IV prn - make sure he goes to tele floor to give IV pushes OBS stay GI consult SUpp or enema for stool FULL CODE TFs now that tube is working again BAck to HCR on dc hopefully in the am History of Present Illness History of Present Illness no complaints during my visit, no acute events reported overnight. Vitals Vitals Vital Signs Date Time Temp Pulse Resp B/P (MAP) Pulse Ox O2 Delivery O2 Flow Rate FiO2 06/23/19 22:31 100 124/69 06/23/19 22:20 98.3 18 96 Room Air 98.3 Physical Exam General: Alert, No acute distress, Other (awake, soft voice) Lungs: Clear Abdomen: Normal bowel sounds, Soft, Other (G tube in place with dry aspirate) Extremities: No clubbing, No cyanosis, No edema, Normal pulses, No tenderness/swelling, Other (contracted left arm, foot drop, rt dorsal foot scar; can move RT hand/arm some) Skin: No rashes, No breakdown, No significant lesion Labs LABS Laboratory Tests Test 06/23/19 07:47 06/23/19 08:18 06/23/19 09:37 06/23/19 11:11 Glucose (Fingerstick) 63 mg/dL (70-99) 66 mg/dL (70-99) 98 mg/dL (70-99) 107 mg/dL (70-99) Test 06/23/19 17:03 06/23/19 23:09 Glucose (Fingerstick) 104 mg/dL (70-99) 149 mg/dL (70-99) Assessment and Plan Assessmemt and Plan Problems Medical Problems: (1) Gastrostomy tube obstruction Status: Acute Comment Review of Relevant I have reviewed the following items ricardo (where applicable) has been applied. Labs Laboratory Tests Test 06/22/19 15:42 06/22/19 20:45 06/23/19 07:47 06/23/19 08:18 Glucose (Fingerstick) 92 mg/dL (70-99) 98 mg/dL (70-99) 63 mg/dL (70-99) 66 mg/dL (70-99) Test 06/23/19 09:37 06/23/19 11:11 06/23/19 17:03 06/23/19 23:09 Glucose (Fingerstick) 98 mg/dL (70-99) 107 mg/dL (70-99) 104 mg/dL (70-99) 149 mg/dL (70-99) Laboratory Tests Test 06/23/19 07:47 06/23/19 08:18 06/23/19 09:37 06/23/19 11:11 Glucose (Fingerstick) 63 mg/dL (70-99) 66 mg/dL (70-99) 98 mg/dL (70-99) 107 mg/dL (70-99) Test 06/23/19 17:03 06/23/19 23:09 Glucose (Fingerstick) 104 mg/dL (70-99) 149 mg/dL (70-99) Medications Current Medications Lorazepam (Ativan Inj) 0.5 mg 1X ONCE IM Last administered on 06/22/19at 15:12; Start 06/22/19 at 15:00; Stop 06/22/19 at 15:01; Status DC Sodium Chloride 1,000 ml @ 100 mls/hr 1X ONCE IV ; Start 06/22/19 at 16:45; Stop 06/23/19 at 02:44; Status DC Ondansetron HCl (Zofran) 4 mg PRN Q8HRS PRN IV NAUSEA/VOMITING; Start 06/22/19 at 16:45; Stop 06/23/19 at 16:44; Status DC Sodium Chloride 1,000 ml @ 80 mls/hr [id number] IV Last administered on 06/23/19at 22:05; Start 06/23/19 at 03:00 Pantoprazole Sodium (PROTONIX VIAL for IV PUSH) 40 mg DAILYAC IVP Last administered on 06/23/19at 06:02; Start 06/23/19 at 07:30; Stop 06/23/19 at 11:46; Status DC Pantoprazole Sodium (PROTONIX VIAL for IV PUSH) 40 mg 1X ONCE IVP ; Start 06/22/19 at 17:30; Stop 06/22/19 at 17:31; Status DC Enoxaparin Sodium (Lovenox 40mg Syringe) 40 mg Q24H SQ Last administered on 06/23/19at 22:22; Start 06/22/19 at 21:00 Labetalol HCl (Normodyne Iv Push) 10 mg PRN Q2HR PRN IVP HYPERTENSION; Start 06/22/19 at 16:45 Diphenhydramine HCl (Benadryl) 25 mg QHS PRN IVP SLEEP; Start 06/22/19 at 16:45 Fentanyl Citrate (Fentanyl 2ml Vial) 50 mcg PRN Q2HR PRN IVP PAIN; Start 06/22/19 at 16:45 Bisacodyl (Dulcolax Supp) 10 mg 1X ONCE CO ; Start 06/22/19 at 18:00; Stop 06/22/19 at 18:01; Status DC Bisacodyl (Dulcolax Supp) 10 mg PRN DAILY PRN CO CONSTIPATION, 1ST CHOICE; Start 06/22/19 at 18:00 Sodium Monofluorophosphate (Fleet Adult) 133 ml DAILY PRN CO CONSTIPATION, 2ND CHOICE; Start 06/22/19 at 18:00 Dextrose 250 ml @ As Directed STK-MED ONCE IV ; Start 06/23/19 at 08:22; Stop 06/23/19 at 08:23; Status DC Aspirin (Children'S Aspirin) 81 mg DAILY PO ; Start 06/23/19 at 12:00 Atorvastatin Calcium (Lipitor) 20 mg QHS PO Last administered on 06/23/19at 22:22; Start 06/23/19 at 21:00 Diltiazem HCl (Cardizem) 30 mg Q8HRS PO Last administered on 06/23/19at 22:30; Start 06/23/19 at 14:00 Ergocalciferol (Vitamin D2) 50,000 unit WEEKLY PO ; Start 06/24/19 at 09:00 Finasteride (Proscar) 5 mg DAILY PO ; Start 06/23/19 at 12:00 Lactobacillus Rhamnosus (Culturelle) 1 cap BID PO Last administered on 06/23/19at 22:26; Start 06/23/19 at 12:00 Metoprolol Tartrate (Lopressor) 12.5 mg BID PO Last administered on 06/23/19at 22:31; Start 06/23/19 at 12:00 Polyethylene Glycol (miraLAX PACKET) 17 gm PRN DAILY PRN PO CONSTIPATION 1ST CHOICE; Start 06/23/19 at 11:45 Tamsulosin HCl (Flomax) 0.4 mg DAILY PO ; Start 06/23/19 at 12:00 Bupropion HCl (Wellbutrin Xl) 300 mg DAILY PO ; Start 06/23/19 at 12:00 Calcium Carbonate/ Glycine (Oscal) 500 mg DAILY PO ; Start 06/23/19 at 12:00 Celecoxib (CeleBREX) 200 mg QHS PO Last administered on 06/23/19at 22:22; Start 06/23/19 at 21:00 Insulin Human Lispro (HumaLOG) 12 units TIDWMEALS SQ ; Start 06/23/19 at 12:00 Insulin Glargine (Lantus Syringe) 25 unit QHS SQ ; Start 06/23/19 at 21:00 Nortriptyline HCl (Pamelor) 50 mg QHS PO Last administered on 06/23/19at 22:32; Start 06/23/19 at 21:00 Pantoprazole Sodium (Protonix) 40 mg DAILYAC PO ; Start 06/24/19 at 07:30 Non-Formulary Medication (Tetrabenazine (Xenazine)) 12.5 mg TID PO ; Start 06/23/19 at 14:00; Status UNV Active Scripts Active Augmentin 250-62.5 Mg/5 Ml (Amoxicillin/Potassium Clav) 250 Mg/5 Ml Susp.recon 10 Ml PO BID 7 Days Culturelle (Lactobacillus Rhamnosus Gg) 1 Each Cap.sprink 1 Cap PO BID 7 Days Polyethylene Glycol 3350 17 Gm Powd.pack 17 Gm PO PRN DAILY PRN 30 Days Cardizem Tablet (Diltiazem Hcl) 30 Mg Tablet 30 Mg PO Q8HRS 30 Days Percocet 5-325 Mg Tablet (Oxycodone/Acetaminophen) 1 Each Tablet 1 Tab PO PRN Q4HS 6 Days Reported Proscar (Finasteride) 5 Mg Tablet 5 Mg PO DAILY Lantus Solostar (Insulin Glargine,Hum.rec.anlog) 100 Unit/1 Ml Insuln.pen 25 Unit SQ HS Calcium Citrate 250 Mg Tablet 600 Mg PO DAILY Celebrex (Celecoxib) 200 Mg Capsule 200 Mg PO HS 30 Days Aspirin 81 Mg Tab.chew 81 Mg PO DAILY Prilosec Otc (Omeprazole Magnesium) 20 Mg Tablet.dr 20 Mg PO DAILY Nortriptyline Hcl 50 Mg Capsule 50 Mg PO DAILY Flomax (Tamsulosin Hcl) 0.4 Mg Cap.er.24h 0.4 Mg PO DAILY Bupropion Xl (Bupropion Hcl) 300 Mg Tab.er.24h 300 Mg PO DAILY Xenazine (Tetrabenazine) 12.5 Mg Tablet 12.5 Mg PO TID Novolog (Insulin Aspart) 100 Unit/1 Ml Cartridge 12-26 Unit SQ TIDAC Vitamin D2 (Ergocalciferol (Vitamin D2)) 50,000 Unit Capsule 50,000 Unit PO WEEKLY Metoprolol Tartrate 50 Mg Tablet 12.5 Mg PO BID Lipitor (Atorvastatin Calcium) 20 Mg Tablet 20 Mg PO DAILY Vitals/I & O Vital Sign - Last 24 Hours 06/23/19 06/23/19 06/23/19 06/23/19 03:15 07:00 08:00 11:00 Temp 97.6 97.7 97.7 97.6 97.7 97.7 Pulse 73 69 80 Resp 19 18 18 B/P (MAP) 115/56 (75) 108/59 (75) 113/56 (75) Pulse Ox 97 94 99 O2 Delivery Room Air Room Air Room Air Room Air 06/23/19 06/23/19 06/23/19 06/23/19 15:00 19:00 22:20 22:23 Temp 98.2 98.3 98.3 98.2 98.3 98.3 Pulse 88 100 100 100 Resp 18 18 18 B/P (MAP) 130/61 (84) 139/77 (97) 124/69 (87) 139/77 Pulse Ox 95 95 96 O2 Delivery Room Air Room Air Room Air 06/23/19 06/23/19 22:30 22:31 Pulse 100 100 B/P (MAP) 124/69 124/69 Intake and Output 06/22/19 06/22/19 06/23/19 15:00 23:00 07:00 Intake Total 0 ml Balance 0 ml CHARISSA OCONNOR MD Jun 23, 2019 23:17
[2019-06-24 02:45] VITALS: BP 113/60
[2019-06-24 07:00] VITALS: BP 95/53
[2019-06-24] MEDS ORDERED: PANTOPRAZOLE 40 MG TABLET.DR. PO SCH (07:30)
[2019-06-24] MEDS: INSULIN LISPRO 300 UNITS/3 ML VIAL. SQ SCH ×3 (08:00→17:00)
[2019-06-24] MEDS: METOPROLOL TART IMMED RELEASE 25 MG TABLET. PO SCH ×2 (09:00→21:31)
[2019-06-24] MEDS: TETRABENAZINE 12.5 MG PO SCH (09:00)
[2019-06-24] MEDS ORDERED: ERGOCALCIFEROL (VITAMIN D2) 50,000 UNIT CAPSULE. PO SCH (09:00)
[2019-06-24 11:00] VITALS: BP 97/64
[2019-06-24] MEDS: buPROPion XL 150 MG TAB.ER.24H. PO SCH (12:06)
[2019-06-24] MEDS: TAMSULOSIN 0.4 MG CAP.ER.24H. PO SCH (12:06)
[2019-06-24] MEDS: LACTOBACILLUS RHAMNOSUS GG 1 CAPSULE. PO SCH ×2 (12:06→21:30)
[2019-06-24] MEDS: FINASTERIDE 5 MG TABLET. PO SCH (12:07)
[2019-06-24] MEDS: CALCIUM CARBONATE 500 MG TABLET PO SCH (12:07)
[2019-06-24] MEDS: ASPIRIN CHEWABLE 81 MG TABLET. PO SCH (12:07)
--- NOTE | 2019-06-24 12:08 | SNU/HH DC ---
DISCHARGE ORDERS DISCHARGE INFORMATION: DISCHARGE DATE: Jun 24, 2019 FINAL DIAGNOSIS Problems Medical Problems: (1) Gastrostomy tube obstruction Status: Acute CONDITION ON DISCHARGE: Stable CODE STATUS: Code Status: Full POST DISCHARGE ORDERS: ACTIVITY ORDERS: Avoid exertion BATHING ORDERS: Shower-keep dressing dry DIET AFTER DISCHARGE: ADA WOUND/INCISION CARE: Ice to area for comfort, Other, see below CHECKS AFTER DISCHARGE: CHECKS AFTER DISCHARGE: Check blood press - daily, Check your Temp as needed TREATMENT/EQUIPMENT ORDERS: ADAPTIVE EQUIPMENT NEEDED: None Speech Language Pathology For: Evaluation/Treatment DISCHARGE MEDICATIONS: Home Meds Active Scripts Amoxicillin/Potassium Clav (AUGMENTIN 250-62.5 MG/5 ML) 250 Mg/5 Ml Susp.recon, 10 ML PO BID for aspiration pneumonia for 7 Days, #200 ML Prov:MAYRA JAY MD 01/23/19 Lactobacillus Rhamnosus Gg (CULTURELLE) 1 Each Cap.sprink, 1 CAP PO BID for diarrhea for 7 Days, #14 CAP Prov:MAYRA JAY MD 01/23/19 Polyethylene Glycol 3350 (POLYETHYLENE GLYCOL 3350) 17 Gm Powd.pack, 17 GM PO PRN DAILY PRN for CONSTIPATION 1ST CHOICE for 30 Days, #30 PKT Prov:MAYRA JAY MD 01/23/19 Diltiazem Hcl (CARDIZEM TABLET) 30 Mg Tablet, 30 MG PO Q8HRS for Afib for 30 Days, #90 TAB Prov:MAYRA JAY MD 01/23/19 Oxycodone/Apap 5-325 (PERCOCET 5-325 MG TABLET ) 1 Each Tablet, 1 TAB PO prn q4hs for PAIN for 6 Days, #24 TAB Prov:MAYRA JAY MD 01/23/19 Reported Medications Finasteride (PROSCAR) 5 Mg Tablet, 5 MG PO DAILY, TAB 04/14/17 Insulin Glargine,Hum.rec.anlog (LANTUS SOLOSTAR) 100 Unit/1 Ml Insuln.pen, 25 UNIT SQ HS, SYR 04/14/17 Calcium Citrate (CALCIUM CITRATE) 250 Mg Tablet, 600 MG PO DAILY 03/03/16 Celecoxib (CELEBREX) 200 Mg Capsule, 200 MG PO HS for 30 Days, CAP 0 Refills 03/03/16 Aspirin (ASPIRIN) 81 Mg Tab.chew, 81 MG PO DAILY, TAB.CHEW 07/17/14 Omeprazole Magnesium (PRILOSEC OTC) 20 Mg Tablet.dr, 20 MG PO DAILY, TAB 07/17/14 Nortriptyline Hcl (NORTRIPTYLINE HCL) 50 Mg Capsule, 50 MG PO DAILY, CAP 07/17/14 Tamsulosin Hcl (FLOMAX) 0.4 Mg Cap.er.24h, 0.4 MG PO DAILY, TAB 07/17/14 Bupropion Hcl (BUPROPION XL) 300 Mg Tab.er.24h, 300 MG PO DAILY 07/17/14 Tetrabenazine (XENAZINE) 12.5 Mg Tablet, 12.5 MG PO TID 07/17/14 Insulin Aspart (NOVOLOG) 100 Unit/1 Ml Cartridge, 12-26 UNIT SQ TIDAC 08/29/13 Ergocalciferol (Vitamin D2) (VITAMIN D2) 50,000 Unit Capsule, 10388 UNIT PO WEEKLY 08/29/13 Metoprolol Tartrate (METOPROLOL TARTRATE) 50 Mg Tablet, 12.5 MG PO BID 08/29/13 Atorvastatin Calcium (LIPITOR) 20 Mg Tablet, 20 MG PO DAILY 08/29/13 CHARISSA OCONNOR MD Jun 24, 2019 12:08
--- NOTE | 2019-06-24 13:30 | PDOC3 ---
Discharge Summary Visit Information Date of Admission: Jun 22, 2019 Date of Discharge: Jun 24, 2019 Admitting Diagnosis: Gastrostomy tube obstruction Final Diagnosis Problems Medical Problems: (1) Gastrostomy tube obstruction Status: Acute Brief Hospital Course Allergies Allergies Coded Allergies Type Severity Reaction Last Updated Verified buprenorphine HCl Allergy Intermediate 01/22/19 Yes naloxone HCl Allergy Intermediate 01/22/19 Yes Vital Signs Vital Signs Date Time Temp Pulse Resp B/P (MAP) Pulse Ox O2 Delivery O2 Flow Rate FiO2 06/24/19 11:00 97.9 64 18 97/64 (75) 97 Room Air 97.9 Lab Results Laboratory Tests Test 06/22/19 15:42 06/22/19 20:45 06/23/19 07:47 06/23/19 08:18 Glucose (Fingerstick) 92 mg/dL (70-99) 98 mg/dL (70-99) 63 mg/dL (70-99) 66 mg/dL (70-99) Test 06/23/19 09:37 06/23/19 11:11 06/23/19 17:03 06/23/19 23:09 Glucose (Fingerstick) 98 mg/dL (70-99) 107 mg/dL (70-99) 104 mg/dL (70-99) 149 mg/dL (70-99) Test 06/24/19 08:34 06/24/19 11:59 Glucose (Fingerstick) 138 mg/dL (70-99) 129 mg/dL (70-99) Laboratory Tests Test 06/23/19 17:03 06/23/19 23:09 06/24/19 08:34 06/24/19 11:59 Glucose (Fingerstick) 104 mg/dL (70-99) 149 mg/dL (70-99) 138 mg/dL (70-99) 129 mg/dL (70-99) Brief Hospital Course Mr. Montero is a 68 old male who presented with an obstructed ostomy tube, the patient is bed ridden as a consequence of a stroke, he was seen by Dr Tse who was able to unclog the tube. Patient deemed appropriate for discharge, no acute events reported throughout the hsopital stay no changes to his medications Discharge Information Condition at Discharge: Improved Follow Up: Weeks Disposition/Orders: D/C to Another Facility Scheduled Amoxicillin/Potassium Clav (Augmentin 250-62.5 Mg/5 Ml) 250 Mg/5 Ml Susp.recon, 10 ML PO BID for aspiration pneumonia for 7 Days, #200 Prescribed by: MAYRA JAY MD on 01/23/191401 Last Action: HELD on 06/23/191137 by CHARISSA OCONNOR MD Aspirin (Aspirin) 81 Mg Tab.chew, 81 MG PO DAILY, (Reported) Entered as Reported by: STEPHEN NEWTON on 07/17/14 1728 Last Action: Continued on 06/23/191138 by CHARISSA OCONNOR MD Atorvastatin Calcium (Lipitor) 20 Mg Tablet, 20 MG PO DAILY, (Reported) Entered as Reported by: HUNG LEE on 08/29/13 1522 Last Action: Continued on 06/23/191138 by CHARISSA OCONNOR MD Bupropion Hcl (Bupropion Xl) 300 Mg Tab.er.24h, 300 MG PO DAILY, (Reported) Entered as Reported by: STEPHEN NEWTON on 07/17/148 Last Action: Converted on 06/23/191138 by CHARISSA OCONNOR MD Calcium Citrate (Calcium Citrate) 250 Mg Tablet, 600 MG PO DAILY, (Reported) Entered as Reported by: FABIOLA DUONG on 03/03/16 1232 Last Action: Converted on 06/23/191138 by CHARISSA OCONNOR MD Celecoxib (Celebrex) 200 Mg Capsule, 200 MG PO HS for 30 Days, Ref 0 (Reported) Entered as Reported by: FABIOLA DUONG on 03/03/16 1231 Last Action: Converted on 06/23/191138 by CHARISSA OCONNOR MD Diltiazem Hcl (Cardizem Tablet) 30 Mg Tablet, 30 MG PO Q8HRS for Afib for 30 Days, #90 Prescribed by: MAYRA JAY MD on 01/23/191401 Last Action: Continued on 06/23/191138 by CHARISSA OCONNOR MD Ergocalciferol (Vitamin D2) (Vitamin D2) 50,000 Unit Capsule, 50,000 UNIT PO WEEKLY, (Reported) Entered as Reported by: HUNG LEE on 08/29/13 1522 Last Action: Continued on 06/23/191138 by CHARISSA OCONNOR MD Finasteride (Proscar) 5 Mg Tablet, 5 MG PO DAILY, (Reported) Entered as Reported by: STEPHEN NEWTON on 04/14/17 1350 Last Action: Continued on 06/23/191138 by CHARISSA OCONNOR MD Insulin Aspart (Novolog) 100 Unit/1 Ml Cartridge, 12-26 UNIT SQ TIDAC, (Rep orted) Entered as Reported by: HUNG LEE on 08/29/13 1522 Last Action: Converted on 06/23/191138 by CHARISSA OCONNOR MD Insulin Glargine,Hum.rec.anlog (Lantus Solostar) 100 Unit/1 Ml Insuln.pen, 25 UNIT SQ HS, (Reported) Entered as Reported by: STEPHEN NEWTON on 04/14/17 135 Last Action: Converted on 06/23/191138 by CHARISSA OCONNOR MD Lactobacillus Rhamnosus Gg (Culturelle) 1 Each Cap.sprink, 1 CAP PO BID for diarrhea for 7 Days, #14 Prescribed by: MAYRA JAY MD on 01/23/19 1402 Last Action: Continued on 06/23/191138 by CHARISSA OCONNOR MD Metoprolol Tartrate (Metoprolol Tartrate) 50 Mg Tablet, 12.5 MG PO BID, (Reported) Entered as Reported by: HUNG LEE on 08/29/13 1522 Last Action: Continued on 06/23/191138 by CHARISSA OCONNOR MD Nortriptyline Hcl (Nortriptyline Hcl) 50 Mg Capsule, 50 MG PO DAILY, (Reported) Entered as Reported by: STEPHEN NEWTON on 07/17/141727 Last Action: Converted on 06/23/191138 by CHARISSA OCONNOR MD Omeprazole Magnesium (Prilosec Otc) 20 Mg Tablet.dr, 20 MG PO DAILY, (Reported) Entered as Reported by: STEPHEN NEWTON on 07/17/141727 Last Action: Converted on 06/23/191138 by CHARISSA OCONNOR MD Tamsulosin Hcl (Flomax) 0.4 Mg Cap.er.24h, 0.4 MG PO DAILY, (Reported) Entered as Reported by: STEPHEN NEWTON on 07/17/141727 Last Action: Continued on 06/23/191138 by CHARISSA OCONNOR MD Tetrabenazine (Xenazine) 12.5 Mg Tablet, 12.5 MG PO TID, (Reported) Entered as Reported by: STEPHEN NEWTON on 07/17/14 1728 Last Action: Converted on 06/23/19 1139 by CHARISSA OCONNOR MD Scheduled PRN Polyethylene Glycol 3350 (Polyethylene Glycol 3350) 17 Gm Powd.pack, 17 GM PO PRN DAILY PRN for CONSTIPATION 1ST CHOICE for 30 Days, #30 Prescribed by: MAYRA JAY MD on 01/23/19 1402 Last Action: Continued on 06/23/19 1139 by CHARISSA OCONNOR MD Discontinued Medications Oxycodone/Apap 5-325 (Percocet 5-325 Mg Tablet ) 1 Each Tablet, 1 TAB PO prn q4hs for PAIN for 6 Days, #24 Prescribed by: MAYRA JAY MD on 01/23/192 CHARISSA OCONNOR MD Jun 24, 2019 13:30
[2019-06-24] MEDS: dilTIAZem HCL 30 MG TABLET PO SCH ×2 (14:00→21:45)
[2019-06-24 15:00] VITALS: BP 102/59
[2019-06-24] MEDS: IV NORMAL SALINE 1000ML BAG 1,000 ML IV SCH (16:30)
[2019-06-24 19:00] VITALS: BP 108/63
--- NOTE | 2019-06-24 20:05 | NUR ---
At 1630 this PM pt was ready for transport back to [facility]. Report had been given to RN and transportation arranged. I received an unexpected call back from [facility] to say that they could not accept pt today and that they wound not accept pt back unless he had a new Peg tube. I explained that the tube was in excellent working condition, but that it no longer had the multiple stop-cock tip on it, but that it worked just fine using the clamp and a piston syringe. The nurse I spoke with yesterday at [facility] said that the patient did not need to be cleared by their admissions nurse since he was a returning patient, because I had asked if any other calls were necessary. However, today's nurse, after three other conversations today indicating that they were accepting the pt back, then changed her response to "we cannot accept the pt today". Discharge order cancelled. Will consult tutoring manager/delinquency prevention social worker for tomorrow.
[2019-06-24] MEDS: CELECOXIB 100 MG CAPSULE. PO SCH (21:30)
[2019-06-24] MEDS: NORTRIPTYLINE 25 MG CAPSULE PO SCH (21:30)
[2019-06-24] MEDS: ATORVASTATIN CALCIUM 20 MG TABLET PO SCH (21:30)
[2019-06-24] MEDS: ENOXAPARIN 40 MG/0.4 ML SYRINGE. SQ SCH (21:31)
[2019-06-24] MEDS: INSULIN GLARGINE SYRINGE. SQ SCH (21:42)
[2019-06-24 23:00] VITALS: BP 108/56
[2019-06-25 03:00] VITALS: BP 113/52
[2019-06-25] MEDS: IV NORMAL SALINE 1000ML BAG 1,000 ML IV SCH (04:53)
[2019-06-25] MEDS: dilTIAZem HCL 30 MG TABLET PO SCH ×2 (06:00→13:22)
[2019-06-25 06:06] VITALS: BP 108/49
[2019-06-25] MEDS: INSULIN LISPRO 300 UNITS/3 ML VIAL. SQ SCH ×2 (08:00→11:41)
[2019-06-25] MEDS: LACTOBACILLUS RHAMNOSUS GG 1 CAPSULE. PO SCH (09:00)
[2019-06-25] MEDS: TAMSULOSIN 0.4 MG CAP.ER.24H. PO SCH (09:00)
[2019-06-25] MEDS: METOPROLOL TART IMMED RELEASE 25 MG TABLET. PO SCH (09:00)
[2019-06-25] MEDS: FINASTERIDE 5 MG TABLET. PO SCH (09:00)
[2019-06-25] MEDS: ASPIRIN CHEWABLE 81 MG TABLET. PO SCH (09:02)
[2019-06-25] MEDS: CALCIUM CARBONATE 500 MG TABLET PO SCH (09:02)
[2019-06-25] MEDS: buPROPion 100 MG TABLET PO SCH ×2 (09:06→13:23)
--- NOTE | 2019-06-25 09:46 | PDOC ---
Objective: Objective: D/w nurse - PEG functioning. D/w social work - contacting facility regarding returning there today. Vital Signs: Vital Signs Date Time Temp Pulse Resp B/P (MAP) Pulse Ox O2 Delivery O2 Flow Rate FiO2 06/25/19 06:06 55 108/49 (68) 06/25/19 03:00 98.6 16 94 Room Air 98.6 Labs: Laboratory Tests Test 06/24/19 11:59 06/24/19 16:37 06/24/19 20:56 06/25/19 07:27 Glucose (Fingerstick) 129 mg/dL 90 mg/dL 121 mg/dL 98 mg/dL PE: GEN: NAD LUNGS: CTAB HEART: RRR ABD: soft, non-tender, PEG in place - tube is short, tightened bumper, feeds running NEURO/PSYCH: awakens, did not verbalize with me A/P: G tube malfunction - resolved, tube functioning for feeds -- Plans as above, DC okay per GI. Hemodynamically unstable?: No Is patient in severe pain?: No Is NPO status required?: Yes (dyspahgia/PEG) NASIR MONTGOMERY Jun 25, 2019 09:46
[2019-06-25] MEDS ORDERED: LANSOPRAZOLE 30 MG TAB.RAP.DR FT SCH (10:00)
--- NOTE | 2019-06-25 10:16 | PDOC ---
PROGRESS NOTES Chief Complaint Chief Complaint DISCHARGE DX MAlfunctioning G tube///G tube malfunction - resolved, tube functioning for feeds COnstipation CVA with LEFT hemiplegia HTN PLAN: GI following SUpp or enema for stool FULL CODE TFs now BAck to [facility] on dc hopefully 06/25 D/C PLANNING 33 MIN History of Present Illness History of Present Illness no complaints during my visit, no acute events reported overnight. Vitals Vitals Vital Signs Date Time Temp Pulse Resp B/P (MAP) Pulse Ox O2 Delivery O2 Flow Rate FiO2 06/25/19 06:06 55 108/49 (68) 06/25/19 03:00 98.6 16 94 Room Air 98.6 Physical Exam General: Alert, Cooperative, No acute distress, Other (awake, soft voice) Lungs: Clear Abdomen: Normal bowel sounds, Soft, Other (G tube in place with dry aspirate) Extremities: No clubbing, No cyanosis, No edema, Normal pulses, No tenderness/swelling, Other (contracted left arm, foot drop, rt dorsal foot scar; can move RT hand/arm some) Skin: No rashes, No breakdown, No significant lesion Labs LABS Laboratory Tests Test 06/24/19 11:59 06/24/19 16:37 06/24/19 20:56 06/25/19 07:27 Glucose (Fingerstick) 129 mg/dL (70-99) 90 mg/dL (70-99) 121 mg/dL (70-99) 98 mg/dL (70-99) Assessment and Plan Assessmemt and Plan Problems Medical Problems: (1) Gastrostomy tube obstruction Status: Acute Comment Review of Relevant I have reviewed the following items ricardo (where applicable) has been applied. Labs Laboratory Tests Test 06/23/19 11:11 06/23/19 17:03 06/23/19 23:09 06/24/19 08:34 Glucose (Fingerstick) 107 mg/dL (70-99) 104 mg/dL (70-99) 149 mg/dL (70-99) 138 mg/dL (70-99) Test 06/24/19 11:59 06/24/19 16:37 06/24/19 20:56 06/25/19 07:27 Glucose (Fingerstick) 129 mg/dL (70-99) 90 mg/dL (70-99) 121 mg/dL (70-99) 98 mg/dL (70-99) Laboratory Tests Test 06/24/19 11:59 06/24/19 16:37 06/24/19 20:56 06/25/19 07:27 Glucose (Fingerstick) 129 mg/dL (70-99) 90 mg/dL (70-99) 121 mg/dL (70-99) 98 mg/dL (70-99) Medications Current Medications Lorazepam (Ativan Inj) 0.5 mg 1X ONCE IM Last administered on 06/22/19at 15:12; Start 06/22/19 at 15:00; Stop 06/22/19 at 15:01; Status DC Sodium Chloride 1,000 ml @ 100 mls/hr 1X ONCE IV ; Start 06/22/19 at 16:45; Stop 06/23/19 at 02:44; Status DC Ondansetron HCl (Zofran) 4 mg PRN Q8HRS PRN IV NAUSEA/VOMITING; Start 06/22/19 at 16:45; Stop 06/23/19 at 16:44; Status DC Sodium Chloride 1,000 ml @ 80 mls/hr [id number] IV Last administered on 06/25/19at 04:53; Start 06/23/19 at 03:00 Pantoprazole Sodium (PROTONIX VIAL for IV PUSH) 40 mg DAILYAC IVP Last administered on 06/23/19at 06:02; Start 06/23/19 at 07:30; Stop 06/23/19 at 11:46; Status DC Pantoprazole Sodium (PROTONIX VIAL for IV PUSH) 40 mg 1X ONCE IVP ; Start 06/22/19 at 17:30; Stop 06/22/19 at 17:31; Status DC Enoxaparin Sodium (Lovenox 40mg Syringe) 40 mg Q24H SQ Last administered on 06/24/19at 21:31; Start 06/22/19 at 21:00 Labetalol HCl (Normodyne Iv Push) 10 mg PRN Q2HR PRN IVP HYPERTENSION; Start 06/22/19 at 16:45 Diphenhydramine HCl (Benadryl) 25 mg QHS PRN IVP SLEEP; Start 06/22/19 at 16:45 Fentanyl Citrate (Fentanyl 2ml Vial) 50 mcg PRN Q2HR PRN IVP PAIN; Start 06/22/19 at 16:45 Bisacodyl (Dulcolax Supp) 10 mg 1X ONCE IN ; Start 06/22/19 at 18:00; Stop 06/22/19 at 18:01; Status DC Bisacodyl (Dulcolax Supp) 10 mg PRN DAILY PRN IN CONSTIPATION, 1ST CHOICE; Start 06/22/19 at 18:00 Sodium Monofluorophosphate (Fleet Adult) 133 ml DAILY PRN IN CONSTIPATION, 2ND CHOICE; Start 06/22/19 at 18:00 Dextrose 250 ml @ As Directed STK-MED ONCE IV ; Start 06/23/19 at 08:22; Stop 06/23/19 at 08:23; Status DC Aspirin (Children'S Aspirin) 81 mg DAILY PO Last administered on 06/25/19at 09:02; Start 06/23/19 at 12:00 Atorvastatin Calcium (Lipitor) 20 mg QHS PO Last administered on 06/24/19at 21:30; Start 06/23/19 at 21:00 Diltiazem HCl (Cardizem) 30 mg Q8HRS PO Last administered on 06/24/19at 21:45; Start 06/23/19 at 14:00 Ergocalciferol (Vitamin D2) 50,000 unit WEEKLY PO Last administered on 06/24/19at 12:07; Start 06/24/19 at 09:00 Finasteride (Proscar) 5 mg DAILY PO Last administered on 06/24/19at 12:07; Start 06/23/19 at 12:00 Lactobacillus Rhamnosus (Culturelle) 1 cap BID PO Last administered on 06/24/19at 21:30; Start 06/23/19 at 12:00 Metoprolol Tartrate (Lopressor) 12.5 mg BID PO Last administered on 06/24/19at 21:31; Start 06/23/19 at 12:00 Polyethylene Glycol (miraLAX PACKET) 17 gm PRN DAILY PRN PO CONSTIPATION 1ST CHOICE; Start 06/23/19 at 11:45 Tamsulosin HCl (Flomax) 0.4 mg DAILY PO Last administered on 06/24/19at 12:06; Start 06/23/19 at 12:00 Bupropion HCl (Wellbutrin Xl) 300 mg DAILY PO Last administered on 06/24/19at 12:06; Start 06/23/19 at 12:00; Stop 06/25/19 at 08:54; Status DC Calcium Carbonate/ Glycine (Oscal) 500 mg DAILY PO Last administered on 06/25/19at 09:02; Start 06/23/19 at 12:00 Celecoxib (CeleBREX) 200 mg QHS PO Last administered on 06/24/19at 21:30; Start 06/23/19 at 21:00 Insulin Human Lispro (HumaLOG) 12 units TIDWMEALS SQ ; Start 06/23/19 at 12:00 Insulin Glargine (Lantus Syringe) 25 unit QHS SQ Last administered on 06/24/19at 21:42; Start 06/23/19 at 21:00 Nortriptyline HCl (Pamelor) 50 mg QHS PO Last administered on 06/24/19at 21:30; Start 06/23/19 at 21:00 Pantoprazole Sodium (Protonix) 40 mg DAILYAC PO ; Start 06/24/19 at 07:30; Stop 06/25/19 at 08:54; Status DC Non-Formulary Medication (Tetrabenazine (Xenazine)) 12.5 mg TID PO ; Start 06/23/19 at 14:00; Stop 06/24/19 at 14:10; Status DC Lansoprazole (Prevacid) 30 mg DAILY FT Last administered on 06/25/19at 09:06; Start 06/25/19 at 10:00 Bupropion HCl (Wellbutrin) 100 mg [id number] PO Last administered on 06/25/19at 0 9:06; Start 06/25/19 at 10:00 Active Scripts Active Augmentin 250-62.5 Mg/5 Ml (Amoxicillin/Potassium Clav) 250 Mg/5 Ml Susp.recon 10 Ml PO BID 7 Days Culturelle (Lactobacillus Rhamnosus Gg) 1 Each Cap.sprink 1 Cap PO BID 7 Days Polyethylene Glycol 3350 17 Gm Powd.pack 17 Gm PO PRN DAILY PRN 30 Days Cardizem Tablet (Diltiazem Hcl) 30 Mg Tablet 30 Mg PO Q8HRS 30 Days Reported Proscar (Finasteride) 5 Mg Tablet 5 Mg PO DAILY Lantus Solostar (Insulin Glargine,Hum.rec.anlog) 100 Unit/1 Ml Insuln.pen 25 Unit SQ HS Calcium Citrate 250 Mg Tablet 600 Mg PO DAILY Celebrex (Celecoxib) 200 Mg Capsule 200 Mg PO HS 30 Days Aspirin 81 Mg Tab.chew 81 Mg PO DAILY Prilosec Otc (Omeprazole Magnesium) 20 Mg Tablet.dr 20 Mg PO DAILY Nortriptyline Hcl 50 Mg Capsule 50 Mg PO DAILY Flomax (Tamsulosin Hcl) 0.4 Mg Cap.er.24h 0.4 Mg PO DAILY Bupropion Xl (Bupropion Hcl) 300 Mg Tab.er.24h 300 Mg PO DAILY Xenazine (Tetrabenazine) 12.5 Mg Tablet 12.5 Mg PO TID Novolog (Insulin Aspart) 100 Unit/1 Ml Cartridge 12-26 Unit SQ TIDAC Vitamin D2 (Ergocalciferol (Vitamin D2)) 50,000 Unit Capsule 50,000 Unit PO WEEKLY Metoprolol Tartrate 50 Mg Tablet 12.5 Mg PO BID Lipitor (Atorvastatin Calcium) 20 Mg Tablet 20 Mg PO DAILY Vitals/I & O Vital Sign - Last 24 Hours 06/24/19 06/24/19 06/24/19 06/24/19 11:00 15:00 19:00 20:15 Temp 97.9 97.7 97.3 97.9 97.7 97.3 Pulse 64 66 65 Resp 18 18 18 B/P (MAP) 97/64 (75) 102/59 (73) 108/63 (78) Pulse Ox 97 96 96 O2 Delivery Room Air Room Air Room Air Room Air 06/24/19 06/24/19 06/24/19 06/25/19 21:31 21:45 23:00 03:00 Temp 98.2 98.6 98.2 98.6 Pulse 65 65 54 63 Resp 16 16 B/P (MAP) 108/63 108/63 108/56 (73) 113/52 (72) Pulse Ox 96 94 O2 Delivery Room Air Room Air 06/25/19 06/25/19 06:00 06:06 Pulse 55 55 B/P (MAP) 108/49 108/49 (68) Intake and Output 06/24/19 06/24/19 06/25/19 15:00 23:00 07:00 Intake Total 0 ml 0 ml 1075 ml Balance 0 ml 0 ml 1075 ml Hemodynamically unstable?: No Is patient in severe pain?: No Is NPO status required?: Yes (dyspahgia/PEG) BRYON TEJEDA MD Jun 25, 2019 10:15
[2019-06-25 11:00] VITALS: BP 114/58
--- NOTE | 2019-06-25 11:42 | SNU/HH DC ---
DISCHARGE ORDERS DISCHARGE INFORMATION: DISCHARGE DATE: Jun 24, 2019 FINAL DIAGNOSIS Problems Medical Problems: (1) Gastrostomy tube obstruction Status: Acute CONDITION ON DISCHARGE: Stable CODE STATUS: Code Status: Full CUSTODIAL: SNF STAY <30 DAYS: Yes HOSPICE: HOSPICE: No HOSPICE EVAL & TREAT: No POST DISCHARGE ORDERS: ACTIVITY ORDERS: Avoid exertion BATHING ORDERS: Shower-keep dressing dry DIET AFTER DISCHARGE: ADA WOUND/INCISION CARE: Other, see below OTHER WOUND INSTRUCTIONS: petrolatum gauze with regular gauze or foam dressing CHECKS AFTER DISCHARGE: CHECKS AFTER DISCHARGE: Check blood press - daily, Check your Temp as needed FOLLOW-UP: ADDITIONAL FOLLOW-UP: GI clinic for replacement of peg tube or new tip TREATMENT/EQUIPMENT ORDERS: ADAPTIVE EQUIPMENT NEEDED: None Speech Language Pathology For: Evaluation/Treatment DISCHARGE MEDICATIONS: Home Meds Active Scripts Amoxicillin/Potassium Clav (AUGMENTIN 250-62.5 MG/5 ML) 250 Mg/5 Ml Susp.recon, 10 ML PO BID for aspiration pneumonia for 7 Days, #200 ML Prov:MAYRA JAY MD 01/23/19 Lactobacillus Rhamnosus Gg (CULTURELLE) 1 Each Cap.sprink, 1 CAP PO BID for diarrhea for 7 Days, #14 CAP Prov:MAYRA JAY MD 01/23/19 Polyethylene Glycol 3350 (POLYETHYLENE GLYCOL 3350) 17 Gm Powd.pack, 17 GM PO PRN DAILY PRN for CONSTIPATION 1ST CHOICE for 30 Days, #30 PKT Prov:MAYRA JAY MD 01/23/19 Diltiazem Hcl (CARDIZEM TABLET) 30 Mg Tablet, 30 MG PO Q8HRS for Afib for 30 Days, #90 TAB Prov:MAYRA JAY MD 01/23/19 Reported Medications Finasteride (PROSCAR) 5 Mg Tablet, 5 MG PO DAILY, TAB 04/14/17 Insulin Glargine,Hum.rec.anlog (LANTUS SOLOSTAR) 100 Unit/1 Ml Insuln.pen, 25 UNIT SQ HS, SYR 04/14/17 Calcium Citrate (CALCIUM CITRATE) 250 Mg Tablet, 600 MG PO DAILY 03/03/16 Celecoxib (CELEBREX) 200 Mg Capsule, 200 MG PO HS for 30 Days, CAP 0 Refills 03/03/16 Aspirin (ASPIRIN) 81 Mg Tab.chew, 81 MG PO DAILY, TAB.CHEW 07/17/14 Omeprazole Magnesium (PRILOSEC OTC) 20 Mg Tablet.dr, 20 MG PO DAILY, TAB 07/17/14 Nortriptyline Hcl (NORTRIPTYLINE HCL) 50 Mg Capsule, 50 MG PO DAILY, CAP 07/17/14 Tamsulosin Hcl (FLOMAX) 0.4 Mg Cap.er.24h, 0.4 MG PO DAILY, TAB 07/17/14 Bupropion Hcl (BUPROPION XL) 300 Mg Tab.er.24h, 300 MG PO DAILY 07/17/14 Tetrabenazine (XENAZINE) 12.5 Mg Tablet, 12.5 MG PO TID 07/17/14 Insulin Aspart (NOVOLOG) 100 Unit/1 Ml Cartridge, 12-26 UNIT SQ TIDAC 08/29/13 Ergocalciferol (Vitamin D2) (VITAMIN D2) 50,000 Unit Capsule, 80789 UNIT PO WEEKLY 08/29/13 Metoprolol Tartrate (METOPROLOL TARTRATE) 50 Mg Tablet, 12.5 MG PO BID 08/29/13 Atorvastatin Calcium (LIPITOR) 20 Mg Tablet, 20 MG PO DAILY 08/29/13 Discontinued Scripts Oxycodone/Apap 5-325 (PERCOCET 5-325 MG TABLET ) 1 Each Tablet, 1 TAB PO prn q4hs for PAIN for 6 Days, #24 TAB Prov:MAYRA JAY MD 01/23/19 BRYON TEJEDA MD Jun 25, 2019 11:42
--- NOTE | 2019-06-25 12:39 | NUR ---
SW following. Discussed with RN, pt from [facility] - Returning back today, discharge orders and updates faxed. Transportation set up for [phone]. RN notified.
[2019-06-25 14:56] VITALS: BP 113/56
--- NOTE | 2019-06-25 15:37 | NUR ---
pt is discharged to [facility] at 1518 via EMS. pt is in stable condition. pt did not have any belongings with him upon arrival. gave report to Sary at [facility] and she stated she had no further questions for me. discharge packet given to transportation.
== END 2019-06-25 15:18 | DRG 393 ==
LOC: ER 13:40 → 4 NORTH 16:30
PROVIDERS: ADMIT Internal Medicine; ATTEND Internal Medicine
DX: K94.23 Gastrostomy malfunction (principal); I63.9 Cerebral infarction, unspecified; G81.94 Hemiplegia, unspecified affecting left nondominant side; E11.22 Type 2 diabetes mellitus with diabetic chronic kidney disease; I12.9 Hypertensive chronic kidney disease with stage 1 through stage 4 chronic kidney disease, or unspecified chronic kidney disease; K59.00 Constipation, unspecified; N18.9 Chronic kidney disease, unspecified; Z74.01 Bed confinement status; Z86.73 Personal history of transient ischemic attack (TIA), and cerebral infarction without residual deficits; Z90.49 Acquired absence of other specified parts of digestive tract; Z96.659 Presence of unspecified artificial knee joint; F32.9 Major depressive disorder, single episode, unspecified; K21.9 Gastro-esophageal reflux disease without esophagitis
CPT/HCPCS: 43762; 82962; 96372; C9113; J1650; J1815; J2060; J7030; 99285-25; G0378

== ENCOUNTER 2020-02-17 15:28 | Emergency (ER) | payer BC, OTHER ==
[~2020-02-17] VITALS: Ht 182.9 cm; Wt 90.0 kg
[~2020-02-17 15:28] MED LIST changes: +DOCU250C15 PO; -DOCU250C54 PO
[2020-02-17 15:52] LABS: BASO % 0 % (0-3); EOS # 0.1 x10^3/uL (0.0-0.7); EOS % 1 % (0-3); HEMATOCRIT 51.2 % (39.0-53.0); HEMOGLOBIN 17.2 g/dL (13.0-17.5); LYMPH % 11 % (24-48); MEAN CORPUSCULAR HEMOGLOBIN 32 pg (25-35); MEAN CORPUSCULAR HGB CONC 34 g/dL (31-37); MEAN CORPUSCULAR VOLUME 96 fL (79-100); MONO # 0.8 x10^3/uL (0.0-1.1); MONO % 9 % (0-9); NEUT # 7.4 x10^3/uL (1.8-7.7); NEUT % 79 % (31-73); PLATELET COUNT 154 x10^3/uL (140-400); RED BLOOD COUNT 5.35 x10^6/uL (4.30-5.70); RED CELL DISTRIBUTION WIDTH 14.6 % (11.5-14.5); WHITE BLOOD COUNT 9.3 x10^3/uL (4.0-11.0)
[2020-02-17 16:00] LABS: CALCIUM 8.6 mg/dL (8.5-10.1); CREATININE 0.6 mg/dL (0.7-1.3); GFR 133.6; POTASSIUM 3.8 mmol/L (3.5-5.1)
[2020-02-17 16:06] LABS: ALBUMIN 3.3 g/dL (3.4-5.0); ALBUMIN/GLOBULIN RATIO 0.7 (1.0-1.7); TOTAL BILIRUBIN 0.9 mg/dL (0.2-1.0); TOTAL PROTEIN 7.8 g/dL (6.4-8.2)
[2020-02-17] MEDS ORDERED: IOHEXOL 300 MG/ML 100ML VIAL. IV ONE (16:30)
--- NOTE | 2020-02-17 16:56 | RAD ---
Exam: CT of abdomen and pelvis with contrast INDICATION: Abdominal pain, distention TECHNIQUE: Sequential axial images through the abdomen and pelvis obtained following the administration of 75 mL of Omni 300 IV contrast. Sagittal and coronal reformatted images were reconstructed from the axial data and reviewed. Comparisons: None FINDINGS: Heart size is normal. No pericardial effusion. Strandy opacities at dependent portion lungs likely representing atelectasis. No pleural effusion. Liver, spleen, pancreas, gallbladder and adrenals are unremarkable. No perinephric inflammation or hydronephrosis. Simple cyst at the mid left kidney. No renal or ureteral calculi are identified. Bladder is distended and appears thin-walled. Prostate is not enlarged. Large amount stool is noted at the rectum. Overall there is a large stool burden noted throughout the colon. Small bowel is unremarkable. Appendix is not identified. No free intra-abdominal air or fluid. No obstruction. Abdominal aorta has a normal course and caliber. Abdominal vasculature is patent. No enlarged intra-abdominal lymph nodes are identified. No suspicious osseous lesions or acute fractures. IMPRESSION: 1. Large amount stool noted in colon particularly at the rectum. Correlate for stercoral colitis. 2. Distended bladder. Correlate for bladder outlet obstruction. Exposure: One or more of the following in the visualized dose reduction techniques were utilized for this examination: 1. Automated exposure control 2. Adjustment of the MA and/or KV according to patient size 3. Use of iterative of reconstructive technique Electronically signed by: Coby Matson MD (02/17/2020 4:53 PM) [id number]
--- NOTE | 2020-02-17 18:38 | PHYS DOC ---
Past Medical History Past Medical History: Arthritis, CAD, CVA, Depression, Diabetes-Type II, GERD, Heart Disease, Hypertension, MRSA, Stroke Additional Past Medical Histor: MRSA, cervical dystonia, L side defecit following stroke,pneumonitis Past Surgical History: Appendectomy, Knee Replacement, Tonsillectomy, Other Additional Past Surgical Histo: DEEP BRAIN STIMULATOR Smoking Status: Unknown if ever smoked Alcohol Use: Sober Drug Use: None General Adult EDM: Chief Complaint: ABDOMINAL PAIN HPI: HPI: Patient is a 69 year old male with history of hypertension, diabetes type 2, CAD, feeding tube, who presents the ED today to be evaluated for abdominal distention the detention noted today. Patient is a poor historian. Review of Systems: Review of Systems: Constitutional: Denies fever or chills. [] Eyes: Denies change in visual acuity. [] HENT: Denies nasal congestion or sore throat. [] Respiratory: Denies cough or shortness of breath. [] Cardiovascular: Denies chest pain or edema. [] GI: senior living reports abdominal distention, they deny patient having any nausea, vomiting or diarrhea : Denies dysuria. [] Musculoskeletal: Denies back pain or joint pain. [] Integument: Denies rash. [] Neurologic: Denies headache, focal weakness or sensory changes. [] Psychiatric: Denies depression or anxiety. [] Heart Score: Risk Factors: Risk Factors: DM, Current or recent (<one month) smoker, HTN, HLP, family history of CAD, obesity. Risk Scores: Score 0 - 3: 2.5% MACE over next 6 weeks - Discharge Home Score 4 - 6: 20.3% MACE over next 6 weeks - Admit for Clinical Observation Score 7 - 10: 72.7% MACE over next 6 weeks - Early Invasive Strategies Current Medications: Current Medications Medications (Trade) Dose Ordered Sig/Zechariah Start Time Stop Time Status Last Admin Dose Admin Iohexol (Omnipaque 300 Mg/ml) 75 ml 1X ONCE 02/17/20 16:30 02/17/20 16:31 DC 02/17/20 16:44 75 ML Allergies: Allergies: Allergies Coded Allergies Type Severity Reaction Last Updated Verified buprenorphine HCl Allergy Intermediate 01/22/19 Yes naloxone HCl Allergy Intermediate 01/22/19 Yes Physical Exam: PE: Constitutional: Well developed, well nourished, no acute distress, non-toxic appearance. [] HENT: Normocephalic, atraumatic, bilateral external ears normal, oropharynx moist, no oral exudates, nose normal. [] Eyes: PERRLA, EOMI, conjunctiva normal, no discharge. [] Neck: Normal range of motion, no tenderness, supple, no stridor. [] Cardiovascular:Heart rate regular rhythm, no murmur [] Lungs & Thorax: Bilateral breath sounds clear to auscultation [] Abdomen: Feeding tube noted. Abdominal distention noted. Abdomen feels firm. Bowel sounds normal, soft, masslike distention noted on the left side of the abdomen, no pulsatile masses. [] Skin: Warm, dry, no erythema, no rash. [] Back: No tenderness, no CVA tenderness. [] Extremities: No tenderness, no cyanosis, no clubbing, ROM intact, no edema. [] Neurologic: Alert and oriented X 1, normal motor function, normal sensory function, no focal deficits noted. [] Psychologic: Affect normal, judgement normal, mood normal. [] Current Patient Data: Labs: Laboratory Tests Test 02/17/20 15:40 White Blood Count 9.3 x10^3/uL (4.0-11.0) Red Blood Count 5.35 x10^6/uL (4.30-5.70) Hemoglobin 17.2 g/dL (13.0-17.5) Hematocrit 51.2 % (39.0-53.0) Mean Corpuscular Volume 96 fL (79-100) Mean Corpuscular Hemoglobin 32 pg (25-35) Mean Corpuscular Hemoglobin Concent 34 g/dL (31-37) Red Cell Distribution Width 14.6 % (11.5-14.5) H Platelet Count 154 x10^3/uL (140-400) Neutrophils (%) (Auto) 79 % (31-73) H Lymphocytes (%) (Auto) 11 % (24-48) L Monocytes (%) (Auto) 9 % (0-9) Eosinophils (%) (Auto) 1 % (0-3) Basophils (%) (Auto) 0 % (0-3) Neutrophils # (Auto) 7.4 x10^3/uL (1.8-7.7) Lymphocytes # (Auto) 1.0 x10^3/uL (1.0-4.8) Monocytes # (Auto) 0.8 x10^3/uL (0.0-1.1) Eosinophils # (Auto) 0.1 x10^3/uL (0.0-0.7) Basophils # (Auto) 0.0 x10^3/uL (0.0-0.2) Sodium Level 139 mmol/L (136-145) Potassium Level 3.8 mmol/L (3.5-5.1) Chloride Level 104 mmol/L (98-107) Carbon Dioxide Level 24 mmol/L (21-32) Anion Gap 11 (6-14) Blood Urea Nitrogen 19 mg/dL (8-26) Creatinine 0.6 mg/dL (0.7-1.3) L Estimated GFR (Cockcroft-Gault) 133.6 BUN/Creatinine Ratio 32 (6-20) H Glucose Level 221 mg/dL (70-99) H Calcium Level 8.6 mg/dL (8.5-10.1) Magnesium Level 2.0 mg/dL (1.8-2.4) Total Bilirubin 0.9 mg/dL (0.2-1.0) Aspartate Amino Transferase (AST) 31 U/L (15-37) Alanine Aminotransferase (ALT) 47 U/L (16-63) Alkaline Phosphatase 129 U/L (46-116) H Total Protein 7.8 g/dL (6.4-8.2) Albumin 3.3 g/dL (3.4-5.0) L Albumin/Globulin Ratio 0.7 (1.0-1.7) L Lipase 93 U/L (73-393) Laboratory Tests 02/17/20 15:40 Laboratory Tests 02/17/20 15:40 EKG: EKG: [] Radiology/Procedures: Radiology/Procedures: []PROCEDURE: CT ABD PELV W/ IV CONTRST ONLY Exam: CT of abdomen and pelvis with contrast INDICATION: Abdominal pain, distention TECHNIQUE: Sequential axial images through the abdomen and pelvis obtained following the administration of 75 mL of Omni 300 IV contrast. Sagittal and coronal reformatted images were reconstructed from the axial data and reviewed. Comparisons: None FINDINGS: Heart size is normal. No pericardial effusion. Strandy opacities at dependent portion lungs likely representing atelectasis. No pleural effusion. Liver, spleen, pancreas, gallbladder and adrenals are unremarkable. No perinephric inflammation or hydronephrosis. Simple cyst at the mid left kidney. No renal or ureteral calculi are identified. Bladder is distended and appears thin-walled. Prostate is not enlarged. Large amount stool is noted at the rectum. Overall there is a large stool burden noted throughout the colon. Small bowel is unremarkable. Appendix is not identified. No free intra-abdominal air or fluid. No obstruction. Abdominal aorta has a normal course and caliber. Abdominal vasculature is patent. No enlarged intra-abdominal lymph nodes are identified. No suspicious osseous lesions or acute fractures. IMPRESSION: 1. Large amount stool noted in colon particularly at the rectum. Correlate for stercoral colitis. 2. Distended bladder. Correlate for bladder outlet obstruction. Exposure: One or more of the following in the visualized dose reduction techniques were utilized for this examination: 1. Automated exposure control 2. Adjustment of the MA and/or KV according to patient size 3. Use of iterative of reconstructive technique Electronically signed by: Christoph Santos MD (02/17/2020 4:53 PM) [id number] DICTATED and SIGNED BY: CHRISTOPH SANTOS MD DATE: 02/17/201652 Course & Med Decision Making: Course & Med Decision Making Pertinent Labs and Imaging studies reviewed. (See chart for details) This is a 69-year-old male patient presenting to the ED today from a detention to be evaluated for abdominal distention. CBC, CMP with nothing really acute, blood glucose noted at 222, anion gap is normal, patient has a history of diabetes type 2. CT of the abdomen and pelvic with IV contrast was noted for large amount stool noted in colon particularly at the rectum. Distended bladder. Correlate for bladder outlet obstruction. Milk of molasses enema done in the ED with success. D/c back to the detention. Dragon Disclaimer: Dragon Disclaimer: This electronic medical record was generated, in whole or in part, using a voice recognition dictation system. Departure Departure Impression: Primary Impression: Constipation Qualified Codes: K59.00 - Constipation, unspecified Additional Impression: Hyperglycemia Disposition: HOME, SELF-CARE Condition: STABLE Referrals: UNKNOWN PCP NAME (PCP) follow up with your doctor in the course of this week Patient Instructions: Constipation, Adult Additional Instructions: You were noted to be constipated on CAT scan. Please increase your water intake, consider taking MiraLAX every day to prevent constipation. An enema should be performed at night to relieve constipation. Justicifation of Admission Dx: Justifications for Admission: Justification of Admission Dx: N/A LORETTA TOTH APRN Feb 17, 2020 18:37
[2020-02-17 20:00] VITALS: BP 144/77
== END 2020-02-17 22:15 | disposition home or self-care (01) ==
LOC: ER 15:28
DX: K59.00 Constipation, unspecified (principal); R14.0 Abdominal distension (gaseous); M19.90 Unspecified osteoarthritis, unspecified site; I11.9 Hypertensive heart disease without heart failure; E11.65 Type 2 diabetes mellitus with hyperglycemia; F32.9 Major depressive disorder, single episode, unspecified; I25.2 Old myocardial infarction; Z86.14 Personal history of Methicillin resistant Staphylococcus aureus infection; Z86.73 Personal history of transient ischemic attack (TIA), and cerebral infarction without residual deficits; Z90.89 Acquired absence of other organs; Z98.890 Other specified postprocedural states; Z88.8 Allergy status to other drugs, medicaments and biological substances
CPT/HCPCS: 36415; 74177; 80053; 83690; 83735; 85025; 99285; Q9967

== ENCOUNTER → 2020-03-03 | Day surgery (SDC) | payer BC, OTHER ==
[~2020-03-03] MED LIST changes: +CLOP75TA PO; +FAMO20TA5 PO; +IV RINGERS,LACTATED 1000ML 1,000 ML IV SCH; +LIDOCAINE 2% PF 5 ML VIAL. ONE; +PROPOFOL 10 MG/ML (20ML) VIAL. IV ONE; +SENN8.8S5 PO
--- NOTE | 2020-03-03 14:36 | PDOC4 ---
PROCEDURE Procedure EGD/re-PEG Indication: foreshortened g-tube/unable to use. Meds: per anesthesia Findings: E--normal G--Old PEG in place. D--normal bulb. --Old G-tube removed with snare. New g-tube placed in old stoma. Tolerated well. IMP: Failed g-tube, post-replacement. REC: Return to [facility]. Can resume feeding, meds per tube immediately. GHADA WARNER MD Mar 03, 2020 14:36
[2020-03-03 14:49] VITALS: BP 103/76
== END | disposition home or self-care (01) ==
LOC: ENDOS 13:20
PROVIDERS: ATTEND Internal Medicine Gastroenterology
DX: Z43.1 Encounter for attention to gastrostomy (principal); I10 Essential (primary) hypertension; E11.9 Type 2 diabetes mellitus without complications; E78.00 Pure hypercholesterolemia, unspecified; M19.90 Unspecified osteoarthritis, unspecified site; Z20.828 Contact with and (suspected) exposure to other viral communicable diseases; Z88.8 Allergy status to other drugs, medicaments and biological substances; Z98.890 Other specified postprocedural states; Z79.899 Other long term (current) drug therapy
CPT/HCPCS: 43246; 87426; J2704; U0003